=== PATIENT | male | born 1955 | race Caucasian/White ===

== ENCOUNTER 2016-11-12 09:18 | Inpatient (IN) | payer OTHER ==
--- NOTE | 2016-11-12 09:22 | PDOC ---
History of Present Illness <Aba Hall - Last Filed: 11/12/16 12:53> - General History Source: Family, Spouse Exam Limitations: No Limitations - History of Present Illness Initial Comments: 11/12/16 13:22 The patient is a 61 year old male, with significant past medical history of bipolar disorder, HTN, HLD, who presents to the emergency department via EMS with his and daughter complaining of lethargy, hypotension, and diarrhea x 1 week. The patient was unable to ambulate into the ER today secondary to lethargy. He was last ambulatory yesterday. The patients daughter states that the patient has been extremely tired and out of it over the past week. Yesterday , he experienced 10 episodes of yellow diarrhea. His family took him to [facility] ER where they treated him with IV fluids and performed an abdominal sonogram with normal results. The patients daughter explained that the patient was diagnosed with bipolar disorder 4 years ago. He has had manic episodes in the past followed by periods of tiredness, but the patient has never been this out of it. Denies sick contact. Denies recent travel. Denies fever, chills, nausea,vomiting. Allergies: None reported Social Hx: The patient was [place] in and [place] the [place] many years ago. PCP: His doctors are located in [facility] and affiliated with [facility]. <Sherice Tolliver - Last Filed: 11/12/16 13:23> - General Chief Complaint: Blood Pressure Problem Stated Complaint: HYPOTENSION Time Seen by Provider: 11/12/16 09:19 Past History - Psycho/Social/Smoking Cessation Hx Suicidal Ideation: No Smoking History: Never smoked Information on smoking cessation initiated: No Hx Alcohol Use: No Drug/Substance Use Hx: No <Aba Hall - Last Filed: 11/12/16 12:53> <Sherice Tolliver - Last Filed: 11/12/16 13:23> - Past Medical History Allergies/Adverse Reactions: Allergies Allergy/AdvReac Type Severity Reaction Status Date / Time No Known Allergies Allergy Verified 11/12/16 09:22 Home Medications: Ambulatory Orders Amlodipine Besylate 5 mg PO DAILY 11/12/16 Atenolol [Tenormin -] 25 mg PO DAILY 11/12/16 [place] Carbonate [Eskalith -] 150 mg PO TID 11/12/16 Losartan Potassium 100 mg PO DAILY 11/12/16 Quetiapine Fumarate [Seroquel -] 400 mg PO HS 11/12/16 Simvastatin 20 mg PO HS 11/12/16 Valproic Acid [Depakene] 250 mg PO BID 11/12/16 Review of Systems - Review of Systems Able to Perform ROS?: Yes Comments:: 11/12/16 13:22 CONSTITUTIONAL: The patient is lethargic; however he denied any specific complaints other than malaise and tiredness. No reported: Fever, Chills, Diaphoresis, Loss of Appetite HEENT: No reported: Rhinorrhea, Nasal Congestion, Throat Pain, Throat Swelling, Difficulty Swallowing, Mouth Swelling, Ear Pain, Eye Pain, Visual Changes CARDIOVASCULAR: No reported: Chest Pain, Syncope, Palpitations, Irregular Heart Rate, Lightheadedness, Peripheral Edema RESPIRATORY: No reported: Cough, Shortness of Breath, SOB with Exertion, Orthopnea, Wheezing , Stridor, Hemoptysis GASTROINTESTINAL: No reported: Abdominal pain, Abdominal Distension, Nausea, Vomiting, Diarrhea, Constipation, Melena, Hematochezia GENITOURINARY: No reported: Dysuria, Frequency, Urgency, Hesitancy, Flank Pain, Genital Pain MUSCULOSKELETAL: No reported: Myalgia, Arthralgia, Joint Swelling, Back pain, Neck Pain SKIN: No reported: Rash, Itching, Pallor HEMEATOLOGIC/IMMUNOLOGIC: No reported: Easy Bleeding, Easy Bruising, Lymphadenopathy, Frequent infections ENDOCRINE: No reported: Unexplained Weight Gain, Unexplained Weight Loss, Heat Intolerance , Cold Intolerance NEUROLOGIC: No reported: Headache, Focal Weakness, Paresthesias, Vertigo, Lightheadedness, Unsteady Gait, Seizure, Mental Status Changes, Incontinence PSYCHIATRIC: No reported: Anxiety, Depression <Sherice Tolliver - Last Filed: 11/12/16 13:23> *Physical Exam - Vital Signs Last Vital Signs Temp Pulse Resp BP Pulse Ox 97.9 F 115 H 20 107/84 96 11/12/16 09:20 11/12/16 09:20 11/12/16 09:20 11/12/16 09:20 11/12/16 09:20 <Aba Hall - Last Filed: 11/12/16 12:53> - Vital Signs Last Vital Signs Temp Pulse Resp BP Pulse Ox 97.9 F 115 H 20 107/84 96 11/12/16 09:20 11/12/16 09:20 11/12/16 09:20 11/12/16 09:20 11/12/16 09:40 - Physical Exam Comments: 11/12/16 13:22 GENERAL: The patient is lethargic/somnolent but easily arousable to verbal stimulus HEAD: Normocephalic, atraumatic. EYES: extraocular movements intact, sclera anicteric, conjunctiva clear. ENT: Normal voice, dry mucous membranes. NECK: Normal range of motion, supple LUNGS: Breath sounds equal, clear to auscultation bilaterally. No wheezes, no rhonchi, no rales. HEART: tachycardic, no m/r/g ABDOMEN: Soft, nontender, normoactive bowel sounds. No guarding, no rebound. . No CVA tenderness EXTREMITIES: Normal range of motion, no edema. moving all 4 extremities spontaneously and symmetrically NEUROLOGICAL: No facial assymetry, Normal speech, strenth symmetric 5/5 in upper /lower extremities, senation intact/symmetric in extremities PSYCH: flat affect SKIN: Warm, Dry, normal turgor, <EstaticoSebastianSherice - Last Filed: 11/12/16 13:23> Heart Score/ECG Review - ECG Impressions Comment:: 11/12/16 10:29 Twelve-lead EKG was performed and reviewed by me. There is normal sinus rhythm with a rate of 113 The axis is normal. The intervals are normal. There is normal R wave progression nonSpecific ST-T wave changes <Aba Hall - Last Filed: 11/12/16 12:53> ED Treatment Course - LABORATORY CBC & Chemistry Diagram: 11/12/16 09:27 11/12/16 09:27 <Aba Hall - Last Filed: 11/12/16 12:53> - LABORATORY CBC & Chemistry Diagram: 11/12/16 09:27 11/12/16 09:27 - ADDITIONAL ORDERS Additional order review: Laboratory Results 11/12/16 10:00 VBG pH 7.22 L* POC VBG pCO2 41.6 POC VBG pO2 37.7 Mixed VBG HCO3 16.5 L 11/12/16 09:27 RBC 4.51 MCV 89.9 MCHC 32.0 RDW 13.2 MPV 9.8 Neutrophils % 82.9 H Lymphocytes % 6.6 L Monocytes % 10.3 H Eosinophils % 0.0 Basophils % 0.2 - RADIOLOGY Radiograph Interpretation: 11/12/16 10:25 EXAM#: TYPE/EXAM: RESULT: [id number] RAD/CHEST X-RAY PORTABLE* Baseline Portable chest x ray, AP semierect A frontal view of the chest was obtained. The cardiac silhouette is within normal limits in size. The lung is clear. Mediastinum and visualized osseous structures appear intact . Impression: Unremarkable examination without evidence of acute lung disease Reported By: Terrence Bacon MD 11/12/16 1018 11/12/16 13:01 EXAM#: TYPE/EXAM: RESULT: [id number] CT/HEAD CT WITHOUT CONTRAST Change in mental status. CT scan of the brain. A noncontrast CT scan of the brain was performed. There is moderate volume loss and ventricular dilatation. Moderate chronic microvascular ischemic changes are present No gross mass lesion, focal infarct or intracranial hemorrhage is seen. Mild deviation of the nasal septum to the right and minimal mucosal thickening in the ethmoid air cells. Calcification of the cavernous carotid arteries are present. The mastoid air cells are well aerated and the calvarium is intact. Impression: Moderate atrophy and chronic microvascular ischemic changes without evidence of acute intracranial pathology. Reported By: Terrence Bacon MD 11/12/16 1208 - Medications Given in the ED: ED Medications Discontinued Medications Generic Name Dose Route Start Last Admin Trade Name Freq PRN Reason Stop Dose Admin Sodium Chloride 1,000 mls @ 1,000 mls/hr 11/12/16 09:23 11/12/16 10:00 Normal Saline - IV 11/12/16 10:22 1,000 mls/hr .Q1H ONE Administration <Sherice Tolliver - Last Filed: 11/12/16 13:23> Medical Decision Making - Medical Decision Making 11/12/16 09:40 61y M hx of ?Bipolar disorder, htn, hl presents with lethargy/generalized weakness for approx 1 week - the pts daughter states he has been very tired/ sleepy for approx 1 week, also has been having multiple episodes of non bloody, non melanotic diarrhea an dintermittent abd pain -was seen at [facility] yetserday got fluids, labs and US and pt ws d/c because he was feeling improved. Pt is very somnolent here, but he is easily arousable to verbal stimulus. Pts exam is otherwise unremarkable, w/o abd tenderness, moving all 4 extremities spontaneously, responding to verbal commands appropriately. vitals noted for tachycardia to 115, afebrile rectally differential includes possible metabolic derangement, psychiatric disease, cva, intoxication will obtain cbc, cmp, tox screen, etoh level, will give fluids for fluid resusitation, pt placed on cone classifier tender ct head to r/o cva A portion of this note was documented by scribe services under my direction. I have reviewed the details of the note, within reason, and agree with the documentation with the following case summary and management plan written by me 11/12/16 11:12 The patient's blood work was reviewed there is noted to be mild leukocytosis the patient's electrolytes were reviewed and noted to have a creatinine of 5.5 with a BUN pof 33 K is normal mag is low - will replete cxr negative lactic acid elevated to 5 will continue agressive fluid hydration will reach out to [facility] regarding the pts bsaeline creatinine simin llikely need admission for further management 11/12/16 11:18 called [facility] - lab work yesterday - Evaluated for RLQ pain, dc diagnosis diarrhea, abd pain on arrival T normal, Pulse 128, bp 100/62 cbc - wbc 11.6, no diff present bicarb - 19.6 cr 3.0, bun 20 lithium level 1.8 (nl 1.2) ua - +rbc, no wbc, specific gravity 1.30 US - right renal cysts, 'gb not identified', no masses in liver, 07/21/16 - Cr - 1.2, BUN 17, 11/12/16 12:[address] neg for acute changes pt clinically seems improved, more arousable suspect his AMS secondary to dehdration/metabolic dernagement will recheck vbg and lactic acid will admit for further management stable for med/surg HR now 106, will continue 11/12/16 12:[address] Adam agreed [facility] admission for further management of ARF and AMS stable for med/surg. Case discussed in detail with admitting physician including history, physical exam and ancillary studies. Admitting physician has assumed care for the patient, will follow all pending diagnostics and will complete the evaluation and treatment. CRITICAL CARE DOCUMENTATION: I spent ~35 minutes of Critical Care time, excluding separately billable procedures, involving high complexity decision making to assess, manipulate and support vital system function(s) to treat single or multiple vital organ system failure and/or to prevent further life threatening deterioration of the patient' s condition. <Aba Hall - Last Filed: 11/12/16 12:53> *DC/Admit/Observation/Transfer - Discharge Dispostion Admit: Yes <Aba Hall - Last Filed: 11/12/16 12:53> - Attestations Scribe Attestion: 11/12/16 13:23 Documentation prepared by LINDA Cerna, acting as medical equipment sales for Aba Hall MD. <Sherice Tolliver - Last Filed: 11/12/16 13:23> Diagnosis at time of Disposition: Hypomagnesemia Acute renal failure Qualifiers: Acute renal failure type: unspecified Qualified Code(s): N17.9 - Acute kidney failure, unspecified Altered mental state Qualifiers: Altered mental status type: somnolence Qualified Code(s): R40.0 - Somnolence Diarrhea Qualifiers: Diarrhea type: unspecified type Qualified Code(s): R19.7 - Diarrhea, unspecified - Referrals
[2016-11-12] MEDS ORDERED: SODIUM CHLORIDE 1,000 ML IV ONE ×2 (09:23→10:04)
[2016-11-12 10:03] LABS: BASOPHIL 0.2 % (0-2.0); MCH 28.8 pg (25.7-33.7); MEAN CELL VOLUME 89.9 fl (80-96); MEAN PLT VOLUME 9.8 fl (7.5-11.1); NEUTROPHILS 82.9 % (42.8-82.8); RDW 13.2 % (11.9-15.9); WHITE BLOOD COUNT 13.8 K/mm3 (4.0-10.0)
[2016-11-12 10:18] LABS: VENOUS BLOOD GAS HCO3 16.5 meq/L (19-25)
[2016-11-12 10:23] LABS: VENOUS PH 7.22 (7.32-7.42)
[2016-11-12 10:39] LABS: MAGNESIUM 1.5 mg/dL (1.8-2.4); PHOSPHOROUS 4.6 mg/dL (2.5-4.9)
[2016-11-12 10:40] LABS: ALBUMIN 3.2 g/dl (3.4-5.0); ANION GAP 13 (8-16); BILIRUBIN,TOTAL 0.5 mg/dL (0.2-1.0); CALCIUM 7.5 mg/dL (8.5-10.1); CO2 18 mmol/L (21-32); CREATININE 5.5 mg/dL (0.7-1.3); GLUCOSE,RANDOM 118 mg/dL (74-106); INR 1.05 (0.82-1.09); PROTHROMBIN TIME (PATIENT) 11.6 SEC (9.98-11.88); SGOT/AST 21 U/L (15-37); SGPT/ALT 19 U/L (12-78); TOT PROT 5.9 g/dl (6.4-8.2)
[2016-11-12 10:42] LABS: ALK PHOS 53 U/L (45-117); TROPONIN I < 0.02 ng/ml (0.00-0.05)
[2016-11-12] MEDS ORDERED: MAGNESIUM SULF 50% (8.12 MEQ/2 ML-1 GM VIAL) IVPB ONE (10:47)
[2016-11-12 10:53] LABS: URINE APPEARANCE CLOUDY; URINE BILIRUBIN NEGATIVE (NEGATIVE); URINE COLOR DKYELLOW; URINE GLUCOSE (UA) NEGATIVE (NEGATIVE); URINE KETONE NEGATIVE (NEGATIVE); URINE LEUK ESTERASE NEGATIVE (NEGATIVE); URINE NITRITE NEGATIVE (NEGATIVE); URINE UROBILINOGEN NEGATIVE E.U./dl (0.2-1.0)
--- NOTE | 2016-11-12 10:58 | EKG ---
Test Reason : Blood Pressure : / mmHG Vent. Rate : 113 BPM Atrial Rate : 113 BPM P-R Int : 162 ms QRS Dur : 084 ms QT Int : 352 ms P-R-T Axes : 046 001 102 degrees QTc Int : 482 ms SINUS TACHYCARDIA WITH PREMATURE SUPRAVENTRICULAR COMPLEXES NONSPECIFIC ST AND T WAVE ABNORMALITY ABNORMAL ECG NO PREVIOUS ECGS AVAILABLE Confirmed by RENEA POLANCO MD ([id number]) on 11/12/2016 10:57:56 AM Referred By: Confirmed By:RENEA POLANCO MD
[2016-11-12 11:01] LABS: URINE BLOOD 3+ (NEGATIVE); URINE PROTEIN 1+ (NEGATIVE)
[2016-11-12] MEDS ORDERED: MAGNESIUM SULF 50% (8.12 MEQ/2 ML-1 GM VIAL) ONE (11:04)
[2016-11-12 11:28] LABS: URINE BACTERIA RARE /hpf (NONE SEEN); URINE RBC 204 /hpf (0-3); URINE WBC 26 /hpf (3-5); YEAST MANY
[2016-11-12 12:04] LABS: PLATELET COUNT 155 K/MM3 (134-434); PLATELET ESTIMATE ADEQUATE (NORMAL)
--- NOTE | 2016-11-12 13:03 | HP ---
CHIEF COMPLAINT: "I feel sick" PCP: HISTORY OF PRESENT ILLNESS: This is a 61 yo M with PMH of HTN, HLD, dementia, bipolar d/o, who presents with diarrhea and altered mental status. history gathered from patient and family. He felt well until 4 days ago, when he developed severe yellow diarrhea (10 ep/day) w/o abdominal pain. He denies sick contacts, n or vomiting. He has lost his appetite and has not been drinking much water. He denies f/c. He has some sob, no cough. this has never happened before. He became so weak over the past 24 hr that he has been unable to walk. Family reports that over the past 24 hr he developed slurred speech. he was in [facility] yesterday where he had a normal abd us and was given IVF. He had a colonoscopy many years ago but is unsure of result. He had no knows history of kidney disease. His creat in [facility] was 3. In ED here he was straight cathed that caused urethral bleeding. IN ed he is afebrile, tachycardic, relatively hypotensive 100/68 and hypoxic high 80's. ER course was notable for: (1) IVF, Mag (2)labs (3)abd CT Recent Travel: denies PAST MEDICAL HISTORY: as above PAST SURGICAL HISTORY: none Social History: lives at home, retired Smoking: denies Alcohol: 2 drinks per week Drugs: denies Family History: no history of colon/gi ca Allergies No Known Allergies Allergy (Verified 11/12/16 09:22) HOME MEDICATIONS: Home Medications Medication Instructions Recorded Amlodipine Besylate 5 mg PO DAILY 11/12/16 Atenolol [Tenormin -] 25 mg PO DAILY 11/12/16 [place] Carbonate [Eskalith -] 150 mg PO TID 11/12/16 Losartan Potassium 100 mg PO DAILY 11/12/16 Quetiapine Fumarate [Seroquel -] 400 mg PO HS 11/12/16 Simvastatin 20 mg PO HS 11/12/16 Valproic Acid [Depakene] 250 mg PO BID 11/12/16 REVIEW OF SYSTEMS CONSTITUTIONAL: Absent: fever, chills HEENT: Absent: rhinorrhea, nasal congestion, throat pain CARDIOVASCULAR: Absent: chest pain, syncope, palpitations RESPIRATORY: Absent: orthopnea, wheezing, stridor, hemoptysis GASTROINTESTINAL: Absent: abdominal pain, nausea, vomiting, constipation, melena, hematochezia GENITOURINARY: Absent: dysuria, flank pain, genital pain MUSCULOSKELETAL: Absent: myalgia, arthralgia SKIN: Absent: rash, itching, pallor HEMATOLOGIC/IMMUNOLOGIC: Absent: frequent infections ENDOCRINE: Absent: heat intolerance, cold intolerance NEUROLOGIC: Absent: headache, focal weakness or paresthesias PSYCHIATRIC: Absent: anxiety, depression, suicidal or homicidal ideation, hallucinations. PHYSICAL EXAMINATION GENERAL: Awake, alert, and fully oriented, lethargic HEAD: Normal with no signs of trauma. EYES: Pupils equal, round and reactive to light, extraocular movements intact, sclera anicteric, conjunctiva clear. EARS, NOSE, THROAT: Moist mucous membranes. NECK: supple without JVD LUNGS: diffuse ronchi HEART: tachy rate and regular rhythm, normal S1 and S2 ABDOMEN: Soft, nontender, moderately distended, reduced bowel sounds, no mass MUSCULOSKELETAL: No CVA tenderness. UPPER EXTREMITIES: 1+ pulses, warm, well-perfused. No peripheral edema. LOWER EXTREMITIES: 1+ pulses, warm, well-perfused. No peripheral edema. NEUROLOGICAL: Cranial nerves II-XII grossly intact. Slurred speech. PSYCHIATRIC: Cooperative. Good eye contact. SKIN: Warm, dry ASSESSMENT/PLAN: This is a 61 yo M with PMH of HTN, HLD, dementia, bipolar d/o, who presents with diarrhea and altered mental status. Septic shock -possible GI vs Renal souce -lactic acidisis trending down 3.5->2.9, trend, keep hydration -IVF NS @ 125 -IV rocephin, PO flagyl -Diarrhea: stool oova parasites, gram stain, leukocytes, c diff -no BM in hospital so far -blood and urine cultures -strict monitoring of urine output MARINA on possible CKD -creat 5.5 (was 3 24 hr ago) -due to volume contraction vs septic shock -IV hydration -Renal US -renal consult Slurred speech -r/o CVA -Head CT negative -MRI brain w/o contrast -ASA -Hep -TTE -neuro consult -neuro checks q4h Hypotension -hold BP meds -treat underlying dehydration and sepsis SOB -CXR unremarkable -duonebs -d dimer Penile bleed -s/p traumatic straight cath -monitor voiding/bladder scans -breen if not voiding FEN NS@125 replete hypomagnesemia and hyponatremia NPO Dispo: admit med neptali Problem List - Problem (1) Acute renal failure Code(s): N17.9 - ACUTE KIDNEY FAILURE, UNSPECIFIED Qualifiers: Acute renal failure type: unspecified Qualified Code(s): N17.9 - Acute kidney failure, unspecified (2) Altered mental state Code(s): R41.82 - ALTERED MENTAL STATUS, UNSPECIFIED Qualifiers: Altered mental status type: somnolence Qualified Code(s): R40.0 - Somnolence (3) Diarrhea Code(s): R19.7 - DIARRHEA, UNSPECIFIED Qualifiers: Diarrhea type: unspecified type Qualified Code(s): R19.7 - Diarrhea, unspecified (4) Hypomagnesemia Code(s): E83.42 - HYPOMAGNESEMIA (5) Hypovolemia Code(s): E86.1 - HYPOVOLEMIA (6) Septic shock Code(s): A41.9 - SEPSIS, UNSPECIFIED ORGANISM R65.21 - SEVERE SEPSIS WITH SEPTIC SHOCK Visit type - Emergency Visit Emergency Visit: Yes ED Registration Date: 11/12/16 Care time: The patient presented to the Emergency Department on the above date and was hospitalized for further evaluation of their emergent condition. - New Patient This patient is new to me today: Yes Date on this admission: 11/12/16 - Critical Care Critical Care patient: No
[2016-11-12 13:47] LABS: VENOUS PH 7.22 (7.32-7.42)
[2016-11-12 13:48] LABS: VENOUS BLOOD GAS HCO3 14.6 meq/L (19-25)
[2016-11-12 13:57] VITALS: BMI 35.9
--- NOTE | 2016-11-12 14:24 | HP ---
CHIEF COMPLAINT: Diarrhea x 4 days PCP: Dr Titus HISTORY OF PRESENT ILLNESS: 61 year old male presents to ER accompanied by his complaining of 4 day history of diarrhea 6-8 episodes a day. Denies fever, nausea or vomiting. Reported recent use of antibiotics due to '' dental problem". He was evaluated at [facility] day ago for same problem , was noted to have renal insufficiency which was attributed to dehydration and he was sent home. It is difficult to obtain history directly from patient due to slurred speech. As per daughter and slurred speech is recent in onset, since yesterday. Recent Travel: NO PAST MEDICAL HISTORY: Bipolar disorder Dementia early onset HTN Hyperlipidemia Obesity Nephrolithiasis PAST SURGICAL HISTORY: Social History: Smoking: quit 10 years ago , 20p/year Alcohol:Denies Drugs: Denies Family History: Allergies No Known Allergies Allergy (Verified 11/12/16 09:22) HOME MEDICATIONS: Home Medications Medication Instructions Recorded Amlodipine Besylate 5 mg PO DAILY 11/12/16 Atenolol [Tenormin -] 25 mg PO DAILY 11/12/16 [place] Carbonate [Eskalith -] 300 mg PO TID 11/12/16 Losartan Potassium 100 mg PO DAILY 11/12/16 Quetiapine Fumarate [Seroquel -] 400 mg PO HS 11/12/16 Simvastatin 20 mg PO HS 11/12/16 Valproic Acid [Depakene] 250 mg PO BID 11/12/16 REVIEW OF SYSTEMS CONSTITUTIONAL: Absent: fever, chills, diaphoresis, generalized weakness, malaise, loss of appetite, weight change HEENT: Absent: rhinorrhea, nasal congestion, throat pain, throat swelling, difficulty swallowing, mouth swelling, ear pain, eye pain, visual changes CARDIOVASCULAR: Absent: chest pain, syncope, palpitations, irregular heart rate, lightheadedness , peripheral edema RESPIRATORY: Absent: cough, dyspnea with exertion, orthopnea, wheezing, stridor, hemoptysis. Positive for shortness of breath GASTROINTESTINAL: Absent: abdominal pain, abdominal distension, nausea, vomiting constipation, melena, hematochezia. Positive for diarrhea. GENITOURINARY: Absent: dysuria, frequency, urgency, hesitancy, hematuria, flank pain, genital pain MUSCULOSKELETAL: Absent: myalgia, arthralgia, joint swelling, back pain, neck pain SKIN: Absent: rash, itching, pallor HEMATOLOGIC/IMMUNOLOGIC: Absent: easy bleeding, easy bruising, lymphadenopathy, frequent infections ENDOCRINE: Absent: unexplained weight gain, unexplained weight loss, heat intolerance, cold intolerance NEUROLOGIC: Absent: headache dizziness, unsteady gait, seizure, mental status changes, bladder or bowel incontinence. Positive for slurred speech PSYCHIATRIC: Absent: anxiety, depression, suicidal or homicidal ideation, hallucinations. PHYSICAL EXAMINATION Vital Signs - 24 hr 11/12/16 13:35 Pulse Rate 97 H Respiratory 20 Rate Blood Pressure 106/67 O2 Sat by Pulse 91 L Oximetry (%) GENERAL: Awake, alert, and fully oriented, appears anxious and short of breath . HEAD: Normal with no signs of trauma.Increased neck circumference. EYES: Pupils equal, round and reactive to light, extraocular movements intact, sclera anicteric, conjunctiva clear. No lid lag. EARS, NOSE, THROAT: Ears normal, nares patent, oropharynx clear without exudates. DRY mucous membranes.Poor dentition. Dentures are out . NECK: Normal range of motion, supple without lymphadenopathy, JVD, or masses. LUNGS: Breath sounds equal, clear to auscultation bilaterally. B/L scattered ronchi HEART: Regular rate and rhythm, normal S1 and S2 without murmur, rub or gallop. ABDOMEN: Soft, nontender,obese , not distended, normoactive bowel sounds, no guarding, no rebound, no masses. No hepatomegaly or splenomegaly. MUSCULOSKELETAL: Normal range of motion at all joints. No bony deformities or tenderness. No CVA tenderness. UPPER EXTREMITIES: 2+ pulses, warm, well-perfused. No cyanosis. No clubbing. No peripheral edema. LOWER EXTREMITIES: 2+ pulses, warm, well-perfused. No calf tenderness. No peripheral edema. NEUROLOGICAL: Unable to deviate tongue to the right . Dysarthria. Unsteady gait , unable to fully evaluate due to risk of fall. PSYCHIATRIC: Cooperative. Good eye contact. Appropriate mood and affect. SKIN: Warm, dry, normal turgor, no rashes or lesions noted, normal capillary refill. Urine Test Results Urine Color Dkyellow 11/12/16 09:27 Urine Appearance Cloudy 11/12/16 09:27 Urine pH 5.0 (5.0-8.0) 11/12/16 09:27 Ur Specific [place] 1.015 (1.001-1.035) 11/12/16 09:27 Urine Protein 1+ (NEGATIVE) H 11/12/16 09:27 Urine Glucose (UA) Negative (NEGATIVE) 11/12/16 09:27 Urine Ketones Negative (NEGATIVE) 11/12/16 09:27 Urine Blood 3+ (NEGATIVE) H 11/12/16 09:27 Urine Nitrite Negative (NEGATIVE) 11/12/16 09:27 Urine Bilirubin Negative (NEGATIVE) 11/12/16 09:27 Ur Leukocyte Esterase Negative (NEGATIVE) 11/12/16 09:27 Urine RBC 204 /hpf (0-3) 11/12/16 09:27 Urine WBC 26 /hpf (3-5) 11/12/16 09:27 Ur Epithelial Cells Rare /hpf (FEW) 11/12/16 09:27 Urine Bacteria Rare /hpf (NONE SEEN) 11/12/16 09:27 Abnormal Lab Results 11/12/16 11/12/16 11/12/16 09:27 09:27 09:27 WBC 13.8 H Neutrophils % 82.9 H Lymphocytes % 6.6 L Monocytes % 10.3 H VBG pH POC VBG pCO2 POC VBG pO2 Mixed VBG HCO3 Sodium 135 L Carbon Dioxide 18 L BUN 33 H Creatinine 5.5 H Random Glucose 118 H Lactic Acid Calcium 7.5 L Magnesium Total Protein 5.9 L Albumin 3.2 L Urine Protein 1+ H Urine Blood 3+ H 11/12/16 11/12/16 11/12/16 09:27 09:50 10:00 WBC Neutrophils % Lymphocytes % Monocytes % VBG pH 7.22 L* POC VBG pCO2 POC VBG pO2 Mixed VBG HCO3 16.5 L Sodium Carbon Dioxide BUN Creatinine Random Glucose Lactic Acid 3.524 H* Calcium Magnesium 1.5 L Total Protein Albumin Urine Protein Urine Blood 11/12/16 11/12/16 12:40 12:46 WBC Neutrophils % Lymphocytes % Monocytes % VBG pH 7.22 L* POC VBG pCO2 36.7 L POC VBG pO2 143.0 H D Mixed VBG HCO3 14.6 L* Sodium Carbon Dioxide BUN Creatinine Random Glucose Lactic Acid 2.902 H* Calcium Magnesium Total Protein Albumin Urine Protein Urine Blood CXR shows no acute pulmonary disease . Problem List 1. ARF 2. Hypotension 3. Hypoxia 4. Hypomagnesemia 5. Abnormal UA 6. Elevated Lactate Level 7. Leukocytosis 8. Slurred speech new onset ASSESSMENT/PLAN: 1. Acute renal failure - in presence of 4 day hhistory of diarrhea. Possibly pre renal. Yesterday Cr was around 3. - IV Fluids - Monitor Cr - Renal US - check post void residual / bladder scan - Nephrology consult 2. Sepsis ( borderline hypotension , leukocytosis , elevated lactate ) due to possible UTI - Rocephin once - await cultures - c/w fluids and trend lactate -blood cultures 3. Hypoxia - r/o PE , high risk - supplement 02 - nebulizers PRN - ddimers , if posistive -r/o PE - ECHO 5. Dysarthria- 1-2 days of duration . R/O CVA . - MRI brain - ASA - Statins - Neurology evaluation . 6 . History of bipolar disorder - check Depakote and [place] level and reinstate meds if within theraputic range. 7. DVT PPX - heparin SC Admit as an INPATIENT Length of stay expectation is greater then 2 midnights. Visit type - Emergency Visit Emergency Visit: Yes ED Registration Date: 11/12/16 Care time: The patient presented to the Emergency Department on the above date and was hospitalized for further evaluation of their emergent condition. - New Patient This patient is new to me today: Yes Date on this admission: 11/12/16 - Critical Care Critical Care patient: No
[2016-11-12] MEDS ORDERED: ALBUTEROL SO4 2.5/IPRATROPIUM 0.5 INH SOL 3 ML VIAL.NEB. NEB PRN (14:42)
[2016-11-12] MEDS ORDERED: SODIUM CHLORIDE 1,000 ML IV SCH ×2 (14:45→17:15)
--- NOTE | 2016-11-12 15:26 | CON.NEURO ---
Consult Consult Specialty:: NEUROLOGY Reason for Consultation:: dysarthria - History of Present Illness History of Present Illness: 61 year old male with pmh. bipolar disease, on lithium, HTN, HLD, back pain presents to ER accompanied by his complaining of 4 day history of diarrhea 6-8 episodes a day. Denies fever, nausea or vomiting. Reported recent use of antibiotics due to '' dental problem". He was evaluated at [facility] day ago for same problem , was noted to have renal insufficiency which was attributed to dehydration and he was sent home. As per daughter and the patient has slurred speech since yesterday. - Alcohol/Substance Use Hx Alcohol Use: No - Smoking History Smoking history: Former smoker Have you smoked in the past 12 months: No If you are a former smoker, when did you quit?: 10 YRS AGO Home Medications - Allergies Allergies/Adverse Reactions: Allergies Allergy/AdvReac Type Severity Reaction Status Date / Time No Known Allergies Allergy Verified 11/12/16 09:22 - Home Medications Home Medications: Ambulatory Orders Amlodipine Besylate 5 mg PO DAILY 11/12/16 Atenolol [Tenormin -] 25 mg PO DAILY 11/12/16 [place] Carbonate [Eskalith -] 300 mg PO TID 11/12/16 Losartan Potassium 100 mg PO DAILY 11/12/16 Quetiapine Fumarate [Seroquel -] 400 mg PO HS 11/12/16 Simvastatin 20 mg PO HS 11/12/16 Valproic Acid [Depakene] 250 mg PO BID 11/12/16 Review of Systems - Review of Systems Constitutional: reports: No Symptoms, Lethargy, Weakness Eyes: reports: No Symptoms HENT: reports: No Symptoms Neck: reports: No Symptoms Cardiovascular: reports: No Symptoms Respiratory: reports: No Symptoms Gastrointestinal: reports: Diarrhea Genitourinary: reports: No Symptoms Breasts: reports: No Symptoms Reported Musculoskeletal: reports: Muscle Weakness Neurological: reports: No Symptoms Endocrine: reports: No Symptoms Hematology/Lymphatic: reports: No Symptoms Psychiatric: reports: Other (bipolar) Physical Exam-Neuro Vital Signs: Vital Signs Temperature 97.5 F L 11/12/16 15:02 Pulse Rate 94 H 11/12/16 15:02 Respiratory Rate 20 11/12/16 15:02 Blood Pressure 97/50 11/12/16 15:02 O2 Sat by Pulse Oximetry (%) 91 L 11/12/16 13:35 Constitutional: Yes: Mild Distress Neck: Yes: Supple, Trachea Midline Cardiovascular: Yes: Regular Rate and Rhythm, S1, S2 Respiratory: Yes: Regular, CTA Bilaterally Gastrointestinal: Yes: Abdomen, Obese, Distention, Hypoactive Bowel Sounds, Other (diarrhea) Renal/: Yes: Anuria Musculoskeletal: Yes: WNL Edema: Yes Edema: LUE: 1+, RUE: 1+, LLE: 1+, RLE: 1+ Psychiatric: Yes: Alert, Oriented Labs: INR, PTT INR 1.05 (0.82-1.09) 11/12/16 09:27 - Neuro Exam Level Of Consciousness: Yes: Oriented to Person, Oriented to Place, Oriented to Time Eyes: Yes: PERRLA Speech: Slurred Dominant Hand: Right Cranial Nerves II-XII Intact: Yes Gag: Present DTR's: 1+ Left Bicep, 1+ Right Bicep, 1+ Left Tricep, 1+ Right Tricep, 1+ Left Brachioradialis, 1+ Right Brachioradialis, 1+ Left Achilles, 1+ Right Achilles Babinski: Absent Response to light touch: Normal Response to pain prick: Normal Response to temperature: Normal Movement Disorders: Asterixis Coordination: Normal: Finger to Nose (ataxia FTN bilaterally, + asterixis) Motor Strength: 5/5: Left Arm, Right Arm, Left Leg, Right Leg Gait: Deferred NIH Stroke Scale - Total Score NIH Stroke Scale Score: 0 Imaging - Results Cat Scan: Report Reviewed, Image Reviewed Assessment/Plan 61 year old male with pmh. bipolar disease, on lithium for five years, depakene , HTN, HLD presents to ER accompanied by his complaining of 4 day history of diarrhea 6-8 episodes a day. Denies fever, nausea or vomiting. Reported recent use of antibiotics due to '' dental problem". He was evaluated at [facility] day ago for same problem , was noted to have renal insufficiency which was attributed to dehydration and he was sent home. As per daughter and the patient has slurred speech since yesterday. No focal neurological deficit. + asterixis. + mild ataxia FTN bilaterally Impression: metabolic encephalopathy - renal/hepatic, dehydration, dysarthria, generalized weakness. Plan: - replace electrolytes, correct metabolic acidosis, correct anion gap - check lithium level. - DVT prophylaxis with heparin sq. - continues asa , statin, depakene, keep sbp 120-130mmHg. Thank you for this consult.
[2016-11-12] MEDS ORDERED: cefTRIAXone 1 GM/50 ML BAG (PRE-DOCKED) IVPB ONE (15:30)
[2016-11-12] MEDS ORDERED: metroNIDAZOLE 500 MG TABLET PO ONE (15:37)
[2016-11-12] MEDS ORDERED: ASPIRIN COATED 81 MG TABLET.EC PO SCH (15:45)
--- NOTE | 2016-11-12 16:03 | CONSULT ---
Admitting History and Physical - Primary Care Physician PCP: Rylan Adam - Admission History of Present Illness: Per EMR: "Initial Comments: 11/12/16 13:22 The patient is a 61 year old male, with significant past medical history of bipolar disorder, HTN, HLD, who presents to the emergency department via EMS with his and daughter complaining of lethargy, hypotension, and diarrhea x 1 week. The patient was unable to ambulate into the ER today secondary to lethargy. He was last ambulatory yesterday. The patients daughter states that the patient has been extremely tired and out of it over the past week. Yesterday , he experienced 10 episodes of yellow diarrhea. His family took him to [facility] where they treated him with IV fluids and performed an abdominal sonogram with normal results. The patients daughter explained that the patient was diagnosed with bipolar disorder 4 years ago. He has had manic episodes in the past followed by periods of tiredness, but the patient has never been this out of it. " Pt reports that he has had diarrhea for 4 days and feels very weak. His reports a change in his speech production, describing it as not clear since yesterday. History Source: Patient, Medical Record Limitations to Obtaining History: Clinical Condition, Language Barrier - Smoking History Smoking history: Former smoker Have you smoked in the past 12 months: No If you are a former smoker, when did you quit?: 10 YRS AGO - Alcohol/Substance Use Hx Alcohol Use: No History - Admission Reason For Visit: ARF,AMS - Diagnostics X-ray: Report Reviewed CT Scan: Report Reviewed - General Mental Status: Alert and Oriented, Awake and Alert, Able to Follow Commands Attention: Intact Ability to Follow Directions: Good Head/Neck Control: WFL - Hearing Hearing: Functional Hearing: Normal Hearing Aide: No Speech Evaluation - Communication Primary Language: GAMBIAN Secondary Language: FAROESE (limited) Communication: Yes: Simple Responses - Speech Production Intelligibility: Yes: Mildly Impaired - Speech Characteristics Voice Loudness: Mildly Soft/Quiet Voice Pitch: Yes: Normal Voice Phonatory-based Quality: Yes: Dysphonia Speech Pattern: Impaired Speech Clarity: < 75% Articulation: Yes: Imprecise Dysfluency: Yes: Tonic (occasional stuttering-like speech) - Swallow Evaluation/Bedside Assessment Current Nutritional Intake: NPO Oral Secretions: Yes: WFL Dentition: Yes: Missing Teeth (few teeth. has dentures) Facial Symmetry at Rest: Symmetrical Facial Symmetry on Retraction: Symmetrical Facial Movement: Controlled Against Resistance Opening: Normal Against Resistance Closing: Normal Pucker Lips: Normal Smile: Normal Lingual Movement: Normal Lingual Speed of Movement: Normal Lingual Movement Strgth Against Opposition: Normal Lingual Movement Characteristics: Normal Velopharyngeal Movement: Normal Laryngeal Elevation: WFL Laryngeal Movement: Able to Palpate Rate of Intake: WFL Bolus Size: WFL Labial Seal: WFL Chewing: WFL Oral Prep Time: WFL A-P Transit: WFL Pocketing: None Timing of Swallow: WFL Coughing/Throat Clear: No Change in Voice: No Recommendations - Speech Evaluation, Impression/Plan Impression: Pt is verbal in Monegasque and some Wallisian. O x 3. Dysphonic voice, imprecise articulation and dysfluencies at times. Possibly sec abnormal labs. Diarrhea x 4 days/feeling weak. Swallowing intact - Dysphagia Impressions/Plan Swallowing Skills: WFL *Silent aspiration: cannot be R/O at bedside Dysphagia Treatment Plan: Safe Rate, Elevate HOB during feed - Recommendations Diet Consistency: Regular (with dentures in place for meals. BRAT diet?.) Liquids: Thin Liquids
--- NOTE | 2016-11-12 16:25 | CONSULT ---
Consult - text type - Consultation Consultation Note: Renal Consult for MARINA This is a 61 year old Gentleman with PMhx of Bipolar disorder, Demntia, Hypertension on ARB, Hyperlipidemia, Obesity, Nephrolithiasis who presents with complaints of weakness and diarrhea x 4 days and found to have BUN/Cr of 33/ 5.5. Pt denies any N/V or Abd pain. Pt also reports decreased urine output for 4 days. No new meds or sick contacts. No flank pain. No rash. + NSAID use. On ARB at home. No sob or chest pain. Speech is mumbled which is new as per . Pt is not confused. s/p staright cath in the ED with only 100cc urine output after 2L of IVF. PMhx: As above Allergies: NKDA Family Hx: NC Social Hx: No T/A/D ROS: as per HPI, all other ros negative Home Meds: Home Medications Medication Instructions Recorded Amlodipine Besylate 5 mg PO DAILY 11/12/16 Atenolol [Tenormin -] 25 mg PO DAILY 11/12/16 [place] Carbonate [Eskalith -] 300 mg PO TID 11/12/16 Losartan Potassium 100 mg PO DAILY 11/12/16 Quetiapine Fumarate [Seroquel -] 400 mg PO HS 11/12/16 Simvastatin 20 mg PO HS 11/12/16 Valproic Acid [Depakene] 250 mg PO BID 11/12/16 Vital Signs Temperature 97.5 F L 11/12/16 15:02 Pulse Rate 94 H 11/12/16 15:02 Respiratory Rate 20 11/12/16 15:02 Blood Pressure 97/50 11/12/16 15:02 O2 Sat by Pulse Oximetry (%) 91 L 11/12/16 13:35 Intake & Output 11/09/16 11/10/16 11/11/16 11/12/16 23:59 23:59 23:59 23:59 Weight 236 lb Gen: NAD, awake and alert. Mumbled speech HEENT: NC/AT, MMM, No JVD CVS: RRR, No M/R Lungs: CTA, no rales or wheeze Abd: soft + distension, no tenderness. + BS Ext: no edema, clubbing or cyanosis : No overt bladder distension Neuro: Awake and alert CBC, BMP 11/12/16 09:27 11/12/16 09:27 Current Medications Albuterol/Ipratropium (Duoneb -) 1 amp NEB Q6H PRN PRN Reason: SHORTNESS OF BREATH Aspirin (Ecotrin -) 81 mg PO DAILY LATISHA Atenolol (Tenormin -) 25 mg PO DAILY LATISHA Atorvastatin Calcium (Lipitor -) 10 mg PO HS LATISHA Heparin Sodium (Porcine) (Heparin -) 5,000 unit SQ BID LATISHA Sodium Chloride (Normal Saline -) 1,000 mls @ 100 mls/hr IV ASDIR LATISHA A/P 61 year old Gentleman with PMhx of Bipolar disorder, Demntia, Hypertension on ARB, Hyperlipidemia, Obesity, Nephrolithiasis who presents with complaints of weakness and diarrhea x 4 days and found to have BUN/Cr of 33/5.5. #Acute Renal Failure Differntial includes ATN from NSAIDs/Volume Depletion/ARB vs. HUS (darrhea and renal failure) vs. Obstruction (Hx of stones) Check FeNa to r/o pre-renal vs ATN Check UPCR REnal US to r/o obstruction check C3 and C4 Continue isotonic IVF for now with goal MAP > 65 trend urine output no acute indication for CLOTHES PRESSER Dose all meds for Cr Cl less then 15 #Metabolic acidosis (anion gap and non anion gap) Corrected Anion gap is 15 Secondary to diarrhea + Renal failure Change IVF to 1/2 NS with 75meq of NaCo3 repeat BMP in the evening #Lactic acidosis from volume depletion Trend after IVF volume expansion #Diarrhea stool studies as per primary #AMS/Altered Speech Neuro eval MRI brain pending Thank you Will follow
[2016-11-12] MEDS ORDERED: metroNIDAZOLE 250 MG TABLET PO ONE (17:15)
[2016-11-12 18:04] LABS: CALCIUM 7.3 mg/dL (8.5-10.1); CREATININE 4.7 mg/dL (0.7-1.3)
[2016-11-12] MEDS ORDERED: ACETAMINOPHEN 1000 MG/100 ML VIAL (NON FORMULARY) IVPB ONE (18:27)
--- NOTE | 2016-11-12 18:43 | HOSP ---
Subjective - Review of Symptoms Events since last encounter: Vital Signs Temperature 98 F 11/12/16 18:19 Pulse Rate 130 H 11/12/16 18:19 Respiratory Rate 24 11/12/16 18:19 Blood Pressure 110/50 11/12/16 18:19 O2 Sat by Pulse Oximetry (%) 91 L 11/12/16 13:35 The nurse called since the patient is tachycardic with chills, hypoxic. will transfer the patient to ICU, blood culture, stool culture ordered, Ua, urine culture ordered, IVF as per 's order 100% NR placed on this patient, discussed with ICU attending , patient is accepted to go to ICU # Sepsis ;ID consult requested will start the patient with rocephin/flagyl IV , stat CXR was done # ARF ;stat breen catheter critical care 35minutes Physical Examination Vital Signs: Vital Signs Temperature 98 F 11/12/16 18:19 Pulse Rate 130 H 11/12/16 18:19 Respiratory Rate 24 11/12/16 18:19 Blood Pressure 110/50 11/12/16 18:19 O2 Sat by Pulse Oximetry (%) 91 L 11/12/16 13:35 Labs: CBC, BMP 11/12/16 17:30
[2016-11-12] MEDS: SODIUM CHLORIDE 0.45% 1,000 ML with SODIUM BICARBONATE 8.4% - 75 MEQ IV SCH (19:53)
[2016-11-12] MEDS: METRONIDAZOLE 500 MG PREMIXED 100 ML IVPB SCH (19:54)
--- NOTE | 2016-11-12 20:28 | CONSULT ---
Consult Consult Specialty:: Pulm/CCM Reason for Consultation:: SOB, ARF - History of Present Illness Chief Complaint: diarrhea History of Present Illness: This is a 61 yo man HTN, bipolar on lithium who presented to ED with diarrhea x 1 week ( 6-10 bm/day, non bloody, yellow), complicated by lethargy, dysarthria and weakness w/ difficulty ambulating. Per family he recently was treated with ABX for oral infection (unknown ABX or duration). He was seen the day prior to admission at [facility] ED and was treated for dehydration and ARF (SCr 3). In the ED he was noted to be lethargic. CT head: w/o evidence of acute pathology. Labs significant for Lactate: 3.5, leukocytosis (13.5). He was treated with IV fluids and ABX for infectious diarrhea and covered for c. diff given recent ABX. He was transferred to ICU for continued care and monitoring. In the ICU patient awake and alert. Swallow eval w/o evidence of dysphagia. LE dopplers done given elevated d-dimer and SOB (read pending). ECHO: EF 56%, hyperdynamic. - History Source History Provided By: Patient, Medical Record Limitations to Obtaining History: Language Barrier - Alcohol/Substance Use Hx Alcohol Use: No - Smoking History Smoking history: Former smoker Have you smoked in the past 12 months: No If you are a former smoker, when did you quit?: 10 YRS AGO Home Medications - Allergies Allergies/Adverse Reactions: Allergies Allergy/AdvReac Type Severity Reaction Status Date / Time No Known Allergies Allergy Verified 11/12/16 09:22 - Home Medications Home Medications: Ambulatory Orders Amlodipine Besylate 5 mg PO DAILY 11/12/16 Atenolol [Tenormin -] 25 mg PO DAILY 11/12/16 Hutchins Carbonate [Eskalith -] 300 mg PO TID 11/12/16 Losartan Potassium 100 mg PO DAILY 11/12/16 Quetiapine Fumarate [Seroquel -] 400 mg PO HS 11/12/16 Simvastatin 20 mg PO HS 11/12/16 Valproic Acid [Depakene] 250 mg PO BID 11/12/16 Family Disease History - Family Disease History Family History: Unremarkable Review of Systems - Review of Systems Constitutional: reports: Lethargy Respiratory: reports: SOB Gastrointestinal: reports: Diarrhea Physical Exam Vital Signs: Vital Signs Temperature 98 F 11/12/16 18:19 Pulse Rate 130 H 11/12/16 18:19 Respiratory Rate 24 11/12/16 18:19 Blood Pressure 110/50 11/12/16 18:19 O2 Sat by Pulse Oximetry (%) 91 L 11/12/16 13:35 Current Medications Acetaminophen (Tylenol -) 650 mg PO Q6H PRN PRN Reason: FEVER OR PAIN Albuterol/Ipratropium (Duoneb -) 1 amp NEB Q6H PRN PRN Reason: SHORTNESS OF BREATH Aspirin (Ecotrin -) 81 mg PO DAILY [facility] Last Admin: 11/12/16 17:30 Dose: 81 mg Atenolol (Tenormin -) 25 mg PO DAILY [facility] Atorvastatin Calcium (Lipitor -) 10 mg PO HS [facility] Last Admin: 11/12/16 21:25 Dose: 10 mg Ceftriaxone Sodium (Rocephin 2gm Ivpb (Pre-Docked)) 2 gm IVPB DAILY [facility] Heparin Sodium (Porcine) (Heparin -) 5,000 unit SQ BID [facility] Last Admin: 11/12/16 21:24 Dose: 5,000 unit Sodium Bicarbonate 75 meq/ (Sodium Chloride) 1,075 mls @ 125 mls/hr IV Q8H [facility] Last Admin: 11/12/16 19:53 Dose: 125 mls/hr Metronidazole (Flagyl 500mg Premixed Ivpb -) 100 mls @ 100 mls/hr IVPB Q8H-IV [facility] Last Admin: 11/12/16 19:54 Dose: 100 mls/hr Lactated Ringer's (Lactated Ringers Solution) 1,000 mls @ 1,000 mls/hr IV ASDIR [facility] Stop: 11/12/16 22:59 Pantoprazole Sodium (Protonix -) 20 mg PO BID [facility] Constitutional: Yes: No Distress, Calm Eyes: Yes: EOM Intact Cardiovascular: Yes: Regular Rate and Rhythm, S1, S2 Respiratory: Yes: Diminished, SOB Gastrointestinal: Yes: Normal Bowel Sounds, Soft, Abdomen, Obese Edema: No Neurological: Yes: Alert, Oriented ...Motor Strength: WNL Psychiatric: Yes: Oriented Labs: CBCD WBC 13.8 K/mm3 (4.0-10.0) H 11/12/16 09:27 RBC 4.51 M/mm3 (4.00-5.60) 03/17/17 09:27 Hgb 13.0 GM/dL (11.7-16.9) 11/12/16 09:27 Hct 40.6 % (35.4-49) 11/12/16 09:27 MCV 89.9 fl (80-96) 11/12/16 09:27 MCHC 32.0 g/dl (32.0-35.9) 11/12/16 09:27 RDW 13.2 % (11.9-15.9) 11/12/16 09:27 Plt Count 155 K/MM3 (134-434) 11/12/16 09:27 MPV 9.8 fl (7.5-11.1) 11/12/16 09:27 CMP Sodium 137 mmol/L (136-145) 11/12/16 17:30 Potassium 4.0 mmol/L (3.5-5.1) 11/12/16 17:30 Chloride 108 mmol/L (98-107) H 11/12/16 17:30 Carbon Dioxide 18 mmol/L (21-32) L 11/12/16 17:30 Anion Gap 11 (8-16) 11/12/16 17:30 BUN 33 mg/dL (7-18) H 11/12/16 17:30 Creatinine 4.7 mg/dL (0.7-1.3) H 11/12/16 17:30 Creat Clearance w eGFR 10.59 (>60) 11/12/16 09:27 Random Glucose 106 mg/dL (74-106) 11/12/16 17:30 Calcium 7.3 mg/dL (8.5-10.1) L 11/12/16 17:30 Total Bilirubin 0.5 mg/dL (0.2-1.0) 11/12/16 09:27 AST 21 U/L (15-37) 11/12/16 09:27 ALT 19 U/L (12-78) 11/12/16 09:27 Alkaline Phosphatase 53 U/L (45-117) 11/12/16 09:27 Total Protein 5.9 g/dl (6.4-8.2) L 11/12/16 09:27 Albumin 3.2 g/dl (3.4-5.0) L 11/12/16 09:27 CARDIAC ENZYMES Creatine Kinase 170 IU/L (39-308) 11/12/16 09:27 Troponin I < 0.02 ng/ml (0.00-0.05) 11/12/16 09:27 Laboratory Tests 11/12/16 11/12/16 11/12/16 09:50 10:08 12:40 Lactic Acid 3.524 H* 2.902 H* Alcohol, Quantitative < 5.0 Urine Test Results Urine Color Dkyellow 11/12/16 09:27 Urine Appearance Cloudy 11/12/16 09:27 Urine pH 5.0 (5.0-8.0) 11/12/16 09:27 Ur Specific [place] 1.015 (1.001-1.035) 11/12/16 09:27 Urine Protein 1+ (NEGATIVE) H 11/12/16 09:27 Urine Glucose (UA) Negative (NEGATIVE) 11/12/16 09:27 Urine Ketones Negative (NEGATIVE) 11/12/16 09:27 Urine Blood 3+ (NEGATIVE) H 11/12/16 09:27 Urine Nitrite Negative (NEGATIVE) 11/12/16 09:27 Urine Bilirubin Negative (NEGATIVE) 11/12/16 09:27 Ur Leukocyte Esterase Negative (NEGATIVE) 11/12/16 09:27 Urine RBC 204 /hpf (0-3) 11/12/16 09:27 Urine WBC 26 /hpf (3-5) 11/12/16 09:27 Ur Epithelial Cells Rare /hpf (FEW) 11/12/16 09:27 Urine Bacteria Rare /hpf (NONE SEEN) 11/12/16 09:27 Imaging - Results Chest X-ray: Report Reviewed, Image Reviewed Other: Other (ECHO: reviewed) Problem List - Problems (1) Acute renal failure Code(s): N17.9 - ACUTE KIDNEY FAILURE, UNSPECIFIED Qualifiers: Acute renal failure type: unspecified Qualified Code(s): N17.9 - Acute kidney failure, unspecified (2) Altered mental state Code(s): R41.82 - ALTERED MENTAL STATUS, UNSPECIFIED Qualifiers: Altered mental status type: somnolence Qualified Code(s): R40.0 - Somnolence (3) Diarrhea Code(s): R19.7 - DIARRHEA, UNSPECIFIED Qualifiers: Diarrhea type: unspecified type Qualified Code(s): R19.7 - Diarrhea, unspecified (4) Hypovolemia Code(s): E86.1 - HYPOVOLEMIA Assessment/Plan 61 yo man with bipolar p/w severe diarrhea ~1 week c/b dehydration, non-AG metabolic acidosis, lactate and ARF m/l prerenal, ? UTI (bloody sample w/ neg LE /N) -cont ABX for GI and possible UTI -O2 for sat >90% -r/o infectious causes of diarrhea, stool o&p, send for c. diff, crypto, giardia and norovirus -send HIV test to r/o immunocompromised state -renal dose meds -urine lytes -IV fluids -urine lytes -f/u LE dopplers -diet -sq heparin -PPI given ARF Boerem ACNP Pulm/CCM CCT: 35
[2016-11-12] MEDS ORDERED: HEPARIN NA (PORCINE) 5,000 UNITS/ML 1ML VIAL ONE (20:52)
[2016-11-12] MEDS ORDERED: ACETAMINOPHEN 325 MG TABLET (FP) PO PRN (22:00)
[2016-11-12] MEDS ORDERED: HEPARIN NA (PORCINE) 5,000 UNITS/ML 1ML VIAL SQ SCH (22:00)
[2016-11-12] MEDS ORDERED: ATORVASTATIN CA 10 MG TABLET (FP) PO SCH (22:00)
[2016-11-12] MEDS ORDERED: LACTATED RINGERS SOLUTION 1,000 ML IV SCH (22:00)
[2016-11-12] MEDS: PANTOPRAZOLE 20 MG TABLET (FP) PO SCH (22:30)
[2016-11-12 22:35] LABS: URINE APPEARANCE CLOUDY; URINE BILIRUBIN NEGATIVE (NEGATIVE); URINE COLOR YELLOW; URINE GLUCOSE (UA) NEGATIVE (NEGATIVE); URINE KETONE NEGATIVE (NEGATIVE); URINE LEUK ESTERASE NEGATIVE (NEGATIVE); URINE NITRITE NEGATIVE (NEGATIVE); URINE UROBILINOGEN NEGATIVE E.U./dl (0.2-1.0)
[2016-11-12 22:37] LABS: URINE BLOOD 3+ (NEGATIVE); URINE PROTEIN 1+ (NEGATIVE)
[2016-11-12 22:40] LABS: URINE BACTERIA RARE /hpf (NONE SEEN); URINE HYALINE CAST 2 /lpf; URINE MUCUS RARE; URINE RBC 281 /hpf (0-3); URINE WBC 7 /hpf (3-5)
[2016-11-12 22:45] LABS: URINE MARIJUANA THC NEGATIVE ng/ml (CUTOFF=50)
[2016-11-13] MEDS: METRONIDAZOLE 500 MG PREMIXED 100 ML IVPB SCH (01:33)
[2016-11-13 06:00] LABS: BASOPHIL 0.2 % (0-2.0); EOSINOPHIL 0.1 % (0-4.5); MCH 29.3 pg (25.7-33.7); MCHC 33.2 g/dl (32.0-35.9); MEAN CELL VOLUME 88.2 fl (80-96); NEUTROPHILS 76.4 % (42.8-82.8); PLATELET COUNT 230 K/MM3 (134-434); RDW 13.1 % (11.9-15.9); WHITE BLOOD COUNT 14.3 K/mm3 (4.0-10.0)
[2016-11-13] MEDS: SODIUM CHLORIDE 0.45% 1,000 ML with SODIUM BICARBONATE 8.4% - 75 MEQ IV SCH ×2 (06:00→14:18)
[2016-11-13 06:30] LABS: BILIRUBIN,TOTAL 0.5 mg/dL (0.2-1.0); CALCIUM 7.5 mg/dL (8.5-10.1); CREATININE 4.6 mg/dL (0.7-1.3); MAGNESIUM 2.1 mg/dL (1.8-2.4); PHOSPHOROUS 4.2 mg/dL (2.5-4.9); TOT PROT 5.9 g/dl (6.4-8.2)
--- NOTE | 2016-11-13 07:37 | PN ---
Progress Note, Physician Chief Complaint: ID Full note dictated 61 male bipolar admitted with profound lethargy weakness diarrhea. Chart mentions proceeding history of antibiotics ? drug. Febrile 101. Currently alert making sense Appears comfortable and denies any pain or other complaints. Does not appear to have diarrhea currently per nursing staff. - Current Medication List Current Medications: Active Medications Acetaminophen (Tylenol -) 650 mg PO Q6H PRN PRN Reason: FEVER OR PAIN Albuterol/Ipratropium (Duoneb -) 1 amp NEB Q6H PRN PRN Reason: SHORTNESS OF BREATH Aspirin (Ecotrin -) 81 mg PO DAILY [facility] Last Admin: 11/12/16 17:30 Dose: 81 mg Atenolol (Tenormin -) 25 mg PO DAILY [facility] Atorvastatin Calcium (Lipitor -) 10 mg PO HS [facility] Last Admin: 11/12/16 21:25 Dose: 10 mg Ceftriaxone Sodium (Rocephin 2gm Ivpb (Pre-Docked)) 2 gm IVPB DAILY [facility] Heparin Sodium (Porcine) (Heparin -) 5,000 unit SQ BID [facility] Last Admin: 11/12/16 21:24 Dose: 5,000 unit Sodium Bicarbonate 75 meq/ (Sodium Chloride) 1,075 mls @ 125 mls/hr IV Q8H [facility] Last Admin: 11/12/16 19:53 Dose: 125 mls/hr Metronidazole (Flagyl 500mg Premixed Ivpb -) 100 mls @ 100 mls/hr IVPB Q8H-IV [facility] Last Admin: 11/13/16 01:33 Dose: 100 mls/hr Pantoprazole Sodium (Protonix -) 20 mg PO BID [facility] Last Admin: 11/12/16 22:30 Dose: 20 mg - Objective Vital Signs: Vital Signs Temperature 99.2 F 11/13/16 02:00 Pulse Rate 103 H 11/13/16 02:00 Respiratory Rate 13 11/13/16 02:00 Blood Pressure 114/73 11/13/16 02:00 O2 Sat by Pulse Oximetry (%) 98 11/12/16 21:00 Constitutional: Yes: No Distress, Obese Neck: Yes: WNL, Supple Cardiovascular: Yes: Regular Rate and Rhythm, S1, S2 Respiratory: Yes: WNL, Regular, CTA Bilaterally Gastrointestinal: Yes: Soft. No: Tenderness Edema: No Labs: CBC, BMP 11/13/16 05:00 11/13/16 05:00 INR, PTT INR 1.05 (0.82-1.09) 11/12/16 09:27 Problem List - Problems (1) Acute renal failure Code(s): N17.9 - ACUTE KIDNEY FAILURE, UNSPECIFIED Qualifiers: Acute renal failure type: unspecified Qualified Code(s): N17.9 - Acute kidney failure, unspecified (2) Enterocolitis Code(s): K52.9 - NONINFECTIVE GASTROENTERITIS AND COLITIS, UNSPECIFIED Assessment/Plan Microbiology Laboratory Tests 11/12/16 11/12/16 11/12/16 09:27 09:27 09:50 WBC Hgb Plt Count Neutrophils % 82.9 H Lymphocytes % 6.6 L Monocytes % 10.3 H INR 1.05 VBG pH POC VBG pCO2 POC VBG pO2 Sodium Potassium BUN Creatinine Creat Clearance w eGFR Lactic Acid 3.524 H* Total Bilirubin AST ALT Ur Leukocyte Esterase Urine RBC Urine WBC Opiates Screen Valproic Acid Cocaine Screen Alcohol, Quantitative 11/12/16 11/12/16 11/12/16 10:08 12:40 12:46 WBC Hgb Plt Count Neutrophils % Lymphocytes % Monocytes % INR VBG pH 7.22 L* POC VBG pCO2 36.7 L POC VBG pO2 143.0 H D Sodium Potassium BUN Creatinine Creat Clearance w eGFR Lactic Acid 2.902 H* Total Bilirubin AST ALT Ur Leukocyte Esterase Urine RBC Urine WBC Opiates Screen Valproic Acid Cocaine Screen Alcohol, Quantitative < 5.0 11/12/16 11/12/16 11/12/16 15:30 22:00 22:02 WBC Hgb Plt Count Neutrophils % Lymphocytes % Monocytes % INR VBG pH POC VBG pCO2 POC VBG pO2 Sodium Potassium BUN Creatinine Creat Clearance w eGFR Lactic Acid Total Bilirubin AST ALT Ur Leukocyte Esterase Negative Urine RBC 281 Urine WBC 7 Opiates Screen Negative Valproic Acid 25.869 L Cocaine Screen Negative Alcohol, Quantitative 11/13/16 11/13/16 05:00 05:00 WBC 14.3 H Hgb 12.7 Plt Count 230 D Neutrophils % Lymphocytes % Monocytes % INR VBG pH POC VBG pCO2 POC VBG pO2 Sodium 138 Potassium 3.8 BUN 34 H Creatinine 4.6 H Creat Clearance w eGFR 13.01 Lactic Acid Total Bilirubin 0.5 AST 23 ALT 19 Ur Leukocyte Esterase Urine RBC Urine WBC Opiates Screen Valproic Acid Cocaine Screen Alcohol, Quantitative Assessment Enterocolitis with differential diagnosis including E Coli O157, salmonella shigella Campy. MUst consider C diff as well given ? prior antibiotic ? 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
[2016-11-13] MEDS ORDERED: ALBUTEROL SO4 2.5/IPRATROPIUM 0.5 INH SOL 3 ML VIAL.NEB. NEB PRN ×2 (08:22→18:37)
--- NOTE | 2016-11-13 08:29 | CONS ---
DATE OF CONSULTATION: HISTORY: This is a 61-year-old [place] male with a history of bipolar disorder brought to the emergency room with chief complaint of severe diarrhea 6-10 times per day over the preceding week. The stool was described as yellow and nonbloody and associated with increasing lethargy, dysarthria, generalized weakness leading to difficulty ambulating at home. According to his family, he had been recently treated for an oral infection with some antibiotic of unknown duration. He had initially been seen at the [facility] Department for renal failure and dehydration. It is unclear at this time as to why he was brought to [facility]; however, a CAT scan of his head showed no evidence of any acute pathology. He has a history of bipolar disorder and hypertension for which he is on lithium. The patient was apparently brought to the ICU here for further monitoring after he was found to have in acute renal failure and febrile to 101. Presently, he appears alert and oriented x3. According to the nurses, at the current time, he has no diarrhea, and stool was unable to be sent for analysis. Blood and urine cultures were sent, and he was empirically treated for possible Clostridium difficile infection with metronidazole as well as ceftriaxone empirically for bacterial coverage. At the present time, he denies any abdominal pain, urinary complaints, rash, headaches, joint pains, or any other systemic complaints. He is unclear about the dental work noting only that he few remaining teeth. His white count here was 13.5. PAST MEDICAL HISTORY: As noted above. CURRENT MEDICATIONS: Amlodipine, atenolol, lithium, losartan, Seroquel, simvastatin, Depakene. ALLERGIES: None known. SOCIAL HISTORY: Lives with his . [place] immigrant living in the [place] for many years with no recent travel. Gave up smoking 10 years ago. No history of substance abuse. FAMILY HISTORY: Reviewed and noncontributory. REVIEW OF SYSTEMS: Respiratory: No cough or shortness of breath. Cardiac: No chest pain, palpitations, syncope, murmur. Gastrointestinal: Diarrhea as noted. No abdominal pain, vomiting, hematemesis, blood per rectum. Genitourinary: No dysuria, hematuria, urinary frequency. PHYSICAL EXAMINATION: General: He is a heavy set male weighing 240 pounds. Vital Signs: Initial temperature 97.9, pulse 115, blood pressure 107/84, respirations 20. HEENT: Reveals few remaining teeth in the oral cavity. Neck: Supple with no lymphadenopathy. Lungs: Clear to percussion and auscultation. Heart: S1, S2. Regular rhythm without audible murmur. Abdomen: Soft and nontender without hepatosplenomegaly. No guarding or rebound. Extremities: Without clubbing, cyanosis, or edema. White count 14.3, hemoglobin 12.7, platelets 230 with a normal differential. INR 1.05, ABG 0.22, PCO2 of 37, PO2 143. BUN 34, creatinine 4.6, lactic acid 3.5, liver enzymes within normal limits, total protein 5.9. Urinalysis with 281 RBCs, 7 WBCs. Toxicology positive for valproic acid. Otherwise, negative. Chest x-ray on admission shows unremarkable lung. A repeat chest x-ray was obtained and appears unremarkable. Renal ultrasound normal. CAT scan of the head shows moderate atrophy and chronic microvascular ischemic changes but no acute intracranial pathology. ASSESSMENT: Enterocolitis with acute renal failure most likely infectious etiology. The differential diagnosis would include Escherichia coli 0157 as well as other common enterics including Shigella, Salmonella, and Campylobacter. Viral diseases including Norovirus considered. Last, but not least, Clostridium difficile infection given the prior history of antibiotic usage in the setting of recent dental work done, according to family. PLAN: Blood cultures, urine cultures, stool for routine pathogens and Clostridium difficile toxin. Empiric therapy with ceftriaxone to cover bacterial sepsis along with oral vancomycin solution 250 mg q.6 hours. Attempt to get stool specimens. According to nursing, no stool presently available. LISANDRO OREILLY M.D. [id number]
[2016-11-13] MEDS ORDERED: HEPARIN NA (PORCINE) 5,000 UNITS/ML 1ML VIAL SQ SCH (10:00)
[2016-11-13] MEDS ORDERED: ASPIRIN COATED 81 MG TABLET.EC PO SCH (10:00)
[2016-11-13] MEDS ORDERED: CEFTRIAXONE 2 GM in DEXTROSE 5%-WATER - 100 ML IVPB SCH (10:00)
[2016-11-13] MEDS ORDERED: ATENOLOL 25 MG TABLET (FP) PO SCH ×2 (10:00)
[2016-11-13] MEDS ORDERED: cefTRIAXone 2 GM/100 ML BAG (PRE-DOCKED) IVPB SCH (10:00)
--- NOTE | 2016-11-13 10:25 | PN ---
Physical Exam: SUBJECTIVE: Patient seen and examined Patient is comfortable, more with it answers to questions appropriately. patient is in ICU. OBJECTIVE: Vital Signs Temperature 99 F 11/13/16 06:00 Pulse Rate 110 H 11/13/16 08:00 Respiratory Rate 18 11/13/16 08:00 Blood Pressure 115/75 11/13/16 08:00 O2 Sat by Pulse Oximetry (%) 98 11/12/16 21:00 GENERAL: The patient is awake, alert, and fully oriented, in no acute distress. HEAD: Normal with no signs of trauma. EYES: PERRL, extraocular movements intact, sclera anicteric, conjunctiva clear. ENT: Ears normal, oropharynx clear without exudates, moist mucous membranes. NECK: Trachea midline, full range of motion, supple. LUNGS: decreased Breath sounds at basis , otherwise clear to auscultation bilaterally, no wheezes, no crackles, no accessory muscle use. HEART: sinus tachycardia , S1, S2 positive , no rub or gallop. ABDOMEN: Soft, nontender, nondistended, normoactive bowel sounds, no guarding, no rebound, no hepatosplenomegaly, no masses. EXTREMITIES: 2+ pulses, warm, well-perfused, no edema. NEUROLOGICAL: Cranial nerves II through XII grossly intact. able to speak i n full sentences . PSYCH: Normal mood, normal affect. SKIN: Warm, dry, normal turgor, no rashes or lesions noted Laboratory Results - last 24 hr 11/12/16 11/12/16 11/12/16 15:30 16:14 16:14 WBC RBC Hgb Hct MCV MCHC RDW Plt Count MPV Neutrophils % Lymphocytes % Monocytes % Eosinophils % Basophils % D-Dimer Sodium Potassium Chloride Carbon Dioxide Anion Gap BUN Creatinine Creat Clearance w eGFR Random Glucose Calcium Phosphorus Magnesium Total Bilirubin AST ALT Alkaline Phosphatase Total Protein Albumin Urine Color Urine Appearance Urine pH Ur Specific Etters Urine Protein Urine Glucose (UA) Urine Ketones Urine Blood Urine Nitrite Urine Bilirubin Urine Urobilinogen Ur Leukocyte Esterase Urine RBC Urine WBC Ur Epithelial Cells Amorphous Urates Urine Bacteria Hyaline Casts Urine Mucus U Random Total Protein 96 H Urine Creatinine 245.0 Opiates Screen Methadone Screen Barbiturate Screen Valproic Acid 25.869 L Phencyclidine Screen Ur Amphetamines Screen MDMA (Ecstasy) Screen Benzodiazepines Screen Cocaine Screen U Marijuana (THC) Screen 03/11/12/16 11/12/16 17:00 17:30 22:00 WBC RBC Hgb Hct MCV MCHC RDW Plt Count MPV Neutrophils % Lymphocytes % Monocytes % Eosinophils % Basophils % D-Dimer 420 H Sodium 137 Potassium 4.0 Chloride 108 H Carbon Dioxide 18 L Anion Gap 11 BUN 33 H Creatinine 4.7 H Creat Clearance w eGFR Random Glucose 106 Calcium 7.3 L Phosphorus Magnesium Total Bilirubin AST ALT Alkaline Phosphatase Total Protein Albumin Urine Color Urine Appearance Urine pH Ur Specific Et[place] Urine Protein Urine Glucose (UA) Urine Ketones Urine Blood Urine Nitrite Urine Bilirubin Urine Urobilinogen Ur Leukocyte Esterase Urine RBC Urine WBC Ur Epithelial Cells Amorphous Urates Urine Bacteria Hyaline Casts Urine Mucus U Random Total Protein Urine Creatinine Opiates Screen Negative Methadone Screen Negative Barbiturate Screen Negative Valproic Acid Phencyclidine Screen Negative Ur Amphetamines Screen Negative MDMA (Ecstasy) Screen Negative Benzodiazepines Screen Negative Cocaine Screen Negative U Marijuana (THC) Screen Negative 11/12/16 11/13/16 11/13/16 22:02 05:00 05:00 WBC 14.3 H RBC 4.36 Hgb 12.7 Hct 38.5 MCV 88.2 MCHC 33.2 RDW 13.1 Plt Count 230 D MPV 9.0 Neutrophils % 76.4 Lymphocytes % 13.2 D Monocytes % 10.1 Eosinophils % 0.1 D Basophils % 0.2 D-Dimer Sodium 138 Potassium 3.8 Chloride 109 H Carbon Dioxide 20 L Anion Gap 9 BUN 34 H Creatinine 4.6 H Creat Clearance w eGFR 13.01 Random Glucose 91 Calcium 7.5 L Phosphorus 4.2 Magnesium 2.1 D Total Bilirubin 0.5 AST 23 ALT 19 Alkaline Phosphatase 58 Total Protein 5.9 L Albumin 3.0 L Urine Color Yellow Urine Appearance Cloudy Urine pH 5.0 Ur Specific Etters 1.013 Urine Protein 1+ H Urine Glucose (UA) Negative Urine Ketones Negative Urine Blood 3+ H Urine Nitrite Negative Urine Bilirubin Negative Urine Urobilinogen Negative Ur Leukocyte Esterase Negative Urine RBC 281 Urine WBC 7 Ur Epithelial Cells Rare Amorphous Urates Moderate Urine Bacteria Rare Hyaline Casts 2 Urine Mucus Rare U Random Total Protein Urine Creatinine Opiates Screen Methadone Screen Barbiturate Screen Valproic Acid Phencyclidine Screen Ur Amphetamines Screen MDMA (Ecstasy) Screen Benzodiazepines Screen Cocaine Screen U Marijuana (THC) Screen Active Medications Generic Name Dose Route Start Last Admin Trade Name Freq PRN Reason Stop Dose Admin Acetaminophen 650 mg 11/12/16 22:00 Tylenol - PO Q6H PRN FEVER OR PAIN Albuterol/Ipratropium 1 amp 11/13/16 08:22 Duoneb - NEB Q6H PRN SHORTNESS OF BREATH Aspirin 81 mg 11/13/16 10:00 Ecotrin - PO DAILY [facility] Atenolol 25 mg 11/13/16 10:00 Tenormin - PO DAILY [facility] Atorvastatin Calcium 10 mg 11/13/16 22:00 Lipitor - PO HS [facility] Ceftriaxone Sodium 2 gm 11/13/16 10:00 Rocephin 2gm Ivpb (Pre-Docked) IVPB DAILY [facility] Heparin Sodium (Porcine) 5,000 unit 11/13/16 10:00 Heparin - SQ BID [facility] Sodium Bicarbonate 75 meq/ 1,075 mls @ 125 mls/hr 11/13/16 08:30 Sodium Chloride IV Q8H [facility] Pantoprazole Sodium 20 mg 11/12/16 22:00 11/12/16 22:30 Protonix - PO 20 mg BID [facility] Administration Vancomycin HCl 250 mg 11/13/16 12:00 Vancomycin Oral Solution PO Q6HPO [facility] CT head: w/o evidence of acute pathology Renal US showed no signs of obstruction but multiple cysts ASSESSMENT/PLAN: This is a 61 yo man HTN, bipolar on lithium who presented to ED with diarrhea x 1 week ( 6-10 bm/day, non bloody, yellow), complicated by lethargy, dysarthria and weakness w/ difficulty ambulating. As per family he recently was treated with ABx for oral infection (unknown ABX or duration). # s/p Septic shock on IV antibiotics Rocephin and oral vancomycin will continue # Acute renal failure on CKD ;creat--3.0 (24 hr ago)--->5.5 --> 4.7 today nephro consult appreciated will monitor #AMS with altered Speech improved today possible due to sepsis/septic shock; MRI brain pending. Neurology on the case # s/p Hypotension #Diarrhea stool studies w/u is pending will follow. #Metabolic acidosis/ Lactic acidosis ;corrected Anion gap is 12 today ;continue IVF with Bicarb for now As per nephrology if repeat BMP in the evening, if bicarb > 22 can stop bicarbonate infusion. Lactic acid level in am. DVT Px; Heparin Tx to Medsurg. Visit type - Emergency Visit Emergency Visit: Yes ED Registration Date: 11/12/16 Care time: The patient presented to the Emergency Department on the above date and was hospitalized for further evaluation of their emergent condition. - New Patient This patient is new to me today: No - Critical Care Critical Care patient: No
[2016-11-13] MEDS ORDERED: PT OWN MED DRAWER 7, Y5N ONE (10:32)
[2016-11-13] MEDS: PANTOPRAZOLE 20 MG TABLET (FP) PO SCH ×2 (10:37→23:28)
--- NOTE | 2016-11-13 10:37 | PN ---
Progress Note (short form) - Note Progress Note: PULMONARY/CCM Pt seen and examined in the ICU. Denies further diarrhea. More alert, awake. No abdominal pain, nausea or vomiting. No further fevers. Last Vital Signs Temp Pulse Resp BP Pulse Ox 99 F 110 H 18 115/75 98 11/13/16 06:00 11/13/16 08:00 11/13/16 08:00 11/13/16 08:00 11/12/16 21:00 Intake & Output 11/10/16 11/11/16 11/12/16 11/13/16 23:59 23:59 23:59 23:59 Intake Total 1950 1400 Output Total 150 800 Balance 1800 600 Weight 236 lb 233 lb 9.6 oz Gen: NAD at rest Heart: RRR Lung: scattered rhonchi Abd: soft, nontender Ext: no edema CBC, BMP 11/13/16 05:00 11/13/16 05:00 Active Medications Acetaminophen (Tylenol -) 650 mg PO Q6H PRN PRN Reason: FEVER OR PAIN Albuterol/Ipratropium (Duoneb -) 1 amp NEB Q6H PRN PRN Reason: SHORTNESS OF BREATH Aspirin (Ecotrin -) 81 mg PO DAILY [facility] Atenolol (Tenormin -) 25 mg PO DAILY [facility] Atorvastatin Calcium (Lipitor -) 10 mg PO HS [facility] Ceftriaxone Sodium (Rocephin 2gm Ivpb (Pre-Docked)) 2 gm IVPB DAILY [facility] Heparin Sodium (Porcine) (Heparin -) 5,000 unit SQ BID [facility] Sodium Bicarbonate 75 meq/ (Sodium Chloride) 1,075 mls @ 125 mls/hr IV Q8H [facility] Pantoprazole Sodium (Protonix -) 20 mg PO BID [facility] Last Admin: 11/12/16 22:30 Dose: 20 mg Vancomycin HCl (Vancomycin Oral Solution) 250 mg PO Q6HPO [facility] A/P Altered Mental Status improving Acute Kidney Injury r/o UTI r/o C diff Hypovolemia vs Sepsis Lactic Acidosis - continue antibiotics - f/u cultures - IVF - monitor urine output, creatinine - O2 as needed - DVT prophylaxis - can monitor on floor
--- NOTE | 2016-11-13 11:16 | PN ---
Progress Note (short form) - Note Progress Note: Renal Follow up for MARINA and metabolic acidosis Pt seen and examined in the ICU awake and alert transferred to ICU last night pt had Gambino placed with good urine output denies any sob, chest pain, cough, diarrhea Vital Signs Temperature 99 F 11/13/16 06:00 Pulse Rate 110 H 11/13/16 08:00 Respiratory Rate 18 11/13/16 08:00 Blood Pressure 115/75 11/13/16 08:00 O2 Sat by Pulse Oximetry (%) 98 11/12/16 21:00 Intake & Output 11/10/16 11/11/16 11/12/16 11/13/16 23:59 23:59 23:59 23:59 Intake Total 1950 1400 Output Total 150 800 Balance 1800 600 Weight 236 lb 233 lb 9.6 oz Gen: NAD, awake and alert CVS: RRR, No M/R Lungs: CTA, no rales or wheeze Abd: soft, NT Ext: no edema, clubbing or cyanosis CBC, BMP 11/13/16 05:00 11/13/16 05:00 Laboratory Tests 11/13/16 05:00 Calcium 7.5 L Phosphorus 4.2 Magnesium 2.1 D Albumin 3.0 L Current Medications Acetaminophen (Tylenol -) 650 mg PO Q6H PRN PRN Reason: FEVER OR PAIN Albuterol/Ipratropium (Duoneb -) 1 amp NEB Q6H PRN PRN Reason: SHORTNESS OF BREATH Aspirin (Ecotrin -) 81 mg PO DAILY [facility] Last Admin: 11/13/16 10:37 Dose: 81 mg Atenolol (Tenormin -) 25 mg PO DAILY [facility] Last Admin: 11/13/16 10:38 Dose: 25 mg Atorvastatin Calcium (Lipitor -) 10 mg PO HS [facility] Ceftriaxone Sodium (Rocephin 2gm Ivpb (Pre-Docked)) 2 gm IVPB DAILY [facility] Last Admin: 11/13/16 10:38 Dose: 2 gm Heparin Sodium (Porcine) (Heparin -) 5,000 unit SQ BID [facility] Last Admin: 11/13/16 10:37 Dose: 5,000 unit Sodium Bicarbonate 75 meq/ (Sodium Chloride) 1,075 mls @ 125 mls/hr IV Q8H [facility] Pantoprazole Sodium (Protonix -) 20 mg PO BID [facility] Last Admin: 11/13/16 10:37 Dose: 20 mg Vancomycin HCl (Vancomycin Oral Solution) 250 mg PO Q6HPO LATISHA A/P 61 year old Gentleman with PMhx of Bipolar disorder, Demntia, Hypertension on ARB, Hyperlipidemia, Obesity, Nephrolithiasis who presents with complaints of weakness and diarrhea x 4 days and found to have BUN/Cr of 33/5.5. #Acute Renal Failure Etiology of MARINA likely is normotensive ATN in setting of ARB/NSAIDs/Volume depletion Renal US showed no signs of obstruction but multiple cysts UPCR was 0.39 UA continues to show blood and 1+ protein Cr improved and pt is now non-oliguric continue isotonic IVF for now Repeat BMP in the evening #Metabolic acidosis Corrected Anion gap is 12 today continue IVF with Bicarb for now Repeat BMP in the evening, if bicarb > 22 can stop bicarbonate infusion #Lactic acidosis no repeat lactic acid this am Check in AM tomorrow #Diarrhea stool studies as per primary #AMS/Altered Speech Neuro follow up MRI brain pending Thank you Will follow
[2016-11-13] MEDS: VANCOMYCIN 250 MG/5 ML ORAL SOLUTION PO SCH (12:00)
--- NOTE | 2016-11-13 12:37 | PN ---
Progress Note (short form) - Note Progress Note: Neurology 61 year old male with pmh. bipolar disease, on lithium, HTN, HLD, back pain presents to ER accompanied by his complaining of 4 day history of diarrhea 6-8 episodes a day. He was evaluated at [facility] day ago for same problem , was noted to have renal insufficiency which was attributed to dehydration and he was sent home. As per daughter and the patient has slurred speech, today appearing to be at baseline. Was seen by Dr. Mathew previously. No new complaints overnight. Active Medications Acetaminophen (Tylenol -) 650 mg PO Q6H PRN PRN Reason: FEVER OR PAIN Albuterol/Ipratropium (Duoneb -) 1 amp NEB Q6H PRN PRN Reason: SHORTNESS OF BREATH Aspirin (Ecotrin -) 81 mg PO DAILY [facility] Last Admin: 11/13/16 10:37 Dose: 81 mg Atenolol (Tenormin -) 25 mg PO DAILY [facility] Last Admin: 11/13/16 10:38 Dose: 25 mg Atorvastatin Calcium (Lipitor -) 10 mg PO HS [facility] Ceftriaxone Sodium (Rocephin 2gm Ivpb (Pre-Docked)) 2 gm IVPB DAILY [facility] Last Admin: 11/13/16 10:38 Dose: 2 gm Heparin Sodium (Porcine) (Heparin -) 5,000 unit SQ BID [facility] Last Admin: 11/13/16 10:37 Dose: 5,000 unit Sodium Bicarbonate 75 meq/ (Sodium Chloride) 1,075 mls @ 125 mls/hr IV Q8H [facility] Pantoprazole Sodium (Protonix -) 20 mg PO BID [facility] Last Admin: 11/13/16 10:37 Dose: 20 mg Vancomycin HCl (Vancomycin Oral Solution) 250 mg PO Q6HPO [facility] Physical Exam-Neuro Vital Signs Temperature 99.1 F 11/13/16 10:00 Pulse Rate 99 H 11/13/16 12:00 Respiratory Rate 18 11/13/16 12:00 Blood Pressure 113/86 11/13/16 12:00 O2 Sat by Pulse Oximetry (%) 98 11/12/16 21:00 Constitutional: Yes: Mild Distress Neck: Yes: Supple, Trachea Midline Cardiovascular: Yes: Regular Rate and Rhythm, S1, S2 Respiratory: Yes: Regular, CTA Bilaterally Gastrointestinal: Yes: Abdomen, Obese, Distention, Hypoactive Bowel Sounds, Other (diarrhea) Renal/: Yes: Anuria Musculoskeletal: Yes: WNL Edema: Yes Edema: LUE: 1+, RUE: 1+, LLE: 1+, RLE: 1+ Psychiatric: Yes: Alert, Oriented Labs: INR, PTT INR 1.05 (0.82-1.09) 11/12/16 09:27 - Neuro Exam Level Of Consciousness: Yes: Oriented to Person, Oriented to Place, Oriented to Time Eyes: Yes: PERRLA Speech: Slurred Dominant Hand: Right Cranial Nerves II-XII Intact: Yes Gag: Present DTR's: 1+ Left Bicep, 1+ Right Bicep, 1+ Left Tricep, 1+ Right Tricep, 1+ Left Brachioradialis, 1+ Right Brachioradialis, 1+ Left Achilles, 1+ Right Achilles Babinski: Absent Response to light touch: Normal Response to pain prick: Normal Response to temperature: Normal Movement Disorders: Asterixis Coordination: Normal: Finger to Nose (ataxia FTN bilaterally, + asterixis) Motor Strength: 5/5: Left Arm, Right Arm, Left Leg, Right Leg Gait: Deferred Imaging - Results Cat Scan: Report Reviewed, Image Reviewed Assessment/Plan 61 year old male with pmh. bipolar disease, on lithium, HTN, HLD, back pain presents to ER accompanied by his complaining of 4 day history of diarrhea 6-8 episodes a day. He was evaluated at [facility] day ago for same problem , was noted to have renal insufficiency which was attributed to dehydration and he was sent home. As per daughter and the patient has slurred speech, today appearing to be at baseline. Was seen by Dr. Mathew previously. No new complaints overnight. Being managed for metabolic encephalopathy - renal/hepatic, dehydration, dysarthria, generalized weakness. Improved today. COntinue electrolyte replinishment. Continue BP control, increased PO hydration as tolerated.
[2016-11-13 18:19] LABS: CALCIUM 7.8 mg/dL (8.5-10.1); CREATININE 3.9 mg/dL (0.7-1.3)
[2016-11-13] MEDS ORDERED: ACETAMINOPHEN 325 MG TABLET (FP) PO PRN (18:37)
[2016-11-13] MEDS ORDERED: ATORVASTATIN CA 10 MG TABLET (FP) PO SCH (22:00)
[2016-11-13] MEDS: ATORVASTATIN CA 10 MG TABLET (FP) PO SCH (23:28)
[2016-11-13] MEDS: HEPARIN NA (PORCINE) 5,000 UNITS/ML 1ML VIAL SQ SCH (23:29)
[2016-11-14] MEDS: VANCOMYCIN 250 MG/5 ML ORAL SOLUTION PO SCH ×5 (00:22→20:36)
[2016-11-14] MEDS: SODIUM CHLORIDE 0.45% 1,000 ML with SODIUM BICARBONATE 8.4% - 75 MEQ IV SCH ×4 (01:36→20:36)
[2016-11-14 08:57] LABS: BASOPHIL 0.4 % (0-2.0); EOSINOPHIL 0.9 % (0-4.5); MCHC 32.8 g/dl (32.0-35.9); MEAN CELL VOLUME 88.4 fl (80-96); MEAN PLT VOLUME 10.8 fl (7.5-11.1); NEUTROPHILS 66.2 % (42.8-82.8); PLATELET COUNT 166 K/MM3 (134-434); RDW 12.9 % (11.9-15.9); WHITE BLOOD COUNT 10.2 K/mm3 (4.0-10.0)
[2016-11-14 09:30] LABS: ALBUMIN 2.9 g/dl (3.4-5.0); BILIRUBIN,TOTAL 0.3 mg/dL (0.2-1.0); CALCIUM 7.8 mg/dL (8.5-10.1); CREATININE 3.1 mg/dL (0.7-1.3); MAGNESIUM 2.1 mg/dL (1.8-2.4); PHOSPHOROUS 2.9 mg/dL (2.5-4.9); TOT PROT 5.9 g/dl (6.4-8.2)
[2016-11-14] MEDS: ASPIRIN COATED 81 MG TABLET.EC PO SCH (09:42)
[2016-11-14] MEDS: PANTOPRAZOLE 20 MG TABLET (FP) PO SCH ×2 (09:42→21:44)
[2016-11-14] MEDS: HEPARIN NA (PORCINE) 5,000 UNITS/ML 1ML VIAL SQ SCH ×2 (09:43→21:43)
[2016-11-14] MEDS: cefTRIAXone 2 GM/100 ML BAG (PRE-DOCKED) IVPB SCH (09:43)
[2016-11-14] MEDS: ATENOLOL 25 MG TABLET (FP) PO SCH (09:43)
[2016-11-14] MEDS ORDERED: PT OWN MED DRAWER 7, Y5N ONE (13:00)
--- NOTE | 2016-11-14 16:42 | PN ---
Progress Note (short form) - Note Progress Note: Patient is feeling better with no acute distress. No fever or chills. Vital Signs Temperature 98.7 F 11/14/16 15:11 Pulse Rate 62 11/14/16 15:11 Respiratory Rate 18 11/14/16 15:11 Blood Pressure 115/71 11/14/16 15:11 O2 Sat by Pulse Oximetry (%) 96 11/14/16 09:00 GENERAL: The patient is awake, alert, and fully oriented, in no acute distress. HEAD: Normal with no signs of trauma. EYES: PERRL, extraocular movements intact, sclera anicteric, conjunctiva clear. ENT: Ears normal, oropharynx clear without exudates, moist mucous membranes. NECK: Trachea midline, full range of motion, supple. LUNGS: GAE BL, clear to auscultation bilaterally, no wheezes, no crackles, no accessory muscle use. HEART: sinus tachycardia , S1, S2 positive , no rub or gallop. ABDOMEN: Soft, nontender, nondistended, normoactive bowel sounds, no guarding, no rebound, no masses. EXTREMITIES: 2+ pulses, warm, well-perfused, no edema. NEUROLOGICAL: Cranial nerves II through XII grossly intact. able to speak in full sentences . PSYCH: Normal mood, normal affect. SKIN: Warm, dry, normal turgor, no rashes or lesions noted CBCD WBC 10.2 K/mm3 (4.0-10.0) H 11/14/16 06:50 RBC 4.27 M/mm3 (4.00-5.60) 11/14/16 06:50 Hgb 12.4 GM/dL (11.7-16.9) 11/14/16 06:50 Hct 37.7 % (35.4-49) 11/14/16 06:50 MCV 88.4 fl (80-96) 11/14/16 06:50 MCHC 32.8 g/dl (32.0-35.9) 11/14/16 06:50 RDW 12.9 % (11.9-15.9) 11/14/16 06:50 Plt Count 166 K/MM3 (134-434) D 11/14/16 06:50 MPV 10.8 fl (7.5-11.1) D 11/14/16 06:50 CMP Sodium 141 mmol/L (136-145) 11/14/16 06:50 Potassium 3.7 mmol/L (3.5-5.1) 11/14/16 06:50 Chloride 109 mmol/L (98-107) H 11/14/16 06:50 Carbon Dioxide 23 mmol/L (21-32) 11/14/16 06:50 Anion Gap 9 (8-16) 11/14/16 06:50 BUN 26 mg/dL (7-18) H 11/14/16 06:50 Creatinine 3.1 mg/dL (0.7-1.3) H D 11/14/16 06:50 Creat Clearance w eGFR 20.52 (>60) 11/14/16 06:50 Random Glucose 70 mg/dL (74-106) L D 11/14/16 06:50 Calcium 7.8 mg/dL (8.5-10.1) L 11/14/16 06:50 Total Bilirubin 0.3 mg/dL (0.2-1.0) D 11/14/16 06:50 AST 22 U/L (15-37) 11/14/16 06:50 ALT 16 U/L (12-78) 11/14/16 06:50 Alkaline Phosphatase 54 U/L (45-117) 11/14/16 06:50 Total Protein 5.9 g/dl (6.4-8.2) L 11/14/16 06:50 Albumin 2.9 g/dl (3.4-5.0) L 11/14/16 06:50 CARDIAC ENZYMES Creatine Kinase 170 IU/L (39-308) 11/12/16 09:27 Troponin I < 0.02 ng/ml (0.00-0.05) 11/12/16 09:27 Current Medications Generic Name Dose Route Start Last Admin Trade Name Freq PRN Reason Stop Dose Admin Acetaminophen 650 mg 11/13/16 18:37 Tylenol - PO Q6H PRN FEVER OR PAIN Albuterol/Ipratropium 1 amp 11/13/16 18:37 Duoneb - NEB Q6H PRN SHORTNESS OF BREATH Aspirin 81 mg 11/14/16 10:00 11/14/16 09:42 Ecotrin - PO 81 mg DAILY LATISHA Administration Atenolol 25 mg 11/14/16 10:00 11/14/16 09:43 Tenormin - PO 25 mg DAILY LATISHA Administration Atorvastatin Calcium 10 mg 11/13/16 22:00 11/13/16 23:28 Lipitor - PO 10 mg HS LATISHA Administration Ceftriaxone Sodium 2 gm 11/14/16 10:00 11/14/16 09:43 Rocephin 2gm Ivpb (Pre-Docked) IVPB 2 gm DAILY LATISHA Administration Heparin Sodium (Porcine) 5,000 unit 11/13/16 22:00 11/14/16 09:43 Heparin - SQ 5,000 unit BID LATISHA Administration Sodium Bicarbonate 75 meq/ 1,075 mls @ 125 mls/hr 11/14/16 00:30 11/14/16 09:43 Sodium Chloride IV Not Given Q8H [facility] Pantoprazole Sodium 20 mg 11/13/16 22:00 11/14/16 09:42 Protonix - PO 20 mg BID LATISHA Administration Vancomycin HCl 250 mg 11/14/16 00:00 11/14/16 12:12 Vancomycin Oral Solution PO 250 mg Q6HPO LATISHA Administration Home Medications Medication Instructions Recorded Amlodipine Besylate 5 mg PO DAILY 11/12/16 Atenolol [Tenormin -] 25 mg PO DAILY 11/12/16 [place] Carbonate [Eskalith -] 300 mg PO TID 11/12/16 Losartan Potassium 100 mg PO DAILY 11/12/16 Quetiapine Fumarate [Seroquel -] 400 mg PO HS 11/12/16 Simvastatin 20 mg PO HS 11/12/16 Valproic Acid [Depakene] 250 mg PO BID 11/12/16 Microbiology 11/12/16 17:00 Blood - Peripheral Venous Blood Culture - Preliminary NO GROWTH OBTAINED AFTER 48 HOURS, INCUBATION TO CONTINUE FOR 3 DAYS. 11/12/16 17:00 Blood - Peripheral Venous Blood Culture - Preliminary NO GROWTH OBTAINED AFTER 48 HOURS, INCUBATION TO CONTINUE FOR 3 DAYS. 11/12/16 10:09 Urine - Urine - Catheterized Urine Culture - Final NO GROWTH OBTAINED CT head: w/o evidence of acute pathology Renal US showed no signs of obstruction but multiple cysts ASSESSMENT/PLAN: This is a 61 yo man HTN, bipolar on lithium who presented to ED with diarrhea x 1 week ( 6-10 bm/day, non bloody, yellow), complicated by lethargy, dysarthria and weakness w/ difficulty ambulating. As per family he recently was treated with ABx for oral infection (unknown ABX or duration). # s/p Septic shock on IV antibiotics Rocephin and oral vancomycin will continue for now # Acute renal failure on CKD ;creat--3.0 (24 hr ago)--->5.5 --> 4.7-->3.1 today nephro consult appreciated will monitor will continue IVF as per nephro #s/p AMS with altered Speech improving; possible due to sepsis/septic shock; Neurology on the case #Diarrhea stool studies w/u is pending will follow. #Metabolic acidosis/ Lactic acidosis ;corrected Anion gap is 12 today ;continue IVF with Bicarb for now As per nephrology if repeat BMP in the evening, if bicarb > 22 can stop bicarbonate infusion. DVT Px; Heparin Visit type - Emergency Visit Emergency Visit: Yes ED Registration Date: 11/12/16 Care time: The patient presented to the Emergency Department on the above date and was hospitalized for further evaluation of their emergent condition. - New Patient This patient is new to me today: No - Critical Care Critical Care patient: No
[2016-11-14] MEDS: ATORVASTATIN CA 10 MG TABLET (FP) PO SCH (21:44)
[2016-11-15] MEDS: SODIUM CHLORIDE 0.45% 1,000 ML with SODIUM BICARBONATE 8.4% - 75 MEQ IV SCH (01:33)
[2016-11-15] MEDS: VANCOMYCIN 250 MG/5 ML ORAL SOLUTION PO SCH ×3 (01:34→11:46)
[2016-11-15 08:33] LABS: MCH 28.9 pg (25.7-33.7); MEAN CELL VOLUME 87.6 fl (80-96); MEAN PLT VOLUME 11.3 fl (7.5-11.1); RDW 12.9 % (11.9-15.9); WHITE BLOOD COUNT 9.4 K/mm3 (4.0-10.0)
[2016-11-15 08:45] LABS: CALCIUM 8.1 mg/dL (8.5-10.1)
[2016-11-15 08:51] LABS: BILIRUBIN,TOTAL 0.3 mg/dL (0.2-1.0); CREATININE 2.2 mg/dL (0.7-1.3); TOT PROT 5.9 g/dl (6.4-8.2)
[2016-11-15] MEDS: ASPIRIN COATED 81 MG TABLET.EC PO SCH (10:09)
[2016-11-15] MEDS: SODIUM CHLORIDE 0.45% 1,000 ML IV SCH ×2 (10:09→23:46)
[2016-11-15] MEDS: cefTRIAXone 2 GM/100 ML BAG (PRE-DOCKED) IVPB SCH (10:09)
[2016-11-15] MEDS: ATENOLOL 25 MG TABLET (FP) PO SCH (10:10)
[2016-11-15] MEDS: PANTOPRAZOLE 20 MG TABLET (FP) PO SCH ×2 (10:10→22:25)
[2016-11-15] MEDS: HEPARIN NA (PORCINE) 5,000 UNITS/ML 1ML VIAL SQ SCH ×2 (10:10→22:26)
[2016-11-15] MEDS ORDERED: PT OWN MED DRAWER 7, Y5N ONE (11:44)
--- NOTE | 2016-11-15 12:23 | PN ---
Progress Note, SENIOR SYSTEMS DEVELOPER - Note Progress Note: Selected Entries 11/14/16 11/14/16 11/14/16 00:00 06:00 10:00 Breakfast Lunch Supper Temperature 99.9 F H 99.1 F 98.4 F 11/14/16 11/14/16 11/14/16 10:05 15:11 17:07 Breakfast 100% Lunch 100% Supper Temperature 98.7 F 100 F H 11/14/16 11/14/16 11/14/16 18:37 20:56 21:00 Breakfast Lunch Supper 100% 100% Temperature 98.8 F 11/14/16 11/15/16 11/15/16 22:00 06:14 10:37 Breakfast 100% Lunch Supper 100% Temperature 97.7 F Pt tolerating diet well. No further f/u indicated.
[2016-11-15 12:51] LABS: PLATELET COUNT 164 K/MM3 (134-434); PLATELET ESTIMATE ADEQUATE (NORMAL)
--- NOTE | 2016-11-15 13:57 | PN ---
Progress Note, Physician Chief Complaint: ID Doing much better Denies diarrhea Ceftriaxone oral vanco - Current Medication List Current Medications: Active Medications Acetaminophen (Tylenol -) 650 mg PO Q6H PRN PRN Reason: FEVER OR PAIN Albuterol/Ipratropium (Duoneb -) 1 amp NEB Q6H PRN PRN Reason: SHORTNESS OF BREATH Aspirin (Ecotrin -) 81 mg PO DAILY [facility] Last Admin: 11/15/16 10:09 Dose: 81 mg Atenolol (Tenormin -) 25 mg PO DAILY [facility] Last Admin: 11/15/16 10:10 Dose: 25 mg Atorvastatin Calcium (Lipitor -) 10 mg PO HS [facility] Last Admin: 11/14/16 21:44 Dose: 10 mg Ceftriaxone Sodium (Rocephin 2gm Ivpb (Pre-Docked)) 2 gm IVPB DAILY [facility] Last Admin: 11/15/16 10:09 Dose: 2 gm Heparin Sodium (Porcine) (Heparin -) 5,000 unit SQ BID [facility] Last Admin: 11/15/16 10:10 Dose: 5,000 unit Sodium Chloride (1/2 Normal Saline) 1,000 mls @ 75 mls/hr IV ASDIR [facility] Last Admin: 11/15/16 10:09 Dose: 75 mls/hr Pantoprazole Sodium (Protonix -) 20 mg PO BID [facility] Last Admin: 11/15/16 10:10 Dose: 20 mg Vancomycin HCl (Vancomycin Oral Solution) 250 mg PO Q6HPO [facility] Last Admin: 11/15/16 11:46 Dose: 250 mg - Objective Vital Signs: Vital Signs Temperature 98.6 F 11/15/16 10:00 Pulse Rate 54 L 11/15/16 10:00 Respiratory Rate 20 11/15/16 10:00 Blood Pressure 121/78 11/15/16 10:00 O2 Sat by Pulse Oximetry (%) 99 11/15/16 09:00 Constitutional: Yes: Well Nourished, No Distress HENT: Yes: WNL, Atraumatic, Tonsillar Exudate Neck: Yes: WNL, Supple Cardiovascular: Yes: Regular Rate and Rhythm, Murmur, S1, S2 Respiratory: Yes: WNL, Regular, CTA Bilaterally Gastrointestinal: Yes: WNL, Normal Bowel Sounds, Soft. No: Tenderness, Tenderness, Epigastrium Edema: No Labs: CBC, BMP 11/15/16 07:00 03/20/17 07:00 INR, PTT INR 1.05 (0.82-1.09) 11/12/16 09:27 Problem List - Problems (1) Acute renal failure Code(s): N17.9 - ACUTE KIDNEY FAILURE, UNSPECIFIED Qualifiers: Acute renal failure type: unspecified Qualified Code(s): N17.9 - Acute kidney failure, unspecified (2) Enterocolitis Code(s): K52.9 - NONINFECTIVE GASTROENTERITIS AND COLITIS, UNSPECIFIED Assessment/Plan Microbiology 11/14/16 23:42 Stool Giardia Antigen (MUKUL) - Final 11/14/16 23:42 Stool Cryptosporidium Antigen - Final Laboratory Tests 11/15/16 11/15/16 07:00 07:00 WBC 9.4 Hgb 12.4 Hct 37.6 Plt Count 164 BUN 18 D Creatinine 2.2 H D Creat Clearance w eGFR 30.48 Assessment Acute renal failure with diarrhea suspect enteric pathogen However no stool able to be seen initially He is improving Advise Stop antibiotics Should C diff be positive will treat metronidazole Alfie BELTRAN
--- NOTE | 2016-11-15 15:44 | PN ---
Physical Exam: SUBJECTIVE: Patient seen and examined Patient resting in bed NAD. No acute events overnight. afebrile x 24 hr, hemodynamically stable. Mental baseline. States he feels much better, mild abd disconfort but no pain, no diarrhea, normal BM. no n/v, no f/c. no h/a, sob, cough, chest pain or dysuria. tolerating diet OBJECTIVE: Vital Signs Period Temp Pulse Resp BP Sys/Musa Pulse Ox Last 24 Hr 97.7 F-100 F 48-100 18-20 119-128/54-78 96-99 GENERAL: Awake, alert, and fully oriented, nad HEAD: Normal with no signs of trauma. EYES: Pupils equal, round and reactive to light, extraocular movements intact, sclera anicteric, conjunctiva clear. EARS, NOSE, THROAT: Moist mucous membranes. NECK: supple without JVD LUNGS: cta b/l HEART: rrr, normal S1 and S2 ABDOMEN: Soft, nontender, moderately distended, + bowel sounds, no mass MUSCULOSKELETAL: No CVA tenderness. UPPER EXTREMITIES: 1+ pulses, warm, well-perfused. No peripheral edema. LOWER EXTREMITIES: 1+ pulses, warm, well-perfused. No peripheral edema. NEUROLOGICAL: Cranial nerves II-XII grossly intact. normal speech. PSYCHIATRIC: Cooperative. Good eye contact. SKIN: Warm, dry Laboratory Results - last 24 hr 11/14/16 11/15/16 11/15/16 23:42 07:00 07:00 WBC 9.4 RBC 4.29 Hgb 12.4 Hct 37.6 MCV 87.6 MCHC 33.0 RDW 12.9 Plt Count 164 MPV 11.3 H Platelet Estimate Adequate Platelet Comment No clumping noted Sodium 143 Potassium 3.7 Chloride 109 H Carbon Dioxide 27 Anion Gap 7 L BUN 18 D Creatinine 2.2 H D Creat Clearance w eGFR 30.48 Random Glucose 86 D Calcium 8.1 L Magnesium 2.0 Total Bilirubin 0.3 AST 22 ALT 18 Alkaline Phosphatase 58 Total Protein 5.9 L Albumin 3.0 L Stool Occult Blood Trace Active Medications Generic Name Dose Route Start Last Admin Trade Name Freq PRN Reason Stop Dose Admin Acetaminophen 650 mg 11/13/16 18:37 Tylenol - PO Q6H PRN FEVER OR PAIN Albuterol/Ipratropium 1 amp 11/13/16 18:37 Duoneb - NEB Q6H PRN SHORTNESS OF BREATH Aspirin 81 mg 11/14/16 10:00 11/15/16 10:09 Ecotrin - PO 81 mg DAILY LATISHA Administration Atenolol 25 mg 11/14/16 10:00 11/15/16 10:10 Tenormin - PO 25 mg DAILY LATISHA Administration Atorvastatin Calcium 10 mg 11/13/16 22:00 11/14/16 21:44 Lipitor - PO 10 mg HS LATISHA Administration Heparin Sodium (Porcine) 5,000 unit 11/13/16 22:00 11/15/16 10:10 Heparin - SQ 5,000 unit BID LATISHA Administration Sodium Chloride 1,000 mls @ 75 mls/hr 11/15/16 09:15 11/15/16 10:09 1/2 Normal Saline IV 75 mls/hr ASDIR LATISHA Administration Pantoprazole Sodium 20 mg 11/13/16 22:00 11/15/16 10:10 Protonix - PO 20 mg BID LATISHA Administration ASSESSMENT/PLAN: This is a 61 yo M with PMH of HTN, HLD, dementia, bipolar d/o, who presents with diarrhea and altered mental status. Septic shock -possible GI vs Renal souce -lactic acidisis resolved -IVF NS @ 75 -IV rocephin, vanco -Diarrhearesolved -stool oova parasites, gram stain, leukocytes, c diff negative -blood and urine cultures negative MARINA on possible CKD -creat 2.2 -due to volume contraction vs septic shock -IV hydration -Renal US unremarkable -renal consult appreciated -continue hydration for one more day then d/c Slurred speech -likley due to metabolic encephalopathy -resolved -Head CT negative -ASA -Hep -TTE negative -neuro consult appreciated Hypotension -normotensive HTN -atemolol HLD -atorvastatin SOB -CXR unremarkable -resolved Penile bleed -s/p traumatic straight cath -resolved FEN NS@75 hyperchloremia NPO Dispo: admit med neptali Problem List - Problems (1) Acute renal failure Code(s): N17.9 - ACUTE KIDNEY FAILURE, UNSPECIFIED Qualifiers: Acute renal failure type: unspecified Qualified Code(s): N17.9 - Acute kidney failure, unspecified (2) Altered mental state Code(s): R41.82 - ALTERED MENTAL STATUS, UNSPECIFIED Qualifiers: Altered mental status type: somnolence Qualified Code(s): R40.0 - Somnolence (3) Diarrhea Code(s): R19.7 - DIARRHEA, UNSPECIFIED Qualifiers: Diarrhea type: unspecified type Qualified Code(s): R19.7 - Diarrhea, unspecified (4) Hypomagnesemia Code(s): E83.42 - HYPOMAGNESEMIA (5) Hypovolemia Code(s): E86.1 - HYPOVOLEMIA (6) Septic shock Code(s): A41.9 - SEPSIS, UNSPECIFIED ORGANISM R65.21 - SEVERE SEPSIS WITH SEPTIC SHOCK Visit type - Emergency Visit Emergency Visit: Yes ED Registration Date: 11/12/16 Care time: The patient presented to the Emergency Department on the above date and was hospitalized for further evaluation of their emergent condition. - New Patient This patient is new to me today: No - Critical Care Critical Care patient: No - Discharge Referral Referred to [facility] No
--- NOTE | 2016-11-15 15:54 | PN ---
Progress Note (short form) - Note Progress Note: Renal Follow up for MARINA and metabolic acidosis Pt seen and examined at the bedside no acute complaints feels better no abd pain, sob, chest pain on IVF Vital Signs Temperature 99.2 F 11/15/16 15:25 Pulse Rate 48 L 11/15/16 15:25 Respiratory Rate 20 11/15/16 15:25 Blood Pressure 128/76 11/15/16 15:25 O2 Sat by Pulse Oximetry (%) 99 11/15/16 09:00 Intake & Output 11/12/16 11/13/16 11/14/16 11/15/16 23:59 23:59 23:59 23:59 Intake Total 1950 3805 2300 3150 Output Total 150 1750 3400 2400 Balance 1800 2054 -1100 750 Weight 236 lb 233 lb 9.6 oz 233 lb 8 oz 236 lb Gen: NAD, awake and alert CVS: RRR, No M/R Lungs: CTA, no rales or wheeze Abd: soft, NT Ext: no edema, clubbing or cyanosis CBC, BMP 11/15/16 07:00 11/15/16 07:00 Current Medications Acetaminophen (Tylenol -) 650 mg PO Q6H PRN PRN Reason: FEVER OR PAIN Albuterol/Ipratropium (Duoneb -) 1 amp NEB Q6H PRN PRN Reason: SHORTNESS OF BREATH Aspirin (Ecotrin -) 81 mg PO DAILY [facility] Last Admin: 11/15/16 10:09 Dose: 81 mg Atenolol (Tenormin -) 25 mg PO DAILY [facility] Last Admin: 11/15/16 10:10 Dose: 25 mg Atorvastatin Calcium (Lipitor -) 10 mg PO HS [facility] Last Admin: 11/14/16 21:44 Dose: 10 mg Heparin Sodium (Porcine) (Heparin -) 5,000 unit SQ BID [facility] Last Admin: 11/15/16 10:10 Dose: 5,000 unit Sodium Chloride (1/2 Normal Saline) 1,000 mls @ 75 mls/hr IV ASDIR [facility] Last Admin: 11/15/16 10:09 Dose: 75 mls/hr Pantoprazole Sodium (Protonix -) 20 mg PO BID [facility] Last Admin: 11/15/16 10:10 Dose: 20 mg A/P 61 year old Gentleman with PMhx of Bipolar disorder, Demntia, Hypertension on ARB, Hyperlipidemia, Obesity, Nephrolithiasis who presents with complaints of weakness and diarrhea x 4 days and found to have BUN/Cr of 33/5.5. #Acute Renal Failure Etiology of MARINA likely is normotensive ATN in setting of ARB/NSAIDs/Volume depletion Renal function improving and pt is non-oliguric continue hypotonic IVF for now at 75cc per hour Trend BUN/cr and electrolytes #Metabolic acidosis acidosis is now corrected no further bicarb infusion necessary Thank you Will follow
--- NOTE | 2016-11-15 15:59 | PN ---
Teaching Attending Note Name of Resident: Vaishnavi Payne ATTENDING PHYSICIAN STATEMENT I saw and evaluated the patient. I reviewed the resident's note and discussed the case with the resident. I agree with the resident's findings and plan as documented. Patient is feeling better with no acute distress, would like to go home Vital Signs Temperature 99.2 F 11/15/16 15:25 Pulse Rate 48 L 11/15/16 15:25 Respiratory Rate 20 11/15/16 15:25 Blood Pressure 128/76 11/15/16 15:25 O2 Sat by Pulse Oximetry (%) 99 11/15/16 09:00 CBCD WBC 9.4 K/mm3 (4.0-10.0) 11/15/16 07:00 RBC 4.29 M/mm3 (4.00-5.60) 11/15/16 07:00 Hgb 12.4 GM/dL (11.7-16.9) 11/15/16 07:00 Hct 37.6 % (35.4-49) 11/15/16 07:00 MCV 87.6 fl (80-96) 11/15/16 07:00 MCHC 33.0 g/dl (32.0-35.9) 11/15/16 07:00 RDW 12.9 % (11.9-15.9) 11/15/16 07:00 Plt Count 164 K/MM3 (134-434) 11/15/16 07:00 MPV 11.3 fl (7.5-11.1) H 11/15/16 07:00 CMP Sodium 143 mmol/L (136-145) 11/15/16 07:00 Potassium 3.7 mmol/L (3.5-5.1) 11/15/16 07:00 Chloride 109 mmol/L (98-107) H 11/15/16 07:00 Carbon Dioxide 27 mmol/L (21-32) 11/15/16 07:00 Anion Gap 7 (8-16) L 11/15/16 07:00 BUN 18 mg/dL (7-18) D 11/15/16 07:00 Creatinine 2.2 mg/dL (0.7-1.3) H D 11/15/16 07:00 Creat Clearance w eGFR 30.48 (>60) 11/15/16 07:00 Random Glucose 86 mg/dL (74-106) D 11/15/16 07:00 Calcium 8.1 mg/dL (8.5-10.1) L 11/15/16 07:00 Total Bilirubin 0.3 mg/dL (0.2-1.0) 11/15/16 07:00 AST 22 U/L (15-37) 11/15/16 07:00 ALT 18 U/L (12-78) 11/15/16 07:00 Alkaline Phosphatase 58 U/L (45-117) 11/15/16 07:00 Total Protein 5.9 g/dl (6.4-8.2) L 11/15/16 07:00 Albumin 3.0 g/dl (3.4-5.0) L 11/15/16 07:00 CARDIAC ENZYMES Creatine Kinase 170 IU/L (39-308) 11/12/16 09:27 Troponin I < 0.02 ng/ml (0.00-0.05) 11/12/16 09:27 Current Medications Generic Name Dose Route Start Last Admin Trade Name Freq PRN Reason Stop Dose Admin Acetaminophen 650 mg 11/13/16 18:37 Tylenol - PO Q6H PRN FEVER OR PAIN Albuterol/Ipratropium 1 amp 11/13/16 18:37 Duoneb - NEB Q6H PRN SHORTNESS OF BREATH Aspirin 81 mg 11/14/16 10:00 11/15/16 10:09 Ecotrin - PO 81 mg DAILY LATISHA Administration Atenolol 25 mg 11/14/16 10:00 11/15/16 10:10 Tenormin - PO 25 mg DAILY LATISHA Administration Atorvastatin Calcium 10 mg 11/13/16 22:00 11/14/16 21:44 Lipitor - PO 10 mg HS LATISHA Administration Heparin Sodium (Porcine) 5,000 unit 11/13/16 22:00 11/15/16 10:10 Heparin - SQ 5,000 unit BID LATISHA Administration Sodium Chloride 1,000 mls @ 75 mls/hr 11/15/16 09:15 11/15/16 10:09 1/2 Normal Saline IV 75 mls/hr ASDIR LATISHA Administration Pantoprazole Sodium 20 mg 11/13/16 22:00 11/15/16 10:10 Protonix - PO 20 mg BID LATISHA Administration Home Medications Medication Instructions Recorded Amlodipine Besylate 5 mg PO DAILY 11/12/16 Atenolol [Tenormin -] 25 mg PO DAILY 11/12/16 [place] Carbonate [Eskalith -] 300 mg PO TID 11/12/16 Losartan Potassium 100 mg PO DAILY 11/12/16 Quetiapine Fumarate [Seroquel -] 400 mg PO HS 11/12/16 Simvastatin 20 mg PO HS 11/12/16 Valproic Acid [Depakene] 250 mg PO BID 11/12/16 CT head: w/o evidence of acute pathology Renal US showed no signs of obstruction but multiple cysts ASSESSMENT AND PLAN: This is a 61 yo man HTN, bipolar on lithium who presented to ED with diarrhea x 1 week ( 6-10 bm/day, non bloody, yellow), complicated by lethargy, dysarthria and weakness w/ difficulty ambulating. As per family he recently was treated with ABx for oral infection (unknown ABX or duration). # s/p Septic shock completed IV antibiotics; monitor without IV antibiotics # Acute renal failure on CKD ;creat--3.0 (24 hr ago)--->5.5 --> 4.7-->3.1-->2.2 today nephro consult appreciated will monitor will continue IVF as per nephro, can be discharged home once below 2.0 the creatinine will discharge the patient home #s/p AMS with altered Speech improving; possible due to sepsis/septic shock; Neurology on the case #Diarrhea stool studies w/u is pending will follow. #Metabolic acidosis/ Lactic acidosis ;corrected Anion gap is 12 today ;continue IVF with Bicarb for now As per nephrology if repeat BMP in the evening, if bicarb > 22 can stop bicarbonate infusion. DVT Px; Heparin
[2016-11-15] MEDS: ATORVASTATIN CA 10 MG TABLET (FP) PO SCH (22:25)
[2016-11-16 06:06] LABS: COMPLEMENT C3 137 mg/dL (82-167); COMPLEMENT C4 14 mg/dL (14-44)
[2016-11-16 09:40] LABS: CALCIUM 7.9 mg/dL (8.5-10.1); CREATININE 1.6 mg/dL (0.7-1.3)
[2016-11-16] MEDS: HEPARIN NA (PORCINE) 5,000 UNITS/ML 1ML VIAL SQ SCH (10:05)
[2016-11-16] MEDS: SODIUM CHLORIDE 0.45% 1,000 ML IV SCH (10:05)
[2016-11-16] MEDS: ATENOLOL 25 MG TABLET (FP) PO SCH (10:05)
[2016-11-16] MEDS: PANTOPRAZOLE 20 MG TABLET (FP) PO SCH (10:05)
[2016-11-16] MEDS: ASPIRIN COATED 81 MG TABLET.EC PO SCH (10:05)
[2016-11-16 10:38] VITALS: PULSE 77
[2016-11-16 11:16] VITALS: BP 110/63; TEMP 98.9
--- NOTE | 2016-11-16 11:47 | DS ---
Physical Exam: SUBJECTIVE: Patient seen and examined Patient resting in bed NAD. No acute events overnight. afebrile, hemodynamically stable. Mental baseline. States he feels well, no abd discomfort or pain, no diarrhea, normal BM. no n/v, no f/c. no h/a, sob, cough, chest pain or dysuria. tolerating renal diet OBJECTIVE: Vital Signs Period Temp Pulse Resp BP Sys/Musa Pulse Ox Last 24 Hr 97.9 F-99.2 F 48-77 18-20 103-128/54-76 97-98 PHYSICAL EXAM GENERAL: Awake, alert, and fully oriented, nad HEAD: Normal with no signs of trauma. EYES: Pupils equal, round and reactive to light, extraocular movements intact, sclera anicteric, conjunctiva clear. EARS, NOSE, THROAT: Moist mucous membranes. NECK: supple without JVD LUNGS: cta b/l HEART: rrr, normal S1 and S2 ABDOMEN: Soft, nontender, nondistended, + bowel sounds, no mass MUSCULOSKELETAL: No CVA tenderness. UPPER EXTREMITIES: 1+ pulses, warm, well-perfused. No peripheral edema. LOWER EXTREMITIES: 1+ pulses, warm, well-perfused. No peripheral edema. NEUROLOGICAL: Cranial nerves II-XII grossly intact. normal speech. PSYCHIATRIC: Cooperative. Good eye contact. SKIN: Warm, dry LABS Laboratory Results - last 24 hr 11/14/16 11/15/16 11/16/16 06:50 07:00 07:30 Plt Count 164 Platelet Estimate Adequate Platelet Comment No clumping noted Sodium 144 Potassium 3.7 Chloride 111 H Carbon Dioxide 25 Anion Gap 8 BUN 12 D Creatinine 1.6 H D Random Glucose 91 Calcium 7.9 L Complement C3 137 Complement C4 14 HOSPITAL COURSE: Date of Admission:11/12/16 This is a 61 yo M with PMH of HTN, HLD, dementia, bipolar d/o, who presents with diarrhea and altered mental status. history gathered from patient and family. He felt well until 4 days ago, when he developed severe yellow diarrhea (10 ep/day) w/o abdominal pain. He has lost his appetite and has not been drinking much water. He denies f/c. He became so weak over the past 24 hr that he has been unable to walk. Family reports that over the past 24 hr he developed slurred speech. he was [facility] before where he had a normal abd us and was given IVF. He had no known history of kidney disease. His creat in [facility] was 3 and was 5.5 on admission here. In ed he was afebrile, tachycardic, relatively hypotensive 100/68 and hypoxic high 80's. He was admitted to floor with severe sepsis, on abx and IVF, where his mental status declined (negative head CT), he became confused and hypoxic (probably due to volume overload from all the IVF). he was transferred to ICU for a day, where he was stabilized (didnt require intubation or pressors) and then transferred back to floor. His abd pain and diarrhea resolved, fever resolved. MARINA due to hypotesion improved with IVF (1.6 on d/c). HE tolerated regular diet and had notmal BM. His blood and stool cultures were negative for pathogens. Date of Discharge: 11/16/16 Minutes to complete discharge: 30 (na) Discharge Summary Reason For Visit: ARF,AMS Current Active Problems Acute renal failure (Acute) Altered mental state (Acute) Diarrhea (Acute) Enterocolitis (Acute) Hypomagnesemia (Acute) Hypovolemia (Acute) Septic shock (Acute) Condition: Good - Instructions Diet, Activity, Other Instructions: You were hospitalized due to severe infection in you gastrointestinal tract. you were treated with antibiotics and fluids. When your blood pressure dropped, your kidneys suffered some injury but they have been recovering with hydration. Drink lots of water and check your blood work at Primary care doctor in 1 week. Restart your regular medications Return to hospital if symptoms resume Referrals: STAFF,NOT ON [Primary Care Provider] - 1 Week Disposition: HOME - Home Medications Comprehensive Discharge Medication List: Ambulatory Orders Amlodipine Besylate 5 mg PO DAILY 11/12/16 Atenolol [Tenormin -] 25 mg PO DAILY 11/12/16 [place] Carbonate [Eskalith -] 300 mg PO TID 11/12/16 Losartan Potassium 100 mg PO DAILY 11/12/16 Quetiapine Fumarate [Seroquel -] 400 mg PO HS 11/12/16 Simvastatin 20 mg PO HS 11/12/16 Valproic Acid [Depakene] 250 mg PO BID 11/12/16 Problem List - Problems (1) Acute renal failure Code(s): N17.9 - ACUTE KIDNEY FAILURE, UNSPECIFIED Qualifiers: Acute renal failure type: unspecified Qualified Code(s): N17.9 - Acute kidney failure, unspecified (2) Altered mental state Code(s): R41.82 - ALTERED MENTAL STATUS, UNSPECIFIED Qualifiers: Altered mental status type: somnolence Qualified Code(s): R40.0 - Somnolence (3) Diarrhea Code(s): R19.7 - DIARRHEA, UNSPECIFIED Qualifiers: Diarrhea type: unspecified type Qualified Code(s): R19.7 - Diarrhea, unspecified (4) Hypomagnesemia Code(s): E83.42 - HYPOMAGNESEMIA (5) Hypovolemia Code(s): E86.1 - HYPOVOLEMIA (6) Septic shock Code(s): A41.9 - SEPSIS, UNSPECIFIED ORGANISM R65.21 - SEVERE SEPSIS WITH SEPTIC SHOCK This patient is new to me today: No Emergency Visit: Yes ED Registration Date: 11/12/16 Care time: The patient presented to the Emergency Department on the above date and was hospitalized for further evaluation of their emergent condition. Critical Care patient: No - Discharge Referral Referred to [facility] Med P.C.: No
--- NOTE | 2016-11-16 13:44 | PN ---
Teaching Attending Note Name of Resident: Vaishnavi Payne ATTENDING PHYSICIAN STATEMENT I saw and evaluated the patient. I reviewed the resident's note and discussed the case with the resident. I agree with the resident's findings and plan as documented. SUBJECTIVE: no pain , no fever ro chills, no abd pain . OBJECTIVE: NAD CV : RRR Lungs : CTAB ext : no edema , or erythema . Abd : soft, NT, ND , NL BS ASSESSMENT AND PLAN: 61 y/o man who presented with feeling ill and was found to have severe sepsis and MARINA with acidosis 1- Severe sepsis , likely from enteric pathogen . 2- MARINA , due to sepsis/ATN 3- acidosis . plan : - off abx . stool cx neg ( yeast ) . sepsis resolved - follow kidney function as out pt . given prescription - renal f/u -dc home today . f/u with PCP
--- NOTE | 2016-11-16 14:33 | PN ---
Progress Note (short form) - Note Progress Note: Renal Follow up for MARINA and metabolic acidosis Pt seen and examined at the bedside no acute complaints good urine output Vital Signs Temperature 98.9 F 11/16/16 10:00 Pulse Rate 77 11/16/16 10:30 Respiratory Rate 18 11/16/16 10:00 Blood Pressure 110/63 11/16/16 10:00 O2 Sat by Pulse Oximetry (%) 98 11/16/16 10:30 Intake & Output 11/13/16 11/14/16 11/15/16 11/16/16 23:59 23:59 23:59 23:59 Intake Total 3805 2300 3150 2400 Output Total 1750 3400 3050 1000 Balance 2054 -7744 524 9199 Weight 233 lb 9.6 oz 233 lb 8 oz 236 lb Gen: NAD, awake and alert CVS: RRR, No M/R Lungs: CTA, no rales or wheeze Abd: soft, NT Ext: no edema, clubbing or cyanosis CBC, BMP 11/15/16 07:00 11/16/16 07:30 A/P 61 year old Gentleman with PMhx of Bipolar disorder, Demntia, Hypertension on ARB, Hyperlipidemia, Obesity, Nephrolithiasis who presents with complaints of weakness and diarrhea x 4 days and found to have BUN/Cr of 33/5.5. #Acute Renal Failure Renal function improvoing of ARB and NSAIDS Oral fluid intake as tolerated to follow up for monitoring of renal function as outpatient Hold ARB for now Thank you Will follow Donavan Yin DO
== END 2016-11-16 13:22 | disposition home or self-care (01) | DRG 720 ==
LOC: JER 09:18 → JERBED 12:50 → J7W 14:41 → JICU 18:52 → J8W 11-13 20:32
PROVIDERS: ADMIT Internal Medicine; ATTEND Internal Medicine
DX: A41.89 Other specified sepsis (principal); E78.5 Hyperlipidemia, unspecified; F31.9 Bipolar disorder, unspecified; R65.21 Severe sepsis with septic shock; R19.7 Diarrhea, unspecified; E83.42 Hypomagnesemia; I12.9 Hypertensive chronic kidney disease with stage 1 through stage 4 chronic kidney disease, or unspecified chronic kidney disease; N18.9 Chronic kidney disease, unspecified; E87.1 Hypo-osmolality and hyponatremia; E86.0 Dehydration; E86.1 Hypovolemia; E66.8 Other obesity; Z68.35 Body mass index [BMI] 35.0-35.9, adult; Z71.3 Dietary counseling and surveillance; F03.90 Unspecified dementia, unspecified severity, without behavioral disturbance, psychotic disturbance, mood disturbance, and anxiety; M54.89 Other dorsalgia; D62 Acute posthemorrhagic anemia; E87.2 Acidosis; G93.41 Metabolic encephalopathy; N17.0 Acute kidney failure with tubular necrosis; Z87.442 Personal history of urinary calculi
CPT/HCPCS: 36415; 70450-TC; 71010-TC; 76775-TC; 80048; 80053; 80164; 80178; 80307; 81003; 81015; 82272; 82550; 82553; 82570; 82803; 83605; 83735; 84100; 84156; 84484; 85025; 85027; 85379; 85610; 86160; 87040; 87045; 87046; 87086; 87177; 87205; 87209; 87324; 87328; 87329; 87449; 87798; 93005; 93010; 93306-TC; 93970-TC; 99284-25; J1644

== ENCOUNTER 2016-11-21 21:47 | Inpatient (IN) | payer OTHER ==
--- NOTE | 2016-11-21 22:09 | PDOC ---
[id number]: No Limitations - History of Present Illness Initial Comments: 11/21/16 22:19 The patient is a 61 year old male, accompanied by family, with significant past medical history of bipolar disorder, HTN, HLD, and recent discharge from this hospital 11/16/16, who presents to the emergency department for further evaluation lethargy and slurred speech since this afternoon. The patients recent admission for similar symptoms. Family notes associated that the patient has had confusion, shakes and difficulty breathing since this afternoon. The patient states that his difficulty breathing feels like a heaviness. On examination patient was able to answer all questions asked of him. <Enoc Herbert - Last Filed: 11/22/16 00:08> <Tara Ramos - Last Filed: 11/22/16 01:33> - General Chief Complaint: Weakness Stated Complaint: DIFF BREATHING/BLURRY VISION/CONFUSED Time Seen by Provider: 11/21/16 22:04 Past History <Enoc Herbert - Last Filed: 11/22/16 00:08> - Past Medical History Dementia: Yes HTN: Yes Hypercholesterolemia: Yes Psychiatric Problems: Yes (BIPOLAR) - Psycho/Social/Smoking Cessation Hx Suicidal Ideation: No Smoking History: Never smoked Have you smoked in the past 12 months: No If you are a former smoker, when did you quit?: 10 YRS AGO Information on smoking cessation initiated: No Hx Alcohol Use: No Drug/Substance Use Hx: No Substance Use Type: None Hx Substance Use Treatment: No <Tara Ramos - Last Filed: 11/22/16 01:33> - Past Medical History Allergies/Adverse Reactions: Allergies Allergy/AdvReac Type Severity Reaction Status Date / Time No Known Allergies Allergy Verified 11/21/16 22:05 Home Medications: Ambulatory Orders Amlodipine Besylate 5 mg PO DAILY 11/12/16 Atenolol [Tenormin -] 25 mg PO DAILY 11/12/16 [place] Carbonate [Eskalith -] 300 mg PO BID 11/12/16 Losartan Potassium 100 mg PO DAILY 11/12/16 Quetiapine Fumarate [Seroquel -] 400 mg PO HS 11/12/16 Simvastatin 20 mg PO HS 11/12/16 Valproic Acid [Depakene -] 250 mg PO BID 11/12/16 Review of Systems - Review of Systems Able to Perform ROS?: Yes Comments:: 11/21/16 22:19 CONSTITUTIONAL: Present: Lethargy Absent: fever, chills, diaphoresis, generalized weakness, loss of appetite HEENT: Absent: rhinorrhea, nasal congestion, throat pain, throat swelling, difficulty swallowing, mouth swelling, ear pain, eye pain, visual Changes CARDIOVASCULAR: Absent: chest pain, syncope, palpitations, irregular heart rate, lightheadedness , peripheral edema RESPIRATORY: Present: Difficulty breathing Absent: cough, shortness of breath, dyspnea with exertion, orthopnea, wheezing, stridor, hemoptysis GASTROINTESTINAL: Absent: abdominal pain, abdominal distension, nausea, vomiting, diarrhea, constipation, melena, hematochezia GENITOURINARY: Absent: dysuria, frequency, urgency, hesitancy, hematuria, flank pain, genital pain MUSCULOSKELETAL: Absent: myalgia, arthralgia, joint swelling SKIN: Absent: rash, itching, pallor HEMATOLOGIC/IMMUNOLOGIC: Absent: easy bleeding, easy bruising, lymphadenopathy, frequent infections ENDOCRINE: Absent: unexplained weight gain, unexplained weight loss, heat intolerance, cold intolerance NEUROLOGIC: Present: Slurred speech, shakes, mental status change/confusion Absent: headache, focal weakness or paresthesias, dizziness, unsteady gait, seizure, bladder or bowel incontinence PSYCHIATRIC: Absent: anxiety, depression, suicidal or homicidal ideation, hallucinations. <Enoc Herbert - Last Filed: 11/22/16 00:08> *Physical Exam - Vital Signs Last Vital Signs Temp Pulse Resp BP Pulse Ox 98.9 F 102 H 22 115/83 91 L 11/21/16 22:05 11/21/16 22:05 11/21/16 22:05 11/21/16 22:05 11/21/16 22:05 - Physical Exam Comments: 11/21/16 22:20 GENERAL: (+) Lethargic appearing. Well developed, well nourished. Awake and alert. HEENT: Normocephalic, atraumatic. PERRLA, EOMI. No conjunctival pallor. Sclera are non- icteric. Moist mucous membranes. Oropharynx is clear. NECK: Supple. Full ROM. No JVD. Carotid pulses 2+ and symmetric, without bruits. No thyromegaly. No lymphadenopathy. CARDIOVASCULAR: Regular rate and rhythm. No murmurs, rubs, or gallops. Distal pulses are 2+ and symmetric. PULMONARY: No evidence of respiratory distress. Lungs clear to auscultation bilaterally. No wheezing, rales or rhonchi. ABDOMINAL: Soft. Non-tender. Non-distended. No rebound or guarding. No organomegaly. Normoactive bowel sounds. MUSCULOSKELETAL Normal range of motion at all joints. No bony deformities or tenderness. No CVA tenderness. EXTREMITIES: No cyanosis. No clubbing. No edema. No calf tenderness. SKIN: Warm and dry. Normal capillary refill. No rashes. No jaundice. NEUROLOGICAL: (+) Slurred speech. Alert, awake, Cranial nerves 2-12 intact. No deficits to light touch and temperature in face, upper extremities and lower extremities. No motor deficits in the in face, upper extremities and lower extremities. Normoreflexic in the upper and lower extremities. Toes are down- going bilaterally. PSYCHIATRIC: Cooperative. Good eye contact. Appropriate mood and affect. <Enoc Herbert - Last Filed: 11/22/16 00:08> - Vital Signs Last Vital Signs Temp Pulse Resp BP Pulse Ox 98.9 F 102 H 22 115/83 91 L 11/21/16 22:05 11/21/16 22:05 11/21/16 22:05 11/21/16 22:05 11/21/16 22:05 <Tara Ramos - Last Filed: 11/22/16 01:33> ED Treatment Course - LABORATORY CBC & Chemistry Diagram: 11/21/16 22:21 11/21/16 22:21 - RADIOLOGY Radiograph Interpretation: 11/22/16 00:08 EXAM: CT brain without contrast IMAGES: 76 EXAM DATE AND TIME: 2016-11-21 23: 00:34.0 REASON FOR EXAM: Lethargy stroke protocol COMPARISON: No FINDINGS: The suspected acute infarct is not visible on CT at this time. No hemorrhage. No mass. No shift or herniation. Osseous structures are intact. THIS DOCUMENT HAS BEEN ELECTRONICALLY SIGNED Adam Atkins MD CXR IMPRESSION: No official read. <Enoc Herbert - Last Filed: 11/22/16 00:08> - LABORATORY CBC & Chemistry Diagram: 11/21/16 22:21 11/21/16 22:21 <Tara Ramos - Last Filed: 11/22/16 01:33> Medical Decision Making - Medical Decision Making 11/21/16 22:38 this 61 yo male was d/c from [facility] on Tuesday . He had been admitted for the same symptoms he exhibits now-slurred speech,lethargy- -family states he started to have slurred speech again about 5pm PMH significant for -bipolar on lithium -dementia early onset -HTN -Hyperlipidemia -Obesity -nephrolithiasis ROS: shortness of breath, slurred speech,lethargy EXAM++slurred speech,lethargy but easily awoken ,++ asterixis NIHSS essentially zero -0n exam he can understand and totally participate in his exam-he knows his age, month -despite pt's slurred speech he has good hand grasp, and answers questions appropriately REVIEW RECENT CHART FROM 11/12/16 ADMISSION -LE doppler done because of c/o shortness of breath and they were NEGATIVE -ECHO EF56% CT HEAD no acute pathology treated for ARF and hydrated - - 11/21/16 23:03 TODAY'S RESULTS -normal cbc and chemistry,no renal failure today ct head -again no acute infarct or bleed - Differentail diagnosis includes lithium toxicity( level pending) ,exacerbation of depressive phase of bipolar disease 11/22/16 00:10 11/22/16 00:16 11/22/16 01:30 <Tara Ramos - Last Filed: 11/22/16 01:33> *DC/Admit/Observation/Transfer - Attestations Scribe Attestion: 11/21/16 22:20 Documentation prepared by Enoc Herbert, acting as medical technologist prn for Tara Ramos MD. <Enoc Herbert - Last Filed: 11/22/16 00:08> - Discharge Dispostion Admit: Yes <Tara Ramos - Last Filed: 11/22/16 01:33> Diagnosis at time of Disposition: Slurring of speech, Flapping tremor, Lethargy, [place] use NIH Stroke Scale - Last Known Well Date/Time & Onset Date Last Known Well: 11/21/16 Time Last Known Well: 17:00 - Initial Evaluation Level of consciousness: Not alert, but arousable with minimal stimulation Ask patient the month and their age: Answers both correctly Ask patient to open & close eyes; make fist and let go: Obeys both correctly Best gaze (horizontal eye movement): Normal Visual field testing: No visual field loss Facial paresis (Show teeth/raise eyebrows/close eyes tight): Normal symmetrical movement Motor Function: Left Arm: Normal Motor Function: Right Arm: Normal (extends arm 90 (or 45) degrees for 10 seconds without drift Motor Function: Left Leg: Normal (extends leg 30 degrees for 5 seconds without drift) Motor Function: Right Leg: Normal (extends leg 30 degrees for 5 seconds without drift) Limb Ataxia: No ataxia Sensory(Use pinprick test arms,legs,trunk,face/side to side): Normal Best language (Describe picture, name items, read sentences): No Aphasia Dysarthria (read several words): Mild to moderate slurring of words Extinction and Inattention: No abnormality - Total Score NIH Stroke Scale Score: 2 <Tara Ramos - Last Filed: 11/22/16 01:33>
[2016-11-21] MEDS ORDERED: SODIUM CHLORIDE 1,000 ML IV SCH (22:15)
[2016-11-21 22:38] LABS: BASOPHIL 0.5 % (0-2.0); EOSINOPHIL 2.5 % (0-4.5); MCHC 33.1 g/dl (32.0-35.9); MEAN CELL VOLUME 87.6 fl (80-96); MEAN PLT VOLUME 7.6 fl (7.5-11.1); NEUTROPHILS 54.9 % (42.8-82.8); PLATELET COUNT 379 K/MM3 (134-434); RDW 13.3 % (11.9-15.9); WHITE BLOOD COUNT 9.2 K/mm3 (4.0-10.0)
[2016-11-21 22:50] LABS: INR 1.1 (0.82-1.09); PROTHROMBIN TIME (PATIENT) 12.1 SEC (9.98-11.88)
[2016-11-21 23:04] LABS: ALBUMIN 3.2 g/dl (3.4-5.0); ANION GAP 8 (8-16); BILIRUBIN,TOTAL 0.2 mg/dL (0.2-1.0); CO2 29 mmol/L (21-32); CREATININE 1.3 mg/dL (0.7-1.3); GLUCOSE,RANDOM 113 mg/dL (74-106); SGOT/AST 12 U/L (15-37); SGPT/ALT 15 U/L (12-78); TOT PROT 6.8 g/dl (6.4-8.2)
[2016-11-21 23:07] LABS: ALK PHOS 57 U/L (45-117); TROPONIN I < 0.02 ng/ml (0.00-0.05)
--- NOTE | 2016-11-22 00:40 | PN ---
<Cachorro Canales - Last Filed: 11/22/16 00:40> Teaching Attending Note Name of Resident: Javier Dodge ATTENDING PHYSICIAN STATEMENT I saw and evaluated the patient. I reviewed the resident's note and discussed the case with the resident. I agree with the resident's findings and plan as documented. SUBJECTIVE: OBJECTIVE: ASSESSMENT AND PLAN: <Kami Waddell - Last Filed: 11/22/16 02:03> Teaching Attending Note ATTENDING PHYSICIAN STATEMENT I saw and evaluated the patient. I reviewed the resident's note and discussed the case with the resident. I agree with the resident's findings and plan as documented. SUBJECTIVE: Patient is a 61 year old male with a significant past medical history of bipolar disorder, HTN, HLD, and dementia who presents with slurred speech, confusion, and difficulty breathing who was recently admitted 11/12/16 and discharged on 11/16/16, during his hospital stay was found to have sepsis secondary to enteric pathogen and acute renal failure all of which resolved. Denies fever, chills, cp, chest pressure, nausea, vomiting, diarrhea, constipation, dysuria, hematuria. OBJECTIVE: VS: Last Vital Signs Temp Pulse Resp BP Pulse Ox 98.9 F 93 H 18 95/74 99 11/21/16 22:05 11/21/16 23:26 11/21/16 23:26 11/21/16 23:26 11/21/16 23:26 GEN: A&OX3, NAD HEENT: NCAT, PERRL CARD: RRR, S1 S2 RESP: +decreased breath sounds at the bases ABD: NT, BWS x4 EXT: - CCE LABS: CBCD WBC 9.2 K/mm3 (4.0-10.0) 11/21/16 22:21 RBC 4.54 M/mm3 (4.00-5.60) 11/21/16 22:21 Hgb 13.2 GM/dL (11.7-16.9) 11/21/16 22:21 Hct 39.7 % (35.4-49) 11/21/16 22:21 MCV 87.6 fl (80-96) 11/21/16 22:21 MCHC 33.1 g/dl (32.0-35.9) 11/21/16 22:21 RDW 13.3 % (11.9-15.9) 11/21/16 22:21 Plt Count 379 K/MM3 (134-434) D 11/21/16 22:21 MPV 7.6 fl (7.5-11.1) D 11/21/16 22:21 CMP Sodium 143 mmol/L (136-145) 11/21/16 22:21 Potassium 4.5 mmol/L (3.5-5.1) D 11/21/16 22:21 Chloride 106 mmol/L (98-107) 11/21/16 22:21 Carbon Dioxide 29 mmol/L (21-32) 11/21/16 22:21 Anion Gap 8 (8-16) 11/21/16 22:21 BUN 9 mg/dL (7-18) D 11/21/16 22:21 Creatinine 1.3 mg/dL (0.7-1.3) 11/21/16 22:21 Creat Clearance w eGFR 55.94 (>60) 11/21/16 22:21 Calcium 8.0 mg/dL (8.5-10.1) L 11/21/16 22:21 Total Bilirubin 0.2 mg/dL (0.2-1.0) D 11/21/16 22:21 AST 12 U/L (15-37) L D 11/21/16 22:21 ALT 15 U/L (12-78) 11/21/16 22:21 Alkaline Phosphatase 57 U/L (45-117) 11/21/16 22:21 Total Protein 6.8 g/dl (6.4-8.2) 11/21/16 22:21 Albumin 3.2 g/dl (3.4-5.0) L 11/21/16 22:[address] head: THIS IS A PRELIMINARY REPORT FROM [facility] EXAM: CT brain without contrast FINDINGS: The suspected acute infarct is not visible on CT at this time. No hemorrhage. No mass. No shift or herniation. Osseous structures are intact. THIS DOCUMENT HAS BEEN ELECTRONICALLY SIGNED Adam Atkins MD ASSESSMENT AND PLAN: 61 year old male with significant past medical history of bipolar disorder, HTN , HLD, and dementia who presents with slurred speech. 1. Dysarthria - R/o CVA/TIA - Aspirin - Check MRI brain w/o contrast in AM - ECHO and carotid - Neurology consult - Trend troponins/ ECG - Statin 2. AMS - Differential dx lithium toxicity vs. questionable GEORGIE/TIA vs. drug toxicity vs. infection - Follow lithium levels - Urine drug screen - Check UA and U culture 3. Hypoxia - Wells score 0 4. Bipolar disorder - Check lithium level - Check depakote level - Monitor 5. Hypertension - Continue home meds 6. Hyperlipidemia - Continue home meds 7. DVT ppx - Heparin 5,000 Q8 Admit to Med Surg. Documentation prepared by LINDA Stone, acting as medical office receptionist assistant for Cachorro Canales D.O., MD.
[2016-11-22 01:20] LABS: URINE APPEARANCE CLEAR; URINE BILIRUBIN NEGATIVE (NEGATIVE); URINE BLOOD NEGATIVE (NEGATIVE); URINE COLOR STRAW; URINE GLUCOSE (UA) NEGATIVE (NEGATIVE); URINE KETONE NEGATIVE (NEGATIVE); URINE LEUK ESTERASE NEGATIVE (NEGATIVE); URINE NITRITE NEGATIVE (NEGATIVE); URINE PROTEIN NEGATIVE (NEGATIVE); URINE UROBILINOGEN NEGATIVE E.U./dl (0.2-1.0)
[2016-11-22 01:41] LABS: URINE MARIJUANA THC NEGATIVE ng/ml (CUTOFF=50)
--- NOTE | 2016-11-22 02:07 | HP ---
CHIEF COMPLAINT: slurred speech, "heaviness in breathing" PCP: Dr. Jarod Paredes HISTORY OF PRESENT ILLNESS: 61 y/o M w/PMH of bipolar, HTN, HLD, recently discharged from [facility] on 11/16/16 for similar symptoms as presenting symptoms, presents to ER with slurred speech and "heaviness" in breathing since this afternoon. The onset of these symptoms was sudden and there are no inciting factors. At the time of having the heaviness in breathing he was sitting on chair and not exerting himself. As per daughter at bedside, pt has had multiple episodes of slurred speech but nothing conclusive has been found. Pt also had a feeling of a "heavy tongue". Pt takes his medications as prescribed as his doses and gives him his medications. As per daughter pt has not taken any other medications at home since his who he lives with has no medications of her own. Pt denies any CP , cough, palpitations, abd pain, diarrhea, dysuria, swelling in legs, fevers, chills, nausea, vomiting. He currently feels like he is back at baseline. As per daughter pt has had notable decline in his mental status over last 4 years. Before this he was his usual self and 4 years ago was diagnosed with bipolar and since has had this decline in health. ER course was notable for: (1) Head CT, CXR, UA, UTox (2) (3) Recent Travel: [facility] in Jul 2016 PAST MEDICAL HISTORY: HTN, bipolar, HLD PAST SURGICAL HISTORY: No surgeries Social History: Smoking: quit over 25 years ago Alcohol: denies Drugs: denies Family History: Mother: HTN Allergies No Known Allergies Allergy (Verified 11/21/16 22:05) HOME MEDICATIONS: Home Medications Medication Instructions Recorded Amlodipine Besylate 5 mg PO DAILY 11/12/16 Atenolol [Tenormin -] 25 mg PO DAILY 11/12/16 [place] Carbonate [Eskalith -] 300 mg PO BID 11/12/16 Losartan Potassium 100 mg PO DAILY 11/12/16 Quetiapine Fumarate [Seroquel -] 400 mg PO HS 11/12/16 Simvastatin 20 mg PO HS 11/12/16 Valproic Acid [Depakene -] 250 mg PO BID 11/12/16 REVIEW OF SYSTEMS CONSTITUTIONAL: Absent: fever, chills, diaphoresis, generalized weakness, malaise, loss of appetite, weight change HEENT: Absent: rhinorrhea, nasal congestion, throat pain, throat swelling, difficulty swallowing, mouth swelling, ear pain, eye pain, visual changes CARDIOVASCULAR: Absent: chest pain, syncope, palpitations, irregular heart rate, lightheadedness , peripheral edema RESPIRATORY: dyspnea Absent: cough, shortness of breath, orthopnea, wheezing, stridor, hemoptysis GASTROINTESTINAL: Absent: abdominal pain, abdominal distension, nausea, vomiting, diarrhea, constipation, melena, hematochezia GENITOURINARY: Absent: dysuria, frequency, urgency, hesitancy, hematuria, flank pain, genital pain MUSCULOSKELETAL: Absent: myalgia, arthralgia, joint swelling, back pain, neck pain SKIN: Absent: rash, itching, pallor HEMATOLOGIC/IMMUNOLOGIC: Absent: easy bleeding, easy bruising, lymphadenopathy, frequent infections ENDOCRINE: Absent: unexplained weight gain, unexplained weight loss, heat intolerance, cold intolerance NEUROLOGIC: slurred speech Absent: headache, focal weakness or paresthesias, dizziness, unsteady gait, seizure, mental status changes, bladder or bowel incontinence PSYCHIATRIC: Absent: anxiety, depression, suicidal or homicidal ideation, hallucinations. PHYSICAL EXAMINATION Vital Signs - 24 hr 11/22/16 01:27 Pulse Rate [ 79 Radial] Respiratory 18 Rate Blood Pressure 118/88 [Left Arm] O2 Sat by Pulse 100 Oximetry (%) GENERAL: Awake, alert, and fully oriented, in no acute distress. HEAD: Normal with no signs of trauma. EYES: Pupils equal, round and reactive to light, extraocular movements intact, sclera anicteric, conjunctiva clear. No lid lag. EARS, NOSE, THROAT: Ears normal, nares patent, oropharynx clear without exudates. Moist mucous membranes. NECK: Normal range of motion, supple. LUNGS: mild expiratory wheezes b/l HEART: Regular rate and rhythm, normal S1 and S2 without murmur, rub or gallop. ABDOMEN: Soft, nontender, not distended, normoactive bowel sounds, no guarding, no rebound, no masses. MUSCULOSKELETAL: Normal range of motion at all joints. No bony deformities or tenderness. No CVA tenderness. LOWER EXTREMITIES: 2+ pulses, warm, well-perfused. No calf tenderness. No peripheral edema. NEUROLOGICAL: Normal speech. Gait not observed. Sensation to touch equal on face, B/L LE, B/L UE. PSYCHIATRIC: Cooperative. Good eye contact. Appropriate mood and affect. SKIN: Warm, dry, normal turgor, no rashes or lesions noted, normal capillary refill. CBC, BMP 11/21/16 22:21 11/21/16 22:21 Laboratory Results - last 24 hr 11/22/16 11/22/16 01:10 01:10 Urine Color Straw Urine Appearance Clear Urine pH 7.0 D Ur Specific [place] 1.006 Urine Protein Negative Urine Glucose (UA) Negative Urine Ketones Negative Urine Blood Negative Urine Nitrite Negative Urine Bilirubin Negative Urine Urobilinogen Negative Ur Leukocyte Esterase Negative Opiates Screen Negative Methadone Screen Negative Barbiturate Screen Negative Phencyclidine Screen Negative Ur Amphetamines Screen Negative MDMA (Ecstasy) Screen Negative Benzodiazepines Screen Negative Cocaine Screen Negative U Marijuana (THC) Screen Negative Laboratory Tests 11/21/16 11/21/16 22:21 22:21 Troponin I < 0.02 Valproic Acid 46.231 L Imaging: Head CT 11/22/15: no acute pathology CXR 11/22/15: as per my read: b/l angle blunting, some fullness in hilum, poor inspiratory effort, no infiltrates noted Active Medications Amlodipine Besylate (Norvasc -) 5 mg PO DAILY LATISHA Atenolol (Tenormin -) 25 mg PO DAILY LATISHA Atorvastatin Calcium (Lipitor -) 10 mg PO HS LATISHA Sodium Chloride (Normal Saline -) 1,000 mls @ 42 mls/hr IV ASDIR LATISHA Losartan Potassium (Cozaar -) 100 mg PO DAILY LATISHA Quetiapine Fumarate (Seroquel -) 400 mg PO HS LATISHA Valproic Acid (Depakene -) 250 mg PO BID [facility] ASSESSMENT/PLAN: 61 y/o M w/PMH of bipolar, HTN, HLD, recently discharged from [facility] on 11/16/16 for similar symptoms as presenting symptoms, presents to ER with slurred speech and "heaviness" in breathing since this afternoon. Admitted for CVA/TIA. -Dysarthria, AMS secondary to CVA/TIA vs infectious etiology vs neurological etiology vs drug toxicity -TIA: has multiple episodes of slurred speech in the past -Neuro consulted -Consider MRI of brain -Infectious etiology -WBC wnl, monitor -UA negative, f/u UCx -Drug toxicity -Utox neg -valproic acid 46 -f/u lithium levels, many of his symptoms fall under adverse effects of lithium -Bipolar -c/w valproic acid, quetiapine -hold lithium for now until levels are back -HTN -c/w atenolol, losartan, amlodipine -HLD -c/w simvastatin 20 mg qhs -DVT ppx -SCDs -FEN -c/w NS @ 42 ml/hr -electrolytes wnl -cardiac diet -Code Status -Full code -Dispo: -Admit to m/s Problem List - Problem (1) Altered mental state Code(s): R41.82 - ALTERED MENTAL STATUS, UNSPECIFIED Qualifiers: Altered mental status type: somnolence Qualified Code(s): R40.0 - Somnolence (2) Lethargy Code(s): R53.83 - OTHER FATIGUE (3) [place] use Code(s): Z79.899 - OTHER PRISON (CURRENT) DRUG THERAPY (4) Slurring of speech Code(s): R47.81 - SLURRED SPEECH (5) Bipolar disorder Code(s): F31.9 - BIPOLAR DISORDER, UNSPECIFIED (6) HTN (hypertension) Code(s): I10 - ESSENTIAL (PRIMARY) HYPERTENSION (7) HLD (hyperlipidemia) Code(s): E78.5 - HYPERLIPIDEMIA, UNSPECIFIED Visit type - Emergency Visit Emergency Visit: Yes ED Registration Date: 11/22/16 Care time: The patient presented to the Emergency Department on the above date and was hospitalized for further evaluation of their emergent condition. - New Patient This patient is new to me today: Yes Date on this admission: 11/25/16 - Critical Care Critical Care patient: No
[2016-11-22] MEDS ORDERED: SODIUM CHLORIDE 1,000 ML IV SCH (02:15)
[2016-11-22 03:12] VITALS: BMI 36.1
[2016-11-22] MEDS ORDERED: ENOXAPARIN NA (PORCINE) 30 MG/0.3 ML DISP.SYRIN SQ SCH (10:45)
--- NOTE | 2016-11-22 10:58 | CONSULT ---
Consult Consult Specialty:: Neurology Reason for Consultation:: Slurred speech - History of Present Illness History of Present Illness: 61 year old man with history of bipolar disorder, hypertension, hyperlipidemia, presents to ED with dysarthria. As per records, patient was noted to have labored breathing yesterday with episode of slurred speech. Records indicate the patient has had multiple episodes of dysarthria without definitive etiology. Currently maintained on depakote, lithium. Depakote level 46, lithium level pending. In ED CT head showed no acute findings. - History Source History Provided By: Patient - Past Medical History Cardio/Vascular: Yes: HTN, Hyperlipdemia Psych: Yes: Bipolar - Alcohol/Substance Use Hx Alcohol Use: No - Smoking History Smoking history: Former smoker Have you smoked in the past 12 months: No If you are a former smoker, when did you quit?: 10 YRS AGO Home Medications - Allergies Allergies/Adverse Reactions: Allergies Allergy/AdvReac Type Severity Reaction Status Date / Time No Known Allergies Allergy Verified 11/21/16 22:05 - Home Medications Home Medications: Ambulatory Orders Amlodipine Besylate 5 mg PO DAILY 11/12/16 Atenolol [Tenormin -] 25 mg PO DAILY 11/12/16 [place] Carbonate [Eskalith -] 300 mg PO BID 11/12/16 Losartan Potassium 100 mg PO DAILY 11/12/16 Quetiapine Fumarate [Seroquel -] 400 mg PO HS 11/12/16 Simvastatin 20 mg PO HS 11/12/16 Valproic Acid [Depakene -] 250 mg PO BID 11/12/16 Family Disease History - Family Disease History Family History: Denies Review of Systems - Review of Systems Neurological: reports: Change in Speech Physical Exam Vital Signs: Vital Signs Temperature 98.3 F 11/22/16 06:00 Pulse Rate 82 11/22/16 06:00 Respiratory Rate 18 11/22/16 06:00 Blood Pressure 115/69 11/22/16 06:00 O2 Sat by Pulse Oximetry (%) 100 11/22/16 02:10 Constitutional: Yes: No Distress Eyes: Yes: Conjunctiva Clear, EOM Intact HENT: Yes: Atraumatic, Normocephalic Respiratory: Yes: Regular Neurological: Yes: Cran Nerves II-XII Intact (alert, knows name, thinks is september +dysarthria, intact naming and comprehension moving all ext spontaneosly no obvious sensory deficit) Assessment/Plan 61 year old man with history of bipolar disorder, hypertension, hyperlipidemia, presents to ED with dysarthria. As per records, patient was noted to have labored breathing yesterday with episode of slurred speech. Records indicate the patient has had multiple episodes of dysarthria without definitive etiology. Currently maintained on depakote, lithium. Depakote level 46, lithium level pending. In ED CT head showed no acute findings. Dysarthria Medication related versus stroke/TIA Recommend MRI brain without contrast If MRI brain + for stroke, start aspirin 81 mg daily, check carotid doppler, echocardiogram, hga1c, lipid panel If no stroke seen on MRI, consider metabolic, medication related causes for symptoms Recommend speech and swallow eval Will follow MRI brain
--- NOTE | 2016-11-22 11:38 | PN ---
Physical Exam: SUBJECTIVE: Patient seen and examined Patient resting in bed NAD> no acute events. afebrile and hemodynamically stable. Speech not slurry. Some disorientations about month and year in the morning, resolved in afternoon. Denies h/a, chest pain, son, abd pain, n/v, diarrhea. OBJECTIVE: Vital Signs Period Temp Pulse Resp BP Sys/Musa Pulse Ox Last 24 Hr 98 F-98.3 F 71-82 18-18 103-118/69-88 100-100 GENERAL: The patient is awake, alert, oriented, in no acute distress. HEAD: Normal with no signs of trauma. EYES: PERRL, extraocular movements intact, sclera anicteric, conjunctiva clear. No ptosis. ENT: moist mucous membranes. NECK: supple. LUNGS: Breath sounds equal, clear to auscultation bilaterally HEART: Regular rate and rhythm, S1, S2 ABDOMEN: Soft, nontender, nondistended, normoactive bowel sounds EXTREMITIES: 2+ pulses, warm, well-perfused, no edema. NEUROLOGICAL: Cranial nerves II through XII intact. Normal speech, 5/5 strength in all extremities, fine intention tremors in hands, 1+ reflexes b/l in U [place] extremities, sensation intact b/l PSYCH: Normal mood, normal affect. SKIN: Warm, dry Laboratory Results - last 24 hr 11/22/16 11/22/16 01:10 01:10 Urine Color Straw Urine Appearance Clear Urine pH 7.0 D Ur Specific [place] 1.006 Urine Protein Negative Urine Glucose (UA) Negative Urine Ketones Negative Urine Blood Negative Urine Nitrite Negative Urine Bilirubin Negative Urine Urobilinogen Negative Ur Leukocyte Esterase Negative Opiates Screen Negative Methadone Screen Negative Barbiturate Screen Negative Phencyclidine Screen Negative Ur Amphetamines Screen Negative MDMA (Ecstasy) Screen Negative Benzodiazepines Screen Negative Cocaine Screen Negative U Marijuana (THC) Screen Negative Active Medications Generic Name Dose Route Start Last Admin Trade Name Freq PRN Reason Stop Dose Admin Amlodipine Besylate 5 mg 11/22/16 10:00 Norvasc - PO DAILY LATISHA Atenolol 25 mg 11/22/16 10:00 Tenormin - PO DAILY LATISHA Atorvastatin Calcium 10 mg 11/22/16 22:00 Lipitor - PO HS LATISHA Enoxaparin Sodium 30 mg 11/22/16 10:45 Lovenox - SQ DAILY [facility] Sodium Chloride 1,000 mls @ 42 mls/hr 11/22/16 02:15 Normal Saline - IV ASDIR LATISHA Losartan Potassium 100 mg 11/22/16 10:00 Cozaar - PO DAILY LATISHA Quetiapine Fumarate 400 mg 11/22/16 22:00 Seroquel - PO HS LATISHA Valproic Acid 250 mg 11/22/16 10:00 Depakene - PO BID LATISHA ASSESSMENT/PLAN: Head CT 11/22/15: no acute pathology, chronic meicrovascular change, no change from previous CXR 11/22/15: same as pervious ASSESSMENT/PLAN: 61 y/o M w/PMH of bipolar, HTN, HLD, recently discharged from [facility] on 11/16/16 for similar symptoms as presenting symptoms, presents to ER with slurred speech and "heaviness" in breathing since this afternoon. Admitted for CVA/TIA. Dysarthria, -Due to CVA/TIA vs metabolic -multiple episodes of slurred speech in the past -Chronic microvascular changes on CT -MRI brain -Car dupplex -recetn TTE unremarkable -recent swallow eval unremarkable, no sign of choking -Neuro consulted appreciated -Utox neg -valproic acid 46 -f/u lithium levels as lithium toxicity is associated with neuro sequale Bipolar d/o -valproic acid, quetiapine -hold lithium until levels return HTN -controlled -atenolol, losartan, amlodipine HLD -simvastatin 20 mg hs DVT ppx -Hellen FEN No IVF Lytes stable cardiac diet Dispo: med surge Problem List - Problems (1) Flapping tremor Code(s): R27.8 - OTHER LACK OF COORDINATION (2) [place] use Code(s): Z79.899 - OTHER [place]WAY (CURRENT) DRUG THERAPY (3) Slurring of speech Code(s): R47.81 - SLURRED SPEECH Visit type - Emergency Visit Emergency Visit: Yes ED Registration Date: 11/22/16 Care time: The patient presented to the Emergency Department on the above date and was hospitalized for further evaluation of their emergent condition. - New Patient This patient is new to me today: No - Critical Care Critical Care patient: No - Discharge Referral Referred to [facility] Med P.C.: No
[2016-11-22] MEDS: LOSARTAN POTASSIUM 50 MG TABLET (FP) PO SCH (11:43)
[2016-11-22] MEDS: ATENOLOL 25 MG TABLET (FP) PO SCH (11:46)
[2016-11-22] MEDS: VALPROIC ACID 250 MG CAPSULE PO SCH ×2 (11:47→23:02)
[2016-11-22] MEDS: amLODIPine BESYLATE 5 MG TABLET (FP) PO SCH (11:47)
--- NOTE | 2016-11-22 12:37 | EKG ---
Test Reason : Blood Pressure : / mmHG Vent. Rate : 088 BPM Atrial Rate : 088 BPM P-R Int : 148 ms QRS Dur : 076 ms QT Int : 380 ms P-R-T Axes : 051 -05 051 degrees QTc Int : 459 ms NORMAL SINUS RHYTHM NORMAL ECG WHEN COMPARED WITH ECG OF 12-NOV-2016 09:43, PREMATURE SUPRAVENTRICULAR COMPLEXES ARE NO LONGER PRESENT T WAVE VARIATION Confirmed by DORA BELTRAN, RUSSEL ([id number]) on 11/22/2016 12:36:40 PM Referred By: Confirmed By:RUSSEL JOHN MD
--- NOTE | 2016-11-22 13:56 | MSN ---
Progress Note (short form) - Note Progress Note: Saw and evaluated patient this AM. Patient had no complaints since admission overnight. Patient complains of no pain and states that his breathing has gotten better. Patient was not oriented to place and time this AM, but became oriented in the afternoon. Patient still has slight slurring of speech and still appears fatigued. Brain MRI to be done to evaluate for any acute pathology. Head CT scan done overnight shows same microvascular infarcts in CT scan from last visit. Neurology consulted for changes in consciousness. Will continue to monitor patient and labs. Current Medications Generic Name Dose Route Start Last Admin Trade Name Freq PRN Reason Stop Dose Admin Amlodipine Besylate 5 mg 11/22/16 10:00 11/22/16 11:47 Norvasc - PO 5 mg DAILY LATISHA Administration Atenolol 25 mg 11/22/16 10:00 11/22/16 11:46 Tenormin - PO 25 mg DAILY LATISHA Administration Atorvastatin Calcium 10 mg 11/22/16 22:00 Lipitor - PO HS LATISHA Enoxaparin Sodium 30 mg 11/22/16 10:45 11/22/16 11:48 Lovenox - SQ 30 mg DAILY LATISHA Administration Losartan Potassium 100 mg 11/22/16 10:00 11/22/16 11:43 Cozaar - PO 100 mg DAILY LATISHA Administration Quetiapine Fumarate 400 mg 11/22/16 22:00 Seroquel - PO HS LATISHA Valproic Acid 250 mg 11/22/16 10:00 11/22/16 11:47 Depakene - PO 250 mg BID LATISHA Administration Vital Signs Period Temp Pulse Resp BP Sys/Musa Pulse Ox Last 24 Hr 97.9 F-98.9 F 71-102 18-22 95-118/69-88 91-100 PHYSICAL EXAM GENERAL: Alert, oriented to time and place, in no acute distress. HEAD: Normal with no signs of trauma EYES: PERRLA, EOM intact, conjunctiva clear ENT: Ears normal, nares patent, moist mucous membranes NECK: Trachea midline, No JVD, no signs of trauma LUNGS: Equal breath sounds BL, no wheezes, crackles HEART: Regular rate and rhythm, +S1, S2, no murmurs, gallops ABDOMEN: Soft, nontender, no distension, normoactive bowel sounds MSK: Normal range of motion in all joints, No bony deformities NEURO: Speech slurred, Gait not observed. Sensation to touch equal globally, quality cloth tester intact, PSYCHIATRIC: Cooperative, good eye contact. Appropriate mood and affect SKIN: Warm, dry, normal turgor, 2+ pulses BL ASSESSMENT AND PLAN 61 y/o M with PMHx of bipolar disorder, HTN, HLD, recently discharged on 11/16/16 , admitted with slurred speech due to possible CVA/TIA vs infectious process vs medication toxicity. 1. 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 Bipolar disorder -Continue valproic acid, seroquel -Hold [place] until tox results come back 3. HTN -Patient's BP under control (113/80) -Continue current regimen of atenolol, losartan, norvasc 4. HLD -Continue Simvastatin 5. DVT Prophylaxis -Started patient on Lovenox 6. FEN -IV fluids have been discontinued -electrolytes WNL Dispo: Continue to monitor in med/surg
--- NOTE | 2016-11-22 16:44 | PN ---
Teaching Attending Note Name of Resident: Vaishnavi Payne ATTENDING PHYSICIAN STATEMENT I saw and evaluated the patient. I reviewed the resident's note and discussed the case with the resident. I agree with the resident's findings and plan as documented. SUBJECTIVE: no fever or chills , no abd pain , no M[place]UFO or visual changes , no cp . OBJECTIVE: NAD , awake , alert , knows his name , age , year , month , and that he is in hospital ( thinks it is [place] ) , no slurred speech HEENT: LL facial droop. MMM. CV: RRR, no MRG Lungs :poor inspiratory effort but CTAB ext : no edema . Has tremor in upper extremities Neuro : EOMI, round equal reactive pupils , R Lower facial droop , nl facial sensation , tongue at mid line . strength 5/5 in upper and lower ext proximally and distally. sensation to light touch NL. reflexes 2+ knee jerk and 1 + biceps b/l ASSESSMENT AND PLAN: 61 y/o man with h/o HTN, Bipolar, HLP, and recent admission for slurred speech , sepssi and renal failure , who presented this time with slurred speech . 1- Slurred speech . resolved , but he has R lower facial droop. high suspicion for a stroke. [place] toxicity can cause neurological sx but unlikely to cause facial droop - MRI of brain . - CUS - Start ASA - had echo on 11/12 , no need to repeat - appreciate neuro help - follow lithium level . 2- HTN: cont norvasc and tenormin and losartan 3- Bipolar : hold lithium until we get lithium level . cont valproic acid , level acceptable fro bipolar cont seroquel 4- need PT eval
[2016-11-22] MEDS ORDERED: ENOXAPARIN NA (PORCINE) 40 MG/0.4 ML DISP.SYRIN SQ SCH (16:46)
[2016-11-22] MEDS ORDERED: ATORVASTATIN CA 10 MG TABLET (FP) PO SCH (22:00)
[2016-11-22] MEDS ORDERED: QUEtiapine FUMARATE 200 MG TABLET PO SCH (22:00)
[2016-11-23 07:49] LABS: CALCIUM 8.9 mg/dL (8.5-10.1); CREATININE 1.2 mg/dL (0.7-1.3); MAGNESIUM 2.1 mg/dL (1.8-2.4); PHOSPHOROUS 4.2 mg/dL (2.5-4.9)
[2016-11-23] MEDS ORDERED: PT OWN MED DRAWER 7, Y5N ONE (09:36)
[2016-11-23] MEDS: LOSARTAN POTASSIUM 50 MG TABLET (FP) PO SCH (09:45)
[2016-11-23] MEDS: VALPROIC ACID 250 MG CAPSULE PO SCH (09:51)
[2016-11-23] MEDS: ATENOLOL 25 MG TABLET (FP) PO SCH (09:52)
[2016-11-23] MEDS: amLODIPine BESYLATE 5 MG TABLET (FP) PO SCH (09:53)
[2016-11-23] MEDS ORDERED: ASPIRIN COATED 81 MG TABLET.EC PO SCH (10:00)
--- NOTE | 2016-11-23 12:45 | DS ---
Physical Exam: SUBJECTIVE: Patient seen and examined Patient resting in bed NAD. No acute events overnight. afebrile and hemodynamically stable. Speech slightly slurry. oriented to months and year but not to place. Has been ambulating around the room. Denies h/a, chest pain, son, abd pain, n/v, diarrhea. OBJECTIVE: Vital Signs Period Temp Pulse Resp BP Sys/Musa Pulse Ox Last 24 Hr 98.5 F-98.8 F 76-87 18-18 93-114/61-81 96 PHYSICAL EXAM GENERAL: The patient is awake, alert, oriented, in no acute distress. HEAD: Normal with no signs of trauma. EYES: PERRL, extraocular movements intact, sclera anicteric, conjunctiva clear. No ptosis. ENT: moist mucous membranes. NECK: supple. LUNGS: Breath sounds equal, clear to auscultation bilaterally HEART: Regular rate and rhythm, S1, S2 ABDOMEN: Soft, nontender, nondistended, normoactive bowel sounds EXTREMITIES: 2+ pulses, warm, well-perfused, no edema. NEUROLOGICAL: Cranial nerves II through XII intact. slightly slurry speech, 5/5 strength in all extremities, fine intention tremors in hands, 1+ reflexes b/l in U [place] extremities, sensation intact b/l PSYCH: Normal mood, normal affect. SKIN: Warm, dry LABS Laboratory Results - last 24 hr 11/23/16 06:00 Sodium 143 Potassium 4.6 Chloride 107 Carbon Dioxide 27 Anion Gap 9 BUN 12 D Creatinine 1.2 Random Glucose 85 D Calcium 8.9 Phosphorus 4.2 D Magnesium 2.1 Vitamin B12 325 Serum Folate 10 HOSPITAL COURSE: Date of Admission:11/22/16 This is a 61 yo M with PMH of bipolar d/o, HTN, HLD, recently discharged from [facility] on 11/16/16 for similar symptoms as presenting symptoms, presents to ER with sudden onset of slurred speech. As per daughter at bedside, pt has had multiple episodes of slurred speech but nothing conclusive has been found. Medication compliant at home. As per daughter pt has had notable decline in his mental status over last 4 years. Inpatient Imaging: Head CT 11/22/15: no acute pathology, chronic microvascular change, no change from previous CXR 11/22/15: same as pervious Head MRI: chronic microvascular changes. Carotid duplex: no hypodermically significant lesions Patient was assessed by neurology and hospitalist. His blood work showed therapeutic levels of lithium and slightly low valproic acid. 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 No acute pathology was found on imaging. He has a normal swallow evaluation during last admission. Patient was started on Asa 81 d and sent home. Date of Discharge: 11/23/16 Minutes to complete discharge: 30 (na) Discharge Summary Reason For Visit: SLURRING SPEECH LETHARGY FLAPPING TREMOR Current Active Problems Flapping tremor (Acute) Lethargy (Acute) [place] use (Acute) Slurring of speech (Acute) Condition: Good - Instructions Diet, Activity, Other Instructions: You were in the hospital because if slurry speech. This has been happening on and off from the time of last admission. We wanted to make sure that this is not due to your medication or a new stroke. We checked blood levels of your bipolar disorder medication and it was all within normal amount. Please continue your medication. We also did a CT scan and an MRI scan of your brain. Both of the studies show chronic/old micro-strokes but no new strokes. You were also seen by a neurologist. The slurry speech is most likely due to old micro strokes that were aggravated by blood pressure changes during your last admission. There is no additional treatment to be had. Please resume your home medication. We prescribed you a baby aspirin daily (prevents strokes). Follow up with a neurologist Dr Beauchamp and your family doctor Dr. Jarod Paredes in 1 week Referrals: Mami Beauchamp MD [Staff Physician] - 1 Week Disposition: HOME - Home Medications Comprehensive Discharge Medication List: Ambulatory Orders Amlodipine Besylate 5 mg PO DAILY 11/12/16 Atenolol [Tenormin -] 25 mg PO DAILY 11/12/16 [place] Carbonate [Eskalith -] 300 mg PO BID 11/12/16 Losartan Potassium 100 mg PO DAILY 11/12/16 Quetiapine Fumarate [Seroquel -] 400 mg PO HS 11/12/16 Simvastatin 20 mg PO HS 11/12/16 Valproic Acid [Depakene -] 250 mg PO BID 11/12/16 Aspirin Coated [Ecotrin -] 81 mg PO DAILY #30 tab 11/23/16 Problem List - Problems (1) Flapping tremor Code(s): R27.8 - OTHER LACK OF COORDINATION (2) [place] use Code(s): Z79.899 - OTHER GROUP HOME (CURRENT) DRUG THERAPY (3) Slurring of speech Code(s): R47.81 - SLURRED SPEECH This patient is new to me today: No Emergency Visit: Yes ED Registration Date: 11/22/16 Care time: The patient presented to the Emergency Department on the above date and was hospitalized for further evaluation of their emergent condition. Critical Care patient: No - Discharge Referral Referred to [facility] Med P.C.: No
[2016-11-23 14:29] VITALS: BP 104/64; PULSE 77; TEMP 98.3
--- NOTE | 2016-11-23 15:01 | PN ---
Teaching Attending Note Name of Resident: Vaishnavi Payne ATTENDING PHYSICIAN STATEMENT I saw and evaluated the patient. I reviewed the resident's note and discussed the case with the resident. I agree with the resident's findings and plan as documented. SUBJECTIVE: no fever or chills, no pain, no CP . OBJECTIVE: NAD , awake , alert , knows his name , month , and that he is in hospital ( thinks it is [place] ) , no slurred speech HEENT: lower facial droop. MMM. CV: RRR, no MRG Lungs :poor inspiratory effort but CTAB Ext : no edema . Has tremor in upper extremities Neuro: EOMI, round equal reactive pupils , R Lower facial droop , nl facial sensation , tongue at mid line . Strength 5/5 in upper and lower ext proximally and distally. sensation to light touch NL. reflexes 2+ knee jerk and 1 + biceps b/l ASSESSMENT AND PLAN: 61 y/o man with h/o HTN, Bipolar, HLP, and recent admission for slurred speech , sepssi and renal failure , who presented this time with slurred speech . 1- Slurred speech. still unknown etiology. maybe reactivation of old infarcts . MRI of brain [facility] no acute stroke . Li level NL . cont aspirin at dc . f/u with neuro 2- HTN: cont norvasc and tenormin and losartan 3- Bipolar :resume LI cont valproic acid cont seroquel walked well today . dc home with VNS. resident to call is daughter .
== END 2016-11-23 15:41 | disposition home health service (06) | DRG 47 ==
LOC: JER 21:47 → JERBED 11-22 00:14 → UNDOADMIN 11-22 00:24 → J7W 11-22 02:09
PROVIDERS: ADMIT Internal Medicine; ATTEND Internal Medicine
DX: I67.89 Other cerebrovascular disease (principal); R47.81 Slurred speech; R27.8 Other lack of coordination; F31.9 Bipolar disorder, unspecified; I10 Essential (primary) hypertension; E78.5 Hyperlipidemia, unspecified; R41.82 Altered mental status, unspecified; Z87.442 Personal history of urinary calculi; E66.9 Obesity, unspecified; Z68.36 Body mass index [BMI] 36.0-36.9, adult; F03.90 Unspecified dementia, unspecified severity, without behavioral disturbance, psychotic disturbance, mood disturbance, and anxiety; R09.02 Hypoxemia; Z79.899 Other long term (current) drug therapy; R29.810 Facial weakness
CPT/HCPCS: 36415; 70450-TC; 70551-TC; 71010-TC; 80048; 80053; 80164; 80178; 80307; 81003; 82550; 82607; 82746; 83605; 83735; 84100; 84484; 85025; 85610; 87086; 93005; 93010; 93880-TC; 97116-GP; 97161-GP; 99285-25

== ENCOUNTER 2019-07-13 13:31 | Emergency (ER) | payer OTHER ==
[2019-07-13 13:41] VITALS: BP 106/71; PULSE 94; TEMP 98.2; BMI 39.1
--- NOTE | 2019-07-13 14:33 | PDOC ---
History of Present Illness - General Chief Complaint: Altered Mental Status Stated Complaint: CONFUSED Time Seen by Provider: 07/13/19 14:08 - History of Present Illness Initial Comments: 07/13/19 15:15 64 yo M PMH bipolar disorder, HTN, HLD, p/w worsening confusion and tremors. French speaking only, foil stamp operator used. Patient is mostly at his mental baseline (AAOX1 to his own name and birthday, does not know year, which hospital , who the President is), however, significant other reports that he has been repeatedly saying he wants to go home despite being home for the past two days. Additionally, she reports that he has been more violent than usual. Patient and significant other agree that he has been taking all of his medications ( antipsychotics include Seroquel, Depakote, and lithium). Patient complains of tremors for the past two days but has no further complaints. Significant other states that he was formally diagnosed with bipolar disorder five years ago when he became extremely confused and drove away. Before then, he had milder episodes but never got treated, held down a job. Was drinking heavily at that time but has since stopped entirely. Patient specifically denies CP, SOB, abd pain, fevers/chills, constipation/ diarrhea, MARRUFO, N/V. Past History - Past Medical History Allergies/Adverse Reactions: Allergies Allergy/AdvReac Type Severity Reaction Status Date / Time No Known Allergies Allergy Verified 07/13/19 13:37 Home Medications: Ambulatory Orders Amlodipine Besylate 5 mg PO DAILY 11/12/16 Atenolol [Tenormin -] 25 mg PO DAILY 11/12/[address] [place] Carbonate [Eskalith -] 300 mg PO BID 11/12/16 Losartan Potassium 100 mg PO DAILY 11/12/16 Quetiapine Fumarate [Seroquel -] 400 mg PO HS 11/12/16 Simvastatin 20 mg PO HS 11/12/16 Valproic Acid [Depakene -] 250 mg PO BID 11/12/16 Aspirin Coated [Ecotrin -] 81 mg PO DAILY #30 tab 11/23/16 Anemia: No Asthma: No Cancer: No Cardiac Disorders: No CVA: No COPD: No Dementia: Yes Diabetes: No GI Disorders: No Disorders: Yes (kidney stone) HTN: Yes Hypercholesterolemia: Yes Liver Disease: No Psychiatric Problems: Yes (bipolar) Seizures: No Thyroid Disease: No - Surgical History Abdominal Surgery: No Appendectomy: No Cardiac Surgery: No Cholecystectomy: No Lung Surgery: No Neurologic Surgery: No Orthopedic Surgery: No - Immunization History Immunization Up to Date: Yes - Psycho Social/Smoking Cessation Hx Smoking History: Never smoked Have you smoked in the past 12 months: No If you are a former smoker, when did you quit?: 10 YRS AGO Information on smoking cessation initiated: No Hx Alcohol Use: No Drug/Substance Use Hx: No Substance Use Type: None Hx Substance Use Treatment: No Review of Systems - Review of Systems Comments:: 07/13/19 16:01 GENERAL/CONSTITUTIONAL: No fever or chills. No weakness. HEAD, EYES, EARS, NOSE AND THROAT: No change in vision. No ear pain or discharge. No sore throat. CARDIOVASCULAR: No chest pain or shortness of breath. RESPIRATORY: No cough, wheezing, or hemoptysis. GASTROINTESTINAL: No nausea, vomiting, diarrhea or constipation. GENITOURINARY: No dysuria, frequency, or change in urination. MUSCULOSKELETAL: No joint or muscle swelling or pain. No neck or back pain. SKIN: No rash NEUROLOGIC: No headache, vertigo, loss of consciousness, or change in strength/ sensation. New tremors in hands. ENDOCRINE: No increased thirst. No abnormal weight change. HEMATOLOGIC/LYMPHATIC: No anemia, easy bleeding, or history of blood clots. ALLERGIC/IMMUNOLOGIC: No hives or skin allergy *Physical Exam - Vital Signs Last Vital Signs Temp Pulse Resp BP Pulse Ox 98.2 F 94 H 17 106/71 95 07/13/19 13:37 07/13/19 13:37 07/13/19 13:37 07/13/19 13:37 07/13/19 13:37 - Physical Exam Comments: 07/13/19 16:02 Gen: well-developed, well-nourished, NAD, obese Neuro: AAOX1 (name), CN II-XII intact, FTN intact, EOMI, PERRLA, 5/5 strength, SILT, symmetric b/l tremors in hands HEENT: atraumatic, normocephalic, dry mucous membranes Neck: trachea midline, supple CV: regular rate, regular rhythm, no murmurs, rubs, or gallops Pulm: CTA b/l, no wheezing Abd: soft, non-distended, non-tender MSK: full ROM, intact pulses Extr: no edema, no deformities Skin: warm, dry ED Treatment Course - LABORATORY CBC & Chemistry Diagram: 07/13/19 14:35 07/13/19 14:35 Medical Decision Making - Medical Decision Making 07/13/19 15:33 Patient with increased confusion and new tremors. - CBC, CMP - UA, UC - EKG, CXR - lithium and valproic acid levels - CT head - reassess EKG normal sinus at 94 bpm, poor baseline quality, incomplete RBBB CXR with poor inspiratory effort, no apparent pathology. 07/13/19 16:04 Cr 1.5, appears prerenal, will give 2L NS. 07/13/19 16:54 Discussed patient with social work, safe to go home. 07/13/19 17:47 CT head: No CT evidence of acute intracranial pathology. In comparison to a prior CT exam of 11/12/2016 there is equivocal development of mild pituitary enlargement. MRI evaluation is suggested, nonemergent unless otherwise clinically indicated. Mild Chiari type I malformation. Discharge - Discharge Information Problems reviewed: Yes Clinical Impression/Diagnosis: Tremor - Admission No - Follow up/Referral Referrals: Yair Blount MD [Primary Care Provider] - Reza Alex MD [Staff Physician] - CallBack Reminder: lithium level - Patient Discharge Instructions Additional Instructions: You were seen with worsening confusion and tremors. Your labs showed that you were dehydrated, but were otherwise unremarkable. A CT scan was also performed of your head, which showed a mild enlargement of your pituitary gland. This should be followed closely in the outpatient setting and may require an outpatient MRI. A neurologist was also referred to you. Please call this neurologist to get an appointment within one week. Follow up with your primary care doctor within one week. Return to the ED if you develop worsening symptoms. - Post Discharge Activity
[2019-07-13 15:17] LABS: BASO % 0.6 % (0-2.0); EOS % 1.6 % (0-4.5); HEMOGLOBIN 13.7 GM/dL (11.7-16.9); LYMPH % 23.1 % (8-40); MCH 29.2 pg (25.7-33.7); MCHC 32.5 g/dl (32.0-35.9); MEAN CELL VOLUME 89.6 fl (80-96); MEAN PLT VOLUME 10.7 fl (7.5-11.1); MONO % 7.1 % (3.8-10.2); NEUT % 67.6 % (42.8-82.8); PLATELET COUNT 209 K/MM3 (134-434); RBC 4.69 M/mm3 (4.00-5.60); WHITE BLOOD COUNT 11.4 K/mm3 (4.0-10.0)
--- NOTE | 2019-07-13 15:30 | PDOC ---
Attending Attestation - Resident Resident Name: Eyal Anderson - ED Attending Attestation I have performed the following: I have examined & evaluated the patient, The case was reviewed & discussed with the resident, I agree w/resident's findings & plan, Exceptions are as noted - HPI HPI: 07/14/19 17:36 64 yo M PMH bipolar disorder, HTN, HLD, some confusion and tremors. Sami speaking only, deaf interpreter used. Patient is mostly at his mental baseline ( AAOX1 to his own name and birthday, does not know year, which hospital, who the President is), however, significant other reports that he has been repeatedly saying he wants to go home despite being home for the past two days. states he is safe at home, is well plugged into the medical system 07/15/19 23:52 - Physicial Exam PE: 07/15/19 23:52 Vitals: Triage Vital signs reviewed General Appearance: No acute distress, well nourished well developed, Head: Atraumatic, Eyes: Pupils equal reactive round, extraocular movement intact Cardiac: Regular rate and rhythym, no murmurs, no rubs, no gallops, Lungs: Clear to auscultation bilateral, good air movement bilaterally, Abdomen: Soft, non distended, normal bowel sounds, non tender to palpation absolutely Skin: Warm and dry, no rashes or lesions, no rash, no petechiae Neuro: Strength intact to all extremities, sensation intact to all extremities , gait normal Psych: Normal mood, normal affect - Medical Decision Making 07/16/19 01:20 Per patient slightly agitated with new tremor compared to baseline although this has been part of a progressive course with the patient's underlying disease He has been closely followed by his doctors Check labs head CT observe and reassess Labs within normal limits very slight bump in patient's creatinine and hydrated with fluid We had our social worker aide/respiratory care practitioner talk with the and the patient. feels comfortable taking patient home he is well plugged into the medical system they will follow-up with her doctors this week she feels safe at home with him Most likely progression of underlying disease Findings, need for follow-up and strict return instructions discussed with patient and family.
[2019-07-13 15:46] LABS: BILIRUBIN,TOTAL 0.2 mg/dL (0.2-1); BLOOD UREA NITROGEN 23.3 mg/dL (7-18); CALCIUM 8.6 mg/dL (8.5-10.1); CREATININE 1.5 mg/dL (0.55-1.3); POTASSIUM 4.2 mmol/L (3.5-5.1); TOT PROT 7.2 g/dl (6.4-8.2)
[2019-07-13] MEDS ORDERED: SODIUM CHLORIDE 0.9% 500 ML INFUS.BAG IV ONE (16:03)
[2019-07-13 16:55] LABS: EPI CELLS 1.1 /HPF (0-5/HPF); HYALINE CASTS 1 /lpf (0-8); PH,URINE 5.5 (5.0-8.0); URINE APPEARANCE CLEAR; URINE BACTERIA 8.6 /hpf (NEGATIVE); URINE BILIRUBIN NEGATIVE (NEGATIVE); URINE COLOR YELLOW; URINE GLUCOSE (UA) NEGATIVE (NEGATIVE); URINE KETONE NEGATIVE (NEGATIVE); URINE LEUK ESTERASE 1+ (NEGATIVE); URINE NITRITE NEGATIVE (NEGATIVE); URINE PROTEIN NEGATIVE (NEGATIVE); URINE RBC 1 /hpf (0-4); URINE UROBILINOGEN 0.2 mg/dL (0.2-1.0); URINE WBC 10 /hpf (0-5)
--- NOTE | 2019-07-15 20:21 | EKG ---
Test Reason : Blood Pressure : / mmHG Vent. Rate : 093 BPM Atrial Rate : 093 BPM P-R Int : 182 ms QRS Dur : 092 ms QT Int : 390 ms P-R-T Axes : 041 002 071 degrees QTc Int : 484 ms NORMAL SINUS RHYTHM NORMAL ECG WHEN COMPARED WITH ECG OF 21-NOV-2016 23:41, NO SIGNIFICANT CHANGE WAS FOUND Confirmed by LUCI BASILIO MD ([id number]) on 07/15/2019 8:21:17 PM Referred By: Confirmed By:LUCI BASILIO MD
== END 2019-07-13 18:41 | disposition home or self-care (01) ==
LOC: JER 13:31
PROC: 3E0337Z Introduction of Electrolytic and Water Balance Substance into Peripheral Vein, Percutaneous Approach (ICD-10-PCS; principal; 2019-07-13)
DX: R25.1 Tremor, unspecified (principal); I10 Essential (primary) hypertension; E78.5 Hyperlipidemia, unspecified; F31.9 Bipolar disorder, unspecified; E78.00 Pure hypercholesterolemia, unspecified; N20.0 Calculus of kidney; F03.90 Unspecified dementia, unspecified severity, without behavioral disturbance, psychotic disturbance, mood disturbance, and anxiety
CPT/HCPCS: 36415; 70450-TC; 71045-TC-FY; 80053; 80164; 80178; 81003; 85025; 87086; 93005; 93010; 96360; 99283-25

== ENCOUNTER 2019-07-23 12:18 | Inpatient (IN) | payer OTHER ==
[2019-07-23 12:27] VITALS: BMI 35.2
--- NOTE | 2019-07-23 12:55 | PDOC ---
History of Present Illness - General Chief Complaint: Altered Mental Status Stated Complaint: CONFUSION/SENT BY PCP Time Seen by Provider: 07/23/19 12:35 History Source: Patient, Care Provider Exam Limitations: Dementia, Language Barrier - History of Present Illness Initial Comments: 07/24/19 07:19 HPI: 64M PMH Bipolar, [place], prior CVA/TIA sent from psychiatry for repeat lithium levels. Pt was seen in the ED on 07/13/19 for altered mental status and tremor. [place] levels resulted as high. Pt took Li today but was then told to stop. Pt's market research senior project manager at bedside states pt is at baseline behavior (pt is demented at baseline with slurred speech). She notes slurring has worsened over the past few days. Baseline tremor increased. Denies neurologic symptoms of numbness, tingling, lightheadedness, headache. Denies chest pain and sob. Denies n/v/d, abd pain. Further clarification reveals slurred speech was much worse today. History gathered with Mauritian interpretation. Patient answers questions appropriately in Mauritian. Past History - Past Medical History Allergies/Adverse Reactions: Allergies Allergy/AdvReac Type Severity Reaction Status Date / Time No Known Allergies Allergy Verified 07/23/19 12:27 Home Medications: Ambulatory Orders Amlodipine Besylate 5 mg PO DAILY 11/12/16 Atenolol [Tenormin -] 25 mg PO DAILY 11/12/16 [place] Carbonate [Eskalith -] 300 mg PO BID 11/12/16 Losartan Potassium 100 mg PO DAILY 11/12/16 Quetiapine Fumarate [Seroquel -] 400 mg PO HS 11/12/16 Simvastatin 20 mg PO HS 11/12/16 Valproic Acid [Depakene -] 250 mg PO BID 11/12/16 Aspirin Coated [Ecotrin -] 81 mg PO DAILY #30 tab 11/23/16 Anemia: No Asthma: No Cancer: No Cardiac Disorders: No CVA: No COPD: No Dementia: Yes Diabetes: No GI Disorders: No Disorders: Yes (kidney stone) HTN: Yes Hypercholesterolemia: Yes Liver Disease: No Psychiatric Problems: Yes (bipolar) Seizures: No Thyroid Disease: No - Surgical History Abdominal Surgery: No Appendectomy: No Cardiac Surgery: No Cholecystectomy: No Lung Surgery: No Neurologic Surgery: No Orthopedic Surgery: No - Immunization History Immunization Up to Date: Yes - Psycho Social/Smoking Cessation Hx Smoking History: Never smoked Have you smoked in the past 12 months: No If you are a former smoker, when did you quit?: 10 YRS AGO Hx Alcohol Use: No Drug/Substance Use Hx: No Substance Use Type: None Hx Substance Use Treatment: No Review of Systems - Review of Systems Able to Perform ROS?: No Comments:: 07/24/19 07:19 ROS: LIMITED CONSTITUTIONAL: Denies F / C HEENT: Denies headache, lightheadedness, dizziness, changes in vision / hearing RESP: Endorses recent cough. Denies SOB CARD: Denies chest pain GI: Denies N / V / D, abdominal pain : Denies dysuria, frequency NEURO: Denies numbness, tingling, weakness Is the patient limited Frisian proficient: Yes *Physical Exam - Vital Signs Last Vital Signs Temp Pulse Resp BP Pulse Ox 98.8 F 68 18 109/63 97 07/23/19 12:22 07/23/19 12:22 07/23/19 12:22 07/23/19 12:22 07/23/19 12:22 - Physical Exam Comments: 07/24/19 07:19 PE: GEN: NAD, comfortable, nontoxic, cooperative, awake and alert. HEENT: NC/AT, PERRLA. No facial asymmetry. Normal voice. Supple neck w/ FROM. CV: S1/S2, RRR, no m/r/g LUNG: CTAB, no wheezes, crackles, rales, rhonchi. GI: soft, ndnt, +BS, no guarding, no rebound. EXTREMITIES: No obvious deformities of all extremities. SKIN: warm, dry, normal turgor PSYCH: dementia, cooperative, very slurred speech. NEURO: Moving all extremities well. 5/5 strength UE and LE. Ambulates w/ normal gait. +tremors. ED Treatment Course - LABORATORY CBC & Chemistry Diagram: 07/24/19 06:00 07/23/19 14:00 Medical Decision Making - Medical Decision Making 07/23/19 12:58 MDM: 64M sent in for repeat lithium testing. Li levels high based (1.9) on last result, took Li today, saw psychiatrist who told him to stop. Inspector Precision notices speech is becoming progressively more slurred in the past few days. Baseline tremors have increased. CVA vs lithium toxicity CVA labs, lithium levels CT Head 07/23/19 14:[address] to sign off on IV contrast study. Per stroke protocol no labs are needed. 07/23/19 15:[address] that pt agitated and not cooperating with study - 2mg versed, 5mg haldol 07/23/19 16:18 Informed by radiologist that there is no acute path via voice; will f/u report admit for r/o CVA vs lithium tox // ADMITTED Discharge - Discharge Information Problems reviewed: Yes Clinical Impression/Diagnosis: [place] toxicity Qualifiers: Encounter type: initial encounter Injury intent: accidental or unintentional Qualified Code(s): T56.891A - Toxic effect of other metals, accidental ( unintentional), initial encounter CVA (cerebral vascular accident) Qualifiers: CVA mechanism: unspecified Qualified Code(s): I63.9 - Cerebral infarction, unspecified Condition: Stable - Admission Yes - Follow up/Referral - Patient Discharge Instructions - Post Discharge Activity
[2019-07-23] MEDS ORDERED: SODIUM CHLORIDE 1,000 ML IV SCH ×2 (14:00→19:30)
--- NOTE | 2019-07-23 14:16 | PDOC ---
Attending Attestation - Resident Resident Name: Adam Cobb - ED Attending Attestation I have performed the following: I have examined & evaluated the patient, The case was reviewed & discussed with the resident, I agree w/resident's findings & plan - HPI HPI: 07/23/19 14:12 64-year-old male with history of Alzheimer's, bipolar disorder on lithium, history of CVA with baseline dysarthria but fully ambulatory presents now with worsening slurred speech and gait disturbance in the setting of recently elevated lithium level. Patient had routine lithium level checked about 10 days ago, 1 week ago was alerted to elevated level. Patient continue taking lithium as prescribed, otherwise was clinically unchanged from baseline per ex- , who is at the bedside. This morning, patient awoke with increased slurred speech/dysarthria and gait instability now requiring assistance with ambulation. Patient saw his psychiatrist, who referred him to the ED given the symptoms and recently elevated lithium. No changes in lithium dose, no additional doses taken, no fevers or chills. - Physicial Exam PE: 07/23/19 14:13 Vital signs stable Patient is alert, responsive and conversant but demented Pupils are equal round reactive to light, extraocular movements are intact, neck is supple Heart is regular, lungs are clear Abdomen benign Positive right facial droop, positive dysarthria, 5 out of 5 motor strength x4 extremities, but wide-based shuffling gait - Critical Care Time Total Critical Care Time: 30 Critical Care Statement: The care of this patient involved high complexity decision making to prevent further life threatening deterioration of the patient 's condition and/or to evaluate & treat vital organ system(s) failure or risk of failure. - Medical Decision Making 07/23/19 14:14 64-year-old male with acutely worsened dysarthria and gait abnormality since this morning, also with recently elevated lithium level. Question lithium toxicity with motor abnormality versus new TIA/CVA, rule out metabolic or infectious process. Patient has baseline dementia, difficult to obtain full history, with findings as per ex-, who sees the patient daily. Stroke protocol initiated, patient is not a candidate for thrombolysis, may be candidate for thrombectomy if large vessel occlusion is found on CTA. Recheck lithium level, hold lithium for now Will need admission 07/23/19 16:10 wbc 13.1, Cr 1.8 which is slightly elevated from baseline, trop negative, Li pending. CT/CTA performed after some difficulty with patient compliance and requiring several rounds of medications. F/U CT, proceed with admission 07/23/19 16:20 CT and CTA without acute pathology or evidence of LVO. F/U lithium level, admit for monitoring. Heart Score/ECG Review #1 ECG reviewed & interpreted by me at: 14:22 General ECG Interpretation: Sinus Rhythm (baseline artifact from resting tremor, ), Normal Rate (72), Normal Intervals (qtc 459), No acute ischemic changes
[2019-07-23 15:07] LABS: BASO % 0.1 % (0-2.0); EOS % 1.3 % (0-4.5); HEMOGLOBIN 13.3 GM/dL (11.7-16.9); LYMPH % 18.5 % (8-40); MCHC 32.5 g/dl (32.0-35.9); MEAN CELL VOLUME 89.3 fl (80-96); MEAN PLT VOLUME 8.4 fl (7.5-11.1); NEUT % 71.1 % (42.8-82.8); PLATELET COUNT 284 K/MM3 (134-434); RDW 12.9 % (11.9-15.9); WHITE BLOOD COUNT 13.1 K/mm3 (4.0-10.0)
[2019-07-23 15:19] LABS: INR 0.98 (0.83-1.09); PROTHROMBIN TIME (PATIENT) 11.6 SEC (9.7-13.0)
[2019-07-23 15:22] LABS: ACTIVATED PTT 32.2 SECONDS (25.2-36.5)
[2019-07-23] MEDS ORDERED: MIDAZOLAM HCL 2 MG/2 ML SINGLE DOSE VIAL IVPUSH ONE (15:22)
[2019-07-23] MEDS ORDERED: MIDAZOLAM HCL 2 MG/2 ML SINGLE DOSE VIAL ONE (15:26)
[2019-07-23] MEDS ORDERED: HALOPERIDOL LACTATE 5 MG/ML IM ONE (15:34)
[2019-07-23] MEDS ORDERED: HALOPERIDOL LACTATE 5 MG/ML ONE ×2 (15:35→21:18)
[2019-07-23 15:44] LABS: BILIRUBIN,TOTAL 0.3 mg/dL (0.2-1); BLOOD UREA NITROGEN 17.1 mg/dL (7-18); CALCIUM 9.4 mg/dL (8.5-10.1); CREATININE 1.8 mg/dL (0.55-1.3); POTASSIUM 4.3 mmol/L (3.5-5.1); TOT PROT 7.2 g/dl (6.4-8.2)
--- NOTE | 2019-07-23 18:53 | PN ---
Teaching Attending Note Name of Resident: Patrick Rivera ATTENDING PHYSICIAN STATEMENT I saw and evaluated the patient. I reviewed the resident's note and discussed the case with the resident. I agree with the resident's findings and plan as documented. SUBJECTIVE: This is a 64 year old man with a history of HTN, hyperlipidemia, Alzheimer's dementia, bipolar disorder who comes to the ED with confusion and weakness. He had been seen in the ED on 07/13 for confusion. He was found to be dehydrated and treated with IV fluid. [place] level drawn on 07/13 was found to be high. He has continued to take lithium since then. He is unable to provide any history. Family reports that he has been more confused than baseline for the last few days. Additionally, his speech has been more slurred and he has been having difficulty walking. OBJECTIVE: Vital Signs Period Temp Pulse Resp BP Sys/Musa Pulse Ox Last 24 Hr 98.8 F 68 18 109/63 97 HEART: S1S2, RRR LUNGS: Clear with poor effort ABDOMEN: Obese, soft, non-tender, non-distended, normal BS EXTREMITIES: No edema NEUROLOGICAL: Confused, moving all extremities, uncooperative with examination Laboratory Tests 07/23/19 07/23/19 07/23/19 14:00 14:00 14:00 WBC 13.1 H RBC 4.60 Hgb 13.3 Hct 41.0 MCV 89.3 MCH 29.0 MCHC 32.5 RDW 12.9 Plt Count 284 D MPV 8.4 D Absolute Neuts (auto) 9.3 H Neutrophils % 71.1 Lymphocytes % 18.5 Monocytes % 9.0 Eosinophils % 1.3 Basophils % 0.1 Nucleated RBC % 0 PT with INR 11.60 INR 0.98 PTT (Actin FS) 32.2 Sodium Potassium Chloride Carbon Dioxide Anion Gap BUN Creatinine Est GFR (CKD-EPI)AfAm Est GFR (CKD-EPI)NonAf Random Glucose Calcium Total Bilirubin AST ALT Alkaline Phosphatase Creatine Kinase 134 Troponin I < 0.02 Total Protein Albumin Triglycerides Cholesterol Total LDL Cholesterol HDL Cholesterol Blood Type Antibody Screen 07/23/19 07/23/19 14:00 14:00 WBC RBC Hgb Hct MCV MCH MCHC RDW Plt Count MPV Absolute Neuts (auto) Neutrophils % Lymphocytes % Monocytes % Eosinophils % Basophils % Nucleated RBC % PT with INR INR PTT (Actin FS) Sodium 135 L Potassium 4.3 Chloride 104 Carbon Dioxide 30 Anion Gap 1 L BUN 17.1 Creatinine 1.8 H Est GFR (CKD-EPI)AfAm 44.78 Est GFR (CKD-EPI)NonAf 38.63 Random Glucose 101 Calcium 9.4 Total Bilirubin 0.3 AST 11 L ALT 19 Alkaline Phosphatase 99 Creatine Kinase Troponin I Total Protein 7.2 Albumin 4.0 Triglycerides 147 Cholesterol 99 Total LDL Cholesterol 54 HDL Cholesterol 30 L Blood Type O POSITIVE Antibody Screen Negative Home Medications Medication Instructions Recorded Amlodipine Besylate 5 mg PO DAILY 11/12/16 Atenolol [Tenormin -] 25 mg PO DAILY 11/12/16 [place] Carbonate [Eskalith -] 300 mg PO BID 11/12/16 Losartan Potassium 100 mg PO DAILY 11/12/16 Quetiapine Fumarate [Seroquel -] 400 mg PO HS 11/12/16 Simvastatin 20 mg PO HS 11/12/16 Valproic Acid [Depakene -] 250 mg PO BID 11/12/16 Aspirin Coated [Ecotrin -] 81 mg PO DAILY #30 tab 11/23/16 ASSESSMENT AND PLAN: This is a 64 year old man with a history of HTN, hyperlipidemia, Alzheimer's dementia, bipolar disorder who presented to the ED with increasing confusion and difficulty walking. 1. Acute toxic metabolic encephalopathy - Likely secondary to lithium toxicity and possible infection (has leukocytosis) - Head CT/CTA unremarkable but with motion artifact - Hold lithium - Follow up lithium level - IV fluid - Check UA, chest x-ray 2. Acute kidney injury on stage 3 CKD - Likely secondary to lithium/ARB use - IV fluid - Hold lithium - Monitor creatinine - If lithium is to be resumed, would get nephrology evaluation 3. Bipolar disorder - Hold lithium secondary to suspected lithium toxicity - Continue valproic acid - check level - Continue Seroquel - If lithium toxicity confirmed, would get psychiatry evaluation for medication adjustment 4. Alzheimer's dementia 5. HTN - Continue Cozaar, Norvasc, atenolol - Hold Cozaar if no improvement in creatinine 6. Hyperlipidemia - Continue Zocor
--- NOTE | 2019-07-23 19:20 | HP ---
CHIEF COMPLAINT: Weakness, Altered mental status PCP: Dr Braga HISTORY OF PRESENT ILLNESS: [facility] [id number] Pt poor historian. Family at bedside assisting with history. Pt is a 64 y/o M with a significant past medical history of Alzheimer's dementia, Bipolar disorder, HTN, HLD who presented to [facility] due to increasing weakness and altered mental status. Family at bedside endorses that last night pt became more confused; pt was also noted to have a trembling voice. Furthermore, pt's gait has been ataxic and he has been unable to walk straight. Family also endorses decreased sleep. Denies any recent illnesses, fevers, shortness of breath, or loss of consciousness. Pt was recently seen in our emergency department on the 15 of this month where his lithium level was notably elevated at 1.9. PMH as above SocialHx- Former Smoker/Drinker. Quit 5 years ago SurgHx- Denies FH- Mother with "heart problems.". Father [place] ER course was notable for: (1) Haldol+Versed (2) Head CT Neg for acute pathology (3) Allergies No Known Allergies Allergy (Verified 07/23/19 12:27) HOME MEDICATIONS: Home Medications Medication Instructions Recorded Amlodipine Besylate 5 mg PO DAILY 11/12/16 Atenolol [Tenormin -] 25 mg PO DAILY 11/12/16 [place] Carbonate [Eskalith -] 300 mg PO BID 11/12/16 Losartan Potassium 100 mg PO DAILY 11/12/16 Quetiapine Fumarate [Seroquel -] 400 mg PO HS 11/12/16 Simvastatin 20 mg PO HS 11/12/16 Valproic Acid [Depakene -] 250 mg PO BID 11/12/16 Aspirin Coated [Ecotrin -] 81 mg PO DAILY #30 tab 11/23/16 REVIEW OF SYSTEMS Unable to obtain secondary to patient's mental status. PHYSICAL EXAMINATION Vital Signs - 24 hr 07/23/19 07/23/19 07/23/19 12:22 16:00 18:00 Temperature 98.8 F Pulse Rate 68 Pulse Rate [ 90 84 Apical] Respiratory 18 20 19 Rate Blood Pressure 109/63 Blood Pressure 126/85 117/82 [Right Arm] O2 Sat by Pulse 97 97 97 Oximetry (%) GENERAL:Mildly agitated, Not alert or oriented HEAD: Normal with no signs of trauma. EYES:EOMI Sclera Clear LUNGS: Noncompliant, poor inspiratory effort HEART: RRR S1S2 ABDOMEN: Soft, obese, no facial grimacing to deep palpation LOWER EXTREMITIES: No significant edema . NEUROLOGICAL: Pt noncompliant, unable to assess Laboratory Results - last 24 hr 07/23/19 07/23/19 07/23/19 14:00 14:00 14:00 WBC 13.1 H RBC 4.60 Hgb 13.3 Hct 41.0 MCV 89.3 MCH 29.0 MCHC 32.5 RDW 12.9 Plt Count 284 D MPV 8.4 D Absolute Neuts (auto) 9.3 H Neutrophils % 71.1 Lymphocytes % 18.5 Monocytes % 9.0 Eosinophils % 1.3 Basophils % 0.1 Nucleated RBC % 0 PT with INR 11.60 INR 0.98 PTT (Actin FS) 32.2 Sodium Potassium Chloride Carbon Dioxide Anion Gap BUN Creatinine Est GFR (CKD-EPI)AfAm Est GFR (CKD-EPI)NonAf Random Glucose Calcium Total Bilirubin AST ALT Alkaline Phosphatase Creatine Kinase 134 Troponin I < 0.02 Total Protein Albumin Triglycerides Cholesterol Total LDL Cholesterol HDL Cholesterol Blood Type Antibody Screen 07/23/19 07/23/19 14:00 14:00 WBC RBC Hgb Hct MCV MCH MCHC RDW Plt Count MPV Absolute Neuts (auto) Neutrophils % Lymphocytes % Monocytes % Eosinophils % Basophils % Nucleated RBC % PT with INR INR PTT (Actin FS) Sodium 135 L Potassium 4.3 Chloride 104 Carbon Dioxide 30 Anion Gap 1 L BUN 17.1 Creatinine 1.8 H Est GFR (CKD-EPI)AfAm 44.78 Est GFR (CKD-EPI)NonAf 38.63 Random Glucose 101 Calcium 9.4 Total Bilirubin 0.3 AST 11 L ALT 19 Alkaline Phosphatase 99 Creatine Kinase Troponin I Total Protein 7.2 Albumin 4.0 Triglycerides 147 Cholesterol 99 Total LDL Cholesterol 54 HDL Cholesterol 30 L Blood Type O POSITIVE Antibody Screen Negative ASSESSMENT/PLAN: Pt is a 64 y/o M with a significant past medical history of Alzheimer's dementia, Bipolar disorder, HTN, HLD who presented to [facility] due to increasing weakness and altered mental status. # Altered Mental Status 2/2 lithium toxicity/?toxic metabolic encephalopathy -Head CT negative for any acute intracranial pathology - [place] level last admission 1.9. repeat lithium level pending. Hold lithium. -Psych Consult. Appreciate recs. -CXR -Urinalysis #MARINA on CKD stage 3 -Cr 1.8. was 1.5 earlier in month. Last year Cr 1.2. -Will hydrate with NS@100cc/hr -Consider Renal consult if Cr continues to rise -CMP in am -Will hold ARBs/NICOL-I in light of elevated Cr. #Bipolor Disorder -Will hold lithium as lithium suspected to be high. Was elevated last admission -Psych consult -Will check Valproic acid level. Plan is to continue medication -med list provided by family indicates patient on Seroquel 400 aily. Will need tor reconcile medications. #HTN -Continue Cozaar, Norvasc and atenolol #HLD -Continue Zocor #FEN NS@100cc/hr Monitor Electrolytes Diabetic Diet #DVT ppx -HEP SQ TID #Dispo -Med Surg Pt's pharmacy closed- [facility]. Day team to reconcile medications. Visit type - Emergency Visit Emergency Visit: Yes ED Registration Date: 07/23/19 Care time: The patient presented to the Emergency Department on the above date and was hospitalized for further evaluation of their emergent condition. - New Patient This patient is new to me today: Yes Date on this admission: 07/23/19 - Critical Care Critical Care patient: No ATTENDING PHYSICIAN STATEMENT I saw and evaluated the patient. I reviewed the resident's note and discussed the case with the resident. I agree with the resident's findings and plan as documented. SUBJECTIVE: OBJECTIVE: ASSESSMENT AND PLAN:
[2019-07-23] MEDS ORDERED: QUEtiapine FUMARATE 100 MG TABLET (FP) ONE (20:17)
[2019-07-23] MEDS ORDERED: HALOPERIDOL DECANOATE 100 MG/ML IM ONE (21:11)
[2019-07-24] MEDS ORDERED: LORazepam 2 MG/ML SDV VIAL IVPUSH ONE (03:30)
[2019-07-24] MEDS ORDERED: LORazepam 2 MG/ML SDV VIAL ONE (03:42)
[2019-07-24 07:09] LABS: BASO % 0.3 % (0-2.0); EOS % 0.4 % (0-4.5); HEMATOCRIT 38.4 % (35.4-49); HEMOGLOBIN 12.7 GM/dL (11.7-16.9); LYMPH % 19.6 % (8-40); MCH 29.3 pg (25.7-33.7); MEAN CELL VOLUME 88.7 fl (80-96); MEAN PLT VOLUME 8.7 fl (7.5-11.1); MONO % 9.8 % (3.8-10.2); NEUT % 69.9 % (42.8-82.8); PLATELET COUNT 265 K/MM3 (134-434); RBC 4.33 M/mm3 (4.00-5.60); RDW 12.7 % (11.9-15.9); WHITE BLOOD COUNT 12.7 K/mm3 (4.0-10.0)
[2019-07-24 07:36] LABS: ALBUMIN 3.9 g/dl (3.4-5.0); BILIRUBIN,TOTAL 0.5 mg/dL (0.2-1); BLOOD UREA NITROGEN 19.9 mg/dL (7-18); MAGNESIUM 2.3 mg/dL (1.8-2.4); PHOSPHOROUS 3.4 mg/dL (2.5-4.9); TOT PROT 6.9 g/dl (6.4-8.2)
[2019-07-24 09:32] LABS: INR 1.03 (0.83-1.09); PROTHROMBIN TIME (PATIENT) 12.1 SEC (9.7-13.0)
[2019-07-24 09:34] LABS: ACTIVATED PTT 31.7 SECONDS (25.2-36.5)
--- NOTE | 2019-07-24 10:05 | PN ---
Physical Exam: SUBJECTIVE: Patient seen and examined at the bedside. states his name, garbled speech, repetitive. moves all extremities, bilateral upper body tremors at rest. left leg with tremors at rest also on restraints for safety protection. OBJECTIVE: called poison control and spoke to Елена COX ( )/lithium toxicity specialist. case discussed and poison control recommended the following. -lithium q 4 hours, trend to peak: check for elevated potassium, check for hypercalcium, check magnesium levels -draw lithium labs in correct test tube - to assure tubes do not contain lithium heparin. 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 Patient had routine lithium level checked about 10 days ago, 1 week ago was alerted to elevated level. Patient continue taking lithium as prescribed. On 07/23 he woke up with increased slurred speech/dysarthria and gait instability now requiring assistance with ambulation. Patient saw his psychiatrist, who referred him to the ED given the symptoms and recently elevated lithium levels. Also with elevated wbc on admission. will culture. Vital Signs Period Temp Pulse Resp BP Sys/Musa Pulse Ox Last 24 Hr 97.9 F-98.9 F 68-107 18-20 100-153/55-97 95-98 GENERAL: disoriented, garbled speech HEAD: Normal with no signs of trauma. EYES: PERRL, extraocular movements intact, sclera anicteric, conjunctiva clear. No ptosis. ENT: Ears normal, nares patent, oropharynx clear without exudates NECK: Trachea midline, full range of motion, supple. LUNGS: poor respiratory effort, mostly clear/diminished HEART: Regular rate and rhythm ABDOMEN: obese abdomen EXTREMITIES: no edema. NEUROLOGICAL: lethargic Laboratory Results - last 24 hr 07/23/19 07/23/19 07/23/19 14:00 14:00 14:00 WBC 13.1 H RBC 4.60 Hgb 13.3 Hct 41.0 MCV 89.3 MCH 29.0 MCHC 32.5 RDW 12.9 Plt Count 284 D MPV 8.4 D Absolute Neuts (auto) 9.3 H Neutrophils % 71.1 Lymphocytes % 18.5 Monocytes % 9.0 Eosinophils % 1.3 Basophils % 0.1 Nucleated RBC % 0 PT with INR 11.60 INR 0.98 PTT (Actin FS) 32.2 Sodium Potassium Chloride Carbon Dioxide Anion Gap BUN Creatinine Est GFR (CKD-EPI)AfAm Est GFR (CKD-EPI)NonAf Random Glucose Calcium Phosphorus Magnesium Total Bilirubin AST ALT Alkaline Phosphatase Creatine Kinase 134 Troponin I < 0.02 Total Protein Albumin Triglycerides Cholesterol Total LDL Cholesterol HDL Cholesterol Valproic Acid Blood Type Antibody Screen 07/23/19 07/23/19 07/23/19 14:00 14:00 18:30 WBC RBC Hgb Hct MCV MCH MCHC RDW Plt Count MPV Absolute Neuts (auto) Neutrophils % Lymphocytes % Monocytes % Eosinophils % Basophils % Nucleated RBC % PT with INR INR PTT (Actin FS) Sodium 135 L Potassium 4.3 Chloride 104 Carbon Dioxide 30 Anion Gap 1 L BUN 17.1 Creatinine 1.8 H Est GFR (CKD-EPI)AfAm 44.78 Est GFR (CKD-EPI)NonAf 38.63 Random Glucose 101 Calcium 9.4 Phosphorus Magnesium Total Bilirubin 0.3 AST 11 L ALT 19 Alkaline Phosphatase 99 Creatine Kinase Troponin I Total Protein 7.2 Albumin 4.0 Triglycerides 147 Cholesterol 99 Total LDL Cholesterol 54 HDL Cholesterol 30 L Valproic Acid Blood Type O POSITIVE O POSITIVE Antibody Screen Negative 07/24/19 07/24/19 07/24/19 06:00 06:00 06:00 WBC 12.7 H RBC 4.33 Hgb 12.7 Hct 38.4 MCV 88.7 MCH 29.3 MCHC 33.0 RDW 12.7 Plt Count 265 MPV 8.7 Absolute Neuts (auto) 8.9 H Neutrophils % 69.9 Lymphocytes % 19.6 Monocytes % 9.8 Eosinophils % 0.4 Basophils % 0.3 Nucleated RBC % 0 PT with INR 12.10 INR 1.03 PTT (Actin FS) 31.7 Sodium 138 Potassium 4.0 Chloride 106 Carbon Dioxide 28 Anion Gap 3 L BUN 19.9 H Creatinine 2.0 H Est GFR (CKD-EPI)AfAm 39.42 Est GFR (CKD-EPI)NonAf 34.01 Random Glucose 105 Calcium 9.0 Phosphorus 3.4 Magnesium 2.3 Total Bilirubin 0.5 AST 19 ALT 19 Alkaline Phosphatase 93 Creatine Kinase Troponin I Total Protein 6.9 Albumin 3.9 Triglycerides Cholesterol Total LDL Cholesterol HDL Cholesterol Valproic Acid Blood Type Antibody Screen 07/24/19 08:55 WBC RBC Hgb Hct MCV MCH MCHC RDW Plt Count MPV Absolute Neuts (auto) Neutrophils % Lymphocytes % Monocytes % Eosinophils % Basophils % Nucleated RBC % PT with INR INR PTT (Actin FS) Sodium Potassium Chloride Carbon Dioxide Anion Gap BUN Creatinine Est GFR (CKD-EPI)AfAm Est GFR (CKD-EPI)NonAf Random Glucose Calcium Phosphorus Magnesium Total Bilirubin AST ALT Alkaline Phosphatase Creatine Kinase Troponin I Total Protein Albumin Triglycerides Cholesterol Total LDL Cholesterol HDL Cholesterol Valproic Acid 17.5 L Blood Type Antibody Screen Active Medications Generic Name Dose Route Start Last Admin Trade Name Freq PRN Reason Stop Dose Admin Sodium Chloride 1,000 mls @ 100 mls/hr 07/23/19 19:30 07/23/19 20:27 Normal Saline - IV 100 mls/hr ASDIR LATISHA Administration ASSESSMENT/PLAN: Problem List - Problems (1) Acute metabolic encephalopathy Assessment/Plan: patient has leukocytosis, tachycardia and AMS. blood and urine cultures ordered to rule out acute infection causing AMS confusion likely secondary to lithium toxicity, had elevated levels on 07/13 and continued to take lithium per report discussed with poison control and recommendations carried out may need dialysis if has seizure or if mentation worsens. discussed with renal. Code(s): G93.41 - METABOLIC ENCEPHALOPATHY (2) [place] toxicity Assessment/Plan: per poison control, continue to trend and continue IVF 2 x above maintenance renal following if patient has elevated levels and mentation worsens, may need dialysis Code(s): T56.891A - TOXIC EFFECT OF OTH METALS, ACCIDENTAL (UNINTENTIONAL), INIT Qualifiers: Encounter type: initial encounter Injury intent: accidental or unintentional Qualified Code(s): T56.891A - Toxic effect of other metals, accidental (unintentional), initial encounter (3) Acute renal failure Assessment/Plan: creat 2.0, monitor with daily labs breen catheter to be placed Code(s): N17.9 - ACUTE KIDNEY FAILURE, UNSPECIFIED Qualifiers: Acute renal failure type: unspecified Qualified Code(s): N17.9 - Acute kidney failure, unspecified (4) Altered mental state Code(s): R41.82 - ALTERED MENTAL STATUS, UNSPECIFIED Qualifiers: Altered mental status type: somnolence Qualified Code(s): R40.0 - Somnolence (5) Bipolar disorder Assessment/Plan: hold home medications in the setting of AMS above baseline. Code(s): F31.9 - BIPOLAR DISORDER, UNSPECIFIED Visit type - Emergency Visit Emergency Visit: Yes ED Registration Date: 07/23/19 Care time: The patient presented to the Emergency Department on the above date and was hospitalized for further evaluation of their emergent condition. - New Patient This patient is new to me today: Yes Date on this admission: 07/24/19 - Critical Care Critical Care patient: No - Discharge Referral Referred to [facility] Med P.C.: No
[2019-07-24] MEDS: SODIUM CHLORIDE 1,000 ML IV SCH (10:30)
--- NOTE | 2019-07-24 10:35 | EKG ---
Test Reason : Blood Pressure : / mmHG Vent. Rate : 072 BPM Atrial Rate : 072 BPM P-R Int : 198 ms QRS Dur : 090 ms QT Int : 420 ms P-R-T Axes : 025 002 070 degrees QTc Int : 459 ms POOR DATA QUALITY, INTERPRETATION MAY BE ADVERSELY AFFECTED NORMAL SINUS RHYTHM NORMAL ECG WHEN COMPARED WITH ECG OF 13-JUL-2019 15:13, NO SIGNIFICANT CHANGE WAS FOUND Confirmed by Jan Ibarra MD ([id number]) on 07/24/2019 10:35:44 AM Referred By: Confirmed By:Jan Ibarra MD
[2019-07-24] MEDS ORDERED: LORazepam 1 MG TABLET PO PRN (10:37)
[2019-07-24 11:39] LABS: PH,URINE 5.5 (5.0-8.0); URINE APPEARANCE CLEAR; URINE BILIRUBIN NEGATIVE (NEGATIVE); URINE COLOR YELLOW; URINE GLUCOSE (UA) NEGATIVE (NEGATIVE); URINE KETONE NEGATIVE (NEGATIVE); URINE LEUK ESTERASE NEGATIVE (NEGATIVE); URINE NITRITE NEGATIVE (NEGATIVE); URINE PROTEIN NEGATIVE (NEGATIVE); URINE UROBILINOGEN 0.2 mg/dL (0.2-1.0)
--- NOTE | 2019-07-24 13:34 | EKG ---
Test Reason : Blood Pressure : / mmHG Vent. Rate : 105 BPM Atrial Rate : 105 BPM P-R Int : 188 ms QRS Dur : 092 ms QT Int : 344 ms P-R-T Axes : 068 002 082 degrees QTc Int : 454 ms POOR DATA QUALITY, INTERPRETATION MAY BE ADVERSELY AFFECTED SINUS TACHYCARDIA OTHERWISE NORMAL ECG WHEN COMPARED WITH ECG OF 23-JUL-2019 14:22, NO SIGNIFICANT CHANGE WAS FOUND Confirmed by MD STEPHANIE, JAMES ([id number]) on 07/24/2019 1:34:26 PM Referred By: AMALIA CHAVEZ Confirmed By:JAMES BROWN MD
--- NOTE | 2019-07-24 14:50 | CONSULT ---
Consult - text type - Consultation Consultation Note: Renal consult for CKD and suspected lithium toxicity This is a 64 year old gentleman with history of bipolar disorder, Alzheimer's dementia and CKD who presented from home with upper extremity tremor and increasing confusion and admitted for suspected lithium toxicity. He was seen in the ER a few days ago and was noted to have [place] level of 1.9. Seen and examined at the bedside, awake and alert but confused. He has a notable upper extremity tremor. History obtained from daughter who reports that at baseline he is confused and can wander. He in the past has had a tremor but it is more pronounced now. He has not had overt seizures. PMHx: as above Allergies: NKDA Family Hx: unknonw Soical Hx: No T/A/D ROS: limited due to clinical status Home Medications Medication Instructions Recorded Atenolol [Tenormin -] 25 mg PO DAILY 11/12/16 [place] Carbonate [Eskalith -] 300 mg PO BID 11/12/16 Losartan Potassium 100 mg PO DAILY 11/12/16 Quetiapine Fumarate [Seroquel -] 400 mg PO HS 11/12/16 Simvastatin 20 mg PO HS 11/12/16 Valproic Acid [Depakene -] 250 mg PO BID 11/12/16 Ergocalciferol [Vitamin D2] 50,000 unit PO Q7D@1000 07/24/19 Vital Signs Temperature 98.9 F 07/24/19 14:13 Pulse Rate 114 H 07/24/19 14:13 Respiratory Rate 20 07/24/19 14:13 Blood Pressure 133/83 07/24/19 14:13 O2 Sat by Pulse Oximetry (%) 98 07/24/19 04:30 Intake & Output 07/21/19 07/22/19 07/23/19 07/24/19 23:59 23:59 23:59 23:59 Intake Total 550 Output Total 600 Balance -50 Weight 102.058 kg NAD, agitated awake and alert but confused neck supple, no JVD tachycardic Dec BS, no rales soft NT/ND no LE edema, clubbing or cyanosis CBC, BMP 07/24/19 06:00 07/24/19 06:00 Laboratory Tests 11/16/16 07/24/19 07:30 06:00 Calcium 7.9 L 9.0 Phosphorus 3.4 Magnesium 2.3 Albumin 3.9 Current Medications Atenolol (Tenormin -) 25 mg PO DAILY [facility] Atorvastatin Calcium (Lipitor -) 10 mg PO HS [facility] Sodium Chloride (Normal Saline -) 1,000 mls @ 150 mls/hr IV ASDIR LATISHA Lorazepam (Ativan -) 1 mg PO BID PRN PRN Reason: AGITATION Quetiapine Fumarate (Seroquel -) 400 mg PO HS [facility] Valproate Sodium (Depakene -) 250 mg PO BID [facility] 64 year old gentleman with history of bipolar disorder, Alzheimer's dementia and CKD who presented from home with upper extremity tremor and increasing confusion and admitted for suspected lithium toxicity. 1. Suspected [place] toxicity 2. CKD/MARINA 3. Bipolar disorder 4. Alzheimer dementia 6. Leukocytosis [place] levels pending Pt with confusion and agitation but is not lethargic and has not had seizures Would advise continued aggressive IV hydration for now if any worsening of mental status or lithium levels resulted > 2.5 would transfer to ICU for acute dialysis neurology follow up neuro checks Trend renal function and electrolytes monitor volume status consider urine and blood cultures Thank you Donavan Yin DO
--- NOTE | 2019-07-24 14:59 | CON.NEURO ---
Consult - Past Medical History Cardio/Vascular: Yes: HTN, Hyperlipdemia Psych: Yes: Bipolar - Alcohol/Substance Use Hx Alcohol Use: No - Smoking History Smoking history: Never smoked Have you smoked in the past 12 months: No If you are a former smoker, when did you quit?: 10 YRS AGO Home Medications - Allergies Allergies/Adverse Reactions: Allergies Allergy/AdvReac Type Severity Reaction Status Date / Time No Known Allergies Allergy Verified 07/23/19 12:27 - Home Medications Home Medications: Ambulatory Orders Atenolol [Tenormin -] 25 mg PO DAILY 11/12/16 [place] Carbonate [Eskalith -] 300 mg PO BID 11/12/16 Losartan Potassium 100 mg PO DAILY 11/12/16 Quetiapine Fumarate [Seroquel -] 400 mg PO HS 11/12/16 Simvastatin 20 mg PO HS 11/12/16 Valproic Acid [Depakene -] 250 mg PO BID 11/12/16 Ergocalciferol [Vitamin D2] 50,000 unit PO Q7D@1000 07/24/19 Physical Exam-Neuro Vital Signs: Vital Signs Temperature 98.9 F 07/24/19 14:13 Pulse Rate 114 H 07/24/19 14:13 Respiratory Rate 20 07/24/19 14:13 Blood Pressure 133/83 07/24/19 14:13 O2 Sat by Pulse Oximetry (%) 98 07/24/19 04:30 Labs: CBC, BMP 07/24/19 06:00 07/24/19 06:00 INR, PTT INR 1.03 (0.83-1.09) 07/24/19 06:00 Assessment/Plan cc acute confusional state for few days prior to hospital admission. HPI 64 year old male history of Bipolar disorder, Dementia, HTN,HLD . Patient presented with worsening of confusoin. His [place] level on july 13 was 1.9 and Li was not held per her significant other. Patient has had no seizure. Patient has been agitated and confused. He takes [place] 300 mg po tid. Patient had no fever, no seizure were noticed. There is no new focal neurological ( weakness or face asymmetry) was noticed. Patient Li was on hold since admission. He was examined with his significant other at bedside. Allergies No Known Allergies Allergy (Verified 07/23/19 12:27) HOME MEDICATIONS: Home Medications Medication Instructions Recorded Amlodipine Besylate 5 mg PO DAILY 11/12/16 Atenolol [Tenormin -] 25 mg PO DAILY 11/12/16 [place] Carbonate [Eskalith -] 300 mg PO BID 11/12/16 Losartan Potassium 100 mg PO DAILY 11/12/16 Quetiapine Fumarate [Seroquel -] 400 mg PO HS 11/12/16 Simvastatin 20 mg PO HS 11/12/16 Valproic Acid [Depakene -] 250 mg PO BID 11/12/16 Aspirin Coated [Ecotrin -] 81 mg PO DAILY #30 tab 11/23/16 ROS,FH,SH reviewed in chart NEUROLOGICAL EAMINATION Alert and says his name, could not tell his age , place or date neck is supple, vital stable eomi, pupils reactive no face asymmetry moving all extremity(he is restrained) sensation is normal ct hed no acute findings Assessment/Plan 64 year old male history of Dementia, Bipolar, HTN, HLD. He admitted for worsening of confusion. Most likely metabolic encehalopathy ( [place] toxicity is possibility and progression of dementia) , Clinically there is no evidence of status epilepticus or stroke plan: SUggest to get EEG for subclinical status - no need for mri of brain or spinal tap - hold Li - Psych consult - Continue supporitve care THanking you so much Jamar Henry MD
[2019-07-24 17:51] LABS: ALBUMIN 3.7 g/dl (3.4-5.0); BILIRUBIN,TOTAL 0.4 mg/dL (0.2-1); BLOOD UREA NITROGEN 19.8 mg/dL (7-18); CALCIUM 9.3 mg/dL (8.5-10.1); CREATININE 1.6 mg/dL (0.55-1.3); POTASSIUM 4.1 mmol/L (3.5-5.1); TOT PROT 6.8 g/dl (6.4-8.2)
--- NOTE | 2019-07-24 18:55 | CON.PSY ---
Psychiatry Consult Chief Complaint: 64vYera old male with Dementia , BiP{olar Disorder seen for Psych eval. had been Vanoss, Depakote, Seroquel for Bi Polar Diosrder. Serum Vanoss on 09/12 was 1.9mmools. a toxic range. Patient apperas toxin with total Body Tremors. Symptoms: reports: Impaired Concentration, Irritability, Aggressivity, Disorganized/Disruptive Thoughts - Previous Psychiatric Treatment Outpatient: Less than 6 mos ago Inpatient: None, One prior admission - Previous Substance Abuse Treatment Outpatient: None Inpatient: None - Reason for Previous Treatment Reason for Previous Treatment: Biploar Illness - Current Medications Current Medications: Active Medications Atenolol (Tenormin -) 25 mg PO DAILY LATISHA Atorvastatin Calcium (Lipitor -) 10 mg PO HS LATISHA Sodium Chloride (Normal Saline -) 1,000 mls @ 150 mls/hr IV ASDIR LATISHA Last Admin: 07/24/19 10:30 Dose: 150 mls/hr Lorazepam (Ativan -) 1 mg PO BID PRN PRN Reason: AGITATION Quetiapine Fumarate (Seroquel -) 400 mg PO HS LATISHA Valproate Sodium (Depakene -) 250 mg PO BID LATISHA - Allergies Allergies: Allergies Allergy/AdvReac Type Severity Reaction Status Date / Time No Known Allergies Allergy Verified 07/23/19 12:27 - Current Living Status Usual Living Arrangement: With Significant Other - Current Mental Status Evaluation Appearance: Disheveled Attitude: Guarded - Affect Affect: Constrictive Appropriateness: Not Appropriate - Mood Mood: Irritable - Speech/Language Expressive: Delayed - Psychomotor Activity Psychomotor Activity: Hyperactive - Thought Process Thought Process: Loosening of Associations - Thought Content Hallucinations: Absent Delusions: Absent - Self Perception Self Perception: Depersonalization - Cognition Attention: Diminished Memory, Short Term: 1/3 Memory, Remote with Promptin/3 - Concentration Serial Sevens Intact: No Simple Calculations Intact: No - Abstraction Proverb Interpretation: [place] Judgement: Moderately Impaired - Insight Insight: Impaired - Impulse Control Impulse Control: Moderately Impaired - Suicidal Ideation Suicidal Ideation: No - Homicidal Ideation Homicidal Ideation: No Assessment/Plan 1) agree withd/c Vanoss. 2) Continue with [facility] Psych meds. 3) get Serum Valproic acid levels as well. 4) will follow.
[2019-07-24] MEDS: VALPROATE SODIUM 250 MG/5 ML UNIT DOSE CUP PO SCH (22:29)
[2019-07-24] MEDS: ATORVASTATIN CA 10 MG TABLET (FP) PO SCH (22:29)
[2019-07-24] MEDS: QUEtiapine FUMARATE 200 MG TABLET PO SCH (22:30)
[2019-07-25] MEDS ORDERED: LORazepam 2 MG/ML SDV VIAL IM ONE (03:23)
[2019-07-25 06:45] LABS: BASO % 0.2 % (0-2.0); EOS % 0.3 % (0-4.5); HEMATOCRIT 37.8 % (35.4-49); HEMOGLOBIN 12.5 GM/dL (11.7-16.9); LYMPH % 7.8 % (8-40); MCH 29.6 pg (25.7-33.7); MEAN CELL VOLUME 89.6 fl (80-96); MEAN PLT VOLUME 8.7 fl (7.5-11.1); MONO % 6.8 % (3.8-10.2); NEUT % 84.9 % (42.8-82.8); PLATELET COUNT 226 K/MM3 (134-434); RBC 4.22 M/mm3 (4.00-5.60); RDW 12.9 % (11.9-15.9); WHITE BLOOD COUNT 12.5 K/mm3 (4.0-10.0)
[2019-07-25 07:27] LABS: ALBUMIN 3.5 g/dl (3.4-5.0); BILIRUBIN,TOTAL 0.7 mg/dL (0.2-1); BLOOD UREA NITROGEN 18.9 mg/dL (7-18); CALCIUM 8.9 mg/dL (8.5-10.1); CREATININE 1.6 mg/dL (0.55-1.3); POTASSIUM 4.1 mmol/L (3.5-5.1); TOT PROT 6.5 g/dl (6.4-8.2)
--- NOTE | 2019-07-25 08:59 | PN ---
Progress Note (short form) - Note Progress Note: 64 year old male history of Bipolar disorder, Dementia, HTN,HLD . Patient presented with worsening of confusoin. His [place] level on july 13 was 1.9 and Li was not held per her significant other. Patient has had no seizure. Patient has been agitated and confused. He takes [place] 300 mg po tid. Patient had no fever, no seizure were noticed. There is no new focal neurological ( weakness or face asymmetry) was noticed. Patient Li was on hold since admission. Patient is still agitated and psych saw him. His Li is being held and levels are not back NEUROLOGICAL EAMINATION he is sleepy today as he got ativan last night neck is supple, vital stable eomi, pupils reactive no face asymmetry moving all extremity(he is restrained) sensation is normal ct hed no acute findings Assessment/Plan 64 year old male history of Dementia, Bipolar, HTN, HLD. He admitted for worsening of confusion. Most likely metabolic encehalopathy ( [place] toxicity is possibility and progression of dementia) , Clinically there is no evidence of status epilepticus or stroke plan: - no need for mri of brain or spinal tap - hold Li - Psych consult appreciated - Continue supporitve care THanking you so much Jamar Henry MD
[2019-07-25] MEDS ORDERED: PATIENT'S OWN MEDICATION (NON-FORMULARY) (Losartan Potassium [Losartan Potassium] 100 MG) PO SCH (10:00)
--- NOTE | 2019-07-25 11:32 | PN ---
Physical Exam: SUBJECTIVE: Patient seen and examined at the bedside. EEG completed at bedside. received ativan 2mg im at 0300 for agitation overnight. OBJECTIVE: lithium level 2.2 called poison control on 07/24/2019 and spoke to Елена COX ( )- lithium toxicity specialist. case discussed and poison control recommended the following: -lithium q 4 hours, trend to peak: check for elevated potassium, check for hypercalcium, check magnesium levels -draw lithium labs in correct test tube - to assure tubes do not contain lithium heparin. -renal consult for possible dialysis -monitor lithium levels, levels greater than 4 may cause more pe teacher symptoms -check ekg -ivf twice above maintenance Patient is a 64 year old male with a significant past medical history of Alzheimer's dementia, bipolar disorder on lithium, history of CVA with baseline dysarthria but fully ambulatory presents now with worsening slurred speech and gait disturbance in the setting of recently elevated lithium level. Patient had routine lithium level checked about 10 days ago, 1 week ago was alerted to elevated level(1.9) Patient continue taking lithium as prescribed. On 07/23 he woke up with increased slurred speech/dysarthria and gait instability now requiring assistance with ambulation. Patient saw his psychiatrist, who referred him to the ED given the symptoms and recently elevated lithium levels. [place] levels currently 2.2. Also with elevated wbc on admission and has been cultured. Vital Signs Period Temp Pulse Resp BP Sys/[place] Pulse Ox Last 24 Hr 97.2 F-98.9 F 81-114 20-24 114-158/69-99 98 GENERAL: asleep, mild tremors. received ativan 2mg im at 3:50a HEAD: Normal with no signs of trauma. EYES: PERRL, extraocular movements intact, sclera anicteric, conjunctiva clear. No ptosis. ENT: Ears normal, nares patent, oropharynx clear without exudates NECK: Trachea midline, full range of motion, supple. LUNGS: poor respiratory effort, mostly clear/diminished HEART: Regular rate and rhythm ABDOMEN: obese abdomen EXTREMITIES: no edema. NEUROLOGICAL: lethargic/asleep on exam. Laboratory Results - last 24 hr 07/24/19 07/24/19 07/24/19 10:44 11:15 12:35 WBC RBC Hgb Hct MCV MCH MCHC RDW Plt Count MPV Absolute Neuts (auto) Neutrophils % Lymphocytes % Monocytes % Eosinophils % Basophils % Nucleated RBC % Sodium Potassium Chloride Carbon Dioxide Anion Gap BUN Creatinine Est GFR (CKD-EPI)AfAm Est GFR (CKD-EPI)NonAf Random Glucose Lactic Acid 1.4 Calcium Magnesium Total Bilirubin AST ALT Alkaline Phosphatase Total Protein Albumin TSH Free T4 Urine Color Yellow Urine Appearance Clear Urine pH 5.5 Ur Specific [place] 1.035 Urine Protein Negative Urine Glucose (UA) Negative Urine Ketones Negative Urine Blood Negative Urine Nitrite Negative Urine Bilirubin Negative Urine Urobilinogen 0.2 Ur Leukocyte Esterase Negative [place] 2.2 H* 07/24/19 07/25/19 07/25/19 17:00 05:55 05:55 WBC 12.5 H RBC 4.22 Hgb 12.5 Hct 37.8 MCV 89.6 MCH 29.6 MCHC 33.0 RDW 12.9 Plt Count 226 MPV 8.7 Absolute Neuts (auto) 10.6 H Neutrophils % 84.9 H D Lymphocytes % 7.8 L D Monocytes % 6.8 Eosinophils % 0.3 Basophils % 0.2 Nucleated RBC % 0 Sodium 139 138 Potassium 4.1 4.1 Chloride 107 106 Carbon Dioxide 30 27 Anion Gap 2 L 6 L BUN 19.8 H 18.9 H Creatinine 1.6 H 1.6 H Est GFR (CKD-EPI)AfAm 51.63 51.63 Est GFR (CKD-EPI)NonAf 44.55 44.55 Random Glucose 107 H 108 H Lactic Acid Calcium 9.3 8.9 Magnesium Total Bilirubin 0.4 0.7 AST 27 25 ALT 20 19 Alkaline Phosphatase 100 94 Total Protein 6.8 6.5 Albumin 3.7 3.5 TSH 2.01 Free T4 Urine Color Urine Appearance Urine pH Ur Specific [place] Urine Protein Urine Glucose (UA) Urine Ketones Urine Blood Urine Nitrite Urine Bilirubin Urine Urobilinogen Ur Leukocyte Esterase [place] 07/25/19 05:55 WBC RBC Hgb Hct MCV MCH MCHC RDW Plt Count MPV Absolute Neuts (auto) Neutrophils % Lymphocytes % Monocytes % Eosinophils % Basophils % Nucleated RBC % Sodium Potassium Chloride Carbon Dioxide Anion Gap BUN Creatinine Est GFR (CKD-EPI)AfAm Est GFR (CKD-EPI)NonAf Random Glucose Lactic Acid Calcium Magnesium 2.0 Total Bilirubin AST ALT Alkaline Phosphatase Total Protein Albumin TSH Free T4 0.95 Urine Color Urine Appearance Urine pH Ur Specific [place] Urine Protein Urine Glucose (UA) Urine Ketones Urine Blood Urine Nitrite Urine Bilirubin Urine Urobilinogen Ur Leukocyte Esterase [place] Active Medications Generic Name Dose Route Start Last Admin Trade Name Freq PRN Reason Stop Dose Admin Atenolol 25 mg 07/25/19 10:00 Tenormin - PO DAILY LATISHA Atorvastatin Calcium 10 mg 07/24/19 22:00 07/24/19 22:29 Lipitor - PO 10 mg HS LATISHA Administration Sodium Chloride 1,000 mls @ 150 mls/hr 07/24/19 10:17 07/24/19 10:30 Normal Saline - IV 150 mls/hr ASDIR LATISHA Administration Lorazepam 1 mg 07/24/19 10:37 Ativan - PO BID PRN AGITATION Quetiapine Fumarate 400 mg 07/24/19 22:00 07/24/19 22:30 Seroquel - PO 400 mg HS LATISHA Administration Valproate Sodium 250 mg 07/24/19 22:00 07/24/19 22:29 Depakene - PO 250 mg BID LATISHA Administration ASSESSMENT/PLAN: Problem List - Problems (1) Leukocytosis Assessment/Plan: wbc 12, blood and urine cultures pending lactic acid wnl Code(s): D72.829 - ELEVATED WHITE BLOOD CELL COUNT, UNSPECIFIED (2) Acute metabolic encephalopathy Assessment/Plan: patient has leukocytosis, tachycardia and AMS. blood and urine cultures ordered to rule out acute infection causing AMS confusion likely secondary to lithium toxicity, had elevated levels on 07/13 and continued to take lithium per report discussed with poison control and recommendations carried out renal following for possible dialyss if pt has seizure or if lithium levels are elevated. Code(s): G93.41 - METABOLIC ENCEPHALOPATHY (3) [place] toxicity Assessment/Plan: per poison control, continue to trend and continue IVF 2 x above maintenance renal following if patient has elevated levels and mentation worsens, may need dialysis lithium levels 2.2 Code(s): T56.891A - TOXIC EFFECT OF OTH METALS, ACCIDENTAL (UNINTENTIONAL), INIT Qualifiers: Encounter type: initial encounter Injury intent: accidental or unintentional Qualified Code(s): T56.891A - Toxic effect of other metals, accidental (unintentional), initial encounter (4) Acute renal failure Assessment/Plan: creat 1.6, monitor with daily labs breen catheter to be placed for accurate intake and output Code(s): N17.9 - ACUTE KIDNEY FAILURE, UNSPECIFIED Qualifiers: Acute renal failure type: unspecified Qualified Code(s): N17.9 - Acute kidney failure, unspecified (5) Altered mental state Code(s): R41.82 - ALTERED MENTAL STATUS, UNSPECIFIED Qualifiers: Altered mental status type: somnolence Qualified Code(s): R40.0 - Somnolence (6) Bipolar disorder Assessment/Plan: hold home medications in the setting of AMS above baseline. Code(s): F31.9 - BIPOLAR DISORDER, UNSPECIFIED Visit type - Emergency Visit Emergency Visit: Yes ED Registration Date: 07/23/19 Care time: The patient presented to the Emergency Department on the above date and was hospitalized for further evaluation of their emergent condition. - New Patient This patient is new to me today: No - Critical Care Critical Care patient: No - Discharge Referral Referred to [facility] Med P.C.: No
[2019-07-25] MEDS ORDERED: VALPROATE SODIUM 500 MG/5 ML VIAL IVPB ONE ×2 (11:40→22:00)
[2019-07-25] MEDS: ATENOLOL 25 MG TABLET (FP) PO SCH (11:41)
[2019-07-25] MEDS: VALPROATE SODIUM 250 MG/5 ML UNIT DOSE CUP PO SCH ×2 (11:41→21:15)
[2019-07-25] MEDS: SODIUM CHLORIDE 1,000 ML IV SCH ×2 (11:42→15:42)
--- NOTE | 2019-07-25 13:34 | PN ---
Progress Note (short form) - Note Progress Note: Renal follow up for MARINA/CKD Seen and examined at the bedside sleeping, was agitated overnight and was given IM ativan no seizures overnight s/p EEG this am making urine Vital Signs Temperature 97.2 F L 07/24/19 22:00 Pulse Rate 94 H 07/24/19 22:00 Respiratory Rate 24 H 07/24/19 22:00 Blood Pressure 158/99 07/24/19 22:00 O2 Sat by Pulse Oximetry (%) 98 07/24/19 21:00 Intake & Output 07/22/19 07/23/19 07/24/19 07/25/19 23:59 23:59 23:59 23:59 Intake Total 1660 370 Output Total 1600 Balance 60 370 Weight 102.058 kg NAD, sleeping tachycardic Dec BS soft NT/ND no LE edema, clubbing or cyanosis CBC, BMP 07/25/19 05:55 07/25/19 05:55 Current Medications Atenolol (Tenormin -) 25 mg PO DAILY [facility] Last Admin: 07/25/19 11:41 Dose: Not Given Atorvastatin Calcium (Lipitor -) 10 mg PO HS [facility] Last Admin: 07/24/19 22:29 Dose: 10 mg Sodium Chloride (Normal Saline -) 1,000 mls @ 150 mls/hr IV ASDIR [facility] Last Admin: 07/25/19 11:42 Dose: 150 mls/hr Lorazepam (Ativan -) 1 mg PO BID PRN PRN Reason: AGITATION Quetiapine Fumarate (Seroquel -) 400 mg PO HS [facility] Last Admin: 07/24/19 22:30 Dose: 400 mg Valproate Sodium (Depakene -) 250 mg PO BID [facility] Last Admin: 07/25/19 11:41 Dose: Not Given 64 year old gentleman with history of bipolar disorder, Alzheimer's dementia and CKD who presented from home with upper extremity tremor and increasing confusion and admitted for suspected lithium toxicity. 1. Suspected [place] toxicity 2. CKD/MARINA 3. Bipolar disorder 4. Alzheimer dementia 6. Leukocytosis Renal function with moderate improvement, Cr of 1.6 likely represents his baseline renal function [place] levels were 2.2, no overt seizures noted. No emergent indication for dialysis at this time continue to trend [place] levels Continue IVF, decrease rate to 100cc per hour monitor volume status Thank you Donavan Yin DO
[2019-07-25] MEDS ORDERED: ACETAMINOPHEN 1000 MG/100 ML VIAL (NON FORMULARY) IVPB ONE (15:08)
[2019-07-25] MEDS ORDERED: PIPERACILLIN/TAZOB 2.25 GM 2.25 GM in DEXTROSE 5%-WATER - 50 ML IVPB ONE (15:13)
[2019-07-25] MEDS ORDERED: DEXTROSE 5%-WATER - 50 ML IVPB ONE (15:33)
[2019-07-25] MEDS ORDERED: PIPERACILLIN/TAZOBACTAM 2.25 GM VIAL IVPB ONE (15:33)
[2019-07-25] MEDS: LORazepam 2 MG/ML SDV VIAL IVPUSH PRN (19:07)
[2019-07-25] MEDS: PIPERACILLIN/TAZOB 2.25 GM 2.25 GM in DEXTROSE 5%-WATER - 50 ML IVPB SCH (19:38)
[2019-07-25 20:15] LABS: ALBUMIN 3.4 g/dl (3.4-5.0); BLOOD UREA NITROGEN 21.9 mg/dL (7-18); CALCIUM 8.4 mg/dL (8.5-10.1); CREATININE 1.7 mg/dL (0.55-1.3); TOT PROT 6.6 g/dl (6.4-8.2)
[2019-07-25] MEDS: QUEtiapine FUMARATE 200 MG TABLET PO SCH (23:00)
[2019-07-25] MEDS: ATORVASTATIN CA 10 MG TABLET (FP) PO SCH (23:00)
[2019-07-26] MEDS ORDERED: DEXTROSE 5%-WATER - 50 ML IVPB ONE ×3 (00:36→17:09)
[2019-07-26] MEDS ORDERED: PIPERACILLIN/TAZOBACTAM 2.25 GM VIAL IVPB ONE ×3 (00:36→17:09)
[2019-07-26] MEDS: PIPERACILLIN/TAZOB 2.25 GM 2.25 GM in DEXTROSE 5%-WATER - 50 ML IVPB SCH ×3 (01:05→17:13)
[2019-07-26] MEDS: LORazepam 2 MG/ML SDV VIAL IVPUSH PRN (01:06)
[2019-07-26 06:56] LABS: BASO % 0.2 % (0-2.0); EOS % 0.1 % (0-4.5); HEMATOCRIT 37.4 % (35.4-49); HEMOGLOBIN 12.1 GM/dL (11.7-16.9); LYMPH % 11.9 % (8-40); MCH 29.2 pg (25.7-33.7); MCHC 32.3 g/dl (32.0-35.9); MEAN CELL VOLUME 90.4 fl (80-96); MEAN PLT VOLUME 8.9 fl (7.5-11.1); MONO % 7.7 % (3.8-10.2); NEUT % 80.1 % (42.8-82.8); PLATELET COUNT 229 K/MM3 (134-434); RBC 4.14 M/mm3 (4.00-5.60); RDW 13.1 % (11.9-15.9); WHITE BLOOD COUNT 13.4 K/mm3 (4.0-10.0)
[2019-07-26 07:15] LABS: ALBUMIN 3.3 g/dl (3.4-5.0); BILIRUBIN,TOTAL 0.8 mg/dL (0.2-1); BLOOD UREA NITROGEN 17.2 mg/dL (7-18); CALCIUM 8.6 mg/dL (8.5-10.1); CREATININE 1.6 mg/dL (0.55-1.3); MAGNESIUM 2.2 mg/dL (1.8-2.4); PHOSPHOROUS 2.1 mg/dL (2.5-4.9); POTASSIUM 3.9 mmol/L (3.5-5.1); TOT PROT 6.6 g/dl (6.4-8.2)
--- NOTE | 2019-07-26 09:05 | PN ---
Physical Exam: SUBJECTIVE: Patient seen and examined. He is awake, alert and confused. He has been agitated at times. OBJECTIVE: Vital Signs Period Temp Pulse Resp BP Sys/[place] Pulse Ox Last 24 Hr 98.8 F-101.1 F 97-111 18-18 99-125/46-84 94-97 GENERAL: The patient is awake, alert, confused, in no acute distress. LUNGS: Breath sounds equal, clear to auscultation bilaterally, no wheezes, no crackles, no accessory muscle use. HEART: Regular rate and rhythm, S1, S2 without murmur, rub or gallop. ABDOMEN: Obese, soft, nontender, nondistended, normoactive bowel sounds, no guarding, no rebound, no hepatosplenomegaly, no masses. EXTREMITIES: 2+ pulses, warm, well-perfused, no edema. NEUROLOGICAL: Unable to assess. Laboratory Results - last 24 hr 07/24/19 07/24/19 07/25/19 11:15 17:00 05:55 WBC RBC Hgb Hct MCV MCH MCHC RDW Plt Count MPV Absolute Neuts (auto) Neutrophils % Lymphocytes % Monocytes % Eosinophils % Basophils % Nucleated RBC % Sodium Potassium Chloride Carbon Dioxide Anion Gap BUN Creatinine Est GFR (CKD-EPI)AfAm Est GFR (CKD-EPI)NonAf Random Glucose Calcium Phosphorus Magnesium Total Bilirubin AST ALT Alkaline Phosphatase Total Protein Albumin [place] 2.2 H* 2.1 H* 2.1 H* 07/25/19 07/25/19 07/26/19 19:00 19:00 05:40 WBC 13.4 H RBC 4.14 Hgb 12.1 Hct 37.4 MCV 90.4 MCH 29.2 MCHC 32.3 RDW 13.1 Plt Count 229 MPV 8.9 Absolute Neuts (auto) 10.7 H Neutrophils % 80.1 Lymphocytes % 11.9 D Monocytes % 7.7 Eosinophils % 0.1 Basophils % 0.2 Nucleated RBC % 0 Sodium 140 Potassium 4.0 Chloride 110 H Carbon Dioxide 26 Anion Gap 4 L BUN 21.9 H Creatinine 1.7 H Est GFR (CKD-EPI)AfAm 47.98 Est GFR (CKD-EPI)NonAf 41.40 Random Glucose 137 H Calcium 8.4 L Phosphorus Magnesium 2.0 Total Bilirubin 1.0 AST 23 ALT 21 Alkaline Phosphatase 84 Total Protein 6.6 Albumin 3.4 [place] 07/26/19 05:40 WBC RBC Hgb Hct MCV MCH MCHC RDW Plt Count MPV Absolute Neuts (auto) Neutrophils % Lymphocytes % Monocytes % Eosinophils % Basophils % Nucleated RBC % Sodium 144 Potassium 3.9 Chloride 110 H Carbon Dioxide 27 Anion Gap 7 L BUN 17.2 Creatinine 1.6 H Est GFR (CKD-EPI)AfAm 51.63 Est GFR (CKD-EPI)NonAf 44.55 Random Glucose 118 H Calcium 8.6 Phosphorus 2.1 L Magnesium 2.2 Total Bilirubin 0.8 AST 26 ALT 24 Alkaline Phosphatase 86 Total Protein 6.6 Albumin 3.3 L [place] Active Medications Generic Name Dose Route Start Last Admin Trade Name Freq PRN Reason Stop Dose Admin Atenolol 25 mg 07/25/19 10:00 07/25/19 11:41 Tenormin - PO Not Given DAILY LATISHA Atorvastatin Calcium 10 mg 07/24/19 22:00 07/25/19 23:00 Lipitor - PO Not Given HS LATISHA Sodium Chloride 1,000 mls @ 100 mls/hr 07/25/19 13:34 07/25/19 15:42 Normal Saline - IV 100 mls/hr ASDIR LATISHA Administration Piperacillin Sod/Tazobactam 50 mls @ 100 mls/hr 07/25/19 19:00 07/26/19 01:05 Sod 2.25 gm/ Dextrose IVPB 100 mls/hr Q8H-IV LATISHA Administration Protocol Lorazepam 1 mg 07/24/19 10:37 Ativan - PO BID PRN AGITATION Lorazepam 1 mg 07/25/19 18:37 07/26/19 01:06 Ativan Injection - IVPUSH 1 mg Q6H PRN Administration WITHDRAWAL(CONT SUBST) Quetiapine Fumarate 400 mg 07/24/19 22:00 07/25/19 23:00 Seroquel - PO Not Given HS LATISHA Valproate Sodium 250 mg 07/24/19 22:00 07/25/19 21:15 Depakene - PO Not Given BID LATISHA ASSESSMENT/PLAN: This is a 64 year old man with a history of HTN, hyperlipidemia, Alzheimer's dementia, bipolar disorder who presented to the ED with increasing confusion and difficulty walking. 1. Acute toxic metabolic encephalopathy - Secondary to lithium toxicity and possible infection - Head CT/CTA unremarkable but with motion artifact - Liithium held - level 2.1 yesterday morning - Continue to monitor lithium level - Continue IV fluid - Blood cultures negative after 48 hours, urine culture negative - Continue empiric Zosyn for possible aspiration pneumonia 2. Acute kidney injury on stage 3 CKD - Likely secondary to lithium/ARB use - Creatinine at baseline - Continue to hold lithium, Cozaar - Continue IV fluid - Continue to monitor creatinine 3. Bipolar disorder - [place] held - Continue valproic acid - recheck level - Continue Seroquel, Ativan as needed for agitation 4. Alzheimer's dementia 5. HTN - Continue atenolol - Cozaar held secondary to [place] 6. Hyperlipidemia - Continue Lipitor Visit type - Emergency Visit Emergency Visit: Yes ED Registration Date: 07/23/19 Care time: The patient presented to the Emergency Department on the above date and was hospitalized for further evaluation of their emergent condition. - New Patient This patient is new to me today: No - Critical Care Critical Care patient: No - Discharge Referral Referred to [facility] Med P.C.: No
[2019-07-26] MEDS: VALPROATE SODIUM 500 MG/5 ML VIAL IVPB SCH ×2 (09:33→21:08)
[2019-07-26] MEDS: ATENOLOL 25 MG TABLET (FP) PO SCH (09:34)
--- NOTE | 2019-07-26 10:43 | PN ---
Progress Note, Physician Chief Complaint: The patient seen in his room. 1:1 watch maintains good urine output. keeping his eyes closed, jittery and 'shaky". - Current Medication List Current Medications: Active Medications Atenolol (Tenormin -) 25 mg PO DAILY [facility] Last Admin: 07/26/19 09:34 Dose: Not Given Atorvastatin Calcium (Lipitor -) 10 mg PO HS [facility] Last Admin: 07/25/19 23:00 Dose: Not Given Sodium Chloride (Normal Saline -) 1,000 mls @ 100 mls/hr IV ASDIR LATISHA Last Admin: 07/25/19 15:42 Dose: 100 mls/hr Piperacillin Sod/Tazobactam (Sod 2.25 gm/ Dextrose) 50 mls @ 100 mls/hr IVPB Q8H-IV LATISHA; Protocol Last Admin: 07/26/19 09:00 Dose: 100 mls/hr Lorazepam (Ativan -) 1 mg PO BID PRN PRN Reason: AGITATION Lorazepam (Ativan Injection -) 1 mg IVPUSH Q6H PRN PRN Reason: WITHDRAWAL(CONT SUBST) Last Admin: 07/26/19 01:06 Dose: 1 mg Quetiapine Fumarate (Seroquel -) 400 mg PO HS [facility] Last Admin: 07/25/19 23:00 Dose: Not Given Valproate Sodium (Depacon Injection -) 250 mg IVPB BID [facility] Last Admin: 07/26/19 09:33 Dose: 250 mg - Objective Vital Signs: Vital Signs Temperature 99.3 F 07/26/19 05:38 Pulse Rate 97 H 07/26/19 05:38 Respiratory Rate 18 07/26/19 05:38 Blood Pressure 124/78 07/26/19 05:38 O2 Sat by Pulse Oximetry (%) 97 07/26/19 07:48 Constitutional: Yes: Anxious HENT: Yes: Drooling Neck: Yes: Trachea Midline Cardiovascular: Yes: Regular Rate and Rhythm Respiratory: Yes: CTA Bilaterally Gastrointestinal: Yes: Normal Bowel Sounds, Abdomen, Obese Genitourinary: Yes: [place] Present Edema: No Neurological: Yes: Tremors Labs: CBC, BMP 07/26/19 05:40 07/26/19 05:40 INR, PTT INR 1.03 (0.83-1.09) 07/24/19 06:00 Assessment/Plan 64 year old gentleman with history of bipolar disorder, Alzheimer's dementia and CKD who presented from home with upper extremity tremor and increasing confusion and admitted for suspected lithium toxicity. [place] levels remain in acceptable range. , CKD/MARINA... Azotemia slowly improving towards his baseline. Bipolar disorder Alzheimer dementia Persistent leukocytosis...On IV abx. Will maintain IV hydration. Monitor the renal / electrolyte function closely. Thank you Mariella Marquez MD
--- NOTE | 2019-07-26 11:16 | PN ---
Progress Note (short form) - Note Progress Note: 64 year old male history of Bipolar disorder, Dementia, HTN,HLD . Patient presented with worsening of confusoin. His [place] level on july 13 was 1.9 and Li was not held per her significant other. Patient has had no seizure. Patient has been agitated and confused. He takes [place] 300 mg po tid. Patient had no fever, no seizure were noticed. There is no new focal neurological ( weakness or face asymmetry) was noticed. Patient Li was on hold since admission. Patient did get ativan last night as he was agitated , and he has been sleepy He do get tremors on right arm, likely to be tardive dyskinesia NEUROLOGICAL EAMINATION he is sleepy today as he got ativan last night neck is supple, vital stable eomi, pupils reactive no face asymmetry moving all extremity(he is restrained) sensation is normal ct hed no acute findings Assessment/Plan 64 year old male history of Dementia, Bipolar, HTN, HLD. He admitted for worsening of confusion. Most likely metabolic encehalopathy ( [place] toxicity is possibility and progression of dementia) , [place] still agitated and his Li levle were 2.1. Patient did get ativan last night. His confusion could be multifactorial due to hospitalization, worsening of demetia, infeciton and Li Toxicity. 2. Resting tremors on right arm, likley to be tardive dyskinesia. Suggest to watch for now. plan: - no need for mri of brain or spinal tap - hold Li - Psych consult appreciated - continue supportive care, THanking you so much Jamar Henry MD
[2019-07-26] MEDS: SODIUM CHLORIDE 1,000 ML IV SCH (17:15)
[2019-07-26] MEDS: ACETAMINOPHEN 1000 MG/100 ML VIAL (NON FORMULARY) IVPB PRN (18:26)
[2019-07-26 19:15] LABS: ALBUMIN 3.3 g/dl (3.4-5.0); BILIRUBIN,TOTAL 0.5 mg/dL (0.2-1); BLOOD UREA NITROGEN 18.3 mg/dL (7-18); CALCIUM 8.4 mg/dL (8.5-10.1); CREATININE 1.5 mg/dL (0.55-1.3); POTASSIUM 3.8 mmol/L (3.5-5.1); TOT PROT 6.6 g/dl (6.4-8.2)
[2019-07-26] MEDS: ATORVASTATIN CA 10 MG TABLET (FP) PO SCH (21:01)
[2019-07-26] MEDS: QUEtiapine FUMARATE 200 MG TABLET PO SCH (21:01)
[2019-07-27] MEDS ORDERED: PIPERACILLIN/TAZOBACTAM 2.25 GM VIAL IVPB ONE ×3 (00:57→17:19)
[2019-07-27] MEDS ORDERED: DEXTROSE 5%-WATER - 50 ML IVPB ONE ×3 (00:57→17:20)
[2019-07-27] MEDS: PIPERACILLIN/TAZOB 2.25 GM 2.25 GM in DEXTROSE 5%-WATER - 50 ML IVPB SCH ×3 (01:06→17:36)
[2019-07-27] MEDS: ACETAMINOPHEN 1000 MG/100 ML VIAL (NON FORMULARY) IVPB PRN (01:09)
[2019-07-27] MEDS: LORazepam 2 MG/ML SDV VIAL IVPUSH PRN ×2 (04:10→09:39)
[2019-07-27] MEDS: SODIUM CHLORIDE 1,000 ML IV SCH (05:42)
[2019-07-27 07:33] LABS: BASO % 0.3 % (0-2.0); EOS % 0.4 % (0-4.5); HEMATOCRIT 37.4 % (35.4-49); HEMOGLOBIN 12.3 GM/dL (11.7-16.9); LYMPH % 16.3 % (8-40); MCH 30.2 pg (25.7-33.7); MEAN CELL VOLUME 91.5 fl (80-96); MEAN PLT VOLUME 9.9 fl (7.5-11.1); MONO % 9.7 % (3.8-10.2); NEUT % 73.3 % (42.8-82.8); PLATELET COUNT 182 K/MM3 (134-434); RBC 4.08 M/mm3 (4.00-5.60); RDW 13.2 % (11.9-15.9); WHITE BLOOD COUNT 11.1 K/mm3 (4.0-10.0)
[2019-07-27 07:56] LABS: ALBUMIN 3.2 g/dl (3.4-5.0); BILIRUBIN,TOTAL 0.5 mg/dL (0.2-1); CALCIUM 8.5 mg/dL (8.5-10.1); CREATININE 1.4 mg/dL (0.55-1.3); MAGNESIUM 2.4 mg/dL (1.8-2.4); POTASSIUM 3.8 mmol/L (3.5-5.1); TOT PROT 6.5 g/dl (6.4-8.2)
--- NOTE | 2019-07-27 09:22 | PN ---
Physical Exam: SUBJECTIVE: Patient seen and examined at the bedside. very agitated this morning, crying and attempting to get out of bed. OBJECTIVE: received 1mg ativan ivpush at 0400, still agitated, will give ativan 1mg iv x 1 now very swollen, reddened penile head, also with loose stools, will send for c diff Patient is a 64 year old male with a significant past medical history of Alzheimer's dementia, bipolar disorder on lithium, history of CVA with baseline dysarthria but fully ambulatory presents now with worsening slurred speech and gait disturbance in the setting of recently elevated lithium level. He is being also worked up for a possible infection that may be contributing to the worsening confusion. currently he is on zosyn. [place] levels 2.1 and lithium being held secondary to possible lithium toxicity. poison control has been called and their recommendations are being carried out. Renal following for possible dialysis. Vital Signs Period Temp Pulse Resp BP Sys/[place] Pulse Ox Last 24 Hr 98.9 F-100.9 F 87-107 18-22 120-141/64-78 97 GENERAL: agitated, crying and attempting to get out of bed, he is also combative with cares HEAD: Normal with no signs of trauma. EYES: PERRL, extraocular movements intact, sclera anicteric, conjunctiva clear. No ptosis. ENT: Ears normal, nares patent, oropharynx clear without exudates NECK: Trachea midline, full range of motion, supple. LUNGS: poor respiratory effort, mostly clear/diminished HEART: Regular rate and rhythm ABDOMEN: obese abdomen EXTREMITIES: no edema. NEUROLOGICAL: lethargic/asleep on exam. SKIN: reddened and edamatous penile head Laboratory Results - last 24 hr 07/23/19 07/24/19 07/25/19 18:30 17:00 05:55 WBC RBC Hgb Hct MCV MCH MCHC RDW Absolute Neuts (auto) Neutrophils % Lymphocytes % Monocytes % Eosinophils % Basophils % Nucleated RBC % Sodium Potassium Chloride Carbon Dioxide Anion Gap BUN Creatinine Est GFR (CKD-EPI)AfAm Est GFR (CKD-EPI)NonAf Random Glucose Calcium Magnesium Total Bilirubin AST ALT Alkaline Phosphatase Total Protein Albumin Valproic Acid [place] Cancelled 2.1 H* 2.1 H* 07/26/19 07/27/19 07/27/19 18:16 06:30 06:30 WBC 11.1 H RBC 4.08 Hgb 12.3 Hct 37.4 MCV 91.5 MCH 30.2 MCHC 33.0 RDW 13.2 Absolute Neuts (auto) 8.2 H Neutrophils % 73.3 Lymphocytes % 16.3 D Monocytes % 9.7 Eosinophils % 0.4 D Basophils % 0.3 Nucleated RBC % 0 Sodium 146 H Potassium 3.8 Chloride 114 H Carbon Dioxide 26 Anion Gap 6 L BUN 18.3 H Creatinine 1.5 H Est GFR (CKD-EPI)AfAm 55.82 Est GFR (CKD-EPI)NonAf 48.16 Random Glucose 138 H Calcium 8.4 L Magnesium Total Bilirubin 0.5 AST 24 ALT 24 Alkaline Phosphatase 87 Total Protein 6.6 Albumin 3.3 L Valproic Acid 29.7 L [place] 07/27/19 06:30 WBC RBC Hgb Hct MCV MCH MCHC RDW Absolute Neuts (auto) Neutrophils % Lymphocytes % Monocytes % Eosinophils % Basophils % Nucleated RBC % Sodium 148 H Potassium 3.8 Chloride 116 H Carbon Dioxide 28 Anion Gap 4 L BUN 19.0 H Creatinine 1.4 H Est GFR (CKD-EPI)AfAm 60.68 Est GFR (CKD-EPI)NonAf 52.35 Random Glucose 125 H Calcium 8.5 Magnesium 2.4 Total Bilirubin 0.5 AST 27 ALT 25 Alkaline Phosphatase 83 Total Protein 6.5 Albumin 3.2 L Valproic Acid [place] Active Medications Generic Name Dose Route Start Last Admin Trade Name Freq PRN Reason Stop Dose Admin Acetaminophen 1,000 mg 07/26/19 18:15 07/27/19 01:09 Ofirmev Injection - IVPB 1,000 mg Q6H PRN Administration FEVER Atenolol 25 mg 07/25/19 10:00 07/26/19 09:34 Tenormin - PO Not Given DAILY LATISHA Atorvastatin Calcium 10 mg 07/24/19 22:00 07/26/19 21:01 Lipitor - PO Not Given HS LATISHA Sodium Chloride 1,000 mls @ 100 mls/hr 07/25/19 13:34 07/27/19 05:42 Normal Saline - IV 100 mls/hr ASDIR LATISHA Administration Piperacillin Sod/Tazobactam 50 mls @ 100 mls/hr 07/25/19 19:00 07/27/19 01:06 Sod 2.25 gm/ Dextrose IVPB 100 mls/hr Q8H-IV LATISHA Administration Protocol Lorazepam 1 mg 07/24/19 10:37 Ativan - PO BID PRN AGITATION Lorazepam 1 mg 07/25/19 18:37 07/27/19 04:10 Ativan Injection - IVPUSH 1 mg Q6H PRN Administration WITHDRAWAL(CONT SUBST) Quetiapine Fumarate 400 mg 07/24/19 22:00 07/26/19 21:01 Seroquel - PO Not Given HS LATISHA Valproate Sodium 250 mg 07/26/19 10:00 07/26/19 21:08 Depacon Injection - IVPB 250 mg BID LATISHA Administration ASSESSMENT/PLAN: Problem List - Problems (1) Leukocytosis Assessment/Plan: wbc 11, blood and urine cultures pending, but ngtd lactic acid within normal limits on zosyn empirically for possible aspiration pneumonia Code(s): D72.829 - ELEVATED WHITE BLOOD CELL COUNT, UNSPECIFIED (2) Acute metabolic encephalopathy Assessment/Plan: patient has leukocytosis, tachycardia and AMS. blood and urine cultures with ngtd confusion likely secondary to lithium toxicity, had elevated levels on 07/13 and continued to take lithium per report discussed with poison control and recommendations carried out renal following for possible dialyss if pt has seizure or if lithium levels worse Code(s): G93.41 - METABOLIC ENCEPHALOPATHY (3) [place] toxicity Assessment/Plan: per poison control, continue to trend and continue IVF 2 x above maintenance renal following if patient has elevated levels and mentation worsens, may need dialysis lithium levels 2.1 Code(s): T56.891A - TOXIC EFFECT OF OTH METALS, ACCIDENTAL (UNINTENTIONAL), INIT Qualifiers: Encounter type: initial encounter Injury intent: accidental or unintentional Qualified Code(s): T56.891A - Toxic effect of other metals, accidental (unintentional), initial encounter (4) Acute renal failure Assessment/Plan: creat 1.6, monitor with daily labs breen catheter for accurate intake and output Code(s): N17.9 - ACUTE KIDNEY FAILURE, UNSPECIFIED Qualifiers: Acute renal failure type: unspecified Qualified Code(s): N17.9 - Acute kidney failure, unspecified (5) Altered mental state Code(s): R41.82 - ALTERED MENTAL STATUS, UNSPECIFIED Qualifiers: Altered mental status type: somnolence Qualified Code(s): R40.0 - Somnolence (6) Bipolar disorder Assessment/Plan: hold lithium in the setting of AMS above baseline. Code(s): F31.9 - BIPOLAR DISORDER, UNSPECIFIED (7) Prophylactic measure Assessment/Plan: fen IVF @ 75cc/hr monitor electrolytes bid soft diet/aspiration px dvt: heparin full code Code(s): Z29.9 - ENCOUNTER FOR PROPHYLACTIC MEASURES, UNSPECIFIED Visit type - Emergency Visit Emergency Visit: Yes ED Registration Date: 07/23/19 Care time: The patient presented to the Emergency Department on the above date and was hospitalized for further evaluation of their emergent condition. - New Patient This patient is new to me today: No - Critical Care Critical Care patient: No - Discharge Referral Referred to [facility] Med P.C.: No
[2019-07-27] MEDS ORDERED: LORazepam 2 MG/ML SDV VIAL IM ONE (09:27)
[2019-07-27] MEDS: VALPROATE SODIUM 500 MG/5 ML VIAL IVPB SCH ×2 (09:51→21:22)
[2019-07-27] MEDS: ATENOLOL 25 MG TABLET (FP) PO SCH (10:35)
[2019-07-27 10:36] LABS: PLATELET ESTIMATE NORMAL
--- NOTE | 2019-07-27 10:45 | PN ---
Progress Note (short form) - Note Progress Note: 64 year old male history of Bipolar disorder, Dementia, HTN,HLD . Patient presented with worsening of confusoin. His [place] level on july 13 was 1.9 and Li was not held per her significant other. Patient has had no seizure. Patient has been agitated and confused. He takes [place] 300 mg po tid. Patient had no fever, no seizure were noticed. There is no new focal neurological ( weakness or face asymmetry) was noticed. Patient Li was on hold since admission. Rosibel has been very combative and agitated earlier this morning and got ativan He do get tremors on right arm, likely to be tardive dyskinesia , sugges tot watch NEUROLOGICAL EAMINATION He is restless and try to moving around in bed. neck is supple, vital stable eomi, pupils reactive no face asymmetry moving all extremity(he is restrained) sensation is normal ct hed no acute findings Assessment/Plan 64 year old male history of Dementia, Bipolar, HTN, HLD. He admitted for worsening of confusion. Most likely metabolic encehalopathy ( [place] toxicity is possibility and progression of dementia) , [place] still agitated and his Li levle were 2.1. he was given ativan earlier this morning. His confusion could be multifactorial due to hospitalization, worsening of demetia, infeciton and Li Toxicity. 2. Resting tremors on right arm, likley to be tardive dyskinesia. Suggest to watch for now. plan: - no need for mri of brain or spinal tap - hold Li - continue supportive care, THanking you so much Jamar Henry MD
[2019-07-27] MEDS: HEPARIN NA (PORCINE) 5,000 UNITS/ML 1ML VIAL SQ SCH ×2 (11:17→21:23)
--- NOTE | 2019-07-27 13:11 | PN ---
Progress Note (short form) - Note Progress Note: Renal follow up for MAR[place]/CKD Seen and examined at the bedside awake but not talking not eating much as per nurse no diarrhea + fevers Vital Signs Temperature 99.2 F 07/27/19 10:00 Pulse Rate 88 07/27/19 10:00 Respiratory Rate 20 07/27/19 10:00 Blood Pressure 111/73 07/27/19 10:00 O2 Sat by Pulse Oximetry (%) 98 07/27/19 10:00 Intake & Output 07/24/19 07/25/19 07/26/19 07/27/19 23:59 23:59 23:59 23:59 Intake Total 1660 2420 2500 850 Output Total 9602 412 2373 500 Balance 60 1920 700 350 NAD, sleeping tachycardic Dec BS soft NT/ND no LE edema, clubbing or cyanosis CBC, BMP 07/27/19 06:30 07/27/19 06:30 Current Medications Acetaminophen (Ofirmev Injection -) 1,000 mg IVPB Q6H PRN PRN Reason: FEVER Last Admin: 07/27/19 01:09 Dose: 1,000 mg Atenolol (Tenormin -) 25 mg PO DAILY [facility] Last Admin: 07/27/19 10:35 Dose: Not Given Atorvastatin Calcium (Lipitor -) 10 mg PO HS [facility] Last Admin: 07/26/19 21:01 Dose: Not Given Bacitracin (Bacitracin -) 1 applic TP BID [facility] Heparin Sodium (Porcine) (Heparin -) 5,000 unit SQ BID [facility] Last Admin: 07/27/19 11:17 Dose: 5,000 unit Piperacillin Sod/Tazobactam (Sod 2.25 gm/ Dextrose) 50 mls @ 100 mls/hr IVPB Q8H-IV LATISHA; Protocol Last Admin: 07/27/19 11:17 Dose: 100 mls/hr Lorazepam (Ativan Injection -) 1 mg IVPUSH Q6H PRN PRN Reason: WITHDRAWAL(CONT SUBST) Last Admin: 07/27/19 09:39 Dose: 1 mg Quetiapine Fumarate (Seroquel -) 400 mg PO HS LATISHA Last Admin: 07/26/19 21:01 Dose: Not Given Valproate Sodium (Depacon Injection -) 250 mg IVPB BID [facility] Last Admin: 07/27/19 09:51 Dose: 250 mg 64 year old gentleman with history of bipolar disorder, Alzheimer's dementia and CKD who presented from home with upper extremity tremor and increasing confusion and admitted for suspected lithium toxicity. 1. Suspected [place] toxicity 2. CKD/MARINA 3. Bipolar disorder 4. Alzheimer dementia 6. Leukocytosis Renal function is improved and stable Last resulted lithium level is 2.1 (trending down) No emergent indication for dialysis at this time continue to trend [place] levels Change IVF to D5 1/2 NS with 20 KCL at 42cc per hour monitor volume status on empiric zosyn, follow up cultures Thank you Donavan Yin DO
[2019-07-27] MEDS ORDERED: D5-1/2NS+20 MEQ KCL - 20 MEQ/1,000 ML INFUS.BAG IV SCH (13:15)
--- NOTE | 2019-07-27 14:49 | CON.ID ---
Consult Consult Specialty:: infectious diseases Referred by:: cyn Reason for Consultation:: increasing leukocytosis,confusion - History of Present Illness Chief Complaint: confusion History of Present Illness: 64 y/o M with a significant past medical history of Alzheimer's dementia, Bipolar disorder, HTN, HLD who presented to [facility] due to increasing weakness and altered mental status. Family at bedside endorses that last night pt became more confused; pt was also noted to have a trembling voice. Furthermore, pt's gait has been ataxic and he has been unable to walk straight. Family also endorses decreased sleep. Denies any recent illnesses, fevers, shortness of breath, or loss of consciousness patients history obtained from the chart as patient unable to give history because of his condition - History Source History Provided By: Medical Record Limitations to Obtaining History: Clinical Condition - Past Medical History Cardio/Vascular: Yes: HTN, Hyperlipdemia Psych: Yes: Bipolar - Alcohol/Substance Use Hx Alcohol Use: No - Smoking History Smoking history: Never smoked Have you smoked in the past 12 months: No If you are a former smoker, when did you quit?: 10 YRS AGO - Social History Usual Living Arrangement: With Significant Other Home Medications - Allergies Allergies/Adverse Reactions: Allergies Allergy/AdvReac Type Severity Reaction Status Date / Time No Known Allergies Allergy Verified 07/23/19 12:27 - Home Medications Home Medications: Ambulatory Orders RX: Atenolol [Tenormin -] 25 mg PO DAILY 11/12/16 RX: [place] Carbonate [Eskalith -] 300 mg PO TID 11/12/16 RX: Losartan Potassium 100 mg PO DAILY 11/12/16 RX: Quetiapine Fumarate [Seroquel -] 400 mg PO HS 11/12/16 RX: Simvastatin 20 mg PO HS 11/12/16 RX: Valproic Acid [Depakene -] 250 mg PO BID 11/12/16 Ergocalciferol [Vitamin D2] 50,000 unit PO Q7D@1000 07/24/19 Review of Systems Unable to obtain ROS, reason: unable to obtain Physical Exam Vital Signs: Vital Signs Temperature 99.2 F 07/27/19 10:00 Pulse Rate 88 07/27/19 10:00 Respiratory Rate 20 07/27/19 10:00 Blood Pressure 111/73 07/27/19 10:00 O2 Sat by Pulse Oximetry (%) 98 07/27/19 10:00 Constitutional: Yes: Well Nourished, Obese, Other Eyes: Yes: Conjunctiva Clear Neck: Yes: Supple, Trachea Midline Cardiovascular: Yes: Regular Rate and Rhythm Respiratory: Yes: Regular, CTA Bilaterally Gastrointestinal: Yes: Normal Bowel Sounds, Soft Renal/: Yes: Scrotal Edema, Other (paraphimosis) Musculoskeletal: Yes: WNL Extremities: Yes: Other Edema: LLE: 1+, RLE: 1+ Neurological: Yes: Lethargy, Other (confusion) Psychiatric: Yes: Other Labs: CBC, BMP 07/27/19 06:30 07/27/19 06:30 Imaging - Results Chest X-ray: Report Reviewed, Image Reviewed Cat Scan: Report Reviewed, Image Reviewed Assessment/Plan 64 year old gentleman with history of bipolar disorder, Alzheimer's dementia and CKD who presented from home with upper extremity tremor and increasing confusion and admitted for suspected lithium toxicity. 1. Suspected [place] toxicity 2. CKD/MARINA 3. Bipolar disorder 4. Alzheimer dementia 6. Leukocytosis 7 paraphimosis plan continue current mgmt abx urology rest as per the team asp precautions monitor wbc
[2019-07-27] MEDS: BACITRACIN 15 GM TUBE TOPICAL OINTMENT TP SCH ×2 (17:11→21:22)
[2019-07-27 20:02] LABS: ALBUMIN 3.2 g/dl (3.4-5.0); BILIRUBIN,TOTAL 0.3 mg/dL (0.2-1); BLOOD UREA NITROGEN 15.2 mg/dL (7-18); CALCIUM 8.6 mg/dL (8.5-10.1); CREATININE 1.2 mg/dL (0.55-1.3); POTASSIUM 3.9 mmol/L (3.5-5.1); TOT PROT 6.4 g/dl (6.4-8.2)
[2019-07-27] MEDS: ATORVASTATIN CA 10 MG TABLET (FP) PO SCH (21:23)
[2019-07-27] MEDS: QUEtiapine FUMARATE 200 MG TABLET PO SCH (21:23)
[2019-07-28] MEDS ORDERED: DEXTROSE 5%-WATER - 50 ML IVPB ONE ×3 (01:06→16:50)
[2019-07-28] MEDS ORDERED: PIPERACILLIN/TAZOBACTAM 2.25 GM VIAL IVPB ONE ×3 (01:06→16:49)
[2019-07-28] MEDS: PIPERACILLIN/TAZOB 2.25 GM 2.25 GM in DEXTROSE 5%-WATER - 50 ML IVPB SCH ×3 (01:09→17:15)
[2019-07-28] MEDS: LORazepam 2 MG/ML SDV VIAL IVPUSH PRN (02:16)
[2019-07-28 07:56] LABS: BASO % 0.3 % (0-2.0); EOS % 1.1 % (0-4.5); HEMATOCRIT 37.5 % (35.4-49); HEMOGLOBIN 12.3 GM/dL (11.7-16.9); LYMPH % 14.6 % (8-40); MCH 29.4 pg (25.7-33.7); MCHC 32.7 g/dl (32.0-35.9); MEAN CELL VOLUME 89.8 fl (80-96); PLATELET COUNT 237 K/MM3 (134-434); RBC 4.18 M/mm3 (4.00-5.60); WHITE BLOOD COUNT 12.5 K/mm3 (4.0-10.0)
[2019-07-28 08:15] LABS: ALBUMIN 3.3 g/dl (3.4-5.0); BILIRUBIN,TOTAL 0.3 mg/dL (0.2-1); BLOOD UREA NITROGEN 13.4 mg/dL (7-18); CALCIUM 8.8 mg/dL (8.5-10.1); CREATININE 1.1 mg/dL (0.55-1.3); MAGNESIUM 2.5 mg/dL (1.8-2.4); POTASSIUM 3.9 mmol/L (3.5-5.1); TOT PROT 6.5 g/dl (6.4-8.2)
[2019-07-28] MEDS ORDERED: DEXTROSE 5%-WATER - 1,000 ML with POTASSIUM CHLORIDE 20 MEQ IVPB SCH (09:00)
[2019-07-28] MEDS: VALPROATE SODIUM 500 MG/5 ML VIAL IVPB SCH ×2 (10:00→22:16)
[2019-07-28] MEDS: BACITRACIN 15 GM TUBE TOPICAL OINTMENT TP SCH ×2 (10:00→22:15)
[2019-07-28] MEDS: HEPARIN NA (PORCINE) 5,000 UNITS/ML 1ML VIAL SQ SCH (10:00)
--- NOTE | 2019-07-28 10:12 | PN ---
Physical Exam: SUBJECTIVE: Patient seen and examined at the bedside. more awake alert, eyes open. attempting to speak. agitated/combative. OBJECTIVE: lithium levels normalized Patient is a 64 year old male with a significant past medical history of Alzheimer's dementia, bipolar disorder on lithium, history of CVA with baseline dysarthria but fully ambulatory presents now with worsening slurred speech and gait disturbance in the setting of recently elevated lithium level. He is being also worked up for a possible infection that may be contributing to the worsening confusion. currently he is on zosyn. [place] levels now normalized, will continue to trend. Renal following. Vital Signs Period Temp Pulse Resp BP Sys/[place] Pulse Ox Last 24 Hr 98.5 F-100.0 F 73-93 18-20 120-150/78-79 94 GENERAL: agitated, he is also combative with cares, on [place] and wrist restraints for safety and fall risk status. HEAD: Normal with no signs of trauma. EYES: PERRL, extraocular movements intact, sclera anicteric, conjunctiva clear. No ptosis. ENT: Ears normal, nares patent, oropharynx clear without exudates NECK: Trachea midline, full range of motion, supple. LUNGS: poor respiratory effort, mostly clear/diminished HEART: Regular rate and rhythm ABDOMEN: obese abdomen EXTREMITIES: no edema. NEUROLOGICAL: lethargic/asleep on exam. SKIN: reddened and edamatous penile head Laboratory Results - last 24 hr 07/25/19 07/26/19 07/26/19 19:00 05:40 15:11 WBC RBC Hgb Hct MCV MCH MCHC RDW Plt Count MPV Absolute Neuts (auto) Neutrophils % Lymphocytes % Monocytes % Eosinophils % Basophils % Nucleated RBC % Platelet Estimate Platelet Comment Sodium Potassium Chloride Carbon Dioxide Anion Gap BUN Creatinine Est GFR (CKD-EPI)AfAm Est GFR (CKD-EPI)NonAf Random Glucose Calcium Magnesium Total Bilirubin AST ALT Alkaline Phosphatase Total Protein Albumin [place] 1.8 H* 1.5 H 1.3 H 07/26/19 07/27/19 07/27/19 18:16 06:30 06:30 WBC RBC Hgb Hct MCV MCH MCHC RDW Plt Count 182 D MPV 9.9 D Absolute Neuts (auto) Neutrophils % Lymphocytes % Monocytes % Eosinophils % Basophils % Nucleated RBC % Platelet Estimate Normal Platelet Comment Present Sodium Potassium Chloride Carbon Dioxide Anion Gap BUN Creatinine Est GFR (CKD-EPI)AfAm Est GFR (CKD-EPI)NonAf Random Glucose Calcium Magnesium Total Bilirubin AST ALT Alkaline Phosphatase Total Protein Albumin [place] 1.2 1.1 07/27/19 07/28/19 07/28/19 18:45 06:15 06:15 WBC 12.5 H RBC 4.18 Hgb 12.3 Hct 37.5 MCV 89.8 MCH 29.4 MCHC 32.7 RDW 13.0 Plt Count 237 D MPV 9.0 Absolute Neuts (auto) 9.6 H Neutrophils % 77.0 Lymphocytes % 14.6 Monocytes % 7.0 Eosinophils % 1.1 D Basophils % 0.3 Nucleated RBC % 0 Platelet Estimate Platelet Comment Sodium 150 H 152 H Potassium 3.9 3.9 Chloride 118 H 118 H Carbon Dioxide 28 30 Anion Gap 4 L 4 L BUN 15.2 13.4 Creatinine 1.2 1.1 Est GFR (CKD-EPI)AfAm 73.11 81.22 Est GFR (CKD-EPI)NonAf 63.08 70.07 Random Glucose 129 H 116 H Calcium 8.6 8.8 Magnesium 2.5 H Total Bilirubin 0.3 0.3 AST 25 22 ALT 25 25 Alkaline Phosphatase 79 80 Total Protein 6.4 6.5 Albumin 3.2 L 3.3 L [place] Active Medications Generic Name Dose Route Start Last Admin Trade Name Freq PRN Reason Stop Dose Admin Acetaminophen 1,000 mg 07/26/19 18:15 07/27/19 01:09 Ofirmev Injection - IVPB 1,000 mg Q6H PRN Administration FEVER Atenolol 25 mg 07/25/19 10:00 07/27/19 10:35 Tenormin - PO Not Given DAILY LATISHA Atorvastatin Calcium 10 mg 07/24/19 22:00 07/27/19 21:23 Lipitor - PO Not Given HS LATISHA Bacitracin 1 applic 07/27/19 10:15 07/28/19 10:00 Bacitracin - TP 1 applic BID LATISHA Administration Heparin Sodium (Porcine) 5,000 unit 07/27/19 10:00 07/28/19 10:00 Heparin - SQ 5,000 unit BID LATISHA Administration Piperacillin Sod/Tazobactam 50 mls @ 100 mls/hr 07/25/19 19:00 07/28/19 09:59 Sod 2.25 gm/ Dextrose IVPB 100 mls/hr Q8H-IV LATISHA Administration Protocol Potassium Chloride 20 meq/ 1,010 mls @ 83 mls/hr 07/28/19 09:00 Dextrose IVPB Q12H LATISHA Lorazepam 1 mg 07/25/19 18:37 07/28/19 02:16 Ativan Injection - IVPUSH 1 mg Q6H PRN Administration WITHDRAWAL(CONT SUBST) Quetiapine Fumarate 400 mg 07/24/19 22:00 07/27/19 21:23 Seroquel - PO Not Given HS LATISHA Valproate Sodium 250 mg 07/26/19 10:00 07/28/19 10:00 Depacon Injection - IVPB 250 mg BID LATISHA Administration ASSESSMENT/PLAN: Problem List - Problems (1) Leukocytosis Assessment/Plan: wbc 12, blood and urine cultures with ngtd lactic acid within normal limits on zosyn empirically for possible aspiration pneumonia ID following. Code(s): D72.829 - ELEVATED WHITE BLOOD CELL COUNT, UNSPECIFIED (2) Acute metabolic encephalopathy Assessment/Plan: lithium levels within normal limits now. will continue to trend. on zosyn for presumed aspiration pna and fevers. blood/urine cultures negative. Code(s): G93.41 - METABOLIC ENCEPHALOPATHY (3) [place] toxicity Assessment/Plan: levels now 1.1, will continue to trend Code(s): T56.891A - TOXIC EFFECT OF OTH METALS, ACCIDENTAL (UNINTENTIONAL), INIT Qualifiers: Encounter type: initial encounter Injury intent: accidental or unintentional Qualified Code(s): T56.891A - Toxic effect of other metals, accidental (unintentional), initial encounter (4) Acute renal failure Assessment/Plan: creat 1.6>1.1, monitor with daily labs breen catheter for accurate intake and output Code(s): N17.9 - ACUTE KIDNEY FAILURE, UNSPECIFIED Qualifiers: Acute renal failure type: unspecified Qualified Code(s): N17.9 - Acute kidney failure, unspecified (5) Altered mental state Code(s): R41.82 - ALTERED MENTAL STATUS, UNSPECIFIED Qualifiers: Altered mental status type: somnolence Qualified Code(s): R40.0 - Somnolence (6) Bipolar disorder Assessment/Plan: hold lithium in the setting of AMS above baseline. Code(s): F31.9 - BIPOLAR DISORDER, UNSPECIFIED (7) Prophylactic measure Assessment/Plan: fen IVF @ 75cc/hr monitor electrolytes bid soft diet/aspiration px dvt: heparin full code Code(s): Z29.9 - ENCOUNTER FOR PROPHYLACTIC MEASURES, UNSPECIFIED Visit type - Emergency Visit Emergency Visit: Yes ED Registration Date: 07/23/19 Care time: The patient presented to the Emergency Department on the above date and was hospitalized for further evaluation of their emergent condition. - New Patient This patient is new to me today: No - Critical Care Critical Care patient: No - Discharge Referral Referred to [facility] Med P.C.: No
--- NOTE | 2019-07-28 10:34 | PN ---
Progress Note (short form) - Note Progress Note: Renal follow up for MAR[place]/CKD Seen and examined at the bedside awake and alert sitll agitated making urine Vital Signs Temperature 98.5 F 07/28/19 05:55 Pulse Rate 73 07/28/19 05:55 Respiratory Rate 18 07/28/19 05:55 Blood Pressure 150/79 07/28/19 05:55 O2 Sat by Pulse Oximetry (%) 94 L 07/27/19 21:00 Intake & Output 07/25/19 07/26/19 07/27/19 07/28/19 23:59 23:59 23:59 23:59 Intake Total 2420 2500 1018 436 Output Total 500 1800 1800 500 Balance 1920 700 -782 -64 awake and alert RRR Dec BS soft NT/ND no LE edema, clubbing or cyanosis CBC, BMP 07/28/19 06:15 07/28/19 06:15 Current Medications Acetaminophen (Ofirmev Injection -) 1,000 mg IVPB Q6H PRN PRN Reason: FEVER Last Admin: 07/27/19 01:09 Dose: 1,000 mg Atenolol (Tenormin -) 25 mg PO DAILY LATISHA Last Admin: 07/27/19 10:35 Dose: Not Given Atorvastatin Calcium (Lipitor -) 10 mg PO HS LATISHA Last Admin: 07/27/19 21:23 Dose: Not Given Bacitracin (Bacitracin -) 1 applic TP BID LATISHA Last Admin: 07/28/19 10:00 Dose: 1 applic Heparin Sodium (Porcine) (Heparin -) 5,000 unit SQ BID LATISHA Last Admin: 07/28/19 10:00 Dose: 5,000 unit Piperacillin Sod/Tazobactam (Sod 2.25 gm/ Dextrose) 50 mls @ 100 mls/hr IVPB Q8H-IV LATISHA; Protocol Last Admin: 07/28/19 09:59 Dose: 100 mls/hr Potassium Chloride 20 meq/ (Dextrose) 1,010 mls @ 83 mls/hr IV Q12H LATISHA Lorazepam (Ativan Injection -) 1 mg IVPUSH Q6H PRN PRN Reason: WITHDRAWAL(CONT SUBST) Last Admin: 07/28/19 02:16 Dose: 1 mg Quetiapine Fumarate (Seroquel -) 400 mg PO HS LATISHA Last Admin: 07/27/19 21:23 Dose: Not Given Valproate Sodium (Depacon Injection -) 250 mg IVPB BID [facility] Last Admin: 07/28/19 10:00 Dose: 250 mg 64 year old gentleman with history of bipolar disorder, Alzheimer's dementia and CKD who presented from home with upper extremity tremor and increasing confusion and admitted for suspected lithium toxicity. 1. Suspected [place] toxicity 2. CKD/MARINA 3. Bipolar disorder 4. Alzheimer dementia 6. Leukocytosis Renal function is improved and stable Last resulted lithium level is 1.1 continue to trend [place] levels Na up trending, change IVF to D5W monitor volume status on empiric zosyn, follow up cultures trend electrolytes daily Thank you Donavan Yin DO
[2019-07-28] MEDS: ATENOLOL 25 MG TABLET (FP) PO SCH (11:17)
--- NOTE | 2019-07-28 11:49 | PN ---
Progress Note, Physician History of Present Illness: more awake and alert has developed paraphimosis - Current Medication List Current Medications: Active Medications Acetaminophen (Ofirmev Injection -) 1,000 mg IVPB Q6H PRN PRN Reason: FEVER Last Admin: 07/27/19 01:09 Dose: 1,000 mg Atenolol (Tenormin -) 25 mg PO DAILY [facility] Last Admin: 07/28/19 11:17 Dose: Not Given Atorvastatin Calcium (Lipitor -) 10 mg PO HS [facility] Last Admin: 07/27/19 21:23 Dose: Not Given Bacitracin (Bacitracin -) 1 applic TP BID [facility] Last Admin: 07/28/19 10:00 Dose: 1 applic Heparin Sodium (Porcine) (Heparin -) 5,000 unit SQ BID [facility] Last Admin: 07/28/19 10:00 Dose: 5,000 unit Piperacillin Sod/Tazobactam (Sod 2.25 gm/ Dextrose) 50 mls @ 100 mls/hr IVPB Q8H-IV [facility]; Protocol Last Admin: 07/28/19 09:59 Dose: 100 mls/hr Potassium Chloride 20 meq/ (Dextrose) 1,010 mls @ 83 mls/hr IV Q12H [facility] Lorazepam (Ativan Injection -) 1 mg IVPUSH Q6H PRN PRN Reason: WITHDRAWAL(CONT SUBST) Last Admin: 07/28/19 02:16 Dose: 1 mg Quetiapine Fumarate (Seroquel -) 400 mg PO HS [facility] Last Admin: 07/27/19 21:23 Dose: Not Given Valproate Sodium (Depacon Injection -) 250 mg IVPB BID [facility] Last Admin: 07/28/19 10:00 Dose: 250 mg - Objective Vital Signs: Vital Signs Temperature 98.5 F 07/28/19 05:55 Pulse Rate 73 07/28/19 05:55 Respiratory Rate 18 07/28/19 05:55 Blood Pressure 150/79 07/28/19 05:55 O2 Sat by Pulse Oximetry (%) 94 L 07/27/19 21:00 Constitutional: Yes: Anxious, Other Cardiovascular: Yes: S1, S2 Respiratory: Yes: Regular, CTA Bilaterally Gastrointestinal: Yes: Normal Bowel Sounds, Soft Genitourinary: Yes: Other (paraphimosis) Musculoskeletal: Yes: WNL Extremities: Yes: Other Edema: LLE: 2+, RLE: 2+ Neurological: Yes: Alert, Other Labs: CBC, BMP 07/28/19 06:15 07/28/19 06:15 INR, PTT INR 1.03 (0.83-1.09) 07/24/19 06:00 Assessment/Plan 64 year old gentleman with history of bipolar disorder, Alzheimer's dementia and CKD who presented from home with upper extremity tremor and increasing confusion and admitted for suspected lithium toxicity. 1. Suspected [place] toxicity 2. CKD/MARINA 3. Bipolar disorder 4. Alzheimer dementia 6. Leukocytosis 7 paraphimosis plan continue current mgmt abx urology rest as per the team asp precautions
--- NOTE | 2019-07-28 12:07 | PN ---
Progress Note (short form) - Note Progress Note: 64 year old male history of Bipolar disorder, Dementia, HTN,HLD . Patient presented with worsening of confusoin. His [place] level on july 13 was 1.9 and Li was not held per her significant other. Patient has had no seizure. Patient has been agitated and confused. He takes [place] 300 mg po tid. Patient had no fever, no seizure were noticed. There is no new focal neurological ( weakness or face asymmetry) was noticed. Patient Li was on hold since admission. Rosibel has been very combative and agitated earlier this morning and got ativan Li level is 1.1. He is better clinically. Spoke to daughter and updated about his condition. I spoke to nursing staff, ID, primary team, agueda to be meningitis. NEUROLOGICAL EAMINATION He is restless and try to moving around in bed. neck is supple, vital stable eomi, pupils reactive no face asymmetry moving all extremity(he is restrained) sensation is normal ct hed no acute findings Assessment/Plan 64 year old male history of Dementia, Bipolar, HTN, HLD. He admitted for worsening of confusion. Most likely metabolic encehalopathy ( [place] toxicity is possibility and progression of dementia) , victorino is more calmer today and his Li is 1.1 today. His confusion could be multifactorial due to hospitalization, worsening of demetia, infeciton and Li Toxicity. 2. Resting tremors on right arm, luzley to be tardive dyskinesia. Suggest to watch for now. 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
[2019-07-28] MEDS: DEXTROSE 5%-WATER - 1,000 ML with POTASSIUM CHLORIDE 20 MEQ IV SCH ×2 (12:55→23:27)
[2019-07-28] MEDS: ACETAMINOPHEN 1000 MG/100 ML VIAL (NON FORMULARY) IVPB PRN (14:31)
[2019-07-28 19:20] LABS: ALBUMIN 3.4 g/dl (3.4-5.0); BILIRUBIN,TOTAL 0.3 mg/dL (0.2-1); BLOOD UREA NITROGEN 14.4 mg/dL (7-18); CALCIUM 8.7 mg/dL (8.5-10.1); CREATININE 1.3 mg/dL (0.55-1.3); POTASSIUM 3.7 mmol/L (3.5-5.1); TOT PROT 6.7 g/dl (6.4-8.2)
[2019-07-28] MEDS ORDERED: PT OWN MED DRAWER 7, Y5N ONE (22:12)
[2019-07-28] MEDS: ATORVASTATIN CA 10 MG TABLET (FP) PO SCH (22:24)
[2019-07-28] MEDS: QUEtiapine FUMARATE 200 MG TABLET PO SCH (22:24)
[2019-07-29] MEDS ORDERED: DEXTROSE 5%-WATER - 50 ML IVPB ONE ×3 (00:57→17:25)
[2019-07-29] MEDS ORDERED: PIPERACILLIN/TAZOBACTAM 2.25 GM VIAL IVPB ONE ×3 (00:57→17:25)
[2019-07-29] MEDS: PIPERACILLIN/TAZOB 2.25 GM 2.25 GM in DEXTROSE 5%-WATER - 50 ML IVPB SCH ×3 (01:18→17:28)
[2019-07-29 07:25] LABS: BASO % 0.3 % (0-2.0); EOS % 1.6 % (0-4.5); HEMOGLOBIN 12.5 GM/dL (11.7-16.9); LYMPH % 22.5 % (8-40); MCH 29.5 pg (25.7-33.7); MCHC 32.8 g/dl (32.0-35.9); MEAN CELL VOLUME 89.8 fl (80-96); MEAN PLT VOLUME 9.1 fl (7.5-11.1); MONO % 8.5 % (3.8-10.2); NEUT % 67.1 % (42.8-82.8); PLATELET COUNT 266 K/MM3 (134-434); RBC 4.23 M/mm3 (4.00-5.60); RDW 12.9 % (11.9-15.9); WHITE BLOOD COUNT 10.7 K/mm3 (4.0-10.0)
[2019-07-29 07:50] LABS: ALBUMIN 3.2 g/dl (3.4-5.0); BILIRUBIN,TOTAL 0.3 mg/dL (0.2-1); BLOOD UREA NITROGEN 12.8 mg/dL (7-18); CALCIUM 8.8 mg/dL (8.5-10.1); CREATININE 1.2 mg/dL (0.55-1.3); MAGNESIUM 2.4 mg/dL (1.8-2.4); PHOSPHOROUS 2.1 mg/dL (2.5-4.9); POTASSIUM 3.9 mmol/L (3.5-5.1); TOT PROT 6.5 g/dl (6.4-8.2)
--- NOTE | 2019-07-29 09:16 | PN ---
Physical Exam: SUBJECTIVE: Patient seen and examined, family at bedside. they report mentation is at baseline. OBJECTIVE: remove breen as penile head is reddened/irritated, having minimal bleeding from penis site with pink tinged urine. urology consulted. lithium levels normalized Patient is a 64 year old male with a significant past medical history of Alzheimer's dementia, bipolar disorder on lithium, history of CVA with baseline dysarthria but fully ambulatory. Patient presents to the ED on 07/23/2019 with worsening slurred speech, gait disturbance and worsening mental status. Head CT negative. Patient on lithium for bipolar disorder and was told by psychiatrist to stop taking the lithium for elevated levels, however, he continued to take it as ordered and now presents with acute toxic metabolic encephalopathy. [place] levels elevated on admission, peaked to 2.1 and now have normalized. He is being also being evaluated for a possible infection that may be contributing to the worsening confusion and gait instability. Vital Signs Period Temp Pulse Resp BP Sys/Musa Pulse Ox Last 24 Hr 98.5 F-99.5 F 86-106 18-18 127-156/85-99 95 GENERAL: agitated, he is also combative with cares, on chaparro and wrist restraints for safety and fall risk status. HEAD: Normal with no signs of trauma. EYES: PERRL, extraocular movements intact, sclera anicteric, conjunctiva clear. No ptosis. ENT: Ears normal, nares patent, oropharynx clear without exudates NECK: Trachea midline, full range of motion, supple. LUNGS: poor respiratory effort, mostly clear/diminished HEART: Regular rate and rhythm ABDOMEN: obese abdomen EXTREMITIES: no edema. NEUROLOGICAL: lethargic/asleep on exam. SKIN: reddened and edamatous penile head Laboratory Results - last 24 hr 07/27/19 07/28/19 07/28/19 18:45 06:15 18:35 WBC RBC Hgb Hct MCV MCH MCHC RDW Plt Count MPV Absolute Neuts (auto) Neutrophils % Lymphocytes % Monocytes % Eosinophils % Basophils % Nucleated RBC % Sodium 150 H Potassium 3.7 Chloride 118 H Carbon Dioxide 29 Anion Gap 4 L BUN 14.4 Creatinine 1.3 Est GFR (CKD-EPI)AfAm 66.36 Est GFR (CKD-EPI)NonAf 57.26 Random Glucose 138 H Calcium 8.7 Phosphorus Magnesium Total Bilirubin 0.3 AST 19 ALT 27 Alkaline Phosphatase 80 Total Protein 6.7 Albumin 3.4 [place] 0.9 0.8 07/29/19 07/29/19 05:50 05:50 WBC 10.7 H RBC 4.23 Hgb 12.5 Hct 38.0 MCV 89.8 MCH 29.5 MCHC 32.8 RDW 12.9 Plt Count 266 MPV 9.1 Absolute Neuts (auto) 7.2 Neutrophils % 67.1 Lymphocytes % 22.5 D Monocytes % 8.5 Eosinophils % 1.6 Basophils % 0.3 Nucleated RBC % 0 Sodium 152 H Potassium 3.9 Chloride 117 H Carbon Dioxide 31 Anion Gap 4 L BUN 12.8 Creatinine 1.2 Est GFR (CKD-EPI)AfAm 73.11 Est GFR (CKD-EPI)NonAf 63.08 Random Glucose 127 H Calcium 8.8 Phosphorus 2.1 L Magnesium 2.4 Total Bilirubin 0.3 AST 20 ALT 23 Alkaline Phosphatase 73 Total Protein 6.5 Albumin 3.2 L [place] Active Medications Generic Name Dose Route Start Last Admin Trade Name Freq PRN Reason Stop Dose Admin Acetaminophen 1,000 mg 07/26/19 18:15 07/28/19 14:31 Ofirmev Injection - IVPB 1,000 mg Q6H PRN Administration FEVER Atenolol 25 mg 07/25/19 10:00 07/28/19 11:17 Tenormin - PO Not Given DAILY [facility] Atorvastatin Calcium 10 mg 07/24/19 22:00 07/28/19 22:24 Lipitor - PO Not Given HS [facility] Bacitracin 1 applic 07/27/19 10:15 07/28/19 22:15 Bacitracin - TP 1 applic BID [facility] Administration Piperacillin Sod/Tazobactam 50 mls @ 100 mls/hr 07/25/19 19:00 07/29/19 01:18 Sod 2.25 gm/ Dextrose IVPB 100 mls/hr Q8H-IV [facility] Administration Protocol Potassium Chloride 20 meq/ 1,010 mls @ 83 mls/hr 07/28/19 10:45 07/28/19 23: 27 Dextrose IV 83 mls/hr Q12H [facility] Administration Lorazepam 1 mg 07/25/19 18:37 07/28/19 02:16 Ativan Injection - IVPUSH 1 mg Q6H PRN Administration WITHDRAWAL(CONT SUBST) Quetiapine Fumarate 400 mg 07/24/19 22:00 07/28/19 22:24 Seroquel - PO Not Given HS [facility] Valproate Sodium 250 mg 07/26/19 10:00 07/28/19 22:16 Depacon Injection - IVPB 250 mg BID [facility] Administration ASSESSMENT/PLAN: Problem List - Problems (1) Leukocytosis Assessment/Plan: wbc 10.7 - blood and urine cultures with ngtd lactic acid within normal limits on zosyn empirically for possible aspiration pneumonia ID following. Code(s): D72.829 - ELEVATED WHITE BLOOD CELL COUNT, UNSPECIFIED (2) Acute metabolic encephalopathy Assessment/Plan: AMS likely secondary to elevated lithium levels vs acute infection lithium levels now normalized followed by neurology and brain mri and spinal tap not recommended at this time on zosyn for presumed aspiration pna and fevers. blood/urine cultures negative. Code(s): G93.41 - METABOLIC ENCEPHALOPATHY (3) [place] toxicity Assessment/Plan: levels now normalized Code(s): T56.891A - TOXIC EFFECT OF OTH METALS, ACCIDENTAL (UNINTENTIONAL), INIT Qualifiers: Encounter type: initial encounter Injury intent: accidental or unintentional Qualified Code(s): T56.891A - Toxic effect of other metals, accidental (unintentional), initial encounter (4) Acute renal failure Assessment/Plan: creat 1.6>1.1, monitor with daily labs Code(s): N17.9 - ACUTE KIDNEY FAILURE, UNSPECIFIED Qualifiers: Acute renal failure type: unspecified Qualified Code(s): N17.9 - Acute kidney failure, unspecified (5) Altered mental state Assessment/Plan: mental status improving, patient attempts to speak to family. Code(s): R41.82 - ALTERED MENTAL STATUS, UNSPECIFIED Qualifiers: Altered mental status type: somnolence Qualified Code(s): R40.0 - Somnolence (6) Bipolar disorder Assessment/Plan: hold lithium in the setting of AMS above baseline. Code(s): F31.9 - BIPOLAR DISORDER, UNSPECIFIED (7) Prophylactic measure Assessment/Plan: fen on d5 with K 20meq @ 75 monitor electrolytes bid pureed diet/nectar thick dvt: heparin full code Code(s): Z29.9 - ENCOUNTER FOR PROPHYLACTIC MEASURES, UNSPECIFIED Visit type - Emergency Visit Emergency Visit: Yes ED Registration Date: 07/23/19 Care time: The patient presented to the Emergency Department on the above date and was hospitalized for further evaluation of their emergent condition. - New Patient This patient is new to me today: No - Critical Care Critical Care patient: No - Discharge Referral Referred to [facility] Med P.C.: No
--- NOTE | 2019-07-29 10:12 | PN ---
Progress Note (short form) - Note Progress Note: 64 year old male history of Bipolar disorder, Dementia, HTN,HLD . Patient presented with worsening of confusoin. His [place] level on july 13 was 1.9 and Li was not held per her significant other. Patient has had no seizure. Patient has been agitated and confused. He takes [place] 300 mg po tid. Patient had no fever, no seizure were noticed. There is no new focal neurological ( weakness or face asymmetry) was noticed. Patient Li was on hold since admission. Rosibel has been very combative and agitated earlier this morning and got ativan Li level is 1.1. He is better clinically. Spoke to daughter and updated about his condition. I spoke to nursing staff, ID, primary team, agueda to be meningitis. NEUROLOGICAL EAMINATION He is alert and more talkative but confused neck is supple, vital stable eomi, pupils reactive no face asymmetry moving all extremity(he is restrained) sensation is normal ct hed no acute findings Assessment/Plan 64 year old male history of Dementia, Bipolar, HTN, HLD. He admitted for worsening of confusion. Most likely metabolic encehalopathy ( [place] toxicity is possibility and progression of dementia) , paient is more calmer today and his Li is 1.1 today. His confusion could be multifactorial due to hospitalization, worsening of demetia, infeciton and Li Toxicity. 2. Resting tremors on right arm, likley to be tardive dyskinesia. Suggest to watch for now. plan: - no need for mri of brain or spinal tap, spoke to primary team and IDagueda to be meningoencephalitis , clinically patient has improving - continue supportive care, THanking you so much Jamar Henry MD
[2019-07-29] MEDS: VALPROATE SODIUM 500 MG/5 ML VIAL IVPB SCH ×2 (10:44→22:53)
[2019-07-29] MEDS: ATENOLOL 25 MG TABLET (FP) PO SCH (10:44)
--- NOTE | 2019-07-29 11:09 | PN ---
Progress Note (short form) - Note Progress Note: Renal follow up for MAR[place]/CKD Seen and examined at the bedside awake and alert sister at the bedside clinically the same Vital Signs Temperature 98.7 F 07/29/19 09:00 Pulse Rate 88 07/29/19 09:00 Respiratory Rate 18 07/29/19 09:00 Blood Pressure 125/82 07/29/19 09:00 O2 Sat by Pulse Oximetry (%) 95 07/28/19 21:00 Intake & Output 07/26/19 07/27/19 07/28/19 07/29/19 23:59 23:59 23:59 23:59 Intake Total 2500 1018 1841 631 Output Total 1800 1800 1000 Balance 700 -782 841 631 awake and alert RRR Dec BS soft NT/ND no LE edema, clubbing or cyanosis CBC, BMP 07/29/19 05:50 07/29/19 05:50 Current Medications Acetaminophen (Ofirmev Injection -) 1,000 mg IVPB Q6H PRN PRN Reason: FEVER Last Admin: 07/28/19 14:31 Dose: 1,000 mg Atenolol (Tenormin -) 25 mg PO DAILY [facility] Last Admin: 07/29/19 10:44 Dose: 25 mg Atorvastatin Calcium (Lipitor -) 10 mg PO HS [facility] Last Admin: 07/28/19 22:24 Dose: Not Given Bacitracin (Bacitracin -) 1 applic TP BID [facility] Last Admin: 07/28/19 22:15 Dose: 1 applic Piperacillin Sod/Tazobactam (Sod 2.25 gm/ Dextrose) 50 mls @ 100 mls/hr IVPB Q8H-IV [facility]; Protocol Last Admin: 07/29/19 10:43 Dose: 100 mls/hr Potassium Chloride 20 meq/ (Dextrose) 1,010 mls @ 83 mls/hr IV Q12H [facility] Last Admin: 07/28/19 23:27 Dose: 83 mls/hr Lorazepam (Ativan Injection -) 1 mg IVPUSH Q6H PRN PRN Reason: WITHDRAWAL(CONT SUBST) Last Admin: 07/28/19 02:16 Dose: 1 mg Potassium Phos/Sodium Phos (Phos-Nak Packet -) 1 packet PO TID [facility] Stop: 07/30/19 06:01 Quetiapine Fumarate (Seroquel -) 400 mg PO HS [facility] Last Admin: 07/28/19 22:24 Dose: Not Given Valproate Sodium (Depacon Injection -) 250 mg IVPB BID [facility] Last Admin: 07/29/19 10:44 Dose: 250 mg 64 year old gentleman with history of bipolar disorder, Alzheimer's dementia and CKD who presented from home with upper extremity tremor and increasing confusion and admitted for suspected lithium toxicity. 1. Suspected [place] toxicity 2. CKD/MARINA 3. Bipolar disorder 4. Alzheimer dementia 6. Leukocytosis Renal function is improved and stable Last resulted lithium level is 1.1 continue D5W as serum Na remains elevated monitor volume status on empiric zosyn, follow up cultures trend electrolytes daily Thank you Donavan Yin DO
--- NOTE | 2019-07-29 11:34 | PN ---
Progress Note, Physician History of Present Illness: patient doing well more awake and alert - Current Medication List Current Medications: Active Medications Acetaminophen (Ofirmev Injection -) 1,000 mg IVPB Q6H PRN PRN Reason: FEVER Last Admin: 07/28/19 14:31 Dose: 1,000 mg Atenolol (Tenormin -) 25 mg PO DAILY [facility] Last Admin: 07/29/19 10:44 Dose: 25 mg Atorvastatin Calcium (Lipitor -) 10 mg PO HS [facility] Last Admin: 07/28/19 22:24 Dose: Not Given Bacitracin (Bacitracin -) 1 applic TP BID [facility] Last Admin: 07/28/19 22:15 Dose: 1 applic Piperacillin Sod/Tazobactam (Sod 2.25 gm/ Dextrose) 50 mls @ 100 mls/hr IVPB Q8H-IV [facility]; Protocol Last Admin: 07/29/19 10:43 Dose: 100 mls/hr Potassium Chloride 20 meq/ (Dextrose) 1,010 mls @ 83 mls/hr IV Q12H [facility] Last Admin: 07/28/19 23:27 Dose: 83 mls/hr Lorazepam (Ativan Injection -) 1 mg IVPUSH Q6H PRN PRN Reason: WITHDRAWAL(CONT SUBST) Last Admin: 07/28/19 02:16 Dose: 1 mg Potassium Phos/Sodium Phos (Phos-Nak Packet -) 1 packet PO TID [facility] Stop: 07/30/19 06:01 Quetiapine Fumarate (Seroquel -) 400 mg PO [facility] Last Admin: 07/28/19 22:24 Dose: Not Given Valproate Sodium (Depacon Injection -) 250 mg IVPB BID [facility] Last Admin: 07/29/19 10:44 Dose: 250 mg - Objective Vital Signs: Vital Signs Temperature 98.7 F 07/29/19 09:00 Pulse Rate 88 07/29/19 09:00 Respiratory Rate 18 07/29/19 09:00 Blood Pressure 125/82 07/29/19 09:00 O2 Sat by Pulse Oximetry (%) 95 07/28/19 21:00 Constitutional: Yes: No Distress, Calm Cardiovascular: Yes: S1, S2 Respiratory: Yes: Regular, CTA Bilaterally Gastrointestinal: Yes: Normal Bowel Sounds, Soft Musculoskeletal: Yes: WNL Extremities: Yes: WNL Integumentary: Yes: Other Wound/Incision: Yes: Other Neurological: Yes: Alert, Other Labs: CBC, BMP 07/29/19 05:50 07/29/19 05:50 INR, PTT INR 1.03 (0.83-1.09) 07/24/19 06:00 Assessment/Plan 64 year old gentleman with history of bipolar disorder, Alzheimer's dementia and CKD who presented from home with upper extremity tremor and increasing confusion and admitted for suspected lithium toxicity. 1. Suspected [place] toxicity 2. CKD/MARINA 3. Bipolar disorder 4. Alzheimer dementia 6. Leukocytosis 7 paraphimosis plan continue current mgmt abx urology rest as per the team asp precautions
[2019-07-29] MEDS: BACITRACIN 15 GM TUBE TOPICAL OINTMENT TP SCH ×2 (11:56→22:53)
[2019-07-29] MEDS: NAPH,MB-DB/K PH,MBDB POWDER PACKET PO SCH ×2 (13:40→22:53)
[2019-07-29] MEDS: DEXTROSE 5%-WATER - 1,000 ML with POTASSIUM CHLORIDE 20 MEQ IV SCH ×3 (13:42→22:53)
[2019-07-29] MEDS ORDERED: PT OWN MED DRAWER 7, Y5N ONE (22:47)
[2019-07-29] MEDS: QUEtiapine FUMARATE 200 MG TABLET PO SCH (22:53)
[2019-07-29] MEDS: ATORVASTATIN CA 10 MG TABLET (FP) PO SCH (22:53)
[2019-07-30] MEDS ORDERED: DEXTROSE 5%-WATER - 50 ML IVPB ONE ×3 (01:08→17:10)
[2019-07-30] MEDS ORDERED: PIPERACILLIN/TAZOBACTAM 2.25 GM VIAL IVPB ONE ×3 (01:08→17:10)
[2019-07-30] MEDS: PIPERACILLIN/TAZOB 2.25 GM 2.25 GM in DEXTROSE 5%-WATER - 50 ML IVPB SCH ×3 (01:15→17:28)
[2019-07-30] MEDS: NAPH,MB-DB/K PH,MBDB POWDER PACKET PO SCH (06:33)
[2019-07-30 07:05] LABS: BASO % 0.3 % (0-2.0); HEMATOCRIT 35.8 % (35.4-49); HEMOGLOBIN 11.8 GM/dL (11.7-16.9); LYMPH % 32.5 % (8-40); MCH 29.8 pg (25.7-33.7); MEAN CELL VOLUME 90.3 fl (80-96); MEAN PLT VOLUME 8.6 fl (7.5-11.1); MONO % 6.8 % (3.8-10.2); NEUT % 57.4 % (42.8-82.8); PLATELET COUNT 242 K/MM3 (134-434); RBC 3.97 M/mm3 (4.00-5.60); RDW 13.4 % (11.9-15.9); WHITE BLOOD COUNT 10.1 K/mm3 (4.0-10.0)
[2019-07-30 07:37] LABS: ALBUMIN 2.8 g/dl (3.4-5.0); BILIRUBIN,TOTAL 0.2 mg/dL (0.2-1); BLOOD UREA NITROGEN 7.7 mg/dL (7-18); CALCIUM 8.3 mg/dL (8.5-10.1); CREATININE 1.2 mg/dL (0.55-1.3); MAGNESIUM 2.4 mg/dL (1.8-2.4); TOT PROT 5.8 g/dl (6.4-8.2)
--- NOTE | 2019-07-30 09:39 | PN ---
Progress Note (short form) - Note Progress Note: 64 year old male history of Bipolar disorder, Dementia, HTN,HLD . Patient presented with worsening of confusoin. His [place] level on july 13 was 1.9 and Li was not held per her significant other. Patient has had no seizure. Patient has been agitated and confused. He takes [place] 300 mg po tid. Patient had no fever, no seizure were noticed. There is no new focal neurological ( weakness or face asymmetry) was noticed. Patient Li was on hold since admission. Rosibel has been very combative and agitated earlier this morning and got ativan Li level is 1.1. Patinet remains stable and sleepy and less combative today. NEUROLOGICAL EAMINATION He is drowsy and remain arousable and less combative today neck is supple, vital stable eomi, pupils reactive no face asymmetry moving all extremity(he is restrained) sensation is normal ct hed no acute findings Assessment/Plan 64 year old male history of Dementia, Bipolar, HTN, HLD. He admitted for worsening of confusion. Most likely metabolic encehalopathy ( [place] toxicity is possibility and progression of dementia) , paient is more calmer today and his Li is 1.1 today. His confusion could be multifactorial due to hospitalization, worsening of demetia, infeciton and Li Toxicity( Li level coming down) 2. Resting tremors on right arm, likley to be tardive dyskinesia. Suggest to watch for now. 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
--- NOTE | 2019-07-30 09:40 | CONSULT ---
Admitting History and Physical - Primary Care Physician PCP: Rob Madrid - Admission History of Present Illness: 64 year old male history of Dementia, Bipolar, HTN, HLD. He admitted for worsening of confusion. Most likely metabolic encehalopathy ( [place] toxicity is possibility and progression of dementia) , paient is more calmer today and his Li is 1.1 today. His confusion could be multifactorial due to hospitalization, worsening of demetia, infeciton and Li Toxicity. Selected Entries 07/29/19 07/29/19 07/29/19 01:00 05:00 09:00 Diet Tolerated Supper Temperature 98.5 F 98.5 F 98.7 F 07/29/19 07/29/19 07/29/19 09:34 12:38 13:00 Diet Tolerated Refused Refused Supper Temperature 98.3 F 07/29/19 07/29/19 07/30/19 21:00 22:44 01:00 Diet Tolerated Refused Supper 0 Temperature 98.8 F 98.4 F 07/30/19 07/30/19 02:00 05:37 Diet Tolerated Supper Temperature 98.2 F 98.3 F Laboratory Tests 07/26/19 07/27/19 07/28/19 05:40 06:30 06:15 WBC 13.4 H 11.1 H 12.5 H 07/29/19 07/30/19 05:50 06:00 WBC 10.7 H 10.1 H On puree/nectar thick liquids Known to me from 2017, at which time he tolerated reg/thin liquids. History Source: Medical Record Limitations to Obtaining History: Clinical Condition, Dementia - Past Medical History Cardiovascular: Yes: HTN, Hyperlipdemia Psych: Yes: Bipolar - Smoking History Smoking history: Never smoked Have you smoked in the past 12 months: No If you are a former smoker, when did you quit?: 10 YRS AGO - Alcohol/Substance Use Hx Alcohol Use: No History - Admission Reason For Visit: LITHIUM TOXICITY CVA - Diagnostics X-ray: Report Reviewed (07/25 cxr) - General Mental Status: Able to Follow Commands, Flat Affect, Lethargic (arousable) Attention: Minimal Impairment Ability to Follow Directions: Fair Head/Neck Control: Fair - Hearing Hearing: Functional Speech Evaluation - Communication Primary Language: [place] Communication: Yes: Dysarthria Oral Expression Ability: Yes: Mild Impairment - Speech Production Able to Make Needs Known: Yes: Mildly Impaired Intelligibility: Yes: Mildly Impaired - Speech Characteristics Voice Loudness: Normal Voice Pitch: Yes: Normal Voice Phonatory-based Quality: Yes: Vocal Wetness Nasal Resonance: Normal Articulation: Yes: Imprecise - Language/Auditory Comprehension Follows: Yes: 1 Stage Simple Commands - Swallow Evaluation/Bedside Assessment Current Nutritional Intake: Dysphagia Pureed, [place] Textured Liquids Oral Secretions: Yes: Drooling (in sleep. vocal wetness/gurgly upon arousable/ suspect aspirating on secretions) Facial Symmetry at Rest: Symmetrical Facial Symmetry on Retraction: Symmetrical Against Resistance Opening: Weak Against Resistance Closing: Weak Pucker Lips: Normal, Weak Smile: Normal, Weak Lingual Movement: Symmetric Lingual Speed of Movement: Reduced Lingual Movement Strgth Against Opposition: Reduced Laryngeal Movement: Labored,delay initiation Bolus Size: WFL Labial Seal: Impaired Bilaterally (spillage with cup drinking) A-P Transit: WFL Timing of Swallow: Delayed Coughing/Throat Clear: Yes (thin liquid) Recommendations - Speech Evaluation, Impression/Plan Impression: Vocal wetness upon arousal from sleep, c/w aspiration on secretions. Cough response with thin liquid trial. - Disposition Discharge to: To be Determined - Dysphagia Impressions/Plan Swallowing Skills: Impaired Dysphagia Impressions: Mild Impairment, Moderate Impairment *Silent aspiration: cannot be R/O at bedside Dysphagia Treatment Plan: Small Bites, Chin Tuck/Down, Clear Pocket Food, Trial Feedings, Safe Rate, 1/2 tsp. at a time, Elevate HOB during feed - Recommendations Diet Consistency: Dysphagia Pureed Medication Administration: Crushed with applesauce Liquids: [place] Thick
--- NOTE | 2019-07-30 09:56 | PN ---
Physical Exam: SUBJECTIVE: Patient seen and examined at the bedside. per daughter, patient's mentation declined about 5 years ago and put on lithium by his psychiatrist. she states he drank alcohol routinely but not sure if it was in excess. patient is able to ambulate w/o assistive devices at home and is taken care of by his . his mentation and moods wax and wane at home, but managed by family. she is in agreement to rehab after hospital stay. OBJECTIVE: Patient is a 64 year old male with a significant past medical history of dementia, bipolar disorder on lithium, history of CVA with baseline dysarthria but fully ambulatory. Patient presents to the ED on 07/23/2019 with worsening slurred speech, gait disturbance and worsening mental status. Head CT negative. Patient on lithium for bipolar disorder and was told by psychiatrist to stop taking the lithium for elevated levels, however, he continued to take it as ordered and now presents with acute toxic metabolic encephalopathy. [place] levels elevated on admission, peaked to 2.1 and now have normalized. He is being also being evaluated for a possible infection that may be contributing to the worsening confusion and gait instability. Vital Signs Period Temp Pulse Resp BP Sys/Musa Pulse Ox Last 24 Hr 98.2 F-98.8 F 65-73 18-20 100-140/61-94 99 GENERAL: agitated, he is also combative with cares, on chaparro and wrist restraints for safety and fall risk status. HEAD: Normal with no signs of trauma. EYES: PERRL, extraocular movements intact, sclera anicteric, conjunctiva clear. No ptosis. ENT: Ears normal, nares patent, oropharynx clear without exudates NECK: Trachea midline, full range of motion, supple. LUNGS: poor respiratory effort, mostly clear/diminished HEART: Regular rate and rhythm ABDOMEN: obese abdomen EXTREMITIES: no edema. NEUROLOGICAL: lethargic/asleep on exam. SKIN: reddened and edamatous penile head with mild edema, less red today and less edema. Laboratory Results - last 24 hr 07/30/19 07/30/19 06:00 06:00 WBC 10.1 H RBC 3.97 L Hgb 11.8 Hct 35.8 MCV 90.3 MCH 29.8 MCHC 33.0 RDW 13.4 Plt Count 242 MPV 8.6 Absolute Neuts (auto) 5.8 Neutrophils % 57.4 Lymphocytes % 32.5 D Monocytes % 6.8 Eosinophils % 3.0 D Basophils % 0.3 Nucleated RBC % 0 Sodium 150 H Potassium 4.0 Chloride 116 H Carbon Dioxide 32 Anion Gap 2 L BUN 7.7 Creatinine 1.2 Est GFR (CKD-EPI)AfAm 73.11 Est GFR (CKD-EPI)NonAf 63.08 Random Glucose 115 H Calcium 8.3 L Magnesium 2.4 Total Bilirubin 0.2 AST 15 ALT 20 Alkaline Phosphatase 59 Total Protein 5.8 L Albumin 2.8 L Active Medications Generic Name Dose Route Start Last Admin Trade Name Freq PRN Reason Stop Dose Admin Acetaminophen 1,000 mg 07/26/19 18:15 07/28/19 14:31 Ofirmev Injection - IVPB 1,000 mg Q6H PRN Administration FEVER Atenolol 25 mg 07/25/19 10:00 07/29/19 10:44 Tenormin - PO 25 mg DAILY LATISHA Administration Atorvastatin Calcium 10 mg 07/24/19 22:00 07/29/19 22:53 Lipitor - PO 10 mg HS LATISHA Administration Bacitracin 1 applic 07/27/19 10:15 07/29/19 22:53 Bacitracin - TP 1 applic BID LATISHA Administration Piperacillin Sod/Tazobactam 50 mls @ 100 mls/hr 07/25/19 19:00 07/30/19 01:15 Sod 2.25 gm/ Dextrose IVPB 100 mls/hr Q8H-IV [facility]HA Administration Protocol Potassium Chloride 20 meq/ 1,010 mls @ 83 mls/hr 07/28/19 10:45 07/29/19 22: 53 Dextrose IV 83 mls/hr Q12H [facility]ISHA Administration Lorazepam 1 mg 07/25/19 18:37 07/28/19 02:16 Ativan Injection - IVPUSH 1 mg Q6H PRN Administration WITHDRAWAL(CONT SUBST) Quetiapine Fumarate 400 mg 07/24/19 22:00 07/29/19 22:53 Seroquel - PO 400 mg HS LATISHA Administration Valproate Sodium 250 mg 07/26/19 10:00 07/29/19 22:53 Depacon Injection - IVPB 250 mg BID LATISHA Administration ASSESSMENT/PLAN: Problem List - Problems (1) Leukocytosis Assessment/Plan: wbc 10.1 - blood and urine cultures with ngtd lactic acid within normal limits on zosyn empirically for possible aspiration pneumonia ID following and likely with d/c antibiotics tomorrow. Code(s): D72.829 - ELEVATED WHITE BLOOD CELL COUNT, UNSPECIFIED (2) Acute metabolic encephalopathy Assessment/Plan: AMS likely secondary to elevated lithium levels vs acute infection. per daughter, patient's mentation has been declining for apx 5 years and they were told he had bipolar disease and dementia. has episodes of agitation at home, but they are managed by family. lithium levels now normalized followed by neurology and brain mri and spinal tap not recommended at this time on zosyn for presumed aspiration pna and fevers. blood/urine cultures negative. Code(s): G93.41 - METABOLIC ENCEPHALOPATHY (3) [place] toxicity Assessment/Plan: levels now normalized Code(s): T56.891A - TOXIC EFFECT OF OTH METALS, ACCIDENTAL (UNINTENTIONAL), INIT Qualifiers: Encounter type: initial encounter Injury intent: accidental or unintentional Qualified Code(s): T56.891A - Toxic effect of other metals, accidental (unintentional), initial encounter (4) Acute renal failure Assessment/Plan: creat 1.6>1.1, monitor with daily labs Code(s): N17.9 - ACUTE KIDNEY FAILURE, UNSPECIFIED Qualifiers: Acute renal failure type: unspecified Qualified Code(s): N17.9 - Acute kidney failure, unspecified (5) Altered mental state Assessment/Plan: mental status improving, patient attempts to speak to family. Code(s): R41.82 - ALTERED MENTAL STATUS, UNSPECIFIED Qualifiers: Altered mental status type: somnolence Qualified Code(s): R40.0 - Somnolence (6) Bipolar disorder Assessment/Plan: hold lithium in the setting of AMS above baseline. Code(s): F31.9 - BIPOLAR DISORDER, UNSPECIFIED (7) Prophylactic measure Assessment/Plan: fen on d5 with K 20meq @ 83 monitor electrolytes bid pureed diet/nectar thick dvt: heparin full code Code(s): Z29.9 - ENCOUNTER FOR PROPHYLACTIC MEASURES, UNSPECIFIED Visit type - Emergency Visit Emergency Visit: Yes ED Registration Date: 07/23/19 Care time: The patient presented to the Emergency Department on the above date and was hospitalized for further evaluation of their emergent condition. - New Patient This patient is new to me today: No - Critical Care Critical Care patient: No - Discharge Referral Referred to [facility] No
[2019-07-30] MEDS: VALPROATE SODIUM 500 MG/5 ML VIAL IVPB SCH ×2 (10:52→21:39)
[2019-07-30] MEDS: BACITRACIN 15 GM TUBE TOPICAL OINTMENT TP SCH ×2 (10:58→21:40)
[2019-07-30] MEDS: ATENOLOL 25 MG TABLET (FP) PO SCH (10:59)
[2019-07-30] MEDS: DEXTROSE 5%-WATER - 1,000 ML with POTASSIUM CHLORIDE 20 MEQ IV SCH ×2 (10:59→15:33)
--- NOTE | 2019-07-30 12:25 | PN ---
Progress Note, Physician History of Present Illness: patient more awake and alert standing up - Current Medication List Current Medications: Active Medications Acetaminophen (Ofirmev Injection -) 1,000 mg IVPB Q6H PRN PRN Reason: FEVER Last Admin: 07/28/19 14:31 Dose: 1,000 mg Atenolol (Tenormin -) 25 mg PO DAILY [facility] Last Admin: 07/30/19 10:59 Dose: 25 mg Atorvastatin Calcium (Lipitor -) 10 mg PO HS [facility] Last Admin: 07/29/19 22:53 Dose: 10 mg Bacitracin (Bacitracin -) 1 applic TP BID [facility] Last Admin: 07/30/19 10:58 Dose: 1 applic Piperacillin Sod/Tazobactam (Sod 2.25 gm/ Dextrose) 50 mls @ 100 mls/hr IVPB Q8H-IV LATISHA; Protocol Last Admin: 07/30/19 01:15 Dose: 100 mls/hr Potassium Chloride 20 meq/ (Dextrose) 1,010 mls @ 83 mls/hr IV Q12H [facility] Last Admin: 07/30/19 10:59 Dose: Not Given Lorazepam (Ativan Injection -) 1 mg IVPUSH Q6H PRN PRN Reason: WITHDRAWAL(CONT SUBST) Last Admin: 07/28/19 02:16 Dose: 1 mg Quetiapine Fumarate (Seroquel -) 400 mg PO [facility] Last Admin: 07/29/19 22:53 Dose: 400 mg Valproate Sodium (Depacon Injection -) 250 mg IVPB BID [facility] Last Admin: 07/30/19 10:52 Dose: 250 mg - Objective Vital Signs: Vital Signs Temperature 97.9 F 07/30/19 10:41 Pulse Rate 70 07/30/19 10:41 Respiratory Rate 19 07/30/19 10:41 Blood Pressure 98/54 L 07/30/19 10:41 O2 Sat by Pulse Oximetry (%) 99 07/29/19 21:00 Constitutional: Yes: No Distress, Calm Cardiovascular: Yes: S1, S2 Respiratory: Yes: Regular, CTA Bilaterally Gastrointestinal: Yes: Normal Bowel Sounds, Soft Genitourinary: Yes: Other (paraphimosis) Musculoskeletal: Yes: WNL Extremities: Yes: Other Neurological: Yes: Alert, Other Psychiatric: Yes: Other Labs: CBC, BMP 07/30/19 06:00 07/30/19 06:00 INR, PTT INR 1.03 (0.83-1.09) 07/24/19 06:00 Assessment/Plan 64 year old gentleman with history of bipolar disorder, Alzheimer's dementia and CKD who presented from home with upper extremity tremor and increasing confusion and admitted for suspected lithium toxicity. 1. Suspected [place] toxicity 2. CKD/MARINA 3. Bipolar disorder 4. Alzheimer dementia 6. Leukocytosis 7 paraphimosis plan continue current mgmt abx urology rest as per the team asp precautions monitor wbc
--- NOTE | 2019-07-30 12:36 | PN ---
Progress Note (short form) - Note Progress Note: Renal follow up for [place]/CKD Seen and examined at the bedside awake and alert family at the bedside more awake and alert drinking thickened water Vital Signs Temperature 97.9 F 07/30/19 10:41 Pulse Rate 70 07/30/19 10:41 Respiratory Rate 19 07/30/19 10:41 Blood Pressure 98/54 L 07/30/19 10:41 O2 Sat by Pulse Oximetry (%) 99 07/29/19 21:00 Intake & Output 07/27/19 07/28/19 07/29/19 07/30/19 23:59 23:59 23:59 23:59 Intake Total 1018 1841 2519 591 Output Total 1800 1000 Balance -676 559 2037 591 awake and alert RRR Dec BS soft NT/ND no LE edema, clubbing or cyanosis CBC, BMP 07/30/19 06:00 07/30/19 06:00 Current Medications Acetaminophen (Ofirmev Injection -) 1,000 mg IVPB Q6H PRN PRN Reason: FEVER Last Admin: 07/28/19 14:31 Dose: 1,000 mg Atenolol (Tenormin -) 25 mg PO DAILY [facility] Last Admin: 07/30/19 10:59 Dose: 25 mg Atorvastatin Calcium (Lipitor -) 10 mg PO HS [facility] Last Admin: 07/29/19 22:53 Dose: 10 mg Bacitracin (Bacitracin -) 1 applic TP BID [facility] Last Admin: 07/30/19 10:58 Dose: 1 applic Piperacillin Sod/Tazobactam (Sod 2.25 gm/ Dextrose) 50 mls @ 100 mls/hr IVPB Q8H-IV LATISHA; Protocol Last Admin: 07/30/19 12:23 Dose: 100 mls/hr Potassium Chloride 20 meq/ (Dextrose) 1,010 mls @ 83 mls/hr IV Q12H [facility] Last Admin: 07/30/19 10:59 Dose: Not Given Lorazepam (Ativan Injection -) 1 mg IVPUSH Q6H PRN PRN Reason: WITHDRAWAL(CONT SUBST) Last Admin: 07/28/19 02:16 Dose: 1 mg Quetiapine Fumarate (Seroquel -) 400 mg PO HS [facility] Last Admin: 07/29/19 22:53 Dose: 400 mg Valproate Sodium (Depacon Injection -) 250 mg IVPB BID [facility] Last Admin: 07/30/19 10:52 Dose: 250 mg 64 year old gentleman with history of bipolar disorder, Alzheimer's dementia and CKD who presented from home with upper extremity tremor and increasing confusion and admitted for suspected lithium toxicity. 1. Suspected [place] toxicity 2. CKD/MARINA 3. Bipolar disorder 4. Alzheimer dementia 6. Leukocytosis Renal function is improved and stable lithium levels now improved to WNL continue D5W as serum Na remains elevated monitor volume status on empiric zosyn, follow up cultures trend electrolytes daily Thank you Donavan Yin DO
[2019-07-30] MEDS ORDERED: PT OWN MED DRAWER 7, Y5N ONE (15:31)
[2019-07-30] MEDS: ATORVASTATIN CA 10 MG TABLET (FP) PO SCH (21:40)
[2019-07-30] MEDS: QUEtiapine FUMARATE 200 MG TABLET PO SCH (21:41)
[2019-07-31] MEDS ORDERED: PIPERACILLIN/TAZOBACTAM 2.25 GM VIAL IVPB ONE ×3 (00:56→17:36)
[2019-07-31] MEDS ORDERED: DEXTROSE 5%-WATER - 50 ML IVPB ONE ×3 (00:57→17:36)
[2019-07-31] MEDS: PIPERACILLIN/TAZOB 2.25 GM 2.25 GM in DEXTROSE 5%-WATER - 50 ML IVPB SCH ×3 (01:03→18:02)
[2019-07-31] MEDS: DEXTROSE 5%-WATER - 1,000 ML with POTASSIUM CHLORIDE 20 MEQ IV SCH ×4 (01:07→21:50)
[2019-07-31 07:26] LABS: BASO % 0.3 % (0-2.0); EOS % 3.4 % (0-4.5); HEMATOCRIT 37.4 % (35.4-49); LYMPH % 29.6 % (8-40); MCH 29.3 pg (25.7-33.7); MCHC 32.1 g/dl (32.0-35.9); MEAN CELL VOLUME 91.3 fl (80-96); MEAN PLT VOLUME 8.6 fl (7.5-11.1); MONO % 6.7 % (3.8-10.2); PLATELET COUNT 255 K/MM3 (134-434); RBC 4.09 M/mm3 (4.00-5.60); RDW 13.4 % (11.9-15.9); WHITE BLOOD COUNT 11.3 K/mm3 (4.0-10.0)
[2019-07-31 07:44] LABS: BILIRUBIN,TOTAL 0.3 mg/dL (0.2-1); BLOOD UREA NITROGEN 7.8 mg/dL (7-18); CALCIUM 8.5 mg/dL (8.5-10.1); CREATININE 1.2 mg/dL (0.55-1.3); MAGNESIUM 2.3 mg/dL (1.8-2.4); POTASSIUM 4.2 mmol/L (3.5-5.1); TOT PROT 5.8 g/dl (6.4-8.2)
[2019-07-31] MEDS: VALPROATE SODIUM 500 MG/5 ML VIAL IVPB SCH ×2 (10:05→21:48)
--- NOTE | 2019-07-31 10:34 | CON.GU ---
Consult Consult Specialty:: Urology Referred by:: [facility] service Reason for Consultation:: incontinence hematuria - History of Present Illness Chief Complaint: incontinence History of Present Illness: 64 yo male s/p prior breen categorization now voiding and incontinent Pt also w hx of hematuria Currently w mild penile skin irritation - Past Medical History Cardio/Vascular: Yes: HTN, Hyperlipdemia Psych: Yes: Bipolar - Alcohol/Substance Use Hx Alcohol Use: No - Smoking History Smoking history: Never smoked Have you smoked in the past 12 months: No If you are a former smoker, when did you quit?: 10 YRS AGO - Social History Usual Living Arrangement: With Significant Other Home Medications - Allergies Allergies/Adverse Reactions: Allergies Allergy/AdvReac Type Severity Reaction Status Date / Time No Known Allergies Allergy Verified 07/23/19 12:27 - Home Medications Home Medications: Ambulatory Orders Atenolol [Tenormin -] 25 mg PO DAILY 11/12/16 [place] Carbonate [Eskalith -] 300 mg PO TID 11/12/16 Losartan Potassium 100 mg PO DAILY 11/12/16 Quetiapine Fumarate [Seroquel -] 400 mg PO HS 11/12/16 Simvastatin 20 mg PO HS 11/12/16 Valproic Acid [Depakene -] 250 mg PO BID 11/12/16 Ergocalciferol [Vitamin D2] 50,000 unit PO Q7D@1000 07/24/19 Physical Exam- Vital Signs: Vital Signs Temperature 98.6 F 07/31/19 06:00 Pulse Rate 77 07/31/19 06:00 Respiratory Rate 20 07/31/19 06:00 Blood Pressure 102/72 07/31/19 06:00 O2 Sat by Pulse Oximetry (%) 97 07/30/19 21:00 Labs: CBC, BMP 07/31/19 06:45 07/31/19 06:45 Problem List - Problems (1) Incontinence of urine Assessment/Plan: 64 yo male w hx of incontinence s/p prior breen w hematuria Now voiding and incontinent Rec renal and bladder sonogram Cont bacitracin to foreskin Code(s): R32 - UNSPECIFIED URINARY INCONTINENCE Qualifiers: Qualified Code(s): R32 - Unspecified urinary incontinence
[2019-07-31] MEDS: ATENOLOL 25 MG TABLET (FP) PO SCH (11:12)
[2019-07-31] MEDS: BACITRACIN 15 GM TUBE TOPICAL OINTMENT TP SCH ×2 (11:19→21:49)
--- NOTE | 2019-07-31 11:33 | PN ---
Progress Note, METAL LATHER - Note Progress Note: Selected Entries 07/29/19 07/30/19 07/30/19 22:44 01:00 02:00 Breakfast Lunch Supper 0 Temperature 98.4 F 98.2 F 07/30/19 07/30/19 07/30/19 05:37 10:41 14:00 Breakfast 50% Lunch 50% Supper Temperature 98.3 F 97.9 F 99 F 07/30/19 07/30/19 07/31/19 18:00 22:00 01:36 Breakfast Lunch Supper 50% Temperature 97.9 F 97.9 F 98.5 F 07/31/19 07/31/19 07/31/19 06:00 08:40 10:00 Breakfast 100% Lunch Supper Temperature 98.6 F 98.2 F Laboratory Tests 07/27/19 07/28/19 07/29/19 06:30 06:15 05:50 WBC 11.1 H 12.5 H 10.7 H 07/30/19 07/31/19 06:00 06:45 WBC 10.1 H 11.3 H More alert, dysfluent speech, confused. Asking repeatedly for water. Tolerating nectar thick ( 5 water today) but c/o thirst. On puree/nectar Swallowing reassessed with improved tolerance. No overt cough following 3 oz water test. Possibly slight vocal wetness Consider trial of diet upgrade to Dys ground and thin liquid If cough,congestion, fever, MBS to r/o silent aspiration Aspiration precautions.
--- NOTE | 2019-07-31 12:21 | PN ---
Progress Note, Physician History of Present Illness: stable no new issues improving - Current Medication List Current Medications: Active Medications Acetaminophen (Ofirmev Injection -) 1,000 mg IVPB Q6H PRN PRN Reason: FEVER Last Admin: 07/28/19 14:31 Dose: 1,000 mg Atenolol (Tenormin -) 25 mg PO DAILY [facility] Last Admin: 07/31/19 11:12 Dose: 25 mg Atorvastatin Calcium (Lipitor -) 10 mg PO HS [facility] Last Admin: 07/30/19 21:40 Dose: 10 mg Bacitracin (Bacitracin -) 1 applic TP BID [facility] Last Admin: 07/31/19 11:19 Dose: 1 applic Piperacillin Sod/Tazobactam (Sod 2.25 gm/ Dextrose) 50 mls @ 100 mls/hr IVPB Q8H-IV [facility]IS[facility]; Protocol Last Admin: 07/31/19 11:12 Dose: 100 mls/hr Potassium Chloride 20 meq/ (Dextrose) 1,010 mls @ 83 mls/hr IV Q12H [facility] Last Admin: 07/31/19 06:01 Dose: 83 mls/hr Lorazepam (Ativan Injection -) 1 mg IVPUSH Q6H PRN PRN Reason: WITHDRAWAL(CONT SUBST) Last Admin: 07/28/19 02:16 Dose: 1 mg Quetiapine Fumarate (Seroquel -) 400 mg PO HS [facility] Last Admin: 07/30/19 21:41 Dose: 400 mg Valproate Sodium (Depacon Injection -) 250 mg IVPB BID [facility] Last Admin: 07/31/19 10:05 Dose: 250 mg - Objective Vital Signs: Vital Signs Temperature 98.2 F 07/31/19 10:00 Pulse Rate 78 07/31/19 10:00 Respiratory Rate 20 07/31/19 10:00 Blood Pressure 130/74 07/31/19 10:00 O2 Sat by Pulse Oximetry (%) 97 07/30/19 21:00 Constitutional: Yes: No Distress, Calm Cardiovascular: Yes: S1, S2 Respiratory: Yes: Regular, CTA Bilaterally Gastrointestinal: Yes: Normal Bowel Sounds, Soft Musculoskeletal: Yes: WNL Extremities: Yes: Other Neurological: Yes: Alert, Other Psychiatric: Yes: Other Labs: CBC, BMP 07/31/19 06:45 07/31/19 06:45 INR, PTT INR 1.03 (0.83-1.09) 07/24/19 06:00 Assessment/Plan 64 year old gentleman with history of bipolar disorder, Alzheimer's dementia and CKD who presented from home with upper extremity tremor and increasing confusion and admitted for suspected lithium toxicity. 1. Suspected [place] toxicity 2. CKD/MAR[place] 3. Bipolar disorder 4. Alzheimer dementia 6. Leukocytosis 7 paraphimosis plan continue current mgmt abx rest as per the team asp precautions monitor wbc
--- NOTE | 2019-07-31 13:14 | PN ---
Physical Exam: SUBJECTIVE: Patient seen and examined at the bedside. Awake, alert and able to tell me his name. speech is slurred, but per family, is at baseline. OBJECTIVE: Patient is a 64 year old male with a significant past medical history of dementia, bipolar disorder on lithium, history of CVA with baseline dysarthria but fully ambulatory. Patient presents to the ED on 07/23/2019 with worsening slurred speech, gait disturbance and worsening mental status. Head CT negative. Patient on lithium for bipolar disorder and was told by psychiatrist to stop taking the lithium for elevated levels, however, he continued to take it as ordered and now presents with acute toxic metabolic encephalopathy. [place] levels elevated on admission, peaked to 2.1 and now have normalized. He is being also being evaluated for a possible infection that may be contributing to the worsening confusion and gait instability. He remains on zosyn for possible aspiration pneumonia. discharge plan remains for patient to go to a SNF. Will need to be seen/evaluated by psyche prior to d/c since he remains off lithium. Vital Signs Period Temp Pulse Resp BP Sys/Musa Pulse Ox Last 24 Hr 97.9 F-99 F 67-87 18-20 102-136/59-79 97 GENERAL: agitated, he is also combative with cares, on chaparro and wrist restraints for safety and fall risk status. HEAD: Normal with no signs of trauma. EYES: PERRL, extraocular movements intact, sclera anicteric, conjunctiva clear. No ptosis. ENT: Ears normal, nares patent, oropharynx clear without exudates NECK: Trachea midline, full range of motion, supple. LUNGS: poor respiratory effort, mostly clear/diminished HEART: Regular rate and rhythm ABDOMEN: obese abdomen EXTREMITIES: no edema. NEUROLOGICAL: lethargic/asleep on exam. SKIN: reddened and edamatous penile head with mild edema, less red today and less edema, seen by urology Laboratory Results - last 24 hr 07/31/19 07/31/19 06:45 06:45 WBC 11.3 H RBC 4.09 Hgb 12.0 Hct 37.4 MCV 91.3 MCH 29.3 MCHC 32.1 RDW 13.4 Plt Count 255 MPV 8.6 Absolute Neuts (auto) 6.8 Neutrophils % 60.0 Lymphocytes % 29.6 Monocytes % 6.7 Eosinophils % 3.4 Basophils % 0.3 Nucleated RBC % 0 Sodium 147 H Potassium 4.2 Chloride 113 H Carbon Dioxide 33 H Anion Gap 2 L BUN 7.8 Creatinine 1.2 Est GFR (CKD-EPI)AfAm 73.11 Est GFR (CKD-EPI)NonAf 63.08 Random Glucose 117 H Calcium 8.5 Phosphorus 4.0 Magnesium 2.3 Total Bilirubin 0.3 AST 17 ALT 23 Alkaline Phosphatase 58 Total Protein 5.8 L Albumin 3.0 L Active Medications Generic Name Dose Route Start Last Admin Trade Name Freq PRN Reason Stop Dose Admin Acetaminophen 1,000 mg 07/26/19 18:15 07/28/19 14:31 Ofirmev Injection - IVPB 1,000 mg Q6H PRN Administration FEVER Atenolol 25 mg 07/25/19 10:00 07/31/19 11:12 Tenormin - PO 25 mg DAILY [facility] Administration Atorvastatin Calcium 10 mg 07/24/19 22:00 07/30/19 21:40 Lipitor - PO 10 mg HS [facility] Administration Bacitracin 1 applic 07/27/19 10:15 07/31/19 11:19 Bacitracin - TP 1 applic BID [facility] Administration Piperacillin Sod/Tazobactam 50 mls @ 100 mls/hr 07/25/19 19:00 07/31/19 11:12 Sod 2.25 gm/ Dextrose IVPB 100 mls/hr Q8H-IV [facility] Administration Protocol Potassium Chloride 20 meq/ 1,010 mls @ 83 mls/hr 07/28/19 10:45 07/31/19 06: 01 Dextrose IV 83 mls/hr Q12H [facility] Administration Lorazepam 1 mg 07/25/19 18:37 07/28/19 02:16 Ativan Injection - IVPUSH 1 mg Q6H PRN Administration WITHDRAWAL(CONT SUBST) Quetiapine Fumarate 400 mg 07/24/19 22:00 07/30/19 21:41 Seroquel - PO 400 mg HS [facility] Administration Valproate Sodium 250 mg 07/26/19 10:00 07/31/19 10:05 Depacon Injection - IVPB 250 mg BID [facility] Administration ASSESSMENT/PLAN: Problem List - Problems (1) Leukocytosis Assessment/Plan: wbc 11 - blood and urine cultures with ngtd lactic acid within normal limits on zosyn empirically for possible aspiration pneumonia ID following and likely with d/c antibiotics tomorrow Code(s): D72.829 - ELEVATED WHITE BLOOD CELL COUNT, UNSPECIFIED (2) Acute metabolic encephalopathy Assessment/Plan: AMS likely secondary to elevated lithium levels vs acute infection. per daughter, patient's mentation has been declining for apx 5 years and they were told he had bipolar disease and dementia. has episodes of agitation at home, but they are managed by family. lithium levels now normalized followed by neurology and brain mri and spinal tap not recommended at this time on zosyn for presumed aspiration pna and fevers. blood/urine cultures negative. Code(s): G93.41 - METABOLIC ENCEPHALOPATHY (3) [place] toxicity Assessment/Plan: levels now normalized Code(s): T56.891A - TOXIC EFFECT OF OTH METALS, ACCIDENTAL (UNINTENTIONAL), INIT Qualifiers: Encounter type: initial encounter Injury intent: accidental or unintentional Qualified Code(s): T56.891A - Toxic effect of other metals, accidental (unintentional), initial encounter (4) Acute renal failure Assessment/Plan: creat 1.6>1.1, monitor with daily labs Code(s): N17.9 - ACUTE KIDNEY FAILURE, UNSPECIFIED Qualifiers: Acute renal failure type: unspecified Qualified Code(s): N17.9 - Acute kidney failure, unspecified (5) Altered mental state Assessment/Plan: mental status improving, patient attempts to speak to family Code(s): R41.82 - ALTERED MENTAL STATUS, UNSPECIFIED Qualifiers: Altered mental status type: somnolence Qualified Code(s): R40.0 - Somnolence (6) Bipolar disorder Assessment/Plan: hold lithium in the setting of AMS above baseline. psyche follow up requested Code(s): F31.9 - BIPOLAR DISORDER, UNSPECIFIED (7) Prophylactic measure Assessment/Plan: fen on d5 with K 20meq @ 83 monitor electrolytes bid pureed diet/nectar thick dvt: heparin full code Code(s): Z29.9 - ENCOUNTER FOR PROPHYLACTIC MEASURES, UNSPECIFIED Visit type - Emergency Visit Emergency Visit: Yes ED Registration Date: 07/23/19 Care time: The patient presented to the Emergency Department on the above date and was hospitalized for further evaluation of their emergent condition. - New Patient This patient is new to me today: No - Critical Care Critical Care patient: No - Discharge Referral Referred to [facility] No
--- NOTE | 2019-07-31 14:12 | PN ---
Progress Note (short form) - Note Progress Note: 64 year old male history of Bipolar disorder, Dementia, HTN,HLD . Patient presented with worsening of confusoin. His [place] level on july 13 was 1.9 and Li was not held per her significant other. Patient has had no seizure. Patient has been agitated and confused. He takes [place] 300 mg po tid. Patient had no fever, no seizure were noticed. There is no new focal neurological ( weakness or face asymmetry) was noticed. Patient Li was on hold since admission. Patient is much improved and now more alert and remain confused, speaking in sentences. NEUROLOGICAL EAMINATION alert and not combative neck is supple, vital stable eomi, pupils reactive no face asymmetry moving all extremity(he is restrained) sensation is normal ct hed no acute findings Assessment/Plan 64 year old male history of Dementia, Bipolar, HTN, HLD. He admitted for worsening of confusion. Most likely metabolic encehalopathy ( [place] toxicity is possibility and progression of dementia) ,clinically improved \ 2. Resting tremors on right arm, likley to be tardive dyskinesia. Suggest to watch for now. 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
--- NOTE | 2019-07-31 15:39 | PN ---
Progress Note (short form) - Note Progress Note: Renal follow up for MARINA/CKD Seen and examined at the bedside awake and alert remains confused no overnight events Vital Signs Temperature 98.0 F 07/31/19 14:10 Pulse Rate 70 07/31/19 14:10 Respiratory Rate 18 07/31/19 14:10 Blood Pressure 132/93 07/31/19 14:10 O2 Sat by Pulse Oximetry (%) 97 07/31/19 09:00 Intake & Output 07/28/19 07/29/19 07/30/19 07/31/19 23:59 23:59 23:59 23:59 Intake Total 1841 2519 2181 150 Output Total 1000 Balance 841 2519 2181 150 Weight 102.058 kg awake and alert RRR Dec BS soft NT/ND no LE edema, clubbing or cyanosis CBC, BMP 07/31/19 06:45 07/31/19 06:45 Current Medications Acetaminophen (Ofirmev Injection -) 1,000 mg IVPB Q6H PRN PRN Reason: FEVER Last Admin: 07/28/19 14:31 Dose: 1,000 mg Atenolol (Tenormin -) 25 mg PO DAILY [facility] Last Admin: 07/31/19 11:12 Dose: 25 mg Atorvastatin Calcium (Lipitor -) 10 mg PO HS [facility] Last Admin: 07/30/19 21:40 Dose: 10 mg Bacitracin (Bacitracin -) 1 applic TP BID [facility] Last Admin: 07/31/19 11:19 Dose: 1 applic Piperacillin Sod/Tazobactam (Sod 2.25 gm/ Dextrose) 50 mls @ 100 mls/hr IVPB Q8H-IV [facility]; Protocol Last Admin: 07/31/19 11:12 Dose: 100 mls/hr Potassium Chloride 20 meq/ (Dextrose) 1,010 mls @ 83 mls/hr IV Q12H [facility] Last Admin: 07/31/19 06:01 Dose: 83 mls/hr Lorazepam (Ativan Injection -) 1 mg IVPUSH Q6H PRN PRN Reason: WITHDRAWAL(CONT SUBST) Last Admin: 07/28/19 02:16 Dose: 1 mg Quetiapine Fumarate (Seroquel -) 400 mg PO HS [facility] Last Admin: 07/30/19 21:41 Dose: 400 mg Valproate Sodium (Depacon Injection -) 250 mg IVPB BID [facility] Last Admin: 07/31/19 10:05 Dose: 250 mg 64 year old gentleman with history of bipolar disorder, Alzheimer's dementia and CKD who presented from home with upper extremity tremor and increasing confusion and admitted for suspected lithium toxicity. 1. Suspected [place] toxicity 2. CKD/MARINA 3. Bipolar disorder 4. Alzheimer dementia 6. Leukocytosis Renal function stable Continue oral water intake + D5W for 24 hours on empiric zosyn trend electrolytes daily Thank you Donavan Yin DO
[2019-07-31] MEDS ORDERED: PT OWN MED DRAWER 7, Y5N ONE (21:40)
[2019-07-31] MEDS: QUEtiapine FUMARATE 200 MG TABLET PO SCH (21:48)
[2019-07-31] MEDS: ATORVASTATIN CA 10 MG TABLET (FP) PO SCH (21:49)
[2019-08-01] MEDS ORDERED: DEXTROSE 5%-WATER - 50 ML IVPB ONE ×3 (01:36→16:24)
[2019-08-01] MEDS ORDERED: PIPERACILLIN/TAZOBACTAM 2.25 GM VIAL IVPB ONE ×3 (01:36→16:24)
[2019-08-01] MEDS: PIPERACILLIN/TAZOB 2.25 GM 2.25 GM in DEXTROSE 5%-WATER - 50 ML IVPB SCH ×3 (01:45→17:06)
[2019-08-01 07:28] LABS: BASO % 0.3 % (0-2.0); EOS % 3.9 % (0-4.5); HEMATOCRIT 36.3 % (35.4-49); HEMOGLOBIN 11.8 GM/dL (11.7-16.9); LYMPH % 27.4 % (8-40); MCH 29.5 pg (25.7-33.7); MCHC 32.4 g/dl (32.0-35.9); MEAN CELL VOLUME 90.9 fl (80-96); MEAN PLT VOLUME 8.2 fl (7.5-11.1); MONO % 7.5 % (3.8-10.2); NEUT % 60.9 % (42.8-82.8); PLATELET COUNT 261 K/MM3 (134-434); RBC 3.99 M/mm3 (4.00-5.60); RDW 13.6 % (11.9-15.9); WHITE BLOOD COUNT 9.7 K/mm3 (4.0-10.0)
--- NOTE | 2019-08-01 07:37 | PN ---
Progress Note, Physician History of Present Illness: Patient is a 64 year old male with a significant past medical history of dementia, bipolar disorder on lithium, history of CVA with baseline dysarthria but fully ambulatory. Patient presents to the ED on 07/23/2019 with worsening slurred speech, gait disturbance and worsening mental status. Head CT negative. Patient on lithium for bipolar disorder and was told by psychiatrist to stop taking the lithium for elevated levels, however, he continued to take it as ordered and now presents with acute toxic metabolic encephalopathy. [place] levels elevated on admission, peaked to 2.1 and now have normalized. He is being also being evaluated for a possible infection that may be contributing to the worsening confusion and gait instability. He remains on zosyn for possible aspiration pneumonia. discharge plan remains for patient to go to a SNF. Will need to be seen/evaluated by psyche prior to d/c since he remains off lithium. - Current Medication List Current Medications: Active Medications Acetaminophen (Ofirmev Injection -) 1,000 mg IVPB Q6H PRN PRN Reason: FEVER Last Admin: 07/28/19 14:31 Dose: 1,000 mg Atenolol (Tenormin -) 25 mg PO DAILY [facility] Last Admin: 07/31/19 11:12 Dose: 25 mg Atorvastatin Calcium (Lipitor -) 10 mg PO HS [facility] Last Admin: 07/31/19 21:49 Dose: 10 mg Bacitracin (Bacitracin -) 1 applic TP BID [facility] Last Admin: 07/31/19 21:49 Dose: 1 applic Piperacillin Sod/Tazobactam (Sod 2.25 gm/ Dextrose) 50 mls @ 100 mls/hr IVPB Q8H-IV [facility]; Protocol Last Admin: 08/01/19 01:45 Dose: 100 mls/hr Potassium Chloride 20 meq/ (Dextrose) 1,010 mls @ 83 mls/hr IV Q12H [facility] Last Admin: 07/31/19 21:50 Dose: 83 mls/hr Lorazepam (Ativan Injection -) 1 mg IVPUSH Q6H PRN PRN Reason: WITHDRAWAL(CONT SUBST) Last Admin: 07/28/19 02:16 Dose: 1 mg Quetiapine Fumarate (Seroquel -) 400 mg PO HS [facility] Last Admin: 07/31/19 21:48 Dose: 400 mg Valproate Sodium (Depacon Injection -) 250 mg IVPB BID [facility] Last Admin: 07/31/19 21:48 Dose: 250 mg - Objective Vital Signs: Vital Signs Temperature 98.0 F 08/01/19 06:00 Pulse Rate 74 08/01/19 06:00 Respiratory Rate 18 08/01/19 06:00 Blood Pressure 121/77 08/01/19 06:00 O2 Sat by Pulse Oximetry (%) 96 07/31/19 21:00 Constitutional: Yes: Well Nourished, Severe Distress, Other (very agitated and combatative) Eyes: Yes: WNL, Conjunctiva Clear HENT: Yes: WNL, Atraumatic, Normocephalic Neck: Yes: WNL, Supple, Trachea Midline Cardiovascular: Yes: WNL, Regular Rate and Rhythm Respiratory: Yes: WNL, Regular, CTA Bilaterally Gastrointestinal: Yes: Normal Bowel Sounds, Soft, Abdomen, Obese ...Rectal Exam: Yes: Deferred Genitourinary: Yes: WNL Breast(s): Yes: WNL Musculoskeletal: Yes: WNL Extremities: Yes: WNL Peripheral Pulses WNL: No Peripheral Pulses: Left Radial: 2+, Right Radial: 2+, Left Doralis Pedis: 2+, Right Dorsalis Pedis: 2+, Left Femoral: 2+, Right Femoral: 2+ Integumentary: Yes: WNL Neurological: Yes: Alert, Confusion, Other (conbatative and agitated) ...Motor Strength: WNL Psychiatric: Yes: Alert, Agitated, Other (confused) Labs: INR, PTT INR 1.03 (0.83-1.09) 07/24/19 06:00 Problem List - Problems (1) Acute metabolic encephalopathy Assessment/Plan: AMS likely secondary to elevated lithium levels vs acute infection. lithium levels now normalized appreciate neurology consultation, no indication for brain mri or LP at this time c/w zosyn for presumed aspiration pna, afebrile Bcx, Ucx NGTD Code(s): G93.41 - METABOLIC ENCEPHALOPATHY (2) Leukocytosis Assessment/Plan: WBC 9.7 afebrile continue to trend Code(s): D72.829 - ELEVATED WHITE BLOOD CELL COUNT, UNSPECIFIED (3) [place] toxicity Assessment/Plan: Li level normal now continue to hold Li appreciate psych consultation Code(s): T56.891A - TOXIC EFFECT OF OTH METALS, ACCIDENTAL (UNINTENTIONAL), INIT Qualifiers: Encounter type: initial encounter Injury intent: accidental or unintentional Qualified Code(s): T56.891A - Toxic effect of other metals, accidental (unintentional), initial encounter (4) Prophylactic measure Assessment/Plan: FEN IVF stopped continue to monitor electrolytes c/w dysphasia diet DVT no chemical DVT proph Dispo maintain in telemetry pt continues to be agitated and combatative must be off restraints for 24 hrs before SNF will accept Code(s): Z29.9 - ENCOUNTER FOR PROPHYLACTIC MEASURES, UNSPECIFIED (5) Acute renal failure Assessment/Plan: Cr 1.1 continue to monitor renal fx avoid nephrotoxic agents appreciate nephrology consultation Code(s): N17.9 - ACUTE KIDNEY FAILURE, UNSPECIFIED Qualifiers: Acute renal failure type: unspecified Qualified Code(s): N17.9 - Acute kidney failure, unspecified (6) Altered mental state Assessment/Plan: most likely secondary to acute Li toxicity and hx of bipolar disorder continue to hold Li continues to be agitated psych following c/w depakote halodol started by Psych for severe agitation Code(s): R41.82 - ALTERED MENTAL STATUS, UNSPECIFIED Qualifiers: Altered mental status type: somnolence Qualified Code(s): R40.0 - Somnolence (7) Bipolar disorder Assessment/Plan: c/w depakote and haldol Code(s): F31.9 - BIPOLAR DISORDER, UNSPECIFIED (8) HTN (hypertension) Assessment/Plan: normotensive c/w atneolol Code(s): I10 - ESSENTIAL (PRIMARY) HYPERTENSION (9) Hypernatremia Assessment/Plan: Na 147, trending down IVF stopped continue to monitor Na level encourage free water Code(s): E87.0 - HYPEROSMOLALITY AND HYPERNATREMIA Visit type - Emergency Visit Emergency Visit: Yes ED Registration Date: 07/23/19 Care time: The patient presented to the Emergency Department on the above date and was hospitalized for further evaluation of their emergent condition. - New Patient This patient is new to me today: Yes Date on this admission: 08/01/19 - Critical Care Critical Care patient: No - Discharge Referral Referred to [facility] Med P.C.: No
[2019-08-01 07:55] LABS: BILIRUBIN,TOTAL 0.3 mg/dL (0.2-1); BLOOD UREA NITROGEN 6.2 mg/dL (7-18); CALCIUM 8.5 mg/dL (8.5-10.1); CREATININE 1.1 mg/dL (0.55-1.3); MAGNESIUM 2.3 mg/dL (1.8-2.4); TOT PROT 5.7 g/dl (6.4-8.2)
--- NOTE | 2019-08-01 08:13 | PN ---
Progress Note (short form) - Note Progress Note: 64 year old male history of Bipolar disorder, Dementia, HTN,HLD . Patient presented with worsening of confusoin. His lithium level has coming down and is on hold. Patient has had no seizure. He is doing better and psych is being reconsulted. Patient had no fever, no seizure were noticed. There is no new focal neurological ( weakness or face asymmetry) was noticed. Patient is much improved and now more alert and remain confused, speaking in sentences. NEUROLOGICAL EAMINATION alert and not combative neck is supple, vital stable eomi, pupils reactive no face asymmetry moving all extremity(he is restrained) sensation is normal ct hed no acute findings Assessment/Plan 64 year old male history of Dementia, Bipolar, HTN, HLD. He admitted for worsening of confusion. Most likely metabolic encehalopathy ( [place] toxicity is possibility and progression of dementia) ,clinically improved , psych is beign reconsulted \ 2. Resting tremors on right arm, likley to be tardive dyskinesia. Suggest to watch for now. 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
[2019-08-01] MEDS ORDERED: DONEPEZIL HCL 5 MG TABLET (FP) PO SCH (10:00)
[2019-08-01] MEDS: VALPROATE SODIUM 500 MG/5 ML VIAL IVPB SCH (10:19)
[2019-08-01] MEDS: ATENOLOL 25 MG TABLET (FP) PO SCH (10:19)
[2019-08-01] MEDS: BACITRACIN 15 GM TUBE TOPICAL OINTMENT TP SCH ×2 (10:19→22:56)
[2019-08-01] MEDS: DEXTROSE 5%-WATER - 1,000 ML with POTASSIUM CHLORIDE 20 MEQ IV SCH (10:20)
[2019-08-01] MEDS ORDERED: LORazepam 2 MG/ML SDV VIAL IVPUSH PRN (12:01)
--- NOTE | 2019-08-01 12:26 | PN ---
Progress Note, Physician History of Present Illness: stable no new issues - Current Medication List Current Medications: Active Medications Acetaminophen (Ofirmev Injection -) 1,000 mg IVPB Q6H PRN PRN Reason: FEVER Last Admin: 07/28/19 14:31 Dose: 1,000 mg Atenolol (Tenormin -) 25 mg PO DAILY [facility] Last Admin: 08/01/19 10:19 Dose: 25 mg Atorvastatin Calcium (Lipitor -) 10 mg PO HS [facility] Last Admin: 07/31/19 21:49 Dose: 10 mg Bacitracin (Bacitracin -) 1 applic TP BID [facility] Last Admin: 08/01/19 10:19 Dose: 1 applic Divalproex Sodium (Depakote -) 250 mg PO BID [facility] Donepezil HCl (Aricept -) 5 mg PO DAILY [facility] Last Admin: 08/01/19 10:19 Dose: 5 mg Piperacillin Sod/Tazobactam (Sod 2.25 gm/ Dextrose) 50 mls @ 100 mls/hr IVPB Q8H-IV [facility]; Protocol Last Admin: 08/01/19 10:19 Dose: 100 mls/hr Lorazepam (Ativan Injection -) 2 mg IVPUSH Q6H PRN PRN Reason: WITHDRAWAL(CONT SUBST) Quetiapine Fumarate (Seroquel -) 400 mg PO HS [facility] Last Admin: 07/31/19 21:48 Dose: 400 mg - Objective Vital Signs: Vital Signs Temperature 97.9 F 08/01/19 08:47 Pulse Rate 77 08/01/19 08:47 Respiratory Rate 18 08/01/19 08:47 Blood Pressure 124/79 08/01/19 08:47 O2 Sat by Pulse Oximetry (%) 96 08/01/19 08:46 Constitutional: Yes: No Distress, Calm Cardiovascular: Yes: S1, S2 Respiratory: Yes: Regular Gastrointestinal: Yes: Normal Bowel Sounds, Soft Genitourinary: Yes: Other Musculoskeletal: Yes: WNL Extremities: Yes: Other Edema: LLE: 1+, RLE: 1+ Neurological: Yes: Alert, Other Psychiatric: Yes: Other Labs: CBC, BMP 08/01/19 07:05 08/01/19 07:05 INR, PTT INR 1.03 (0.83-1.09) 07/24/19 06:00 Assessment/Plan 64 year old gentleman with history of bipolar disorder, Alzheimer's dementia and CKD who presented from home with upper extremity tremor and increasing confusion and admitted for suspected lithium toxicity. 1. Suspected [place] toxicity 2. CKD/MARINA 3. Bipolar disorder 4. Alzheimer dementia 6. Leukocytosis 7 paraphimosis plan continue current mgmt abx rest as per the team asp precautions monitor wbc
[2019-08-01] MEDS ORDERED: LORazepam 2 MG/ML SDV VIAL IM ONE (12:29)
[2019-08-01] MEDS ORDERED: HALOPERIDOL 5 MG TABLET (FP) PO STA (12:33)
--- NOTE | 2019-08-01 12:37 | PN ---
Progress Note (short form) - Note Progress Note: Patient is severly agitated and aggressive. had to be restrained. unable to communicate and severe impulse control disoeder. REc; see the med changes.
--- NOTE | 2019-08-01 13:49 | PN ---
Progress Note (short form) - Note Progress Note: Renal follow up for MARINA/CKD Seen and examined at the bedside sleeping was very agitated and combative earlier today was given ativan remains confused as per nurse Vital Signs Temperature 97.9 F 08/01/19 08:47 Pulse Rate 77 08/01/19 08:47 Respiratory Rate 18 08/01/19 08:47 Blood Pressure 124/79 08/01/19 08:47 O2 Sat by Pulse Oximetry (%) 96 08/01/19 08:46 Intake & Output 07/29/19 07/30/19 07/31/19 08/01/19 23:59 23:59 23:59 23:59 Intake Total 2519 2181 2063 Balance 2519 2181 2062 Weight 102.058 kg sleeping RRR Dec BS soft NT/ND no LE edema, clubbing or cyanosis CBC, BMP 08/01/19 07:05 08/01/19 07:05 Current Medications Acetaminophen (Ofirmev Injection -) 1,000 mg IVPB Q6H PRN PRN Reason: FEVER Last Admin: 07/28/19 14:31 Dose: 1,000 mg Atenolol (Tenormin -) 25 mg PO DAILY [facility] Last Admin: 08/01/19 10:19 Dose: 25 mg Atorvastatin Calcium (Lipitor -) 10 mg PO HS [facility] Last Admin: 07/31/19 21:49 Dose: 10 mg Bacitracin (Bacitracin -) 1 applic TP BID [facility] Last Admin: 08/01/19 10:19 Dose: 1 applic Divalproex Sodium (Depakote -) 250 mg PO BID [facility] Haloperidol (Haldol -) 5 mg PO BID [facility] Piperacillin Sod/Tazobactam (Sod 2.25 gm/ Dextrose) 50 mls @ 100 mls/hr IVPB Q8H-IV [facility]; Protocol Last Admin: 08/01/19 10:19 Dose: 100 mls/hr 64 year old gentleman with history of bipolar disorder, Alzheimer's dementia and CKD who presented from home with upper extremity tremor and increasing confusion and admitted for suspected lithium toxicity. 1. Suspected [place] toxicity (now lithium levels WNL) 2. MAR[place], now renal function normalized 3. Bipolar disorder 4. Dementia 5. Leukocytosis 6. Hypernatremia Renal function stable Trend serum Na off IVF and oral intake alone continue management as per psych Thank you Donavan Yin DO
[2019-08-01] MEDS ORDERED: LORazepam 2 MG/ML SDV VIAL ONE (18:45)
[2019-08-01] MEDS: LORazepam 2 MG/ML SDV VIAL IM PRN (18:49)
[2019-08-01] MEDS: HALOPERIDOL 5 MG TABLET (FP) PO SCH (22:53)
[2019-08-01] MEDS: ATORVASTATIN CA 10 MG TABLET (FP) PO SCH (22:53)
[2019-08-02] MEDS ORDERED: DEXTROSE 5%-WATER - 50 ML IVPB ONE ×2 (00:14→09:53)
[2019-08-02] MEDS ORDERED: PIPERACILLIN/TAZOBACTAM 2.25 GM VIAL IVPB ONE ×2 (00:14→09:53)
[2019-08-02] MEDS: HALOPERIDOL 5 MG TABLET (FP) PO SCH ×3 (00:29→21:16)
[2019-08-02] MEDS: DIVALPROEX SODIUM 250 MG TABLET E.C. PO SCH ×3 (00:30→21:16)
[2019-08-02] MEDS: PIPERACILLIN/TAZOB 2.25 GM 2.25 GM in DEXTROSE 5%-WATER - 50 ML IVPB SCH ×2 (01:29→09:56)
[2019-08-02] MEDS: LORazepam 2 MG/ML SDV VIAL IM PRN ×2 (02:55→23:21)
--- NOTE | 2019-08-02 07:20 | PN ---
Progress Note, Physician Chief Complaint: Patient remain agitated, attempting to climb out of bed History of Present Illness: Patient is a 64 year old male with a significant past medical history of dementia, bipolar disorder on lithium, history of CVA with baseline dysarthria but fully ambulatory. Patient presents to the ED on 07/23/2019 with worsening slurred speech, gait disturbance and worsening mental status. Head CT negative. Patient on lithium for bipolar disorder and was told by psychiatrist to stop taking the lithium for elevated levels, however, he continued to take it as ordered and now presents with acute toxic metabolic encephalopathy. [place] levels elevated on admission, peaked to 2.1 and now have normalized. He is being also being evaluated for a possible infection that may be contributing to the worsening confusion and gait instability. He remains on zosyn for possible aspiration pneumonia. discharge plan remains for patient to go to a SNF. Will need to be seen/evaluated by psyche prior to d/c since he remains off lithium. - Current Medication List Current Medications: Active Medications Acetaminophen (Ofirmev Injection -) 1,000 mg IVPB Q6H PRN PRN Reason: FEVER Last Admin: 07/28/19 14:31 Dose: 1,000 mg Atenolol (Tenormin -) 25 mg PO DAILY [facility] Last Admin: 08/01/19 10:19 Dose: 25 mg Atorvastatin Calcium (Lipitor -) 10 mg PO HS [facility] Last Admin: 08/01/19 22:53 Dose: Not Given Bacitracin (Bacitracin -) 1 applic TP BID [facility] Last Admin: 08/01/19 22:56 Dose: 1 applic Divalproex Sodium (Depakote -) 250 mg PO BID [facility] Last Admin: 08/02/19 00:30 Dose: 250 mg Haloperidol (Haldol -) 5 mg PO BID [facility] Last Admin: 08/02/19 00:29 Dose: 5 mg Piperacillin Sod/Tazobactam (Sod 2.25 gm/ Dextrose) 50 mls @ 100 mls/hr IVPB Q8H-IV [facility]; Protocol Last Admin: 08/02/19 01:29 Dose: 100 mls/hr Lorazepam (Ativan Injection -) 2 mg IM Q8H PRN PRN Reason: AGITATION Last Admin: 08/02/19 02:55 Dose: 2 mg - Objective Vital Signs: Vital Signs Temperature 98.0 F 08/02/19 06:32 Pulse Rate 76 08/02/19 06:32 Respiratory Rate 18 08/02/19 06:32 Blood Pressure 132/81 08/02/19 06:32 O2 Sat by Pulse Oximetry (%) 96 08/01/19 21:00 Additional Findings/Remarks: Constitutional: Yes: Well Nourished, Severe Distress, Other (agitated but less combative) Eyes: Yes: WNL, Conjunctiva Clear HENT: Yes: WNL, Atraumatic, Normocephalic Neck: Yes: WNL, Supple, Trachea Midline Cardiovascular: Yes: WNL, Regular Rate and Rhythm Respiratory: Yes: WNL, Regular, CTA Bilaterally Gastrointestinal: Yes: Normal Bowel Sounds, Soft, Abdomen, Obese ...Rectal Exam: Yes: Deferred Genitourinary: Yes: WNL Breast(s): Yes: WNL Musculoskeletal: Yes: WNL Extremities: Yes: WNL Peripheral Pulses WNL: yes Peripheral Pulses: Left Radial: 2+, Right Radial: 2+, Left Doralis Pedis: 2+, Right Dorsalis Pedis: 2+, Left Femoral: 2+, Right Femoral: 2+ Integumentary: Yes: WNL Neurological: Yes: Alert, Confusion, Other (conbatative and agitated) ...Motor Strength: WNL Psychiatric: Yes: Alert, Agitated, Other (confused) Labs: CBC, BMP 08/01/19 07:05 08/01/19 07:05 INR, PTT INR 1.03 (0.83-1.09) 07/24/19 06:00 Problem List - Problems (1) Acute metabolic encephalopathy Assessment/Plan: AMS likely secondary to elevated lithium levels vs acute infection. lithium levels normal appreciate neurology consultation, no indication for brain mri or LP at this time c/w zosyn Bcx, Ucx NGTD Code(s): G93.41 - METABOLIC ENCEPHALOPATHY (2) Leukocytosis Assessment/Plan: WBC 9.0 afebrile continue to trend Code(s): D72.829 - ELEVATED WHITE BLOOD CELL COUNT, UNSPECIFIED (3) [place] toxicity Assessment/Plan: Li level normal continue to hold Li appreciate psych consultation Code(s): T56.891A - TOXIC EFFECT OF OTH METALS, ACCIDENTAL (UNINTENTIONAL), INIT Qualifiers: Encounter type: initial encounter Injury intent: accidental or unintentional Qualified Code(s): T56.891A - Toxic effect of other metals, accidental (unintentional), initial encounter (4) Prophylactic measure Assessment/Plan: FEN IVF stopped yesterday continue to monitor electrolytes c/w dysphasia diet DVT no chemical DVT proph Dispo maintain in telemetry pt continues to be agitated and less combatative must be off restraints for 24 hrs before SNF will accept Code(s): Z29.9 - ENCOUNTER FOR PROPHYLACTIC MEASURES, UNSPECIFIED (5) Acute renal failure Assessment/Plan: Cr 1.1 continue to monitor renal fx avoid nephrotoxic agents appreciate nephrology consultation Code(s): N17.9 - ACUTE KIDNEY FAILURE, UNSPECIFIED Qualifiers: Acute renal failure type: unspecified Qualified Code(s): N17.9 - Acute kidney failure, unspecified (6) Altered mental state Assessment/Plan: most likely secondary to acute [place] toxicity and hx of bipolar disorder continue to hold Li continues to be agitated psych following c/w depakote c/w halodol Code(s): R41.82 - ALTERED MENTAL STATUS, UNSPECIFIED Qualifiers: Altered mental status type: somnolence Qualified Code(s): R40.0 - Somnolence (7) Bipolar disorder Assessment/Plan: c/w depakote and haldol Code(s): F31.9 - BIPOLAR DISORDER, UNSPECIFIED (8) HTN (hypertension) Assessment/Plan: normotensive c/w atneolol Code(s): I10 - ESSENTIAL (PRIMARY) HYPERTENSION (9) Hypernatremia Assessment/Plan: Na 146, trending down IVF stopped continue to monitor Na level encourage free water Code(s): E87.0 - HYPEROSMOLALITY AND HYPERNATREMIA Visit type - Emergency Visit Emergency Visit: Yes ED Registration Date: 07/23/19 Care time: The patient presented to the Emergency Department on the above date and was hospitalized for further evaluation of their emergent condition. - New Patient This patient is new to me today: No - Critical Care Critical Care patient: No - Discharge Referral Referred to [facility] Med P.C.: No
[2019-08-02 07:48] LABS: BASO % 0.3 % (0-2.0); EOS % 3.6 % (0-4.5); HEMATOCRIT 37.7 % (35.4-49); HEMOGLOBIN 12.2 GM/dL (11.7-16.9); MCH 29.4 pg (25.7-33.7); MCHC 32.4 g/dl (32.0-35.9); MEAN CELL VOLUME 90.7 fl (80-96); MEAN PLT VOLUME 8.4 fl (7.5-11.1); MONO % 7.9 % (3.8-10.2); NEUT % 66.2 % (42.8-82.8); PLATELET COUNT 303 K/MM3 (134-434); RBC 4.16 M/mm3 (4.00-5.60); RDW 13.5 % (11.9-15.9)
[2019-08-02 08:12] LABS: ALBUMIN 3.3 g/dl (3.4-5.0); BILIRUBIN,TOTAL 0.4 mg/dL (0.2-1); CALCIUM 8.9 mg/dL (8.5-10.1); CREATININE 1.1 mg/dL (0.55-1.3); MAGNESIUM 2.3 mg/dL (1.8-2.4); POTASSIUM 4.5 mmol/L (3.5-5.1); TOT PROT 6.5 g/dl (6.4-8.2)
[2019-08-02] MEDS: BACITRACIN 15 GM TUBE TOPICAL OINTMENT TP SCH ×2 (09:56→21:16)
[2019-08-02] MEDS: ATENOLOL 25 MG TABLET (FP) PO SCH (09:57)
--- NOTE | 2019-08-02 11:34 | PN ---
Progress Note, Physician History of Present Illness: awake alert comfortable - Current Medication List Current Medications: Active Medications Acetaminophen (Ofirmev Injection -) 1,000 mg IVPB Q6H PRN PRN Reason: FEVER Last Admin: 07/28/19 14:31 Dose: 1,000 mg Atenolol (Tenormin -) 25 mg PO DAILY [facility] Last Admin: 08/02/19 09:57 Dose: 25 mg Atorvastatin Calcium (Lipitor -) 10 mg PO HS [facility] Last Admin: 08/01/19 22:53 Dose: Not Given Bacitracin (Bacitracin -) 1 applic TP BID [facility] Last Admin: 08/02/19 09:56 Dose: 1 applic Divalproex Sodium (Depakote -) 250 mg PO BID [facility] Last Admin: 08/02/19 09:57 Dose: 250 mg Haloperidol (Haldol -) 5 mg PO BID [facility] Last Admin: 08/02/19 09:57 Dose: 5 mg Piperacillin Sod/Tazobactam (Sod 2.25 gm/ Dextrose) 50 mls @ 100 mls/hr IVPB Q8H-IV [facility]; Protocol Last Admin: 08/02/19 09:56 Dose: 100 mls/hr Lorazepam (Ativan Injection -) 2 mg IM Q8H PRN PRN Reason: AGITATION Last Admin: 08/02/19 02:55 Dose: 2 mg - Objective Vital Signs: Vital Signs Temperature 98.2 F 08/02/19 09:53 Pulse Rate 80 08/02/19 09:53 Respiratory Rate 18 08/02/19 09:53 Blood Pressure 137/88 08/02/19 09:53 O2 Sat by Pulse Oximetry (%) 96 08/01/19 21:00 Constitutional: Yes: No Distress, Calm Cardiovascular: Yes: S1, S2 Gastrointestinal: Yes: Normal Bowel Sounds, Soft Genitourinary: Yes: Other Musculoskeletal: Yes: WNL Extremities: Yes: Other Neurological: Yes: Alert, Other Psychiatric: Yes: Other Labs: CBC, BMP 08/02/19 06:45 08/02/19 06:45 INR, PTT INR 1.03 (0.83-1.09) 07/24/19 06:00 Assessment/Plan 64 year old gentleman with history of bipolar disorder, Alzheimer's dementia and CKD who presented from home with upper extremity tremor and increasing confusion and admitted for suspected lithium toxicity. 1. Suspected [place] toxicity 2. CKD/MAR[place] 3. Bipolar disorder 4. Alzheimer dementia 6. Leukocytosis 7 paraphimosis plan continue current mgmt rest as per the team asp precautions monitor wbc
--- NOTE | 2019-08-02 12:05 | PN ---
Progress Note, REFERRAL NURSE - Note Progress Note: Selected Entries 08/01/19 08/01/19 08/01/19 02:00 06:00 08:47 Breakfast Lunch Supper Temperature 98.4 F 98.0 F 97.9 F 08/01/19 08/01/19 08/01/19 14:42 18:00 18:20 Breakfast 75% Lunch 75% Supper 25% Temperature 97.5 F L 97.8 F 08/02/19 08/02/19 08/02/19 01:14 06:32 09:53 Breakfast Lunch Supper Temperature 98.2 F 98.0 F 98.2 F Laboratory Tests 08/01/19 08/02/19 07:05 06:45 WBC 9.7 9.0 Consider trial of diet upgrade to Dys ground and thin liquid If cough,congestion, fever, MBS to r/o silent aspiration Aspiration precautions.
--- NOTE | 2019-08-02 13:53 | PN ---
Progress Note (short form) - Note Progress Note: Renal follow up for MARINA/CKD Seen and examined at the bedside sleeping off IVF not combative overnight per nurse note Vital Signs Temperature 98.2 F 08/02/19 09:53 Pulse Rate 80 08/02/19 09:53 Respiratory Rate 18 08/02/19 09:53 Blood Pressure 137/88 08/02/19 09:53 O2 Sat by Pulse Oximetry (%) 98 08/02/19 09:00 Intake & Output 07/30/19 07/31/19 08/01/19 08/02/19 23:59 23:59 23:59 23:59 Intake Total 2180 2062 1600 200 Balance 2180 2062 1600 200 Weight 102.058 kg sleeping RRR Dec BS soft NT/ND no LE edema, clubbing or cyanosis CBC, BMP 08/02/19 06:45 08/02/19 06:45 Current Medications Acetaminophen (Ofirmev Injection -) 1,000 mg IVPB Q6H PRN PRN Reason: FEVER Last Admin: 07/28/19 14:31 Dose: 1,000 mg Atenolol (Tenormin -) 25 mg PO DAILY [facility] Last Admin: 08/02/19 09:57 Dose: 25 mg Atorvastatin Calcium (Lipitor -) 10 mg PO HS [facility] Last Admin: 08/01/19 22:53 Dose: Not Given Bacitracin (Bacitracin -) 1 applic TP BID [facility] Last Admin: 08/02/19 09:56 Dose: 1 applic Divalproex Sodium (Depakote -) 250 mg PO BID [facility] Last Admin: 08/02/19 09:57 Dose: 250 mg Haloperidol (Haldol -) 5 mg PO BID [facility] Last Admin: 08/02/19 09:57 Dose: 5 mg Lorazepam (Ativan Injection -) 2 mg IM Q8H PRN PRN Reason: AGITATION Last Admin: 08/02/19 02:55 Dose: 2 mg 64 year old gentleman with history of bipolar disorder, Alzheimer's dementia and CKD who presented from home with upper extremity tremor and increasing confusion and admitted for suspected lithium toxicity. 1. Suspected [place] toxicity (now lithium levels WNL) 2. MARINA, now renal function normalized 3. Bipolar disorder 4. Dementia 5. Leukocytosis 6. Hypernatremia Renal function stable Serum Na remains elevated, but not far form normal. Oral fluid intake as tolerated continue management as per psych discharge planning in process Thank you Donavan Yin DO
[2019-08-02] MEDS ORDERED: PT OWN MED DRAWER 7, Y5N ONE (20:12)
[2019-08-02] MEDS: ATORVASTATIN CA 10 MG TABLET (FP) PO SCH (21:16)
[2019-08-03 07:31] LABS: BASO % 0.4 % (0-2.0); EOS % 3.4 % (0-4.5); HEMATOCRIT 41.4 % (35.4-49); HEMOGLOBIN 13.3 GM/dL (11.7-16.9); LYMPH % 29.9 % (8-40); MCH 29.4 pg (25.7-33.7); MCHC 32.1 g/dl (32.0-35.9); MEAN CELL VOLUME 91.6 fl (80-96); MEAN PLT VOLUME 8.2 fl (7.5-11.1); MONO % 8.1 % (3.8-10.2); NEUT % 58.2 % (42.8-82.8); PLATELET COUNT 319 K/MM3 (134-434); RBC 4.52 M/mm3 (4.00-5.60); RDW 13.5 % (11.9-15.9); WHITE BLOOD COUNT 8.6 K/mm3 (4.0-10.0)
[2019-08-03 07:38] LABS: ALBUMIN 3.1 g/dl (3.4-5.0); BILIRUBIN,TOTAL 0.2 mg/dL (0.2-1); BLOOD UREA NITROGEN 7.5 mg/dL (7-18); CALCIUM 8.8 mg/dL (8.5-10.1); CREATININE 0.9 mg/dL (0.55-1.3); MAGNESIUM 2.2 mg/dL (1.8-2.4); POTASSIUM 4.6 mmol/L (3.5-5.1); TOT PROT 6.4 g/dl (6.4-8.2)
[2019-08-03] MEDS ORDERED: PT OWN MED DRAWER 7, Y5N ONE ×2 (08:45→22:22)
[2019-08-03] MEDS: BACITRACIN 15 GM TUBE TOPICAL OINTMENT TP SCH ×2 (09:15→22:36)
[2019-08-03] MEDS: ATENOLOL 25 MG TABLET (FP) PO SCH (09:15)
[2019-08-03] MEDS: DIVALPROEX SODIUM 250 MG TABLET E.C. PO SCH ×2 (09:15→22:23)
[2019-08-03] MEDS: HALOPERIDOL 5 MG TABLET (FP) PO SCH ×2 (10:02→22:23)
--- NOTE | 2019-08-03 10:25 | PN ---
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 Monitor tolerance. Aspiration precautions and use of compensatory swallowing safety techniques.
--- NOTE | 2019-08-03 11:02 | PN ---
Progress Note, Physician History of Present Illness: agitated.confused off of abx - Current Medication List Current Medications: Active Medications Acetaminophen (Ofirmev Injection -) 1,000 mg IVPB Q6H PRN PRN Reason: FEVER Last Admin: 07/28/19 14:31 Dose: 1,000 mg Atenolol (Tenormin -) 25 mg PO DAILY [facility] Last Admin: 08/03/19 09:15 Dose: 25 mg Atorvastatin Calcium (Lipitor -) 10 mg PO HS [facility] Last Admin: 08/02/19 21:16 Dose: 10 mg Bacitracin (Bacitracin -) 1 applic TP BID [facility] Last Admin: 08/03/19 09:15 Dose: 1 applic Divalproex Sodium (Depakote -) 250 mg PO BID [facility] Last Admin: 08/03/19 09:15 Dose: 250 mg Haloperidol (Haldol -) 5 mg PO BID [facility] Last Admin: 08/03/19 10:02 Dose: 5 mg Lorazepam (Ativan Injection -) 2 mg IM Q8H PRN PRN Reason: AGITATION Last Admin: 08/02/19 23:21 Dose: 2 mg - Objective Vital Signs: Vital Signs Temperature 97.6 F 08/03/19 08:33 Pulse Rate 84 08/03/19 08:33 Respiratory Rate 18 08/03/19 08:33 Blood Pressure 138/95 08/03/19 08:33 O2 Sat by Pulse Oximetry (%) 98 08/02/19 21:00 Constitutional: Yes: Anxious, Other Cardiovascular: Yes: S1, S2 Respiratory: Yes: Regular, CTA Bilaterally Gastrointestinal: Yes: Normal Bowel Sounds, Soft Musculoskeletal: Yes: WNL Extremities: Yes: Other Neurological: Yes: Alert, Other Psychiatric: Yes: Other Labs: CBC, BMP 08/03/19 05:55 08/03/19 05:55 INR, PTT INR 1.03 (0.83-1.09) 07/24/19 06:00 Assessment/Plan 64 year old gentleman with history of bipolar disorder, Alzheimer's dementia and CKD who presented from home with upper extremity tremor and increasing confusion and admitted for suspected lithium toxicity. 1. Suspected [place] toxicity 2. CKD/MARINA 3. Bipolar disorder 4. Alzheimer dementia 6. Leukocytosis 7 paraphimosis plan continue current mgmt rest as per the team asp precautions monitor wbc
--- NOTE | 2019-08-03 12:56 | PN ---
Physical Exam: SUBJECTIVE: Patient seen and examined at the bedside. d/c planning. OBJECTIVE: Patient is a 64 year old male with a significant past medical history of dementia, bipolar disorder on lithium, history of CVA with baseline dysarthria but fully ambulatory. Patient presents to the ED on 07/23/2019 with worsening slurred speech, gait disturbance and worsening mental status. Head CT negative. Patient on lithium for bipolar disorder and was told by psychiatrist to stop taking the lithium for elevated levels, however, he continued to take it as ordered and presented with acute toxic metabolic encephalopathy. [place] levels elevated on admission, peaked to 2.1 and now have normalized. He is being also being evaluated for a possible infection that may be contributing to the worsening confusion and gait instability and was treated with Zosyn, now complete. During hospital stay, was seen by ID, neurology and renal. Discharge planning to either psyche facility or home. [place] has been discontinued and now on Haldol for agitation. discharge planning facility vs home. Vital Signs Period Temp Pulse Resp BP Sys/[place] Pulse Ox Last 24 Hr 97.6 F-98.2 F 57-87 18-18 123-151/74-95 98-98 GENERAL: agitated, he is also combative with cares, on chaparro and wrist restraints for safety and fall risk status. HEAD: Normal with no signs of trauma. EYES: PERRL, extraocular movements intact, sclera anicteric, conjunctiva clear. No ptosis. ENT: Ears normal, nares patent, oropharynx clear without exudates NECK: Trachea midline, full range of motion, supple. LUNGS: poor respiratory effort, mostly clear/diminished HEART: Regular rate and rhythm ABDOMEN: obese abdomen EXTREMITIES: no edema. NEUROLOGICAL: lethargic/asleep on exam. SKIN: reddened and edamatous penile head with mild edema, less red today and less edema, seen by urology Laboratory Results - last 24 hr 08/03/19 08/03/19 05:55 05:55 WBC 8.6 RBC 4.52 Hgb 13.3 Hct 41.4 MCV 91.6 MCH 29.4 MCHC 32.1 RDW 13.5 Plt Count 319 MPV 8.2 Absolute Neuts (auto) 5.0 Neutrophils % 58.2 Lymphocytes % 29.9 D Monocytes % 8.1 Eosinophils % 3.4 Basophils % 0.4 Nucleated RBC % 0 Sodium 146 H Potassium 4.6 Chloride 110 H Carbon Dioxide 32 Anion Gap 4 L BUN 7.5 Creatinine 0.9 Est GFR (CKD-EPI)AfAm 103.51 Est GFR (CKD-EPI)NonAf 89.31 Random Glucose 107 H Calcium 8.8 Magnesium 2.2 Total Bilirubin 0.2 AST 24 ALT 37 Alkaline Phosphatase 62 Total Protein 6.4 Albumin 3.1 L Active Medications Generic Name Dose Route Start Last Admin Trade Name Freq PRN Reason Stop Dose Admin Acetaminophen 1,000 mg 07/26/19 18:15 07/28/19 14:31 Ofirmev Injection - IVPB 1,000 mg Q6H PRN Administration FEVER Atenolol 25 mg 07/25/19 10:00 08/03/19 09:15 Tenormin - PO 25 mg DAILY [facility] Administration Atorvastatin Calcium 10 mg 07/24/19 22:00 08/02/19 21:16 Lipitor - PO 10 mg HS [facility] Administration Bacitracin 1 applic 07/27/19 10:15 08/03/19 09:15 Bacitracin - TP 1 applic BID [facility] Administration Divalproex Sodium 250 mg 08/01/19 22:00 08/03/19 09:15 Depakote - PO 250 mg BID [facility] Administration Haloperidol 5 mg 08/01/19 22:00 08/03/19 10:02 Haldol - PO 5 mg BID [facility] Administration Lorazepam 2 mg 08/01/19 18:42 08/02/19 23:21 Ativan Injection - IM 2 mg Q8H PRN Administration AGITATION ASSESSMENT/PLAN: Problem List - Problems (1) Leukocytosis Assessment/Plan: resolved, completed antibiotics. Code(s): D72.829 - ELEVATED WHITE BLOOD CELL COUNT, UNSPECIFIED (2) Acute metabolic encephalopathy Assessment/Plan: AMS likely secondary to elevated lithium levels vs acute infection. resolved. per daughter, patient's mentation has been declining for apx 5 years and they were told he had bipolar disease and dementia. has episodes of agitation at home, but they are managed by family. lithium levels now normalized followed by neurology and brain mri and spinal tap not recommended at this time completed zosyn for presumed aspiration pna and fevers. blood/urine cultures negative. Code(s): G93.41 - METABOLIC ENCEPHALOPATHY (3) [place] toxicity Assessment/Plan: levels now normalized Code(s): T56.891A - TOXIC EFFECT OF OTH METALS, ACCIDENTAL (UNINTENTIONAL), INIT Qualifiers: Encounter type: initial encounter Injury intent: accidental or unintentional Qualified Code(s): T56.891A - Toxic effect of other metals, accidental (unintentional), initial encounter (4) Acute renal failure Assessment/Plan: creat 1.6>1.1, monitor with daily labs Code(s): N17.9 - ACUTE KIDNEY FAILURE, UNSPECIFIED Qualifiers: Acute renal failure type: unspecified Qualified Code(s): N17.9 - Acute kidney failure, unspecified (5) Altered mental state Assessment/Plan: mental status at baseline. on haldol for agitation. Code(s): R41.82 - ALTERED MENTAL STATUS, UNSPECIFIED Qualifiers: Altered mental status type: somnolence Qualified Code(s): R40.0 - Somnolence (6) Bipolar disorder Assessment/Plan: hold lithium in the setting of AMS above baseline. psyche following and started on haldol Code(s): F31.9 - BIPOLAR DISORDER, UNSPECIFIED (7) Prophylactic measure Assessment/Plan: fen monitor electrolytes dysphagia chopped dvt: heparin full code Code(s): Z29.9 - ENCOUNTER FOR PROPHYLACTIC MEASURES, UNSPECIFIED Visit type - Emergency Visit Emergency Visit: Yes ED Registration Date: 07/23/19 Care time: The patient presented to the Emergency Department on the above date and was hospitalized for further evaluation of their emergent condition. - New Patient This patient is new to me today: No - Critical Care Critical Care patient: No - Discharge Referral Referred to [facility] Med P.C.: No
--- NOTE | 2019-08-03 14:01 | PN ---
Progress Note (short form) - Note Progress Note: Renal follow up for MARINA/CKD Seen and examined at the bedside awake and alert offers no acute complaints feels thirsty no pain family at the bedside Vital Signs Temperature 97.6 F 08/03/19 08:33 Pulse Rate 84 08/03/19 08:33 Respiratory Rate 18 08/03/19 09:00 Blood Pressure 138/95 08/03/19 08:33 O2 Sat by Pulse Oximetry (%) 98 08/03/19 10:00 Intake & Output 07/31/19 08/01/19 08/02/19 08/03/19 23:59 23:59 23:59 23:59 Intake Total 3 1600 1385 Balance 2062 1600 1385 NAD RRR Dec BS soft NT/ND no LE edema, clubbing or cyanosis CBC, BMP 08/03/19 05:55 08/03/19 05:55 Current Medications Acetaminophen (Ofirmev Injection -) 1,000 mg IVPB Q6H PRN PRN Reason: FEVER Last Admin: 07/28/19 14:31 Dose: 1,000 mg Atenolol (Tenormin -) 25 mg PO DAILY [facility] Last Admin: 08/03/19 09:15 Dose: 25 mg Atorvastatin Calcium (Lipitor -) 10 mg PO HS [facility] Last Admin: 08/02/19 21:16 Dose: 10 mg Bacitracin (Bacitracin -) 1 applic TP BID [facility] Last Admin: 08/03/19 09:15 Dose: 1 applic Divalproex Sodium (Depakote -) 250 mg PO BID [facility] Last Admin: 08/03/19 09:15 Dose: 250 mg Haloperidol (Haldol -) 5 mg PO BID [facility] Last Admin: 08/03/19 10:02 Dose: 5 mg Lorazepam (Ativan Injection -) 2 mg IM Q8H PRN PRN Reason: AGITATION Last Admin: 08/02/19 23:21 Dose: 2 mg 64 year old gentleman with history of bipolar disorder, Alzheimer's dementia and CKD who presented from home with upper extremity tremor and increasing confusion and admitted for suspected lithium toxicity. 1. Suspected [place] toxicity (now lithium levels WNL) 2. MARINA, now renal function normalized 3. Bipolar disorder 4. Dementia 5. Leukocytosis 6. Hypernatremia Renal function improved and stable Serum Na stable but high, may have mild DI from lithium continue oral water intake as per thirst discussed with family will follow up as needed, please call if there are any questions or concerns Thank you Donavan Yin DO
[2019-08-03] MEDS: ATORVASTATIN CA 10 MG TABLET (FP) PO SCH (22:23)
[2019-08-03] MEDS: LORazepam 2 MG/ML SDV VIAL IM PRN (23:17)
[2019-08-04] MEDS ORDERED: PT OWN MED DRAWER 7, Y5N ONE ×3 (09:00→22:25)
[2019-08-04] MEDS: LORazepam 2 MG/ML SDV VIAL IM PRN ×2 (09:05→17:13)
[2019-08-04] MEDS: ATENOLOL 25 MG TABLET (FP) PO SCH (09:08)
[2019-08-04] MEDS: BACITRACIN 15 GM TUBE TOPICAL OINTMENT TP SCH (09:08)
[2019-08-04] MEDS: DIVALPROEX SODIUM 250 MG TABLET E.C. PO SCH (09:08)
[2019-08-04] MEDS: HALOPERIDOL 5 MG TABLET (FP) PO SCH ×2 (09:10→22:26)
--- NOTE | 2019-08-04 10:07 | PN ---
Progress Note (short form) - Note Progress Note: 64 year old male history of Bipolar disorder, Dementia, HTN,HLD . Patient presented with worsening of confusoin. His lithium level has coming down and is on hold. Patient has had no seizure. He is doing better and psych is being reconsulted. Patient had no fever, no seizure were noticed. There is no new focal neurological ( weakness or face asymmetry) was noticed. patient is confused today and just got ativan NEUROLOGICAL EAMINATION alert and not combative neck is supple, vital stable eomi, pupils reactive no face asymmetry moving all extremity(he is restrained) sensation is normal ct hed no acute findings Assessment/Plan 64 year old male history of Dementia, Bipolar, HTN, HLD. He admitted for worsening of confusion. Most likely metabolic encehalopathy ( [place] toxicity is possibility and progression of dementia), patient confusion has been fluctuating . \ 2. Resting tremors on right arm, likley to be tardive dyskinesia. Suggest to watch for now. 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
[2019-08-04] MEDS ORDERED: DIVALPROEX SODIUM 125 MG SPRINKLE CAPS PO SCH (10:45)
[2019-08-04] MEDS ORDERED: VALPROATE SODIUM 250 MG/5 ML UNIT DOSE CUP PO SCH ×2 (11:00→22:00)
--- NOTE | 2019-08-04 11:13 | PN ---
Progress Note, Physician Chief Complaint: pt appears comfortable, sleepy but arousable, no acute distress, - Current Medication List Current Medications: Active Medications Acetaminophen (Ofirmev Injection -) 1,000 mg IVPB Q6H PRN PRN Reason: FEVER Last Admin: 07/28/19 14:31 Dose: 1,000 mg Atenolol (Tenormin -) 25 mg PO DAILY [facility] Last Admin: 08/04/19 09:08 Dose: 25 mg Atorvastatin Calcium (Lipitor -) 10 mg PO HS [facility] Last Admin: 08/03/19 22:23 Dose: 10 mg Bacitracin (Bacitracin -) 1 applic TP BID [facility] Last Admin: 08/04/19 09:08 Dose: 1 applic Haloperidol (Haldol -) 5 mg PO BID [facility] Last Admin: 08/04/19 09:10 Dose: 5 mg Lorazepam (Ativan Injection -) 2 mg IM Q8H PRN PRN Reason: AGITATION Last Admin: 08/04/19 09:05 Dose: 2 mg Valproate Sodium (Depakene -) 250 mg PO BID [facility] - Objective Vital Signs: Vital Signs Temperature 98.5 F 08/04/19 06:00 Pulse Rate 87 08/04/19 06:00 Respiratory Rate 20 08/04/19 06:00 Blood Pressure 116/64 08/04/19 06:00 O2 Sat by Pulse Oximetry (%) 95 08/03/19 21:00 Constitutional: Yes: Well Nourished, No Distress Eyes: Yes: WNL, EOM Intact HENT: Yes: WNL, Normocephalic Neck: Yes: Supple, Trachea Midline Cardiovascular: Yes: Regular Rate and Rhythm Respiratory: Yes: Regular, CTA Bilaterally Gastrointestinal: Yes: Normal Bowel Sounds, Soft Extremities: Yes: WNL Neurological: Yes: Other (sleepy but arousable, and oriented to his name only, and moving all extremities but restrained,) Labs: CBC, BMP 08/03/19 05:55 08/03/19 05:55 INR, PTT INR 1.03 (0.83-1.09) 07/24/19 06:00 Impression/Plan Impression/Plan: ASSESSMENT/PLAN: Problem List - Problems Leukocytosis Assessment/Plan: resolved, completed antibiotics. Code(s): D72.829 - ELEVATED WHITE BLOOD CELL COUNT, UNSPECIFIED Acute metabolic encephalopathy Assessment/Plan: AMS likely secondary to elevated lithium levels followed by neurology and brain mri and spinal tap not recommended at this time completed zosyn for presumed aspiration pna and fevers. blood/urine cultures negative. Code(s): G93.41 - METABOLIC ENCEPHALOPATHY [place] toxicity Assessment/Plan: levels now normalized, lithium now stopped , now on depakote , and haldol prn, change depakote to liquid as cant swallow the pills, Code(s): T56.891A - TOXIC EFFECT OF OTH METALS, ACCIDENTAL (UNINTENTIONAL), INIT Qualifiers: Encounter type: initial encounter Injury intent: accidental or unintentional Qualified Code(s): T56.891A - Toxic effect of other metals, accidental (unintentional), initial encounter Acute renal failure Assessment/Plan: resoleved seen by the nephrology , will be seen prn, Code(s): N17.9 - ACUTE KIDNEY FAILURE, UNSPECIFIED Qualifiers: Acute renal failure type: unspecified Qualified Code(s): N17.9 - Acute kidney failure, unspecified () Bipolar disorder Assessment/Plan: hold lithium in the setting of AMS above baseline. psyche following and started on haldol Code(s): F31.9 - BIPOLAR DISORDER, UNSPECIFIED (7) Prophylactic measure Assessment/Plan: fen monitor electrolytes dysphagia chopped diet, dvt: heparin full code Visit type - Emergency Visit Emergency Visit: No - New Patient This patient is new to me today: Yes Date on this admission: 08/04/19 - Critical Care Critical Care patient: No - Discharge Referral Referred to [facility] Med P.C.: No
--- NOTE | 2019-08-04 13:02 | PN ---
Progress Note, Physician History of Present Illness: Pt is somnolent, arousable. No acute distress noted, afebrile. In restraints. Neurology f/u note reviewed. - Current Medication List Current Medications: Active Medications Acetaminophen (Ofirmev Injection -) 1,000 mg IVPB Q6H PRN PRN Reason: FEVER Last Admin: 07/28/19 14:31 Dose: 1,000 mg Atenolol (Tenormin -) 25 mg PO DAILY [facility] Last Admin: 08/04/19 09:08 Dose: 25 mg Atorvastatin Calcium (Lipitor -) 10 mg PO HS [facility] Last Admin: 08/03/19 22:23 Dose: 10 mg Bacitracin (Bacitracin -) 1 applic TP BID [facility] Last Admin: 08/04/19 09:08 Dose: 1 applic Haloperidol (Haldol -) 5 mg PO BID [facility] Last Admin: 08/04/19 09:10 Dose: 5 mg Lorazepam (Ativan Injection -) 2 mg IM Q8H PRN PRN Reason: AGITATION Last Admin: 08/04/19 09:05 Dose: 2 mg Valproate Sodium (Depakene -) 250 mg PO BID [facility] - Objective Vital Signs: Vital Signs Temperature 97.5 F L 08/04/19 10:00 Pulse Rate 90 08/04/19 10:00 Respiratory Rate 19 08/04/19 10:00 Blood Pressure 189/77 H 08/04/19 10:00 O2 Sat by Pulse Oximetry (%) 98 08/04/19 09:00 Constitutional: Yes: No Distress Cardiovascular: Yes: Regular Rate and Rhythm Respiratory: Yes: Regular Gastrointestinal: Yes: Normal Bowel Sounds, Soft Integumentary: Yes: WNL Neurological: Yes: Lethargy Labs: CBC, BMP 08/03/19 05:55 08/03/19 05:55 INR, PTT INR 1.03 (0.83-1.09) 07/24/19 06:00 Microbiology 07/29/19 04:30 Stool Clostridioides difficile Antigen - Final 07/29/19 04:30 Stool Clostridioides difficile Toxin Assay - Final 07/24/19 11:15 Blood - Peripheral Venous Blood Culture - Final NO GROWTH AFTER 5 DAYS INCUBATION 07/24/19 11:40 Blood - Peripheral Venous Blood Culture - Final NO GROWTH AFTER 5 DAYS INCUBATION 11/26/19 15:37 Urine - Urine - Catheterized Urine Culture - Final NO GROWTH OBTAINED - ....Imaging Chest X-ray: Report Reviewed Problem List - Problems (1) Acute metabolic encephalopathy Code(s): G93.41 - METABOLIC ENCEPHALOPATHY (2) Leukocytosis Code(s): D72.829 - ELEVATED WHITE BLOOD CELL COUNT, UNSPECIFIED (3) [place] toxicity Code(s): T56.891A - TOXIC EFFECT OF OTH METALS, ACCIDENTAL (UNINTENTIONAL), INIT Qualifiers: Encounter type: initial encounter Injury intent: accidental or unintentional Qualified Code(s): T56.891A - Toxic effect of other metals, accidental (unintentional), initial encounter (4) Altered mental state Code(s): R41.82 - ALTERED MENTAL STATUS, UNSPECIFIED Qualifiers: Altered mental status type: somnolence Qualified Code(s): R40.0 - Somnolence (5) Bipolar disorder Code(s): F31.9 - BIPOLAR DISORDER, UNSPECIFIED (6) HLD (hyperlipidemia) Code(s): E78.5 - HYPERLIPIDEMIA, UNSPECIFIED (7) HTN (hypertension) Code(s): I10 - ESSENTIAL (PRIMARY) HYPERTENSION Assessment/Plan s/p leukocytosis/fever -- completed course of antibiotics -- continue monitor vitals, currently afebrile -- neurology following
[2019-08-04 16:52] LABS: BASO % 0.3 % (0-2.0); EOS % 2.1 % (0-4.5); HEMATOCRIT 39.2 % (35.4-49); HEMOGLOBIN 12.7 GM/dL (11.7-16.9); LYMPH % 22.3 % (8-40); MCH 29.4 pg (25.7-33.7); MCHC 32.3 g/dl (32.0-35.9); MEAN PLT VOLUME 8.4 fl (7.5-11.1); MONO % 8.4 % (3.8-10.2); NEUT % 66.9 % (42.8-82.8); PLATELET COUNT 359 K/MM3 (134-434); RBC 4.31 M/mm3 (4.00-5.60); RDW 13.1 % (11.9-15.9); WHITE BLOOD COUNT 10.2 K/mm3 (4.0-10.0)
[2019-08-04 17:23] LABS: ALBUMIN 3.2 g/dl (3.4-5.0); BILIRUBIN,TOTAL 0.2 mg/dL (0.2-1); BLOOD UREA NITROGEN 9.1 mg/dL (7-18); CALCIUM 9.1 mg/dL (8.5-10.1); CREATININE 0.9 mg/dL (0.55-1.3); MAGNESIUM 2.1 mg/dL (1.8-2.4); POTASSIUM 4.5 mmol/L (3.5-5.1); TOT PROT 6.5 g/dl (6.4-8.2)
[2019-08-04] MEDS ORDERED: HALOPERIDOL LACTATE 5 MG/ML IM STA (18:13)
[2019-08-04] MEDS: HALOPERIDOL LACTATE 5 MG/ML IM PRN ×2 (18:27→22:26)
[2019-08-04] MEDS: ATORVASTATIN CA 10 MG TABLET (FP) PO SCH (22:26)
[2019-08-05] MEDS: LORazepam 2 MG/ML SDV VIAL IM PRN ×2 (01:55→22:48)
[2019-08-05] MEDS: BACITRACIN 15 GM TUBE TOPICAL OINTMENT TP SCH ×2 (01:55→10:08)
[2019-08-05] MEDS: HALOPERIDOL LACTATE 5 MG/ML IM PRN (05:05)
[2019-08-05] MEDS: HALOPERIDOL 5 MG TABLET (FP) PO SCH ×2 (10:07→22:47)
[2019-08-05] MEDS: ATENOLOL 25 MG TABLET (FP) PO SCH (10:07)
[2019-08-05] MEDS: VALPROATE SODIUM 250 MG/5 ML UNIT DOSE CUP PO SCH ×2 (10:07→22:47)
--- NOTE | 2019-08-05 13:05 | PN ---
Physical Exam: SUBJECTIVE: Patient seen and examined. He is confused and mumbling. OBJECTIVE: Vital Signs Period Temp Pulse Resp BP Sys/[place] Pulse Ox Last 24 Hr 97.5 F-98.3 F 72-79 18-20 120-153/69-92 92-96 GENERAL: The patient is awake, confused, in no acute distress. LUNGS: Breath sounds equal, clear to auscultation bilaterally, no wheezes, no crackles, no accessory muscle use. HEART: Regular rate and rhythm, S1, S2 without murmur, rub or gallop. ABDOMEN: Obese, soft, nondistended, normoactive bowel sounds, no guarding, no rebound, no hepatosplenomegaly, no masses. EXTREMITIES: 2+ pulses, warm, well-perfused, no edema. Laboratory Results - last 24 hr 08/04/19 08/04/19 08/04/19 16:35 16:35 20:45 WBC 10.2 H RBC 4.31 Hgb 12.7 Hct 39.2 MCV 91.0 MCH 29.4 MCHC 32.3 RDW 13.1 Plt Count 359 MPV 8.4 Absolute Neuts (auto) 6.8 Neutrophils % 66.9 Lymphocytes % 22.3 D Monocytes % 8.4 Eosinophils % 2.1 Basophils % 0.3 Nucleated RBC % 0 Sodium 144 Potassium 4.5 Chloride 108 H Carbon Dioxide 30 Anion Gap 6 L BUN 9.1 Creatinine 0.9 Est GFR (CKD-EPI)AfAm 103.51 Est GFR (CKD-EPI)NonAf 89.31 Random Glucose 123 H Calcium 9.1 Magnesium 2.1 Total Bilirubin 0.2 AST 26 ALT 37 Alkaline Phosphatase 65 Total Protein 6.5 Albumin 3.2 L Valproic Acid 25.6 L Active Medications Generic Name Dose Route Start Last Admin Trade Name Freq PRN Reason Stop Dose Admin Acetaminophen 1,000 mg 07/26/19 18:15 07/28/19 14:31 Ofirmev Injection - IVPB 1,000 mg Q6H PRN Administration FEVER Atenolol 25 mg 07/25/19 10:00 08/05/19 10:07 Tenormin - PO 25 mg DAILY [facility] Administration Atorvastatin Calcium 10 mg 07/24/19 22:00 08/04/19 22:26 Lipitor - PO 10 mg HS [facility] Administration Bacitracin 1 applic 07/27/19 10:15 08/05/19 10:08 Bacitracin - TP 1 applic BID [facility] Administration Haloperidol 5 mg 08/01/19 22:00 08/05/19 10:07 Haldol - PO 5 mg BID [facility] Administration Haloperidol 2 mg 08/04/19 18:19 08/05/19 05:05 Haldol Injection (Fast Acting) - IM 08/06/19 18:18 2 mg Q4H PRN Administration AGITATION Lorazepam 2 mg 08/01/19 18:42 08/05/19 01:55 Ativan Injection - IM 2 mg Q8H PRN Administration AGITATION Valproate Sodium 500 mg 08/05/19 10:00 08/05/19 10:07 Depakene - PO 500 mg BID [facility] Administration ASSESSMENT/PLAN: This is a 64 year old man with a history of HTN, hyperlipidemia, Alzheimer's dementia, bipolar disorder who presented to the ED with increasing confusion and difficulty walking. 1. Acute toxic metabolic encephalopathy - Secondary to lithium toxicity and possible infection - Head CT/CTA unremarkable but with motion artifact - [place] discontinued - Completed empiric course of Zosyn 2. Acute kidney injury - Resolved 3. Bipolar disorder - [place] discontinued - Continue valproic acid, Haldol, Ativan as needed for agitation - Continues to require restraints for safety 4. Alzheimer's dementia - Start Aricept and monitor QTc 5. HTN - Continue atenolol - Cozaar held secondary to MARINA 6. Hyperlipidemia - Continue Lipitor Visit type - Emergency Visit Emergency Visit: Yes ED Registration Date: 07/23/19 Care time: The patient presented to the Emergency Department on the above date and was hospitalized for further evaluation of their emergent condition. - New Patient This patient is new to me today: No - Critical Care Critical Care patient: No - Discharge Referral Referred to [facility] Med P.C.: No
--- NOTE | 2019-08-05 13:42 | PN ---
Progress Note, Physician History of Present Illness: Pt is alert and responsive. No distress noted, afebrile. - Current Medication List Current Medications: Active Medications Acetaminophen (Ofirmev Injection -) 1,000 mg IVPB Q6H PRN PRN Reason: FEVER Last Admin: 07/28/19 14:31 Dose: 1,000 mg Atenolol (Tenormin -) 25 mg PO DAILY [facility] Last Admin: 08/05/19 10:07 Dose: 25 mg Atorvastatin Calcium (Lipitor -) 10 mg PO HS [facility] Last Admin: 08/04/19 22:26 Dose: 10 mg Bacitracin (Bacitracin -) 1 applic TP BID [facility] Last Admin: 08/05/19 10:08 Dose: 1 applic Haloperidol (Haldol -) 5 mg PO BID [facility] Last Admin: 08/05/19 10:07 Dose: 5 mg Haloperidol (Haldol Injection (Fast Acting) -) 2 mg IM Q4H PRN PRN Reason: AGITATION Stop: 08/06/19 18:18 Last Admin: 08/05/19 05:05 Dose: 2 mg Lorazepam (Ativan Injection -) 2 mg IM Q8H PRN PRN Reason: AGITATION Last Admin: 08/05/19 01:55 Dose: 2 mg Valproate Sodium (Depakene -) 500 mg PO BID [facility] Last Admin: 08/05/19 10:07 Dose: 500 mg - Objective Vital Signs: Vital Signs Temperature 98.3 F 08/05/19 10:06 Pulse Rate 73 08/05/19 10:06 Respiratory Rate 19 08/05/19 10:06 Blood Pressure 120/89 08/05/19 10:06 O2 Sat by Pulse Oximetry (%) 96 08/05/19 09:00 Constitutional: Yes: No Distress Cardiovascular: Yes: Regular Rate and Rhythm Respiratory: Yes: Regular Gastrointestinal: Yes: Normal Bowel Sounds, Soft Genitourinary: Yes: WNL Extremities: Yes: WNL Integumentary: Yes: WNL Neurological: Yes: Alert Labs: CBC, BMP 08/04/19 16:35 08/04/19 16:35 INR, PTT INR 1.03 (0.83-1.09) 07/24/19 06:00 Microbiology 07/29/19 04:30 Stool Clostridioides difficile Antigen - Final 07/29/19 04:30 Stool Clostridioides difficile Toxin Assay - Final 07/24/19 11:15 Blood - Peripheral Venous Blood Culture - Final NO GROWTH AFTER 5 DAYS INCUBATION 07/24/19 11:40 Blood - Peripheral Venous Blood Culture - Final NO GROWTH AFTER 5 DAYS INCUBATION 07/24/19 15:37 Urine - Urine - Catheterized Urine Culture - Final NO GROWTH OBTAINED Problem List - Problems (1) Acute metabolic encephalopathy Code(s): G93.41 - METABOLIC ENCEPHALOPATHY (2) Leukocytosis Code(s): D72.829 - ELEVATED WHITE BLOOD CELL COUNT, UNSPECIFIED (3) [place] toxicity Code(s): T56.891A - TOXIC EFFECT OF OTH METALS, ACCIDENTAL (UNINTENTIONAL), INIT Qualifiers: Encounter type: initial encounter Injury intent: accidental or unintentional Qualified Code(s): T56.891A - Toxic effect of other metals, accidental (unintentional), initial encounter (4) Altered mental state Code(s): R41.82 - ALTERED MENTAL STATUS, UNSPECIFIED Qualifiers: Altered mental status type: somnolence Qualified Code(s): R40.0 - Somnolence (5) Bipolar disorder Code(s): F31.9 - BIPOLAR DISORDER, UNSPECIFIED (6) HLD (hyperlipidemia) Code(s): E78.5 - HYPERLIPIDEMIA, UNSPECIFIED (7) HTN (hypertension) Code(s): I10 - ESSENTIAL (PRIMARY) HYPERTENSION Assessment/Plan [place] Toxicity s/p Fever Mild leukocytosis -- completed course of antibiotics -- monitor wbc, fever resolved -- continue monitor vitals -- neurology following
[2019-08-05] MEDS ORDERED: PT OWN MED DRAWER 7, Y5N ONE (22:46)
[2019-08-05] MEDS: ATORVASTATIN CA 10 MG TABLET (FP) PO SCH (22:47)
[2019-08-05] MEDS: DONEPEZIL HCL 5 MG TABLET (FP) PO SCH (22:47)
[2019-08-06] MEDS: BACITRACIN 15 GM TUBE TOPICAL OINTMENT TP SCH ×3 (03:20→21:58)
[2019-08-06 06:42] LABS: BASO % 0.3 % (0-2.0); EOS % 1.8 % (0-4.5); HEMATOCRIT 40.3 % (35.4-49); HEMOGLOBIN 13.2 GM/dL (11.7-16.9); LYMPH % 26.3 % (8-40); MCH 29.4 pg (25.7-33.7); MCHC 32.8 g/dl (32.0-35.9); MEAN CELL VOLUME 89.5 fl (80-96); MEAN PLT VOLUME 8.2 fl (7.5-11.1); NEUT % 64.6 % (42.8-82.8); PLATELET COUNT 390 K/MM3 (134-434); RDW 13.2 % (11.9-15.9); WHITE BLOOD COUNT 10.4 K/mm3 (4.0-10.0)
[2019-08-06] MEDS: HALOPERIDOL LACTATE 5 MG/ML IM PRN (06:59)
[2019-08-06 07:10] LABS: BLOOD UREA NITROGEN 8.5 mg/dL (7-18); CALCIUM 9.4 mg/dL (8.5-10.1); CREATININE 0.8 mg/dL (0.55-1.3); POTASSIUM 4.5 mmol/L (3.5-5.1)
--- NOTE | 2019-08-06 07:46 | PN ---
Progress Note, Physician Chief Complaint: Patient remain agitated, attempting to climb out of bed History of Present Illness: Patient is a 64 year old male with a significant past medical history of dementia, bipolar disorder on lithium, history of CVA with baseline dysarthria but fully ambulatory. Patient presents to the ED on 07/23/2019 with worsening slurred speech, gait disturbance and worsening mental status. Head CT negative. Patient on lithium for bipolar disorder and was told by psychiatrist to stop taking the lithium for elevated levels, however, he continued to take it as ordered and now presents with acute toxic metabolic encephalopathy. [place] levels elevated on admission, peaked to 2.1 and now have normalized. He is being also being evaluated for a possible infection that may be contributing to the worsening confusion and gait instability. He remains on zosyn for possible aspiration pneumonia. discharge plan remains for patient to go to a SNF. Will need to be seen/evaluated by psyche prior to d/c since he remains off lithium. - Current Medication List Current Medications: Active Medications Acetaminophen (Ofirmev Injection -) 1,000 mg IVPB Q6H PRN PRN Reason: FEVER Last Admin: 07/28/19 14:31 Dose: 1,000 mg Atenolol (Tenormin -) 25 mg PO DAILY [facility] Last Admin: 08/05/19 10:07 Dose: 25 mg Atorvastatin Calcium (Lipitor -) 10 mg PO [facility] Last Admin: 08/05/19 22:47 Dose: 10 mg Bacitracin (Bacitracin -) 1 applic TP BID [facility] Last Admin: 08/06/19 03:20 Dose: Not Given Donepezil HCl (Aricept -) 5 mg PO [facility] Last Admin: 08/05/19 22:47 Dose: 5 mg Haloperidol (Haldol -) 5 mg PO BID [facility] Last Admin: 08/05/19 22:47 Dose: 5 mg Haloperidol (Haldol Injection (Fast Acting) -) 2 mg IM Q4H PRN PRN Reason: AGITATION Stop: 08/06/19 18:18 Last Admin: 08/06/19 06:59 Dose: 2 mg Lorazepam (Ativan Injection -) 2 mg IM Q8H PRN PRN Reason: AGITATION Last Admin: 08/05/19 22:48 Dose: 2 mg Valproate Sodium (Depakene -) 500 mg PO BID [facility] Last Admin: 08/05/19 22:47 Dose: 500 mg - Objective Vital Signs: Vital Signs Temperature 97.8 F 08/06/19 06:00 Pulse Rate 76 08/06/19 06:00 Respiratory Rate 20 08/06/19 06:00 Blood Pressure 93/58 L 08/06/19 06:00 O2 Sat by Pulse Oximetry (%) 95 08/05/19 21:00 Additional Findings/Remarks: Constitutional: Yes: Well Nourished, Severe Distress, Other (very agitated and combatative) Eyes: Yes: WNL, Conjunctiva Clear HENT: Yes: WNL, Atraumatic, Normocephalic Neck: Yes: WNL, Supple, Trachea Midline Cardiovascular: Yes: WNL, Regular Rate and Rhythm Respiratory: Yes: WNL, Regular, CTA Bilaterally Gastrointestinal: Yes: Normal Bowel Sounds, Soft, Abdomen, Obese ...Rectal Exam: Yes: Deferred Genitourinary: Yes: WNL Breast(s): Yes: WNL Musculoskeletal: Yes: WNL Extremities: Yes: WNL Peripheral Pulses WNL: No Peripheral Pulses: Left Radial: 2+, Right Radial: 2+, Left Doralis Pedis: 2+, Right Dorsalis Pedis: 2+, Left Femoral: 2+, Right Femoral: 2+ Integumentary: Yes: WNL Neurological: Yes: Alert, Confusion, Other (conbatative and agitated) ...Motor Strength: WNL Psychiatric: Yes: Alert, Agitated, Other (confused) Labs: CBC, BMP 08/06/19 06:00 08/06/19 06:00 INR, PTT INR 1.03 (0.83-1.09) 07/24/19 06:00 Problem List - Problems (1) Acute metabolic encephalopathy Assessment/Plan: mental status continues with agitation lithium levels normal appreciate neurology consultation, no indication for brain mri or LP at this time of zosyn Bcx, Ucx NGTD Code(s): G93.41 - METABOLIC ENCEPHALOPATHY (2) Leukocytosis Assessment/Plan: WBC 9.0 afebrile continue to trend Code(s): D72.829 - ELEVATED WHITE BLOOD CELL COUNT, UNSPECIFIED (3) [place] toxicity Assessment/Plan: Li level normal continue to hold Li appreciate psych consultation Code(s): T56.891A - TOXIC EFFECT OF OTH METALS, ACCIDENTAL (UNINTENTIONAL), INIT Qualifiers: Encounter type: initial encounter Injury intent: accidental or unintentional Qualified Code(s): T56.891A - Toxic effect of other metals, accidental (unintentional), initial encounter (4) Prophylactic measure Assessment/Plan: FEN adequate PO intake continue to monitor electrolytes c/w dysphasia diet chopped with thin liquids DVTchemical DVT proph Dispo maintain in telemetry pt continues to be agitated and combatative must be off restraints for 24 hrs before SNF will accept Code(s): Z29.9 - ENCOUNTER FOR PROPHYLACTIC MEASURES, UNSPECIFIED (5) Acute renal failure Assessment/Plan: Cr 1.1 continue to monitor renal fx avoid nephrotoxic agents appreciate nephrology consultation Code(s): N17.9 - ACUTE KIDNEY FAILURE, UNSPECIFIED Qualifiers: Acute renal failure type: unspecified Qualified Code(s): N17.9 - Acute kidney failure, unspecified (6) Altered mental state Assessment/Plan: most likely secondary to acute Li toxicity and hx of bipolar disorder continue to hold Li continues to be agitated psych following c/w depakote c/w halodol Code(s): R41.82 - ALTERED MENTAL STATUS, UNSPECIFIED Qualifiers: Altered mental status type: somnolence Qualified Code(s): R40.0 - Somnolence (7) Bipolar disorder Assessment/Plan: c/w depakote and haldol Code(s): F31.9 - BIPOLAR DISORDER, UNSPECIFIED (8) HTN (hypertension) Assessment/Plan: normotensive c/w atneolol Code(s): I10 - ESSENTIAL (PRIMARY) HYPERTENSION Visit type - Emergency Visit Emergency Visit: Yes ED Registration Date: 07/23/19 Care time: The patient presented to the Emergency Department on the above date and was hospitalized for further evaluation of their emergent condition. - New Patient This patient is new to me today: No - Critical Care Critical Care patient: No - Discharge Referral Referred to [facility] Med P.C.: No
[2019-08-06] MEDS: HALOPERIDOL 5 MG TABLET (FP) PO SCH ×2 (10:39→21:59)
[2019-08-06] MEDS: ATENOLOL 25 MG TABLET (FP) PO SCH (10:39)
[2019-08-06] MEDS: VALPROATE SODIUM 250 MG/5 ML UNIT DOSE CUP PO SCH ×2 (10:39→21:57)
--- NOTE | 2019-08-06 11:42 | PN ---
Progress Note, [employer] - Note Progress Note: Selected Entries 08/03/19 08/03/19 08/03/19 03:11 07:11 08:33 Breakfast Temperature 98.2 F 98.1 F 97.6 F 08/03/19 10:00 Breakfast 100% Temperature Laboratory Tests 08/03/19 05:55 WBC 8.6 Selected Entries 08/05/19 08/05/19 08/05/19 02:00 05:34 09:00 Breakfast Lunch Supper Temperature 98.3 F 98.3 F O2 Sat by Pulse 96 Oximetry (%) 08/05/19 08/05/19 08/05/19 10:06 11:33 14:03 Breakfast 100% Lunch Supper Temperature 98.3 F 98 F O2 Sat by Pulse Oximetry (%) 08/05/19 08/05/19 08/05/19 15:03 18:00 21:00 Breakfast Lunch 25% Supper 100% Temperature 97.9 F O2 Sat by Pulse 95 Oximetry (%) 08/05/19 08/06/19 08/06/19 22:00 06:00 09:49 Breakfast Lunch Supper Temperature 98.3 F 97.8 F 96.8 F L O2 Sat by Pulse Oximetry (%) Laboratory Tests 08/03/19 08/04/19 08/06/19 05:55 16:35 06:00 WBC 8.6 10.2 H 10.4 H Pt tolerating diet well without signs of difficulty. Diet upgraded to Dys ground and thin liquid with good acceptance and tolerance. Monitor tolerance. Aspiration precautions and use of compensatory swallowing safety techniques.
--- NOTE | 2019-08-06 11:48 | PN ---
Progress Note (short form) - Note Progress Note: Patient seen for Psych follow up. Case discussed with staff. There has been significant improvement in Patients behaviour.. stiill confused but most of medical issues have been resolved.. REC: 1) Discharge Patient on Haldol 5mg po hs. 2) No need or indication for Psych Hospitalization.
--- NOTE | 2019-08-06 13:34 | EKG ---
Test Reason : Blood Pressure : / mmHG Vent. Rate : 076 BPM Atrial Rate : 076 BPM P-R Int : 146 ms QRS Dur : 082 ms QT Int : 396 ms P-R-T Axes : 031 002 033 degrees QTc Int : 445 ms POOR DATA QUALITY, INTERPRETATION MAY BE ADVERSELY AFFECTED NORMAL SINUS RHYTHM WITH SINUS ARRHYTHMIA NONSPECIFIC T WAVE ABNORMALITY ABNORMAL ECG WHEN COMPARED WITH ECG OF 24-JUL-2019 11:00, COMPARED TO EKG NO SIGNIFICANT CHANGE IS FOUND Confirmed by PALMER JOHNSTON MD ([id number]) on 08/06/2019 1:34:08 PM Referred By: PALMER [facility] Confirmed By:PALMER JOHNSTON MD
--- NOTE | 2019-08-06 14:41 | PN ---
Progress Note, Physician History of Present Illness: no new issues confusion - Current Medication List Current Medications: Active Medications Acetaminophen (Ofirmev Injection -) 1,000 mg IVPB Q6H PRN PRN Reason: FEVER Last Admin: 07/28/19 14:31 Dose: 1,000 mg Atenolol (Tenormin -) 25 mg PO DAILY [facility] Last Admin: 08/06/19 10:39 Dose: 25 mg Atorvastatin Calcium (Lipitor -) 10 mg PO HS [facility] Last Admin: 08/05/19 22:47 Dose: 10 mg Bacitracin (Bacitracin -) 1 applic TP BID [facility] Last Admin: 08/06/19 10:39 Dose: 1 applic Donepezil HCl (Aricept -) 5 mg PO HS [facility] Last Admin: 08/05/19 22:47 Dose: 5 mg Haloperidol (Haldol Injection (Fast Acting) -) 2 mg IM Q4H PRN PRN Reason: AGITATION Stop: 08/06/19 18:18 Last Admin: 08/06/19 06:59 Dose: 2 mg Haloperidol (Haldol -) 5 mg PO HS [facility] Lorazepam (Ativan Injection -) 2 mg IM Q8H PRN PRN Reason: AGITATION Last Admin: 08/05/19 22:48 Dose: 2 mg Valproate Sodium (Depakene -) 500 mg PO BID [facility] Last Admin: 08/06/19 10:39 Dose: 500 mg - Objective Vital Signs: Vital Signs Temperature 97.4 F L 08/06/19 13:55 Pulse Rate 83 08/06/19 13:55 Respiratory Rate 20 08/06/19 13:55 Blood Pressure 149/96 08/06/19 13:55 O2 Sat by Pulse Oximetry (%) 95 08/06/19 09:00 Constitutional: Yes: Anxious, Other Cardiovascular: Yes: Regular Rate and Rhythm Respiratory: Yes: Regular, CTA Bilaterally Gastrointestinal: Yes: Normal Bowel Sounds, Soft Musculoskeletal: Yes: WNL Extremities: Yes: Other Edema: LLE: 1+, RLE: 1+ Neurological: Yes: Alert, Other Psychiatric: Yes: Other Labs: CBC, BMP 08/06/19 06:00 08/06/19 06:00 INR, PTT INR 1.03 (0.83-1.09) 07/24/19 06:00 Assessment/Plan 64 year old gentleman with history of bipolar disorder, Alzheimer's dementia and CKD who presented from home with upper extremity tremor and increasing confusion and admitted for suspected lithium toxicity. 1. Suspected [place] toxicity 2. CKD/MARINA 3. Bipolar disorder 4. Alzheimer dementia 6. Leukocytosis 7 paraphimosis plan continue current mgmt rest as per the team asp precautions monitor wbc
[2019-08-06] MEDS: LORazepam 2 MG/ML SDV VIAL IM PRN ×2 (14:44→22:47)
[2019-08-06] MEDS: ATORVASTATIN CA 10 MG TABLET (FP) PO SCH (21:57)
[2019-08-06] MEDS: DONEPEZIL HCL 5 MG TABLET (FP) PO SCH (21:57)
[2019-08-07] MEDS: VALPROATE SODIUM 250 MG/5 ML UNIT DOSE CUP PO SCH ×2 (09:00→22:17)
[2019-08-07] MEDS: ATENOLOL 25 MG TABLET (FP) PO SCH (09:00)
[2019-08-07] MEDS: BACITRACIN 15 GM TUBE TOPICAL OINTMENT TP SCH (09:01)
--- NOTE | 2019-08-07 10:03 | PN ---
Physical Exam: SUBJECTIVE: Patient seen and examined at the bedside. patient on restraints for safety as he is impulsive. OBJECTIVE: On 08/06/2019, patient was seen for a psyche follow up. Per psyche MD, patient to be discharged on haldol 5mg po hs. Further, per psckranthi, patient does not need psych hospitalization. Patient is a 64 year old male with a significant past medical history of dementia, bipolar disorder on lithium, history of CVA with baseline dysarthria but fully ambulatory (with a slow gait per family). Patient presents to the ED on 07/23/2019 with worsening slurred speech, gait disturbance and worsening mental status. Head CT negative. Patient on lithium for bipolar disorder and was told by psychiatrist to stop taking the lithium for elevated levels, however , he continued to take it as ordered and presented with acute toxic metabolic encephalopathy. Twilight levels elevated on admission, and poison control notified and their recommendations carried out. Twilight peaked to 2.1 and now have normalized. He was also being also being evaluated for a possible infection that may be contributing to the worsening confusion and gait instability and treated with Zosyn emperically. His urine and blood cultures were negative and Zosyn discontinued. His diet changed to chopped diet and he is currently eating/drinking without any difficulty. He accepts his medications and appears comfortable and improved since admission. All medical issues he was admitted for are now resolved. Twilight was discontinued and haldol was introduced for mood stability. During hospital stay, was seen by ID, neurology, psyche and renal. Discharge planning to either psyche facility or home, however, per MARIANN, not accepted to any facilities. Discharge planning. daughter called to discuss discharge planning LANE left @ [phone] will discuss hospital bed, walker, home PT, wheelchair Patient will require a hospital bed - semi electric for the following reasons: - patients condition requires positioning of the body to alleviate pain, prevent contractures and avoid aspiration pneumonia and infections in ways not feasible in an ordinary bed. - the patient requires the head of the bed to be elevated more than 30 degrees most of the time due to prevention of aspiration into his airway with meals. - Patient is not fully ambulatory and a hospital bed will be needed for frequent position changes as wedges/pillows in an ordinary bed is not feasible. - Patient has altered sensory perception - Patient has fecal incontinence/urinary incontinence and risk for developing pressure sores. Patient will require a wheelchair for the following reasons -Patient is not fully ambulatory and his current status prevents the patient from accomplishing MRADL entirely in the home -There is a reasonable risk of morbidity or mortality secondary to attempts to perform MRADL -Patient's home provides adequate access for the use of the chair in the home -The patient's mobility limitation cannot be resolved by use of a fitter walker or walker -The patient has sufficient upper extremity function and other physical and mental capabilities needed to safely self propel the manual wheelzhiar that is provided in the home during a typical day. Vital Signs Period Temp Pulse Resp BP Sys/Musa Pulse Ox Last 24 Hr 97.4 F-98.8 F 75-84 18-20 129-149/79-96 95 GENERAL: calm, not agitated currently. on chaparro and wrist restraints for safety and fall risk status. HEAD: Normal with no signs of trauma. EYES: PERRL, extraocular movements intact, sclera anicteric, conjunctiva clear. No ptosis. ENT: Ears normal, nares patent, oropharynx clear without exudates NECK: Trachea midline, full range of motion, supple. LUNGS: poor respiratory effort, mostly clear/diminished - does not follow commands for deep breathing. HEART: Regular rate and rhythm ABDOMEN: obese abdomen EXTREMITIES: no edema. NEUROLOGICAL: awake, alert, confused at baseline. repetitive. SKIN: reddened and edamatous penile head with mild edema, resolved, seen by urology Laboratory Results - last 24 hr 08/07/19 06:30 Valproic Acid 43.0 L Active Medications Generic Name Dose Route Start Last Admin Trade Name Freq PRN Reason Stop Dose Admin Acetaminophen 1,000 mg 07/26/19 18:15 07/28/19 14:31 Ofirmev Injection - IVPB 1,000 mg Q6H PRN Administration FEVER Atenolol 25 mg 07/25/19 10:00 08/07/19 09:00 Tenormin - PO 25 mg DAILY [facility] Administration Atorvastatin Calcium 10 mg 07/24/19 22:00 08/06/19 21:57 Lipitor - PO 10 mg HS [facility] Administration Bacitracin 1 applic 07/27/19 10:15 08/07/19 09:01 Bacitracin - TP 1 applic BID [facility] Administration Donepezil HCl 5 mg 08/05/19 22:00 08/06/19 21:57 Aricept - PO 5 mg HS [facility] Administration Haloperidol 5 mg 08/06/19 22:00 08/06/19 21:59 Haldol - PO 5 mg HS [facility] Administration Lorazepam 2 mg 08/01/19 18:42 08/06/19 22:47 Ativan Injection - IM 2 mg Q8H PRN Administration AGITATION Valproate Sodium 500 mg 08/05/19 10:00 08/07/19 09:00 Depakene - PO 500 mg BID [facility] Administration ASSESSMENT/PLAN: Problem List - Problems (1) Leukocytosis Assessment/Plan: resolved, completed antibiotics. Code(s): D72.829 - ELEVATED WHITE BLOOD CELL COUNT, UNSPECIFIED (2) Acute metabolic encephalopathy Assessment/Plan: AMS likely secondary to elevated lithium levels vs acute infection. resolved. per daughter, patient's mentation has been declining for apx 5 years and they were told he had bipolar disease and dementia. has episodes of agitation at home, but they are managed by family. lithium levels now normalized followed by neurology and brain mri and spinal tap not recommended at this time completed zosyn for presumed aspiration pna and fevers. blood/urine cultures negative. started on haldol 5mg at hs and aricept 5mg daily Code(s): G93.41 - METABOLIC ENCEPHALOPATHY (3) [place] toxicity Assessment/Plan: levels now normalized, lithium toxicity resolved. Code(s): T56.891A - TOXIC EFFECT OF OTH METALS, ACCIDENTAL (UNINTENTIONAL), INIT Qualifiers: Encounter type: initial encounter Injury intent: accidental or unintentional Qualified Code(s): T56.891A - Toxic effect of other metals, accidental (unintentional), initial encounter (4) Acute renal failure Assessment/Plan: resolved with hydration Code(s): N17.9 - ACUTE KIDNEY FAILURE, UNSPECIFIED Qualifiers: Acute renal failure type: unspecified Qualified Code(s): N17.9 - Acute kidney failure, unspecified (5) Altered mental state Assessment/Plan: mental status at baseline. on haldol for agitation. Code(s): R41.82 - ALTERED MENTAL STATUS, UNSPECIFIED Qualifiers: Altered mental status type: somnolence Qualified Code(s): R40.0 - Somnolence (6) Bipolar disorder Assessment/Plan: hold lithium in the setting of AMS above baseline. psyche following and started on haldol also started on aricept Code(s): F31.9 - BIPOLAR DISORDER, UNSPECIFIED (7) Prophylactic measure Code(s): Z29.9 - ENCOUNTER FOR PROPHYLACTIC MEASURES, UNSPECIFIED Visit type - Emergency Visit Emergency Visit: Yes ED Registration Date: 07/23/19 Care time: The patient presented to the Emergency Department on the above date and was hospitalized for further evaluation of their emergent condition. - New Patient This patient is new to me today: No - Critical Care Critical Care patient: No - Discharge Referral Referred to [facility] Med P.C.: No
--- NOTE | 2019-08-07 10:39 | PN ---
Progress Note (short form) - Note Progress Note: 64 year old male history of Bipolar disorder, Dementia, HTN,HLD . Patient presented with worsening of confusoin. His lithium level has coming down and is on hold. Patient has had no seizure. He is doing better and psych is being reconsulted. Patient had no fever, no seizure were noticed. There is no new focal neurological ( weakness or face asymmetry) was noticed. spoke to nurse, he is going to [facility] today [facility]UROLOGICAL [employer]AMINATION alert and sleepy , still restrained neck is supple, vital stable eomi, pupils reactive no face asymmetry moving all extremity(he is restrained) sensation is normal ct hed no acute findings Assessment/Plan 64 year old male history of Dementia, Bipolar, HTN, HLD. He admitted for worsening of confusion. Most likely metabolic encehalopathy ( [place] toxicity is possibility and progression of dementia), patient confusion has been fluctuating . \ 2. Resting tremors on right arm, likley to be tardive dyskinesia. Suggest to watch for now. plan: - continue supportive care, - continue depakote, seroquel, continue aricept 5 mg qhs THanking you so much Jamar Henry MD
--- NOTE | 2019-08-07 13:59 | PN ---
Progress Note, Physician History of Present Illness: no new issues confusion agitation - Current Medication List Current Medications: Active Medications Acetaminophen (Ofirmev Injection -) 1,000 mg IVPB Q6H PRN PRN Reason: FEVER Last Admin: 07/28/19 14:31 Dose: 1,000 mg Atenolol (Tenormin -) 25 mg PO DAILY [facility] Last Admin: 08/07/19 09:00 Dose: 25 mg Atorvastatin Calcium (Lipitor -) 10 mg PO HS [facility] Last Admin: 08/06/19 21:57 Dose: 10 mg Donepezil HCl (Aricept -) 5 mg PO HS [facility] Last Admin: 08/06/19 21:57 Dose: 5 mg Haloperidol (Haldol -) 5 mg PO HS [facility] Last Admin: 08/06/19 21:59 Dose: 5 mg Lorazepam (Ativan Injection -) 2 mg IM Q8H PRN PRN Reason: AGITATION Last Admin: 08/06/19 22:47 Dose: 2 mg Valproate Sodium (Depakene -) 500 mg PO BID [facility] Last Admin: 08/07/19 09:00 Dose: 500 mg - Objective Vital Signs: Vital Signs Temperature 98.8 F 08/07/19 08:40 Pulse Rate 84 08/07/19 08:40 Respiratory Rate 18 08/07/19 08:40 Blood Pressure 139/90 08/07/19 08:40 O2 Sat by Pulse Oximetry (%) 95 08/07/19 09:00 Constitutional: Yes: No Distress, Other (agitated) Respiratory: Yes: Regular, CTA Bilaterally Musculoskeletal: Yes: Other Extremities: Yes: Other Edema: LLE: 1+, RLE: 1+ Neurological: Yes: Alert, Other Psychiatric: Yes: Other Labs: CBC, BMP 08/06/19 06:00 08/06/19 06:00 INR, PTT INR 1.03 (0.83-1.09) 07/24/19 06:00 Assessment/Plan 64 year old gentleman with history of bipolar disorder, Alzheimer's dementia and CKD who presented from home with upper extremity tremor and increasing confusion and admitted for suspected lithium toxicity. 1. Suspected [place] toxicity 2. CKD/MARINA 3. Bipolar disorder 4. Alzheimer dementia 6. Leukocytosis 7 paraphimosis plan continue current mgmt rest as per the team asp precautions psych mgmt
--- NOTE | 2019-08-07 15:36 | PN ---
Progress Note (short form) - Note Progress Note: Renal follow up for MARINA/CKD Seen and examined at the bedside awake and alert offers no acute complaints Vital Signs Temperature 98.2 F 08/07/19 14:00 Pulse Rate 84 08/07/19 14:00 Respiratory Rate 18 08/07/19 14:00 Blood Pressure 108/79 08/07/19 14:00 O2 Sat by Pulse Oximetry (%) 95 08/07/19 09:00 Intake & Output 08/04/19 08/05/19 08/06/19 08/07/19 23:59 23:59 23:59 23:59 Intake Total 1989 880 540 830 Balance 1989 880 540 830 NAD RRR Dec BS soft NT/ND no LE edema, clubbing or cyanosis CBC, BMP 08/06/19 06:00 08/06/19 06:00 Current Medications Acetaminophen (Ofirmev Injection -) 1,000 mg IVPB Q6H PRN PRN Reason: FEVER Last Admin: 07/28/19 14:31 Dose: 1,000 mg Atenolol (Tenormin -) 25 mg PO DAILY [facility] Last Admin: 08/07/19 09:00 Dose: 25 mg Atorvastatin Calcium (Lipitor -) 10 mg PO HS [facility] Last Admin: 08/06/19 21:57 Dose: 10 mg Donepezil HCl (Aricept -) 5 mg PO HS [facility] Last Admin: 08/06/19 21:57 Dose: 5 mg Haloperidol (Haldol -) 5 mg PO HS [facility] Last Admin: 08/06/19 21:59 Dose: 5 mg Lorazepam (Ativan Injection -) 2 mg IM Q8H PRN PRN Reason: AGITATION Last Admin: 08/06/19 22:47 Dose: 2 mg Valproate Sodium (Depakene -) 500 mg PO BID [facility] Last Admin: 08/07/19 09:00 Dose: 500 mg 64 year old gentleman with history of bipolar disorder, Alzheimer's dementia and CKD who presented from home with upper extremity tremor and increasing confusion and admitted for suspected lithium toxicity. 1. Suspected [place] toxicity (now lithium levels WNL) 2. MARINA, now renal function normalized 3. Bipolar disorder 4. Dementia 5. Leukocytosis 6. Hypernatremia Renal function improved and stable Serum Na improved and stable off [place] no further renal testing or intervention needed at this time will sign off case, please call with any questions or concerns Thank you Donavan Yin DO
[2019-08-07] MEDS ORDERED: ACETAMINOPHEN 1000 MG/100 ML VIAL (NON FORMULARY) IVPB PRN ×2 (21:20→21:21)
[2019-08-07] MEDS ORDERED: PT OWN MED DRAWER 7, Y5N ONE (22:15)
[2019-08-07] MEDS: ATORVASTATIN CA 10 MG TABLET (FP) PO SCH (22:17)
[2019-08-07] MEDS: DONEPEZIL HCL 5 MG TABLET (FP) PO SCH (22:17)
[2019-08-07] MEDS: HALOPERIDOL 5 MG TABLET (FP) PO SCH (22:18)
[2019-08-07] MEDS: LORazepam 2 MG/ML SDV VIAL IM PRN (22:55)
[2019-08-08] MEDS ORDERED: PT OWN MED DRAWER 7, Y5N ONE ×2 (05:57→22:02)
[2019-08-08] MEDS: VALPROATE SODIUM 250 MG/5 ML UNIT DOSE CUP PO SCH ×2 (10:11→22:10)
[2019-08-08] MEDS: ATENOLOL 25 MG TABLET (FP) PO SCH (10:11)
--- NOTE | 2019-08-08 11:01 | PN ---
Physical Exam: SUBJECTIVE: Patient seen and examined. OBJECTIVE: Patient is a 64 year old male with a significant past medical history of dementia, bipolar disorder on lithium, history of CVA with baseline dysarthria but fully ambulatory (with a slow gait per family). Patient presents to the ED on 07/23/2019 with worsening slurred speech, gait disturbance and worsening mental status. Head CT negative. Patient on lithium for bipolar disorder and was told by psychiatrist to stop taking the lithium for elevated levels, however , he continued to take it as ordered and presented with acute toxic metabolic encephalopathy. [place] levels elevated on admission, and poison control notified and their recommendations carried out. [place] peaked to 2.1 and now have normalized. He was also being also being evaluated for a possible infection that may be contributing to the worsening confusion and gait instability and treated with Zosyn emperically. His urine and blood cultures were negative and Zosyn discontinued. His diet changed to chopped diet and he is currently eating/drinking without any difficulty. He accepts his medications and appears comfortable and improved since admission. All medical issues he was admitted for are now resolved. [place] was discontinued and haldol was introduced for mood stability. During hospital stay, was seen by ID, neurology, psyche and renal. Discharge planning to either psyche facility or home, however, per SW, not accepted to any facilities. Discharge planning. Vital Signs Period Temp Pulse Resp BP Sys/[place] Pulse Ox Last 24 Hr 98 F-98.3 F 76-84 18-18 108-145/79-98 95 GENERAL: calm, not agitated currently. on chaparro and wrist restraints for safety and fall risk status. HEAD: Normal with no signs of trauma. EYES: PERRL, extraocular movements intact, sclera anicteric, conjunctiva clear. No ptosis. ENT: Ears normal, nares patent, oropharynx clear without exudates NECK: Trachea midline, full range of motion, supple. LUNGS: poor respiratory effort, mostly clear/diminished - does not follow commands for deep breathing. HEART: Regular rate and rhythm ABDOMEN: obese abdomen EXTREMITIES: no edema. NEUROLOGICAL: awake, alert, confused at baseline. repetitive. SKIN: reddened and edamatous penile head with mild edema, resolved, seen by urology Active Medications Generic Name Dose Route Start Last Admin Trade Name Freq PRN Reason Stop Dose Admin Acetaminophen 1,000 mg 12/10/19 21:21 Ofirmev Injection - IVPB Q6H PRN FEVER Atenolol 25 mg 07/25/19 10:00 08/08/19 10:11 Tenormin - PO 25 mg DAILY [facility] Administration Atorvastatin Calcium 10 mg 07/24/19 22:00 08/07/19 22:17 Lipitor - PO 10 mg HS [facility] Administration Donepezil HCl 5 mg 08/05/19 22:00 08/07/19 22:17 Aricept - PO 5 mg HS [facility] Administration Haloperidol 5 mg 08/06/19 22:00 08/07/19 22:18 Haldol - PO 5 mg HS [facility] Administration Lorazepam 2 mg 08/01/19 18:42 08/07/19 22:55 Ativan Injection - IM 2 mg Q8H PRN Administration AGITATION Valproate Sodium 500 mg 08/05/19 10:00 08/08/19 10:11 Depakene - PO 500 mg BID [facility] Administration ASSESSMENT/PLAN: Problem List - Problems (1) Leukocytosis Assessment/Plan: resolved, completed antibiotics. Code(s): D72.829 - ELEVATED WHITE BLOOD CELL COUNT, UNSPECIFIED (2) Acute metabolic encephalopathy Assessment/Plan: AMS likely secondary to elevated lithium levels vs acute infection. resolved. per daughter, patient's mentation has been declining for apx 5 years and they were told he had bipolar disease and dementia. has episodes of agitation at home, but they are managed by family. lithium levels now normalized followed by neurology and brain mri and spinal tap not recommended at this time completed zosyn for presumed aspiration pna and fevers. blood/urine cultures negative. started on haldol 5mg at hs and aricept 5mg daily Code(s): G93.41 - METABOLIC ENCEPHALOPATHY (3) [place] toxicity Assessment/Plan: levels now normalized, lithium toxicity resolved. Code(s): T56.891A - TOXIC EFFECT OF OTH METALS, ACCIDENTAL (UNINTENTIONAL), INIT Qualifiers: Encounter type: initial encounter Injury intent: accidental or unintentional Qualified Code(s): T56.891A - Toxic effect of other metals, accidental (unintentional), initial encounter (4) Acute renal failure Assessment/Plan: resolved with hydration Code(s): N17.9 - ACUTE KIDNEY FAILURE, UNSPECIFIED Qualifiers: Acute renal failure type: unspecified Qualified Code(s): N17.9 - Acute kidney failure, unspecified (5) Altered mental state Assessment/Plan: mental status at baseline. on haldol for agitation. Code(s): R41.82 - ALTERED MENTAL STATUS, UNSPECIFIED Qualifiers: Altered mental status type: somnolence Qualified Code(s): R40.0 - Somnolence (6) Bipolar disorder Assessment/Plan: hold lithium in the setting of AMS above baseline. psyche following and started on haldol also started on aricept Code(s): F31.9 - BIPOLAR DISORDER, UNSPECIFIED (7) Prophylactic measure Assessment/Plan: fen monitor electrolytes dysphagia chopped dvt: heparin full code Code(s): Z29.9 - ENCOUNTER FOR PROPHYLACTIC MEASURES, UNSPECIFIED Visit type - Emergency Visit Emergency Visit: Yes ED Registration Date: 07/23/19 Care time: The patient presented to the Emergency Department on the above date and was hospitalized for further evaluation of their emergent condition. - New Patient This patient is new to me today: No - Critical Care Critical Care patient: No - Discharge Referral Referred to [facility] Med [facility] No
--- NOTE | 2019-08-08 13:36 | PN ---
Progress Note, Physician History of Present Illness: anxious agitated - Current Medication List Current Medications: Active Medications Acetaminophen (Ofirmev Injection -) 1,000 mg IVPB Q6H PRN PRN Reason: FEVER Atenolol (Tenormin -) 25 mg PO DAILY [facility] Last Admin: 08/08/19 10:11 Dose: 25 mg Atorvastatin Calcium (Lipitor -) 10 mg PO HS [facility] Last Admin: 08/07/19 22:17 Dose: 10 mg Donepezil HCl (Aricept -) 5 mg PO HS [facility] Last Admin: 08/07/19 22:17 Dose: 5 mg Haloperidol (Haldol -) 5 mg PO HS [facility] Last Admin: 08/07/19 22:18 Dose: 5 mg Lorazepam (Ativan Injection -) 2 mg IM Q8H PRN PRN Reason: AGITATION Last Admin: 08/07/19 22:55 Dose: 2 mg Valproate Sodium (Depakene -) 500 mg PO BID [facility] Last Admin: 08/08/19 10:11 Dose: 500 mg - Objective Vital Signs: Vital Signs Temperature 98 F 08/08/19 10:04 Pulse Rate 80 08/08/19 10:04 Respiratory Rate 18 08/08/19 10:04 Blood Pressure 138/86 08/08/19 10:04 O2 Sat by Pulse Oximetry (%) 96 08/08/19 09:00 Constitutional: Yes: Anxious, Other Cardiovascular: Yes: S1, S2 Respiratory: Yes: Regular, CTA Bilaterally Gastrointestinal: Yes: Normal Bowel Sounds, Soft Musculoskeletal: Yes: WNL Extremities: Yes: Other Edema: LLE: 1+, RLE: 1+ Neurological: Yes: Alert, Other Psychiatric: Yes: Other Labs: CBC, BMP 08/06/19 06:00 08/06/19 06:00 INR, PTT INR 1.03 (0.83-1.09) 07/24/19 06:00 Assessment/Plan 64 year old gentleman with history of bipolar disorder, Alzheimer's dementia and CKD who presented from home with upper extremity tremor and increasing confusion and admitted for suspected lithium toxicity. 1. Suspected [place] toxicity 2. CKD/MARINA 3. Bipolar disorder 4. Alzheimer dementia 6. Leukocytosis 7 paraphimosis plan continue current mgmt rest as per the team asp precautions psych mgmt
[2019-08-08] MEDS: HALOPERIDOL 5 MG TABLET (FP) PO SCH (22:13)
[2019-08-08] MEDS: ATORVASTATIN CA 10 MG TABLET (FP) PO SCH (22:13)
[2019-08-08] MEDS: DONEPEZIL HCL 5 MG TABLET (FP) PO SCH (22:13)
[2019-08-08] MEDS: LORazepam 2 MG/ML SDV VIAL IM PRN (23:05)
[2019-08-09 06:36] LABS: BASO % 0.3 % (0-2.0); EOS % 1.1 % (0-4.5); HEMATOCRIT 41.9 % (35.4-49); LYMPH % 31.6 % (8-40); MCH 30.2 pg (25.7-33.7); MCHC 33.5 g/dl (32.0-35.9); MEAN CELL VOLUME 90.1 fl (80-96); MEAN PLT VOLUME 8.5 fl (7.5-11.1); MONO % 8.4 % (3.8-10.2); NEUT % 58.6 % (42.8-82.8); PLATELET COUNT 395 K/MM3 (134-434); RBC 4.65 M/mm3 (4.00-5.60); RDW 13.3 % (11.9-15.9); WHITE BLOOD COUNT 9.2 K/mm3 (4.0-10.0)
[2019-08-09 06:58] LABS: ALBUMIN 3.6 g/dl (3.4-5.0); BILIRUBIN,TOTAL 0.2 mg/dL (0.2-1); BLOOD UREA NITROGEN 11.9 mg/dL (7-18); CALCIUM 9.3 mg/dL (8.5-10.1); POTASSIUM 4.6 mmol/L (3.5-5.1)
--- NOTE | 2019-08-09 09:36 | PN ---
Physical Exam: SUBJECTIVE: Patient seen and examined at the bedside. in no acute distress. remains on restraints. discharge planning on going. OBJECTIVE: Patient is a 64 year old male with a significant past medical history of dementia, bipolar disorder on lithium, history of CVA with baseline dysarthria but fully ambulatory (with a slow gait per family). Patient presents to the ED on 07/23/2019 with worsening slurred speech, gait disturbance and worsening mental status. Head CT negative. Patient on lithium for bipolar disorder and was told by psychiatrist to stop taking the lithium for elevated levels, however , he continued to take it as ordered and presented with acute toxic metabolic encephalopathy. [place] levels elevated on admission, and poison control notified and their recommendations carried out. [place] peaked to 2.1 and now have normalized. He was also being also being evaluated for a possible infection, however his urine and blood cultures were negative and Zosyn discontinued. All medical issues he was admitted for are now resolved. [place] was discontinued and haldol was introduced for mood stability. During hospital stay, was seen by ID, neurology, psyche and renal. Discharge planning to either psyche facility or home, however, per SW, not yet accepted to any facilities. Discharge planning. Vital Signs Period Temp Pulse Resp BP Sys/[place] Pulse Ox Last 24 Hr 98 F-98.4 F 66-81 18-18 128-148/71-97 97 GENERAL: calm, not agitated currently. on chaparro and wrist restraints for safety and fall risk status. HEAD: Normal with no signs of trauma. EYES: PERRL, extraocular movements intact, sclera anicteric, conjunctiva clear. No ptosis. ENT: Ears normal, nares patent, oropharynx clear without exudates NECK: Trachea midline, full range of motion, supple. LUNGS: poor respiratory effort, mostly clear/diminished - does not follow commands for deep breathing. HEART: Regular rate and rhythm ABDOMEN: obese abdomen EXTREMITIES: no edema. NEUROLOGICAL: awake, alert, confused at baseline. repetitive. SKIN: reddened and edamatous penile head with mild edema, resolved, seen by urology Laboratory Results - last 24 hr 08/09/19 08/09/19 05:30 05:30 WBC 9.2 RBC 4.65 Hgb 14.0 Hct 41.9 MCV 90.1 MCH 30.2 MCHC 33.5 RDW 13.3 Plt Count 395 MPV 8.5 Absolute Neuts (auto) 5.4 Neutrophils % 58.6 Lymphocytes % 31.6 D Monocytes % 8.4 Eosinophils % 1.1 Basophils % 0.3 Nucleated RBC % 0 Sodium 141 Potassium 4.6 Chloride 105 Carbon Dioxide 30 Anion Gap 6 L BUN 11.9 Creatinine 1.0 Est GFR (CKD-EPI)AfAm 91.13 Est GFR (CKD-EPI)NonAf 78.63 Random Glucose 107 H Calcium 9.3 Total Bilirubin 0.2 AST 20 ALT 37 Alkaline Phosphatase 69 Total Protein 7.0 Albumin 3.6 Active Medications Generic Name Dose Route Start Last Admin Trade Name Freq PRN Reason Stop Dose Admin Acetaminophen 1,000 mg 08/07/19 21:21 Ofirmev Injection - IVPB Q6H PRN FEVER Atenolol 25 mg 07/25/19 10:00 08/08/19 10:11 Tenormin - PO 25 mg DAILY [facility] Administration Atorvastatin Calcium 10 mg 07/24/19 22:00 08/08/19 22:13 Lipitor - PO 10 mg HS [facility] Administration Donepezil HCl 5 mg 08/05/19 22:00 08/08/19 22:13 Aricept - PO 5 mg HS [facility] Administration Haloperidol 5 mg 08/06/19 22:00 08/08/19 22:13 Haldol - PO 5 mg HS [facility] Administration Lorazepam 2 mg 08/01/19 18:42 08/08/19 23:05 Ativan Injection - IM 2 mg Q8H PRN Administration AGITATION Valproate Sodium 500 mg 08/05/19 10:00 08/08/19 22:10 Depakene - PO 500 mg BID [facility] Administration ASSESSMENT/PLAN: Problem List - Problems (1) Leukocytosis Assessment/Plan: resolved, completed antibiotics. Code(s): D72.829 - ELEVATED WHITE BLOOD CELL COUNT, UNSPECIFIED (2) Acute metabolic encephalopathy Assessment/Plan: AMS likely secondary to elevated lithium levels vs acute infection. resolved. per daughter, patient's mentation has been declining for apx 5 years and they were told he had bipolar disease and dementia. has episodes of agitation at home, but they are managed by family. lithium levels now normalized followed by neurology and brain mri and spinal tap not recommended at this time completed zosyn for presumed aspiration pna and fevers. blood/urine cultures negative. started on haldol 5mg at hs and aricept 5mg daily Code(s): G93.41 - METABOLIC ENCEPHALOPATHY (3) [place] toxicity Assessment/Plan: levels now normalized, lithium toxicity resolved. Code(s): T56.891A - TOXIC EFFECT OF OTH METALS, ACCIDENTAL (UNINTENTIONAL), INIT Qualifiers: Encounter type: initial encounter Injury intent: accidental or unintentional Qualified Code(s): T56.891A - Toxic effect of other metals, accidental (unintentional), initial encounter (4) Acute renal failure Assessment/Plan: resolved with hydration Code(s): N17.9 - ACUTE KIDNEY FAILURE, UNSPECIFIED Qualifiers: Acute renal failure type: unspecified Qualified Code(s): N17.9 - Acute kidney failure, unspecified (5) Altered mental state Assessment/Plan: mental status at baseline. on haldol for agitation. Code(s): R41.82 - ALTERED MENTAL STATUS, UNSPECIFIED Qualifiers: Altered mental status type: somnolence Qualified Code(s): R40.0 - Somnolence (6) Bipolar disorder Assessment/Plan: hold lithium in the setting of AMS above baseline. psyche following and started on haldol also started on aricept Code(s): F31.9 - BIPOLAR DISORDER, UNSPECIFIED (7) Prophylactic measure Assessment/Plan: fen monitor electrolytes dysphagia chopped dvt: heparin bid full code Code(s): Z29.9 - ENCOUNTER FOR PROPHYLACTIC MEASURES, UNSPECIFIED Visit type - Emergency Visit Emergency Visit: Yes ED Registration Date: 07/23/19 Care time: The patient presented to the Emergency Department on the above date and was hospitalized for further evaluation of their emergent condition. - New Patient This patient is new to me today: No - Critical Care Critical Care patient: No - Discharge Referral Referred to [facility] Med [facility].C.: No
--- NOTE | 2019-08-09 09:46 | PN ---
Progress Note (short form) - Note Progress Note: 64 year old male history of Bipolar disorder, Dementia, HTN,HLD . Patient presented with worsening of confusoin. His lithium level has coming down and is on hold. Patient has had no seizure. He is doing better and psych is being reconsulted. Patient had no fever, no seizure were noticed. There is no new focal neurological ( weakness or face asymmetry) was noticed. Patient is still restrained and waiting to go to [place] . He seems to be speaking sentences and less confused today NEUROLOGICAL EAMINATION alert and able to follow command , and asnwering questions appropriately neck is supple, vital stable eomi, pupils reactive no face asymmetry moving all extremity(he is restrained) sensation is normal ct hed no acute findings Assessment/Plan 64 year old male history of Dementia, Bipolar, HTN, HLD. He admitted for worsening of confusion. Most likely metabolic encehalopathy ( [place] toxicity is possibility and progression of dementia), patient confusion has been fluctuating . \ 2. Resting tremors on right arm, likley to be tardive dyskinesia. Suggest to watch for now. plan: - continue supportive care, - continue depakote, seroquel, continue aricept 5 mg qhs THanking you so much Jamar Henry MD
--- NOTE | 2019-08-09 10:34 | PN ---
Progress Note, Physician History of Present Illness: anxious agitated - Current Medication List Current Medications: Active Medications Acetaminophen (Ofirmev Injection -) 1,000 mg IVPB Q6H PRN PRN Reason: FEVER Atenolol (Tenormin -) [address] [facility] Last Admin: 08/08/19 10:11 Dose: 25 mg Atorvastatin Calcium (Lipitor -) [address] [facility] Last Admin: 08/08/19 22:13 Dose: 10 mg Donepezil HCl (Aricept -) [address] [facility] Last Admin: 08/08/19 22:13 Dose: 5 mg Haloperidol (Haldol -) [address] [facility] Last Admin: 08/08/19 22:13 Dose: 5 mg Heparin Sodium (Porcine) (Heparin -) 5,[address] [facility] Lorazepam (Ativan Injection -) 2 mg IM Q8H PRN PRN Reason: AGITATION Last Admin: 08/08/19 23:05 Dose: 2 mg Valproate Sodium (Depakene -) [address] [facility] Last Admin: 08/08/19 22:10 Dose: 500 mg - Objective Vital Signs: Vital Signs Temperature 98.0 F 08/09/19 09:32 Pulse Rate 77 08/09/19 09:32 Respiratory Rate 18 08/09/19 09:32 Blood Pressure 128/84 08/09/19 09:32 O2 Sat by Pulse Oximetry (%) 97 08/08/19 21:00 Constitutional: Yes: Other Cardiovascular: Yes: S1, S2 Respiratory: Yes: Regular, CTA Bilaterally Gastrointestinal: Yes: Normal Bowel Sounds, Soft Musculoskeletal: Yes: WNL Extremities: Yes: WNL Neurological: Yes: Alert, Other Psychiatric: Yes: Other Labs: CBC, BMP 08/09/19 05:30 08/09/19 05:30 INR, PTT INR 1.03 (0.83-1.09) 07/24/19 06:00 Assessment/Plan Problem List - Problems (1) Acute metabolic encephalopathy Code(s): G93.41 - METABOLIC ENCEPHALOPATHY (2) Leukocytosis Code(s): D72.829 - ELEVATED WHITE BLOOD CELL COUNT, UNSPECIFIED (3) [place] toxicity Code(s): T56.891A - TOXIC EFFECT OF OTH METALS, ACCIDENTAL (UNINTENTIONAL), INIT Qualifiers: Encounter type: initial encounter Injury intent: accidental or unintentional Qualified Code(s): T56.891A - Toxic effect of other metals, accidental (unintentional), initial encounter (4) Acute renal failure Code(s): N17.9 - ACUTE KIDNEY FAILURE, UNSPECIFIED Qualifiers: Acute renal failure type: unspecified Qualified Code(s): N17.9 - Acute kidney failure, unspecified (5) Altered mental state Code(s): R41.82 - ALTERED MENTAL STATUS, UNSPECIFIED Qualifiers: Altered mental status type: somnolence Qualified Code(s): R40.0 - Somnolence (6) Bipolar disorder Code(s): F31.9 - BIPOLAR DISORDER, UNSPECIFIED plan medicall issues resolved stable doing well
[2019-08-09] MEDS: VALPROATE SODIUM 250 MG/5 ML UNIT DOSE CUP PO SCH ×2 (10:53→22:01)
[2019-08-09] MEDS: HEPARIN NA (PORCINE) 5,000 UNITS/ML 1ML VIAL SQ SCH ×2 (10:53→22:01)
[2019-08-09] MEDS: ATENOLOL 25 MG TABLET (FP) PO SCH (10:53)
[2019-08-09] MEDS: LORazepam 2 MG/ML SDV VIAL IM PRN (13:46)
[2019-08-09] MEDS: ATORVASTATIN CA 10 MG TABLET (FP) PO SCH (22:01)
[2019-08-09] MEDS: DONEPEZIL HCL 5 MG TABLET (FP) PO SCH (22:01)
[2019-08-09] MEDS: HALOPERIDOL 5 MG TABLET (FP) PO SCH (22:01)
[2019-08-10] MEDS: LORazepam 2 MG/ML SDV VIAL IM PRN ×2 (04:23→11:52)
[2019-08-10] MEDS: ATENOLOL 25 MG TABLET (FP) PO SCH (09:04)
[2019-08-10] MEDS: HEPARIN NA (PORCINE) 5,000 UNITS/ML 1ML VIAL SQ SCH (09:04)
[2019-08-10] MEDS: VALPROATE SODIUM 250 MG/5 ML UNIT DOSE CUP PO SCH (09:04)
--- NOTE | 2019-08-10 09:38 | PN ---
Physical Exam: SUBJECTIVE: Patient seen and examined at the bedside. OBJECTIVE: Patient is a 64 year old male with a significant past medical history of dementia, bipolar disorder on lithium, history of CVA with baseline dysarthria but fully ambulatory (with a slow gait per family). Patient presents to the ED on 07/23/2019 with worsening slurred speech, gait disturbance and worsening mental status. Head CT negative. Patient on lithium for bipolar disorder and was told by psychiatrist to stop taking the lithium for elevated levels, however , he continued to take it as ordered and presented with acute toxic metabolic encephalopathy. Cleary levels elevated on admission, and poison control notified and their recommendations carried out. Cleary peaked to 2.1 and now have normalized. He was also being also being evaluated for a possible infection, however his urine and blood cultures were negative and Zosyn discontinued. All medical issues he was admitted for are now resolved. Cleary was discontinued and haldol was introduced for mood stability. During hospital stay, was seen by ID, neurology, psyche and renal. Discharge planning to either psyche facility or home, however, per SW, not yet accepted to any facilities. Discharge planning. Has been off all restraints since 08/09/2019 at 10.a.m. Vital Signs Period Temp Pulse Resp BP Sys/Musa Pulse Ox Last 24 Hr 97.6 F-98.8 F 77-93 16-18 120-150/80-101 96 GENERAL: off restraints, appears restless on exam. received ativan earlier. HEAD: Normal with no signs of trauma. EYES: PERRL, extraocular movements intact, sclera anicteric, conjunctiva clear. No ptosis. ENT: Ears normal, nares patent, oropharynx clear without exudates NECK: Trachea midline, full range of motion, supple. LUNGS: mostly clear/diminished - does not follow commands for deep breathing. HEART: Regular rate and rhythm ABDOMEN: obese abdomen EXTREMITIES: no edema. NEUROLOGICAL: awake, alert, confused at baseline. repetitive. SKIN: reddened and edamatous penile - resolved, seen by urology Active Medications Generic Name Dose Route Start Last Admin Trade Name Freq PRN Reason Stop Dose Admin Acetaminophen 1,000 mg 08/07/19 21:21 Ofirmev Injection - IVPB Q6H PRN FEVER Atenolol 25 mg 07/25/19 10:00 08/10/19 09:04 Tenormin - PO 25 mg DAILY LATISHA Administration Atorvastatin Calcium 10 mg 07/24/19 22:00 08/09/19 22:01 Lipitor - PO 10 mg HS LATISHA Administration Donepezil HCl 5 mg 08/05/19 22:00 08/09/19 22:01 Aricept - PO 5 mg HS LATISHA Administration Haloperidol 5 mg 08/06/19 22:00 08/09/19 22:01 Haldol - PO 5 mg HS LATISHA Administration Heparin Sodium (Porcine) 5,000 unit 08/09/19 10:00 08/10/19 09:04 Heparin - SQ 5,000 unit BID LATISHA Administration Lorazepam 2 mg 08/01/19 18:42 08/10/19 04:23 Ativan Injection - IM 2 mg Q8H PRN Administration AGITATION Valproate Sodium 500 mg 08/05/19 10:00 08/10/19 09:04 Depakene - PO 500 mg BID LATISHA Administration ASSESSMENT/PLAN: Problem List - Problems (1) Acute metabolic encephalopathy Assessment/Plan: AMS likely secondary to elevated lithium levels vs acute infection. resolved. per daughter, patient's mentation has been declining for apx 5 years and they were told he had bipolar disease and dementia. has episodes of agitation at home, but they are managed by family. lithium levels now normalized followed by neurology and brain mri and spinal tap not recommended at this time completed zosyn for presumed aspiration pna and fevers. blood/urine cultures negative. started on haldol 5mg at hs and aricept 5mg daily ativan im prn for agitation Code(s): G93.41 - METABOLIC ENCEPHALOPATHY (2) Leukocytosis Assessment/Plan: resolved, completed antibiotics. Code(s): D72.829 - ELEVATED WHITE BLOOD CELL COUNT, UNSPECIFIED (3) Cleary toxicity Assessment/Plan: levels now normalized, lithium toxicity resolved. Code(s): T56.891A - TOXIC EFFECT OF OTH METALS, ACCIDENTAL (UNINTENTIONAL), INIT Qualifiers: Encounter type: initial encounter Injury intent: accidental or unintentional Qualified Code(s): T56.891A - Toxic effect of other metals, accidental (unintentional), initial encounter (4) Acute renal failure Assessment/Plan: resolved with hydration Code(s): N17.9 - ACUTE KIDNEY FAILURE, UNSPECIFIED Qualifiers: Acute renal failure type: unspecified Qualified Code(s): N17.9 - Acute kidney failure, unspecified (5) Altered mental state Assessment/Plan: mental status at baseline. on haldol for agitation. Code(s): R41.82 - ALTERED MENTAL STATUS, UNSPECIFIED Qualifiers: Altered mental status type: somnolence Qualified Code(s): R40.0 - Somnolence (6) Bipolar disorder Assessment/Plan: hold lithium in the setting of AMS above baseline. psyche following and started on haldol also started on aricept Code(s): F31.9 - BIPOLAR DISORDER, UNSPECIFIED (7) Prophylactic measure Assessment/Plan: fen monitor electrolytes dysphagia chopped dvt: heparin bid full code Code(s): Z29.9 - ENCOUNTER FOR PROPHYLACTIC MEASURES, UNSPECIFIED Visit type - Emergency Visit Emergency Visit: Yes ED Registration Date: 07/23/19 Care time: The patient presented to the Emergency Department on the above date and was hospitalized for further evaluation of their emergent condition. - New Patient This patient is new to me today: No - Critical Care Critical Care patient: No - Discharge Referral [facility]erred [facility] No
--- NOTE | 2019-08-10 10:08 | PN ---
Progress Note, Physician History of Present Illness: continues to be confused and agitated - Current Medication List Current Medications: Active Medications Acetaminophen (Ofirmev Injection -) 1,000 mg IVPB Q6H PRN PRN Reason: FEVER Atenolol (Tenormin -) 25 mg PO DAILY [facility] Last Admin: 08/10/19 09:04 Dose: 25 mg Atorvastatin Calcium (Lipitor -) 10 mg PO HS [facility] Last Admin: 08/09/19 22:01 Dose: 10 mg Donepezil HCl (Aricept -) 5 mg PO HS [facility] Last Admin: 08/09/19 22:01 Dose: 5 mg Haloperidol (Haldol -) 5 mg PO HS [facility] Last Admin: 08/09/19 22:01 Dose: 5 mg Heparin Sodium (Porcine) (Heparin -) 5,000 unit SQ BID [facility] Last Admin: 08/10/19 09:04 Dose: 5,000 unit Lorazepam (Ativan Injection -) 2 mg IM Q8H PRN PRN Reason: AGITATION Last Admin: 08/10/19 04:23 Dose: 2 mg Valproate Sodium (Depakene -) 500 mg PO BID [facility] Last Admin: 08/10/19 09:04 Dose: 500 mg - Objective Vital Signs: Vital Signs Temperature 98.8 F 08/10/19 08:20 Pulse Rate 91 H 08/10/19 08:20 Respiratory Rate 18 08/10/19 08:20 Blood Pressure 128/80 08/10/19 08:20 O2 Sat by Pulse Oximetry (%) 96 08/09/19 21:00 Constitutional: Yes: Other Cardiovascular: Yes: S1, S2 Respiratory: Yes: Regular, CTA Bilaterally Gastrointestinal: Yes: Normal Bowel Sounds, Soft Musculoskeletal: Yes: Other Extremities: Yes: Other Neurological: Yes: Alert, Other Psychiatric: Yes: Other Labs: CBC, BMP 08/09/19 05:30 08/09/19 05:30 INR, PTT INR 1.03 (0.83-1.09) 07/24/19 06:00 Assessment/Plan Problem List - Problems (1) Acute metabolic encephalopathy Code(s): G93.41 - METABOLIC ENCEPHALOPATHY (2) Leukocytosis Code(s): D72.829 - ELEVATED WHITE BLOOD CELL COUNT, UNSPECIFIED (3) Eleele toxicity Code(s): T56.891A - TOXIC EFFECT OF OTH METALS, ACCIDENTAL (UNINTENTIONAL), INIT Qualifiers: Encounter type: initial encounter Injury intent: accidental or unintentional Qualified Code(s): T56.891A - Toxic effect of other metals, accidental (unintentional), initial encounter (4) Acute renal failure Code(s): N17.9 - ACUTE KIDNEY FAILURE, UNSPECIFIED Qualifiers: Acute renal failure type: unspecified Qualified Code(s): N17.9 - Acute kidney failure, unspecified (5) Altered mental state Code(s): R41.82 - ALTERED MENTAL STATUS, UNSPECIFIED Qualifiers: Altered mental status type: somnolence Qualified Code(s): R40.0 - Somnolence (6) Bipolar disorder Code(s): F31.9 - BIPOLAR DISORDER, UNSPECIFIED plan medical issues resolved stable doing well
[2019-08-10] MEDS ORDERED: LORazepam 0.5 MG TABLET PO PRN (11:50)
--- NOTE | 2019-08-10 12:24 | DS ---
Physical Exam: SUBJECTIVE: Patient seen and examined OBJECTIVE: Patient is a 64 year old male with a significant past medical history of dementia, bipolar disorder on lithium, history of CVA with baseline dysarthria but fully ambulatory (with a slow gait per family). Patient presents to the ED on 07/23/2019 with worsening slurred speech, gait disturbance and worsening mental status. Head CT negative. Patient on lithium for bipolar disorder and was told by psychiatrist to stop taking the lithium for elevated levels, however , he continued to take it as ordered and presented with acute toxic metabolic encephalopathy. Noonday levels elevated on admission, and poison control notified and their recommendations carried out. Noonday peaked to 2.1 and now have normalized. He was also being also being evaluated for a possible infection, however his urine and blood cultures were negative and Zosyn discontinued. All medical issues he was admitted for are now resolved. Noonday was discontinued and haldol was introduced for mood stability. During hospital stay, was seen by ID, neurology, psyche and renal. Discharge to [facility] today. Vital Signs Period Temp Pulse Resp BP Sys/Musa Pulse Ox Last 24 Hr 97.6 F-98.8 F 77-93 16-18 120-150/80-101 96-98 PHYSICAL EXAM GENERAL: off restraints, appears restless on exam. received ativan earlier. HEAD: Normal with no signs of trauma. EYES: PERRL, extraocular movements intact, sclera anicteric, conjunctiva clear. No ptosis. ENT: Ears normal, nares patent, oropharynx clear without exudates NECK: Trachea midline, full range of motion, supple. LUNGS: mostly clear/diminished - does not follow commands for deep breathing. HEART: Regular rate and rhythm ABDOMEN: obese abdomen EXTREMITIES: no edema. NEUROLOGICAL: awake, alert, confused at baseline. repetitive. SKIN: reddened and edamatous penile - resolved, seen by urology LABS HOSPITAL COURSE: Date of Admission:07/23/19 Date of Discharge: 08/10/19 Minutes to complete discharge: 45 Discharge Summary Problems reviewed: Yes Reason For Visit: LITHIUM TOXICITY CVA Current Active Problems Acute metabolic encephalopathy (Acute) CVA (cerebral vascular accident) (Acute) Hypernatremia (Acute) Incontinence of urine (Acute) Leukocytosis (Acute) Noonday toxicity (Acute) Prophylactic measure (Acute) Condition: Improved - Instructions Diet, Activity, Other Instructions: Discharge to [facility] Referrals: Yair Blount MD [Primary Care Provider] - Disposition: [facility]FW[facility] FACILITY - Home Medications Comprehensive Discharge Medication List: Ambulatory Orders Simvastatin 20 mg PO HS 11/12/16 Ergocalciferol [Vitamin D2] 50,000 unit PO Q7D@1000 07/24/19 Atenolol [Tenormin -] 25 mg PO DAILY tablet 08/06/19 Donepezil HCl [Aricept -] 5 mg PO HS #30 tablet 08/06/19 Valproate Sodium [Depakene -] 500 mg PO BID #120 cup 08/06/19 Haloperidol [Haldol -] 5 mg PO HS tablet 08/10/19 Heparin - 5,000 unit SQ BID vial 08/10/19 Problem List - Problems (1) Acute metabolic encephalopathy Assessment/Plan: AMS likely secondary to elevated lithium levels vs acute infection. resolved. per daughter, patient's mentation has been declining for apx 5 years and they were told he had bipolar disease and dementia. has episodes of agitation at home, but they are managed by family. lithium levels now normalized followed by neurology and brain mri and spinal tap not recommended at this time completed zosyn for presumed aspiration pna and fevers. blood/urine cultures negative. started on haldol 5mg at hs and aricept 5mg daily ativan prn for agitation Code(s): G93.41 - METABOLIC ENCEPHALOPATHY (2) Leukocytosis Assessment/Plan: resolved, completed antibiotics. Code(s): D72.829 - ELEVATED WHITE BLOOD CELL COUNT, UNSPECIFIED (3) Noonday toxicity Assessment/Plan: levels now normalized, lithium toxicity resolved. Code(s): T56.891A - TOXIC EFFECT OF OTH METALS, ACCIDENTAL (UNINTENTIONAL), INIT Qualifiers: Encounter type: initial encounter Injury intent: accidental or unintentional Qualified Code(s): T56.891A - Toxic effect of other metals, accidental (unintentional), initial encounter (4) Acute renal failure Assessment/Plan: resolved with hydration Code(s): N17.9 - ACUTE KIDNEY FAILURE, UNSPECIFIED Qualifiers: Acute renal failure type: unspecified Qualified Code(s): N17.9 - Acute kidney failure, unspecified (5) Altered mental state Assessment/Plan: mental status at baseline. on haldol for agitation. Code(s): R41.82 - ALTERED MENTAL STATUS, UNSPECIFIED Qualifiers: Altered mental status type: somnolence Qualified Code(s): R40.0 - Somnolence (6) Bipolar disorder Assessment/Plan: hold lithium in the setting of AMS above baseline. psyche following and started on haldol also started on aricept Code(s): F31.9 - BIPOLAR DISORDER, UNSPECIFIED (7) Prophylactic measure Assessment/Plan: discharge to [facility] Code(s): Z29.9 - ENCOUNTER FOR PROPHYLACTIC MEASURES, UNSPECIFIED This patient is new to me today: No Emergency Visit: Yes ED Registration Date: 07/23/19 Care time: The patient presented to the Emergency Department on the above date and was hospitalized for further evaluation of their emergent condition. Critical Care patient: No - Discharge Referral Referred to [facility] No
[2019-08-10 14:27] VITALS: BP 140/81; PULSE 84; TEMP 97.4
== END 2019-08-10 17:02 | DRG 91 ==
LOC: JER 12:18 → JERBED 16:21 → J4S 07-24 03:39
PROVIDERS: ATTEND Nurse Practitioner Family
DX: G92 Toxic encephalopathy (principal); J69.0 Pneumonitis due to inhalation of food and vomit; N17.9 Acute kidney failure, unspecified; E87.0 Hyperosmolality and hypernatremia; R47.81 Slurred speech; R27.8 Other lack of coordination; F31.9 Bipolar disorder, unspecified; T43.595A Adverse effect of other antipsychotics and neuroleptics, initial encounter; D72.829 Elevated white blood cell count, unspecified; R41.82 Altered mental status, unspecified; E78.5 Hyperlipidemia, unspecified; F02.80 Dementia in other diseases classified elsewhere, unspecified severity, without behavioral disturbance, psychotic disturbance, mood disturbance, and anxiety; G30.9 Alzheimer's disease, unspecified; R31.9 Hematuria, unspecified; E66.9 Obesity, unspecified; Z68.35 Body mass index [BMI] 35.0-35.9, adult; N18.3 Chronic kidney disease, stage 3 (moderate); I12.9 Hypertensive chronic kidney disease with stage 1 through stage 4 chronic kidney disease, or unspecified chronic kidney disease
CPT/HCPCS: 36415; 70450-TC; 70496-TC; 71045-TC-FY; 76856-TC; 80048; 80053; 80164; 80178; 81003; 82465; 82550; 82962; 83605; 83718; 83721; 83735; 84100; 84439; 84443; 84478; 84484; 85025; 85610; 85730; 86850; 86900; 86901; 87040; 87086; 87324; 87449; 93005; 93010; 95816; 97116-GP; 97162-GP; 99285-25; J0131; J1644; J7030; Q9967

== ENCOUNTER 2019-08-10 18:22 | Inpatient (IN) | payer OTHER ==
--- NOTE | 2019-08-10 18:46 | PDOC ---
History of Present Illness - General Chief Complaint: Psychiatric Stated Complaint: RESIDENTIAL REFUSED PATIENT Time Seen by Provider: 08/10/19 18:43 History Source: Family Exam Limitations: Clinical Condition - History of Present Illness Initial Comments: 08/10/19 18:44 HPI Patient is a 64 year old male with a significant past medical history of dementia, bipolar disorder, history of CVA with baseline dysarthria but fully ambulatory (with a slow gait per family). Presenting back from [facility] after discharge today due to his agitation/combativeness. facility did not receive information and instructions or able to provide 1:1 on him for safety reasons, unable to care for the patient there, thus sent back to the ED for care coordination. information provided by family, who are unable to care for him due to his confusion, agitation and combativeness and progressive dementia with bipolar d/ o. He presented initially to the ED 07/23/19 with gait disturbance/AMS, head CT fine. On lithium for BP, peaked levels but improved. Infection was ruled out. Haldol started for the mood instability, off lithium. he was seen by psych, recommended to start up on haldol 5mg qHS per records, also on valproic acid ROS limited 2/2 dementia +agitation Physical exam General: awake, agitated HEENT: NCAT, PERRL, EOMI, clear conjunctiva, anicteric, moist mucus membranes, clear oropharynx, no oral lesions.. Neck: neck supple, FROM Resp: CTAB, normal and even respirations, no respiratory distress CVS: RRR, no murmurs, 2+ peripheral pulses throughout, no peripheral edema Abdomen: soft, NTND, no rebound or guarding. obese abdomen. Back: nontender, normal inspection and ROM MSK: no edema, QUIÑONEZ x4, ROM intact. No clubbing or cyanosis. normal bulk and tone. Extremities: no calf tenderness Neuro: alert, disoriented to person, place and time. +slurred speech (chronic) Psych: agitated Skin: warm and well perfused, cap refill <2 sec, normal color, no rash or skin discoloration. 08/10/19 19:22 08/10/19 19:40 Past History - Past Medical History Allergies/Adverse Reactions: Allergies Allergy/AdvReac Type Severity Reaction Status Date / Time No Known Allergies Allergy Verified 07/23/19 12:27 Home Medications: Ambulatory Orders Simvastatin 20 mg PO HS 11/12/16 Ergocalciferol [Vitamin D2] 50,000 unit PO Q7D@1000 07/24/19 Atenolol [Tenormin -] 25 mg PO DAILY tablet 08/06/19 Donepezil HCl [Aricept -] 5 mg PO HS #30 tablet 08/06/19 Valproate Sodium [Depakene -] 500 mg PO BID #120 cup 08/06/19 Haloperidol [Haldol -] 5 mg PO HS tablet 08/10/19 Heparin - 5,000 unit SQ BID vial 08/10/19 Anemia: No Asthma: No Cancer: No Cardiac Disorders: No CVA: No COPD: No Dementia: Yes Diabetes: No GI Disorders: No Disorders: Yes (kidney stone) HTN: Yes Hypercholesterolemia: Yes Liver Disease: No Psychiatric Problems: Yes (bipolar) Seizures: No Thyroid Disease: No - Surgical History Abdominal Surgery: No Appendectomy: No Cardiac Surgery: No Cholecystectomy: No Lung Surgery: No Neurologic Surgery: No Orthopedic Surgery: No - Immunization History Immunization Up to Date: Yes - Psycho Social/Smoking Cessation Hx Smoking History: Never smoked Have you smoked in the past 12 months: No If you are a former smoker, when did you quit?: 10 YRS AGO Hx Alcohol Use: No Drug/Substance Use Hx: No Substance Use Type: None Hx Substance Use Treatment: No Medical Decision Making - Medical Decision Making 08/10/19 18:47 Vital Signs Temp Pulse Resp BP Pulse Ox 98.1 F 73 20 153/92 0 L 08/10/19 18:39 08/10/19 18:39 08/10/19 18:39 08/10/19 18:39 08/10/19 18:39 vitals today wnl. refusing pulse ox. Laboratory reviewed from discharge on yesterday 08/09 which is normal limits, per nursing staff she ready has a bed upstairs so will discuss with nurse practitioner and readmit back upstairs due to the long term refusing to take back patient. Will admit for more social work reasons and placement and agitation control paging back to [facility] for admission, for SW/care coordination, unsafe for discharge at this time, due to needs to discuss further and arrange his care with [facility]. family at bedside made aware of impression and plan, agreeable, haldol given here for his agitation. no acute changes with his mental status, at baseline. no focal deficits, baseline slurred speech. admitting to overnight attg Dr Becker, attempts to call GILDARDO Gonzalez per prior records of his discharge. s/o GILDARDO Alcocer with care. 08/10/19 19:24 08/10/19 19:25 08/10/19 19:45 Discharge - Discharge Information Problems reviewed: Yes Clinical Impression/Diagnosis: Agitation Dementia Qualifiers: Dementia type: unspecified type Bipolar disorder Qualifiers: Active/Remission status: in partial remission Most recent bipolar episode type : most recent episode unspecified type Qualified Code(s): F31.70 - Bipolar disorder, currently in remission, most recent episode unspecified Condition: Fair - Admission Yes - Follow up/Referral - Patient Discharge Instructions - Post Discharge Activity
[2019-08-10] MEDS ORDERED: HALOPERIDOL LACTATE 5 MG/ML IM ONE (19:12)
--- NOTE | 2019-08-10 20:45 | HP ---
Admitting History and Physical - Primary Care Physician PCP: Dr. Becker - Admission Chief Complaint: correction refused patient History of Present Illness: 64 year old male PMHx of HTN/HLD, dementia, bipolar disorder, history of CVA with baseline dysarthria but fully ambulatory (with a slow gait per family), was discharge to [facility] today due to his agitation/combativeness, however facility refused to accept patient as facility did not receive information and instructions or able to provide 1:1 on him for safety reasons, unable to care for the patient there, thus sent back to the ED for care coordination. According to family at bedside, unable to care for him due to his confusion, agitation and combativeness and progressive dementia with bipolar d/o. Work up in ED 07/23/19 with gait disturbance/AMS, head CT: no acute changes. Infection was ruled out. Haldol started for the mood instability, off lithium due to elevated level. 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 Cardiovascular: Yes: HTN, Hyperlipdemia Psych: Yes: Bipolar - Past Surgical History Past Surgical History: Yes: None - Smoking History Smoking history: Never smoked Have you smoked in the past 12 months: No If you are a former smoker, when did you quit?: 10 YRS AGO - Alcohol/Substance Use Hx Alcohol Use: No History of Substance Use: reports: None - Social History Usual Living Arrangement: Yes: Senior Living ADL: Support Services History of Recent Travel: No Home Medications - Allergies Allergies/Adverse Reactions: Allergies Allergy/AdvReac Type Severity Reaction Status Date / Time No Known Allergies Allergy Verified 07/23/19 12:27 - Home Medications Home Medications: Ambulatory Orders Simvastatin 20 mg PO HS 11/12/16 Ergocalciferol [Vitamin D2] 50,000 unit PO Q7D@1000 07/24/19 Atenolol [Tenormin -] 25 mg PO DAILY tablet 08/06/19 Donepezil HCl [Aricept -] 5 mg PO HS #30 tablet 08/06/19 Valproate Sodium [Depakene -] 500 mg PO BID #120 cup 08/06/19 Haloperidol [Haldol -] 5 mg PO HS tablet 08/10/19 Heparin - 5,000 unit SQ BID vial 08/10/19 Family Medical History Family History: Unable to Obtain Review of Systems Unable to obtain ROS, reason: dementia Physical Examination Vital Signs: Vital Signs Temperature 98.1 F 08/10/19 18:39 Pulse Rate 73 08/10/19 18:39 Respiratory Rate 20 08/10/19 18:39 Blood Pressure 153/92 08/10/19 18:39 O2 Sat by Pulse Oximetry (%) 0 L 08/10/19 18:39 Constitutional: Yes: Anxious, Obese Eyes: Yes: Conjunctiva Clear, EOM Intact HENT: Yes: Atraumatic, Normocephalic Neck: Yes: Supple, Trachea Midline Cardiovascular: Yes: Regular Rate and Rhythm Respiratory: Yes: Regular, CTA Bilaterally Gastrointestinal: Yes: Normal Bowel Sounds, Soft Musculoskeletal: Yes: WNL Extremities: Yes: WNL Neurological: Yes: Alert, Confusion Psychiatric: Yes: Alert, Agitated Problem List - Problems (1) Agitation Code(s): R45.1 - RESTLESSNESS AND AGITATION (2) Bipolar disorder Code(s): F31.9 - BIPOLAR DISORDER, UNSPECIFIED Qualifiers: Active/Remission status: in partial remission Most recent bipolar episode type: most recent episode unspecified type Qualified Code(s): F31.70 - Bipolar disorder, currently in remission, most recent episode unspecified (3) Dementia Code(s): F03.90 - UNSPECIFIED DEMENTIA WITHOUT BEHAVIORAL DISTURBANCE Qualifiers: Dementia type: unspecified type (4) CVA (cerebral vascular accident) Code(s): I63.9 - CEREBRAL INFARCTION, UNSPECIFIED Qualifiers: CVA mechanism: unspecified Qualified Code(s): I63.9 - Cerebral infarction, unspecified (5) HLD (hyperlipidemia) Code(s): E78.5 - HYPERLIPIDEMIA, UNSPECIFIED (6) HTN (hypertension) Code(s): I10 - ESSENTIAL (PRIMARY) HYPERTENSION Assessment/Plan 64 y/o M with a significant past medical history of Alzheimer's dementia, Bipolar disorder, HTN, HLD was discharged to [facility] however refused to accept patient, was recently admired for lithium toxicity # Agitation #Bipolor Disorder - recent admission for lithium toxicity, seen by psych d/c lithium start on haldol - in ED given haldol IM x1 - follow up Psych consult - follow up Valproic acid level - continue with haldol 5 mg HS - continue with depakene 500mg BID #Alzheimer's disease # Dementia - Continue with Aricept 5 mg HS # CKD stage 3 III - follow BMP in AM - consider IV fluids if Cr trending upward #HTN -Continue atenolol #HLD -Continue Zocor #FEN Monitor Electrolytes Regular diet HEPARIN SQ BID #Dispo -Med Surg Visit type - Emergency Visit Emergency Visit: Yes ED Registration Date: 08/10/19 Care time: The patient presented to the Emergency Department on the above date and was hospitalized for further evaluation of their emergent condition. - New Patient This patient is new to me today: Yes Date on this admission: 08/11/19 - Critical Care Critical Care patient: No
[2019-08-10] MEDS ORDERED: ACETAMINOPHEN 325 MG TABLET (FP) PO PRN (21:11)
[2019-08-10] MEDS: VALPROATE SODIUM 250 MG/5 ML UNIT DOSE CUP PO SCH (21:51)
[2019-08-10] MEDS: HEPARIN NA (PORCINE) 5,000 UNITS/ML 1ML VIAL SQ SCH (21:51)
[2019-08-10] MEDS: DONEPEZIL HCL 5 MG TABLET (FP) PO SCH (21:51)
[2019-08-10] MEDS: ATORVASTATIN CA 10 MG TABLET (FP) PO SCH (21:51)
[2019-08-10] MEDS: HALOPERIDOL 5 MG TABLET (FP) PO SCH (22:05)
[2019-08-10] MEDS ORDERED: PT OWN MED DRAWER 7, Y5N ONE (22:41)
[2019-08-11 07:28] LABS: HEMATOCRIT 40.7 % (35.4-49); HEMOGLOBIN 13.5 GM/dL (11.7-16.9); MCH 29.6 pg (25.7-33.7); MEAN CELL VOLUME 89.6 fl (80-96); MEAN PLT VOLUME 9.2 fl (7.5-11.1); PLATELET COUNT 372 K/MM3 (134-434); RBC 4.55 M/mm3 (4.00-5.60); RDW 13.1 % (11.9-15.9); WHITE BLOOD COUNT 7.6 K/mm3 (4.0-10.0)
[2019-08-11 07:35] LABS: BLOOD UREA NITROGEN 13.1 mg/dL (7-18); CALCIUM 9.2 mg/dL (8.5-10.1); CREATININE 1.1 mg/dL (0.55-1.3); POTASSIUM 4.1 mmol/L (3.5-5.1)
--- NOTE | 2019-08-11 09:13 | PN ---
Physical Exam: SUBJECTIVE: Patient seen and examined at the bedside. on chaparro vest for agitation and fall risk status. mental status at baseline, repetitive asking in Lithuanian to go home. OBJECTIVE: Patient is a 64 year old male with a past medical history of hypertension, hld, dementia, bipolar disorder, history of CVA with baseline dysarthria. Patient presented to the ED on 07/23/2019 with lithium toxicity. During hospital stay poison control notified and their recommendations carried out. [place] peaked to 2.1 and now have normalized. He was also evaluated for a possible infection , however his urine and blood cultures were negative and Zosyn discontinued. He was discharged on 08/10/[address] care at [facility] after family decided they could no longer care for him at home. However, he returned a few hours later as CT ([facility]) was unable to care for him due to his confusion, agitation and combativeness and returned him back to [facility] ED. Vital Signs Period Temp Pulse Resp BP Sys/Musa Pulse Ox Last 24 Hr 97.5 F-98.2 F 73-85 18-20 124-153/70-92 0-94 GENERAL: awake, alert, confused, yelling out - chaparro vest for safety HEAD: Normal with no signs of trauma. EYES: PERRL, extraocular movements intact, sclera anicteric, conjunctiva clear. No ptosis. ENT: Ears normal, nares patent, oropharynx clear without exudates NECK: Trachea midline, full range of motion, supple. LUNGS: mostly clear/diminished - does not follow commands for deep breathing. HEART: Regular rate and rhythm ABDOMEN: obese abdomen EXTREMITIES: no edema. NEUROLOGICAL: awake, alert, confused at baseline. repetitive. SKIN: no breakdown Laboratory Results - last 24 hr 08/11/19 08/11/19 05:45 05:45 WBC 7.6 RBC 4.55 Hgb 13.5 Hct 40.7 MCV 89.6 MCH 29.6 MCHC 33.0 RDW 13.1 Plt Count 372 MPV 9.2 Sodium 140 Potassium 4.1 Chloride 104 Carbon Dioxide 27 Anion Gap 9 BUN 13.1 Creatinine 1.1 Est GFR (CKD-EPI)AfAm 81.22 Est GFR (CKD-EPI)NonAf 70.07 Random Glucose 110 H Calcium 9.2 Active Medications Generic Name Dose Route Start Last Admin Trade Name Freq PRN Reason Stop Dose Admin Acetaminophen 650 mg 08/10/19 21:11 Tylenol - PO Q4H PRN PAIN LEVEL 1-5 Atenolol 25 mg 08/11/19 10:00 Tenormin - PO DAILY [facility]ISHA Atorvastatin Calcium 20 mg 08/10/19 22:00 08/10/19 21:51 Lipitor - PO 20 mg HS LATISHA Administration Donepezil HCl 5 mg 08/10/19 22:00 08/10/19 21:51 Aricept - PO 5 mg HS LATISHA Administration Ergocalciferol 50,000 unit 08/17/19 10:00 Drisdol - PO Q7D@1000 [facility]HA Haloperidol 5 mg 08/10/19 22:00 08/10/19 22:05 Haldol - PO Not Given HS LATISHA Heparin Sodium (Porcine) 5,000 unit 08/10/19 22:00 08/10/19 21:51 Heparin - SQ 5,000 unit BID [facility]IS[facility] Administration Lorazepam 2 mg 08/11/19 07:57 Ativan Injection - IM Q6H PRN AGITATION Valproate Sodium 500 mg 08/10/19 22:00 08/10/19 21:51 Depakene - PO 500 mg BID LATISHA Administration ASSESSMENT/PLAN: Problem List - Problems (1) Agitation Assessment/Plan: on haldol @ hs for agitation and ativan im 2mg pscyh reconsulted as patient may need additional medications for control of agitation and combative behaviour on chaparro vest to maintain safety Code(s): R45.1 - RESTLESSNESS AND AGITATION (2) Bipolar disorder Assessment/Plan: s/p lithium, but stopped for toxicity on haldol 5mg Code(s): F31.9 - BIPOLAR DISORDER, UNSPECIFIED Qualifiers: Active/Remission status: in partial remission Most recent bipolar episode type: most recent episode unspecified type Qualified Code(s): F31.70 - Bipolar disorder, currently in remission, most recent episode unspecified (3) Dementia Assessment/Plan: supportive care, re orientation on aricept 5 neurology consulted Code(s): F03.90 - UNSPECIFIED DEMENTIA WITHOUT BEHAVIORAL DISTURBANCE Qualifiers: Dementia type: unspecified type (4) Acute metabolic encephalopathy Assessment/Plan: treated with zosyn for possible infection on last admission, has completed iv antibiotics no signs of infection, wbc stable, afebrile Code(s): G93.41 - METABOLIC ENCEPHALOPATHY (5) Altered mental state Code(s): R41.82 - ALTERED MENTAL STATUS, UNSPECIFIED Qualifiers: Altered mental status type: somnolence Qualified Code(s): R40.0 - Somnolence (6) Bipolar disorder Assessment/Plan: psych followup for agitated behavior/combative behaviour Code(s): F31.9 - BIPOLAR DISORDER, UNSPECIFIED (7) [place] toxicity Assessment/Plan: on last admission was noted to have lithium toxicity, levels trended down and normalized lithium toxicity resolved Code(s): T56.891A - TOXIC EFFECT OF OTH METALS, ACCIDENTAL (UNINTENTIONAL), INIT Qualifiers: Encounter type: initial encounter Injury intent: accidental or unintentional Qualified Code(s): T56.891A - Toxic effect of other metals, accidental (unintentional), initial encounter Visit type - Emergency Visit Emergency Visit: Yes ED Registration Date: 08/10/19 Care time: The patient presented to the Emergency Department on the above date and was hospitalized for further evaluation of their emergent condition. - New Patient This patient is new to me today: No - Critical Care Critical Care patient: No - Discharge Referral Referred to [facility] Med P.C.: No
[2019-08-11] MEDS: HEPARIN NA (PORCINE) 5,000 UNITS/ML 1ML VIAL SQ SCH ×2 (09:24→21:23)
[2019-08-11] MEDS: ATENOLOL 25 MG TABLET (FP) PO SCH (09:24)
[2019-08-11] MEDS: VALPROATE SODIUM 250 MG/5 ML UNIT DOSE CUP PO SCH ×2 (09:24→21:23)
--- NOTE | 2019-08-11 10:42 | CONSULT ---
Consult - text type - Consultation Consultation Note: [facility] *LIVE* Neurology - Primary Care Physician PCP: Dr. Becker - Admission Chief Complaint: longterm refused patient History of Present Illness: 64 year old male PMHx of HTN/HLD, dementia, bipolar disorder, history of CVA with baseline dysarthria but fully ambulatory (with a slow gait per family), was discharged to [facility] on day of admission due to his agitation/combativeness , however facility refused to accept patient as facility did not receive information and instructions or able to provide 1:1 on him for safety reasons, unable to care for the patient there, thus sent back to the ED for care coordination. According to family at bedside, unable to care for him due to his confusion, agitation and combativeness and progressive dementia with bipolar d/o. Work up in ED 07/23/19 with gait disturbance/AMS, head CT: no acute changes. Infection was ruled out. Haldol started for the mood instability, off lithium due to elevated level. Patient was seen by psych, recommended to start up on Haldol 5mg Q HS per records, also on valproic acid. Seen at bedside with family, discussed with nurse. Would benefit from psych follow up and optimization, may require further adjustment in psych medication but will defer to psych on this. Neurologically stable and will not repeat imaging as CT head recently completed without acute changes. Mental status disturbance seems 2/2 to psych issues. 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, Dementia Cardiovascular: Yes: HTN, Hyperlipdemia Psych: Yes: Bipolar - Past Surgical History Past Surgical History: Yes: None - Smoking History Smoking history: Never smoked Have you smoked in the past 12 months: No If you are a former smoker, when did you quit?: 10 YRS AGO - Alcohol/Substance Use Hx Alcohol Use: No History of Substance Use: reports: None - Social History Usual Living Arrangement: Yes: Care Home ADL: Support Services History of Recent Travel: No Home Medications - Allergies Allergies/Adverse Reactions: Allergies Allergy/AdvReac Type Severity Reaction Status Date / Time No Known Allergies Allergy Verified 07/23/19 12:27 Ambulatory Orders Simvastatin 20 mg PO HS 11/12/16 Ergocalciferol [Vitamin D2] 50,000 unit PO Q7D@1000 07/24/19 Atenolol [Tenormin -] 25 mg PO DAILY tablet 08/06/19 Donepezil HCl [Aricept -] 5 mg PO HS #30 tablet 08/06/19 Valproate Sodium [Depakene -] 500 mg PO BID #120 cup 08/06/19 Haloperidol [Haldol -] 5 mg PO HS tablet 08/10/19 Heparin - 5,000 unit SQ BID vial 08/10/19 Active Medications Acetaminophen (Tylenol -) 650 mg PO Q4H PRN PRN Reason: PAIN LEVEL 1-5 Atenolol (Tenormin -) 25 mg PO DAILY [facility] Last Admin: 08/11/19 09:24 Dose: 25 mg Atorvastatin Calcium (Lipitor -) 20 mg PO HS [facility] Last Admin: 08/10/19 21:51 Dose: 20 mg Donepezil HCl (Aricept -) 5 mg PO HS [facility] Last Admin: 08/10/19 21:51 Dose: 5 mg Haloperidol (Haldol -) 5 mg PO HS [facility] Last Admin: 08/10/19 22:05 Dose: Not Given Heparin Sodium (Porcine) (Heparin -) 5,000 unit SQ BID [facility] Last Admin: 08/11/19 09:24 Dose: 5,000 unit Lorazepam (Ativan Injection -) 2 mg IM Q6H PRN PRN Reason: AGITATION Valproate Sodium (Depakene -) 500 mg PO BID [facility] Last Admin: 08/11/19 09:24 Dose: 500 mg Family Medical History Family History: Unable to Obtain Review of Systems Unable to obtain ROS, reason: dementia Physical Examination Vital Signs: Vital Signs Period Temp Pulse Resp BP Sys/Musa Pulse Ox Last 24 Hr 97.5 F-98.4 F 73-100 18-20 124-153/70-95 0-99 Constitutional: Yes: Anxious, Obese Eyes: Yes: Conjunctiva Clear, EOM Intact HENT: Yes: Atraumatic, Normocephalic Neck: Yes: Supple, Trachea Midline Cardiovascular: Yes: Regular Rate and Rhythm Respiratory: Yes: Regular, CTA Bilaterally Gastrointestinal: Yes: Normal Bowel Sounds, Soft Musculoskeletal: Yes: WNL Extremities: Yes: WNL Neurological: Yes: Alert, Confusion, moves all extremities, sensory intact, finger to nose normal, gait deferred Psychiatric: Yes: Alert, Agitated CBCD WBC 7.6 K/mm3 (4.0-10.0) 08/11/19 05:45 RBC 4.55 M/mm3 (4.00-5.60) 08/11/19 05:45 Hgb 13.5 GM/dL (11.7-16.9) 08/11/19 05:45 Hct 40.7 % (35.4-49) 08/11/19 05:45 MCV 89.6 fl (80-96) 08/11/19 05:45 MCHC 33.0 g/dl (32.0-35.9) 08/11/19 05:45 RDW 13.1 % (11.9-15.9) 08/11/19 05:45 Plt Count 372 K/MM3 (134-434) 08/11/19 05:45 MPV 9.2 fl (7.5-11.1) 08/11/19 05:45 CMP Sodium 140 mmol/L (136-145) 08/11/19 05:45 Potassium 4.1 mmol/L (3.5-5.1) 08/11/19 05:45 Chloride 104 mmol/L (98-107) 08/11/19 05:45 Carbon Dioxide 27 mmol/L (21-32) 08/11/19 05:45 Anion Gap 9 MMOL/L (8-16) 08/11/19 05:45 BUN 13.1 mg/dL (7-18) 08/11/19 05:45 Creatinine 1.1 mg/dL (0.55-1.3) 08/11/19 05:45 Random Glucose 110 mg/dL (74-106) H 08/11/19 05:45 Calcium 9.2 mg/dL (8.5-10.1) 08/11/19 05:45 Assessment/Plan 64 year old male PMHx of HTN/HLD, dementia, bipolar disorder, history of CVA with baseline dysarthria but fully ambulatory (with a slow gait per family), was discharged to [facility] on day of admission due to his agitation/combativeness , however facility refused to accept patient as facility did not receive information and instructions or able to provide 1:1 on him for safety reasons, unable to care for the patient there, thus sent back to the ED for care coordination. According to family at bedside, unable to care for him due to his confusion, agitation and combativeness and progressive dementia with bipolar d/o. Work up in ED 07/23/19 with gait disturbance/AMS, head CT: no acute changes. Infection was ruled out. Haldol started for the mood instability, off lithium due to elevated level. Patient was seen by psych, recommended to start up on Haldol 5mg Q HS per records, also on valproic acid. Seen at bedside with family, discussed with nurse. Would benefit from psych follow up and optimization, may require further adjustment in psych medication but will defer to psych on this. Neurologically stable and will not repeat imaging as CT head recently completed without acute changes. Mental status disturbance seems 2/2 to psych issues. Continue to monitor mental status, frequent reorientation. Can continue Aricept. Social work for placement. Fall precautions.
[2019-08-11] MEDS: LORazepam 2 MG/ML SDV VIAL IM PRN ×2 (15:41→22:22)
[2019-08-11] MEDS ORDERED: PT OWN MED DRAWER 7, Y5N ONE ×2 (17:29→21:21)
[2019-08-11] MEDS: DONEPEZIL HCL 5 MG TABLET (FP) PO SCH (21:23)
[2019-08-11] MEDS: ATORVASTATIN CA 10 MG TABLET (FP) PO SCH (21:23)
[2019-08-11] MEDS: HALOPERIDOL 5 MG TABLET (FP) PO SCH (21:23)
[2019-08-12] MEDS: VALPROATE SODIUM 250 MG/5 ML UNIT DOSE CUP PO SCH ×2 (10:20→21:03)
[2019-08-12] MEDS: ATENOLOL 25 MG TABLET (FP) PO SCH (10:20)
[2019-08-12] MEDS: HEPARIN NA (PORCINE) 5,000 UNITS/ML 1ML VIAL SQ SCH ×2 (10:20→21:04)
--- NOTE | 2019-08-12 11:01 | PN ---
Progress Note (short form) - Note Progress Note: Neurology - Primary Care Physician PCP: Dr. Becker - Admission Chief Complaint: senior living refused patient History of Present Illness: 64 year old male PMHx of HTN/HLD, dementia, bipolar disorder, history of CVA with baseline dysarthria but fully ambulatory (with a slow gait per family), was discharged to [facility] on day of admission due to his agitation/combativeness , however facility refused to accept patient as facility did not receive information and instructions or able to provide 1:1 on him for safety reasons, unable to care for the patient there, thus sent back to the ED for care coordination. According to family at bedside, unable to care for him due to his confusion, agitation and combativeness and progressive dementia with bipolar d/o. Work up in ED 07/23/19 with gait disturbance/AMS, head CT: no acute changes. Infection was ruled out. Haldol started for the mood instability, off lithium due to elevated level. Patient was seen by psych, recommended to start up on Haldol 5mg Q HS per records, also on valproic acid. Would benefit from psych follow up and optimization, may require further adjustment in psych medication but will defer to psych on this. Neurologically stable and will not repeat imaging as CT head recently completed without acute changes. Mental status disturbance seems 2 /2 to psych issues. This morning gown not on patient although he was calmand relaxed. Discussed with nurse and psych consult pending. Active Medications Acetaminophen (Tylenol -) 650 mg PO Q4H PRN PRN Reason: PAIN LEVEL 1-5 Atenolol (Tenormin -) 25 mg PO DAILY [facility] Last Admin: 08/12/19 10:20 Dose: 25 mg Atorvastatin Calcium (Lipitor -) 20 mg PO HS [facility] Last Admin: 08/11/19 21:23 Dose: 20 mg Donepezil HCl (Aricept -) 5 mg PO HS [facility] Last Admin: 08/11/19 21:23 Dose: 5 mg Haloperidol (Haldol -) 5 mg PO HS [facility] Last Admin: 08/11/19 21:23 Dose: 5 mg Heparin Sodium (Porcine) (Heparin -) 5,000 unit SQ BID [facility] Last Admin: 08/12/19 10:20 Dose: 5,000 unit Lorazepam (Ativan Injection -) 2 mg IM Q6H PRN PRN Reason: AGITATION Last Admin: 12/14/19 22:22 Dose: 2 mg Valproate Sodium (Depakene -) 500 mg PO BID [facility] Last Admin: 08/12/19 10:20 Dose: 500 mg Physical Examination Vital Signs: Vital Signs Period Temp Pulse Resp BP Sys/Musa Pulse Ox Last 24 Hr 97.4 F-98.1 F 71-78 18-20 115-157/74-95 95 Constitutional: Yes: Anxious, Obese Eyes: Yes: Conjunctiva Clear, EOM Intact HENT: Yes: Atraumatic, Normocephalic Neck: Yes: Supple, Trachea Midline Cardiovascular: Yes: Regular Rate and Rhythm Respiratory: Yes: Regular, CTA Bilaterally Gastrointestinal: Yes: Normal Bowel Sounds, Soft Musculoskeletal: Yes: WNL Extremities: Yes: WNL Neurological: Yes: Alert, Confusion, moves all extremities, sensory intact, finger to nose normal, gait deferred Psychiatric: Yes: Alert, Agitated CBCD WBC 7.6 K/mm3 (4.0-10.0) 08/11/19 05:45 RBC 4.55 M/mm3 (4.00-5.60) 08/11/19 05:45 Hgb 13.5 GM/dL (11.7-16.9) 08/11/19 05:45 Hct 40.7 % (35.4-49) 08/11/19 05:45 MCV 89.6 fl (80-96) 08/11/19 05:45 MCHC 33.0 g/dl (32.0-35.9) 08/11/19 05:45 RDW 13.1 % (11.9-15.9) 08/11/19 05:45 Plt Count 372 K/MM3 (134-434) 08/11/19 05:45 MPV 9.2 fl (7.5-11.1) 08/11/19 05:45 CMP Sodium 140 mmol/L (136-145) 08/11/19 05:45 Potassium 4.1 mmol/L (3.5-5.1) 08/11/19 05:45 Chloride 104 mmol/L (98-107) 08/11/19 05:45 Carbon Dioxide 27 mmol/L (21-32) 08/11/19 05:45 Anion Gap 9 MMOL/L (8-16) 08/11/19 05:45 BUN 13.1 mg/dL (7-18) 08/11/19 05:45 Creatinine 1.1 mg/dL (0.55-1.3) 08/11/19 05:45 Random Glucose 110 mg/dL (74-106) H 08/11/19 05:45 Calcium 9.2 mg/dL (8.5-10.1) 08/11/19 05:45 Assessment/Plan 64 year old male PMHx of HTN/HLD, dementia, bipolar disorder, history of CVA with baseline dysarthria but fully ambulatory (with a slow gait per family), was discharged to [facility] on day of admission due to his agitation/combativeness , however facility refused to accept patient as facility did not receive information and instructions or able to provide 1:1 on him for safety reasons, unable to care for the patient there, thus sent back to the ED for care coordination. According to family at bedside, unable to care for him due to his confusion, agitation and combativeness and progressive dementia with bipolar d/o. Work up in ED 07/23/19 with gait disturbance/AMS, head CT: no acute changes. Infection was ruled out. Haldol started for the mood instability, off lithium due to elevated level. Patient was seen by psych, recommended to start up on Haldol 5mg Q HS per records, also on valproic acid. Would benefit from psych follow up and optimization, may require further adjustment in psych medication but will defer to psych on this. Neurologically stable and will not repeat imaging as CT head recently completed without acute changes. Mental status disturbance seems 2 /2 to psych issues. This morning gown not on patient although he was calmand relaxed. Discussed with nurse and psych consult pending. Continue to monitor mental status, frequent reorientation. Can continue Aricept. Social work for placement. Fall precautions.
--- NOTE | 2019-08-12 14:04 | PN ---
Physical Exam: SUBJECTIVE: Patient seen and examined, asleep during exam. OBJECTIVE: Patient is a 64 year old male with a past medical history of hypertension, hld, dementia, bipolar disorder, history of CVA with baseline dysarthria. Patient presented to the ED on 07/23/2019 with lithium toxicity. During hospital stay poison control notified and their recommendations carried out. [place] peaked to 2.1 and now have normalized. He was also evaluated for a possible infection , however his urine and blood cultures were negative and Zosyn discontinued. He was discharged on 08/10/2019 to fpc care at [facility] after family decided they could no longer care for him at home. However, he returned a few hours later as CT ([facility]) was unable to care for him due to his confusion, agitation and combativeness and returned him back to [facility] ED. Vital Signs Period Temp Pulse Resp BP Sys/Musa Pulse Ox Last 24 Hr 97.4 F-98.1 F 76-89 18-20 148-157/89-102 92-95 GENERAL: awake, alert, confused, yelling out - chaparro vest for safety HEAD: Normal with no signs of trauma. EYES: PERRL, extraocular movements intact, sclera anicteric, conjunctiva clear. No ptosis. ENT: Ears normal, nares patent, oropharynx clear without exudates NECK: Trachea midline, full range of motion, supple. LUNGS: mostly clear/diminished - does not follow commands for deep breathing. HEART: Regular rate and rhythm ABDOMEN: obese abdomen EXTREMITIES: no edema. NEUROLOGICAL: awake, alert, confused at baseline. repetitive. SKIN: no breakdown Active Medications Generic Name Dose Route Start Last Admin Trade Name Tremaineq PRN Reason Stop Dose Admin Acetaminophen 650 mg 08/10/19 21:11 Tylenol - PO Q4H PRN PAIN LEVEL 1-5 Atenolol 25 mg 08/11/19 10:00 08/12/19 10:20 Tenormin - PO 25 mg DAILY [facility] Administration Atorvastatin Calcium 20 mg 08/10/19 22:00 08/11/19 21:23 Lipitor - PO 20 mg HS [facility] Administration Donepezil HCl 5 mg 08/10/19 22:00 08/11/19 21:23 Aricept - PO 5 mg HS [facility] Administration Haloperidol 5 mg 08/10/19 22:00 08/11/19 21:23 Haldol - PO 5 mg HS [facility] Administration Heparin Sodium (Porcine) 5,000 unit 08/10/19 22:00 08/12/19 10:20 Heparin - SQ 5,000 unit BID [facility] Administration Lorazepam 2 mg 08/11/19 07:57 08/11/19 22:22 Ativan Injection - IM 2 mg Q6H PRN Administration AGITATION Valproate Sodium 500 mg 08/10/19 22:00 08/12/19 10:20 Depakene - PO 500 mg BID [facility] Administration ASSESSMENT/PLAN: Problem List - Problems (1) Agitation Assessment/Plan: on haldol @ hs for agitation and ativan im 2mg pscyh reconsulted as patient may need additional medications for control of agitation and combative behaviour on chaparro vest to maintain safety Code(s): R45.1 - RESTLESSNESS AND AGITATION (2) Bipolar disorder Assessment/Plan: s/p lithium, but stopped on last admission for toxicity on haldol 5mg Code(s): F31.9 - BIPOLAR DISORDER, UNSPECIFIED Qualifiers: Active/Remission status: in partial remission Most recent bipolar episode type: most recent episode unspecified type Qualified Code(s): F31.70 - Bipolar disorder, currently in remission, most recent episode unspecified (3) Dementia Assessment/Plan: supportive care, re orientation on aricept 5 neurology consulted Code(s): F03.90 - UNSPECIFIED DEMENTIA WITHOUT BEHAVIORAL DISTURBANCE Qualifiers: Dementia type: unspecified type (4) Acute metabolic encephalopathy Assessment/Plan: treated with zosyn for possible infection on last admission, has completed iv antibiotics no signs of infection, wbc stable, afebrile Code(s): G93.41 - METABOLIC ENCEPHALOPATHY (5) Altered mental state Code(s): R41.82 - ALTERED MENTAL STATUS, UNSPECIFIED Qualifiers: Altered mental status type: somnolence Qualified Code(s): R40.0 - Somnolence (6) Bipolar disorder Assessment/Plan: psych followup for agitated behavior/combative behaviour Code(s): F31.9 - BIPOLAR DISORDER, UNSPECIFIED (7) [place] toxicity Assessment/Plan: on last admission was noted to have lithium toxicity, levels trended down and normalized lithium toxicity resolved Code(s): T56.891A - TOXIC EFFECT OF OTH METALS, ACCIDENTAL (UNINTENTIONAL), INIT Qualifiers: Encounter type: initial encounter Injury intent: accidental or unintentional Qualified Code(s): T56.891A - Toxic effect of other metals, accidental (unintentional), initial encounter Visit type - Emergency Visit Emergency Visit: Yes ED Registration Date: 08/10/19 Care time: The patient presented to the Emergency Department on the above date and was hospitalized for further evaluation of their emergent condition. - New Patient This patient is new to me today: No - Critical Care Critical Care patient: No - Discharge Referral Referred to [facility] Med P.C.: No
[2019-08-12] MEDS ORDERED: PT OWN MED DRAWER 7, Y5N ONE (20:40)
[2019-08-12] MEDS: LORazepam 2 MG/ML SDV VIAL IM PRN (21:03)
[2019-08-12] MEDS: ATORVASTATIN CA 10 MG TABLET (FP) PO SCH (21:03)
[2019-08-12] MEDS: HALOPERIDOL 5 MG TABLET (FP) PO SCH (21:03)
[2019-08-12] MEDS: DONEPEZIL HCL 5 MG TABLET (FP) PO SCH (21:04)
[2019-08-13 07:03] LABS: BASO % 0.4 % (0-2.0); EOS % 1.6 % (0-4.5); HEMATOCRIT 43.2 % (35.4-49); HEMOGLOBIN 14.3 GM/dL (11.7-16.9); LYMPH % 43.4 % (8-40); MCH 29.7 pg (25.7-33.7); MEAN CELL VOLUME 89.8 fl (80-96); MEAN PLT VOLUME 9.1 fl (7.5-11.1); MONO % 10.4 % (3.8-10.2); NEUT % 44.2 % (42.8-82.8); PLATELET COUNT 357 K/MM3 (134-434); RBC 4.81 M/mm3 (4.00-5.60); RDW 13.1 % (11.9-15.9); WHITE BLOOD COUNT 7.2 K/mm3 (4.0-10.0)
[2019-08-13 07:23] LABS: ALBUMIN 3.6 g/dl (3.4-5.0); BILIRUBIN,TOTAL 0.2 mg/dL (0.2-1); BLOOD UREA NITROGEN 8.7 mg/dL (7-18); CALCIUM 9.3 mg/dL (8.5-10.1); CREATININE 0.9 mg/dL (0.55-1.3); POTASSIUM 4.1 mmol/L (3.5-5.1); TOT PROT 6.8 g/dl (6.4-8.2)
[2019-08-13] MEDS: HEPARIN NA (PORCINE) 5,000 UNITS/ML 1ML VIAL SQ SCH ×2 (09:15→22:42)
[2019-08-13] MEDS: VALPROATE SODIUM 250 MG/5 ML UNIT DOSE CUP PO SCH ×2 (09:15→22:42)
[2019-08-13] MEDS: ATENOLOL 25 MG TABLET (FP) PO SCH (09:15)
[2019-08-13] MEDS ORDERED: HALOPERIDOL DECANOATE 100 MG/ML IM ONE (11:26)
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
--- NOTE | 2019-08-13 14:18 | PN ---
Physical Exam: SUBJECTIVE: Patient seen and examined. daughter at bedside. OBJECTIVE: Patient is a 64 year old male with a past medical history of hypertension, hld, dementia, bipolar disorder, history of CVA with baseline dysarthria. Patient presented to the ED on 07/23/2019 with lithium toxicity. During hospital stay poison control notified and their recommendations carried out. Shambaugh peaked to 2.1 and now have normalized. He was also evaluated for a possible infection , however his urine and blood cultures were negative and Zosyn discontinued. He was discharged on 08/10/2019 to director long term care care at [facility] after family decided they could no longer care for him at home. However, he returned a few hours later as [place] ([facility]) was unable to care for him due to his confusion, agitation and combativeness and returned him back to [facility] ED. will order PT brain mri per neurology Vital Signs Period Temp Pulse Resp BP Sys/Musa Pulse Ox Last 24 Hr 98 F-98.5 F 74-106 20-20 127-159/84-98 94-94 GENERAL: awake, alert, confused, yelling out - chaparro vest for safety HEAD: Normal with no signs of trauma. EYES: PERRL, extraocular movements intact, sclera anicteric, conjunctiva clear. No ptosis. ENT: Ears normal, nares patent, oropharynx clear without exudates NECK: Trachea midline, full range of motion, supple. LUNGS: mostly clear/diminished - does not follow commands for deep breathing. HEART: Regular rate and rhythm ABDOMEN: obese abdomen EXTREMITIES: no edema. NEUROLOGICAL: awake, alert, confused at baseline. repetitive. SKIN: no breakdown Laboratory Results - last 24 hr 08/13/19 08/13/19 05:55 05:55 WBC 7.2 RBC 4.81 Hgb 14.3 Hct 43.2 MCV 89.8 MCH 29.7 MCHC 33.0 RDW 13.1 Plt Count 357 MPV 9.1 Absolute Neuts (auto) 3.2 Neutrophils % 44.2 D Lymphocytes % 43.4 H D Monocytes % 10.4 H Eosinophils % 1.6 Basophils % 0.4 Nucleated RBC % 0 Sodium 140 Potassium 4.1 Chloride 104 Carbon Dioxide 29 Anion Gap 7 L BUN 8.7 Creatinine 0.9 Est GFR (CKD-EPI)AfAm 103.51 Est GFR (CKD-EPI)NonAf 89.31 Random Glucose 114 H Calcium 9.3 Magnesium 2.0 Total Bilirubin 0.2 AST 25 ALT 33 Alkaline Phosphatase 65 Total Protein 6.8 Albumin 3.6 Active Medications Generic Name Dose Route Start Last Admin Trade Name Freq PRN Reason Stop Dose Admin Acetaminophen 650 mg 08/10/19 21:11 Tylenol - PO Q4H PRN PAIN LEVEL 1-5 Atenolol 25 mg 08/11/19 10:00 08/13/19 09:15 Tenormin - PO 25 mg DAILY [facility] Administration Atorvastatin Calcium 20 mg 08/10/19 22:00 08/12/19 21:03 Lipitor - PO 20 mg HS [facility] Administration Heparin Sodium (Porcine) 5,000 unit 08/10/19 22:00 08/13/19 09:15 Heparin - SQ 5,000 unit BID [facility] Administration Lorazepam 2 mg 08/11/19 07:57 08/12/19 21:03 Ativan Injection - IM 2 mg Q6H PRN Administration AGITATION Olanzapine 15 mg 08/13/19 22:00 Zyprexa - PO BID [facility] Valproate Sodium 500 mg 08/10/19 22:00 08/13/19 09:15 Depakene - PO 500 mg BID [facility] Administration ASSESSMENT/PLAN: Problem List - Problems (1) Agitation Assessment/Plan: seen by psyche plan: Haldol Decanoate 25mg IM today. and Zyprexa 15mg po bid for eber and aggression and assaultive behaviour. on chaparro vest to maintain safety Code(s): R45.1 - RESTLESSNESS AND AGITATION (2) Bipolar disorder Assessment/Plan: s/p lithium, but stopped on last admission for toxicity Code(s): F31.9 - BIPOLAR DISORDER, UNSPECIFIED Qualifiers: Active/Remission status: in partial remission Most recent bipolar episode type: most recent episode unspecified type Qualified Code(s): F31.70 - Bipolar disorder, currently in remission, most recent episode unspecified (3) Dementia Assessment/Plan: supportive care, re orientation on aricept 5 neurology consulted Code(s): F03.90 - UNSPECIFIED DEMENTIA WITHOUT BEHAVIORAL DISTURBANCE Qualifiers: Dementia type: unspecified type (4) Acute metabolic encephalopathy Assessment/Plan: treated with zosyn for possible infection on last admission, has completed iv antibiotics no signs of infection, wbc stable, afebrile Code(s): G93.41 - METABOLIC ENCEPHALOPATHY (5) Altered mental state Code(s): R41.82 - ALTERED MENTAL STATUS, UNSPECIFIED Qualifiers: Altered mental status type: somnolence Qualified Code(s): R40.0 - Somnolence (6) Bipolar disorder Assessment/Plan: psych followup for agitated behavior/combative behaviour Code(s): F31.9 - BIPOLAR DISORDER, UNSPECIFIED (7) Shambaugh toxicity Assessment/Plan: on last admission was noted to have lithium toxicity, levels trended down and normalized lithium toxicity resolved Code(s): T56.891A - TOXIC EFFECT OF OTH METALS, ACCIDENTAL (UNINTENTIONAL), INIT Qualifiers: Encounter type: initial encounter Injury intent: accidental or unintentional Qualified Code(s): T56.891A - Toxic effect of other metals, accidental (unintentional), initial encounter Visit type - Emergency Visit Emergency Visit: Yes ED Registration Date: 08/10/19 Care time: The patient presented to the Emergency Department on the above date and was hospitalized for further evaluation of their emergent condition. - New Patient This patient is new to me today: No - Critical Care Critical Care patient: No - Discharge Referral Referred to [facility] Med P.C.: No
[2019-08-13 14:57] VITALS: BMI 35.2
[2019-08-13] MEDS: OLANZapine 5 MG TABLET PO SCH (22:42)
[2019-08-13] MEDS: ATORVASTATIN CA 10 MG TABLET (FP) PO SCH (22:42)
[2019-08-13] MEDS: LORazepam 2 MG/ML SDV VIAL IM PRN (22:43)
[2019-08-14 06:41] LABS: BASO % 0.4 % (0-2.0); EOS % 1.7 % (0-4.5); HEMOGLOBIN 14.2 GM/dL (11.7-16.9); LYMPH % 50.7 % (8-40); MCH 29.3 pg (25.7-33.7); MCHC 32.2 g/dl (32.0-35.9); MEAN PLT VOLUME 8.9 fl (7.5-11.1); MONO % 9.4 % (3.8-10.2); NEUT % 37.8 % (42.8-82.8); PLATELET COUNT 336 K/MM3 (134-434); RBC 4.84 M/mm3 (4.00-5.60); RDW 13.6 % (11.9-15.9); WHITE BLOOD COUNT 7.1 K/mm3 (4.0-10.0)
[2019-08-14 07:02] LABS: ALBUMIN 3.4 g/dl (3.4-5.0); BILIRUBIN,TOTAL 0.2 mg/dL (0.2-1); BLOOD UREA NITROGEN 8.3 mg/dL (7-18); CALCIUM 9.4 mg/dL (8.5-10.1); CREATININE 1.1 mg/dL (0.55-1.3); MAGNESIUM 2.1 mg/dL (1.8-2.4); POTASSIUM 4.6 mmol/L (3.5-5.1); TOT PROT 6.6 g/dl (6.4-8.2)
--- NOTE | 2019-08-14 07:27 | PN ---
Progress Note, Physician Chief Complaint: Pt calmer than previous encounters. remains with chaparro restraint in place. History of Present Illness: Patient is a 64 year old male with a past medical history of hypertension, hld, dementia, bipolar disorder, history of CVA with baseline dysarthria. Patient presented to the ED on 07/23/2019 with lithium toxicity with prolonged hospitalization due to agitation. Evaluated for a infection, however his urine and blood cultures were negative and Zosyn discontinued. 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 However, he returned a few hours later as [facility] ( [facility]) was unable to care for him due to his confusion, agitation and combativeness and returned him back to [facility] ED. - Current Medication List Current Medications: Active Medications Acetaminophen (Tylenol -) 650 mg PO Q4H PRN PRN Reason: PAIN LEVEL 1-5 Atenolol (Tenormin -) 25 mg PO DAILY [facility] Last Admin: 08/13/19 09:15 Dose: 25 mg Atorvastatin Calcium (Lipitor -) 20 mg PO HS [facility] Last Admin: 08/13/19 22:42 Dose: 20 mg Heparin Sodium (Porcine) (Heparin -) 5,000 unit SQ BID [facility] Last Admin: 08/13/19 22:42 Dose: 5,000 unit Lorazepam (Ativan Injection -) 2 mg IM Q6H PRN PRN Reason: AGITATION Last Admin: 08/13/19 22:43 Dose: 2 mg Olanzapine (Zyprexa -) 15 mg PO BID [facility] Last Admin: 08/13/19 22:42 Dose: 15 mg Valproate Sodium (Depakene -) 500 mg PO BID [facility] Last Admin: 08/13/19 22:42 Dose: 500 mg - Objective Vital Signs: Vital Signs Temperature 98.0 F 08/13/19 22:00 Pulse Rate 80 08/13/19 22:00 Respiratory Rate 20 08/13/19 22:00 Blood Pressure 157/83 08/13/19 22:00 O2 Sat by Pulse Oximetry (%) 93 L 08/13/19 21:00 Constitutional: Yes: Well Nourished, Mild Distress Eyes: Yes: WNL, Conjunctiva Clear HENT: Yes: WNL, Atraumatic, Normocephalic Neck: Yes: WNL, Supple, Trachea Midline Cardiovascular: Yes: WNL, Regular Rate and Rhythm Respiratory: Yes: WNL, Regular, CTA Bilaterally Gastrointestinal: Yes: WNL, Normal Bowel Sounds, Soft, Abdomen, Obese ...Rectal Exam: Yes: Deferred Genitourinary: Yes: Incontinence Breast(s): Yes: WNL Musculoskeletal: Yes: WNL Extremities: Yes: WNL Edema: No Peripheral Pulses WNL: Yes Peripheral Pulses: Left Radial: 2+, Right Radial: 2+, Left Doralis Pedis: 2+, Right Dorsalis Pedis: 2+, Left Femoral: 2+, Right Femoral: 2+ Integumentary: Yes: WNL Neurological: Yes: Alert, Confusion, Dysarthria, Unsteady Gait, Weakness, Other (agitated and agressive) ...Motor Strength: WNL Psychiatric: Yes: Alert, Agitated Labs: CBC, BMP 08/14/19 06:15 08/14/19 06:15 Problem List - Problems (1) Agitation Assessment/Plan: Being followed by Psych- Dr Thomas Haldol Decanoate 25mg IM given on 08/13 Zyprexa 15mg po bid for Stephanie and aggression and assaultive behaviour. chaparro vest to maintain safety fall precautions Seen by neurology-Dr Alex not able to be care for by family at home Would benefit from in patient psych follow up and optimization for further adjustment in psych medication Code(s): R45.1 - RESTLESSNESS AND AGITATION (2) Bipolar disorder Assessment/Plan: s/p lithium, but stopped on last admission for toxicity Code(s): F31.9 - BIPOLAR DISORDER, UNSPECIFIED Qualifiers: Active/Remission status: in partial remission Most recent bipolar episode type: most recent episode unspecified type Qualified Code(s): F31.70 - Bipolar disorder, currently in remission, most recent episode unspecified (3) Dementia Assessment/Plan: supportive care, re orientation on aricept 5mg daily pt with agressive and agitated behavior not able to peform ADLs neurology consultation appreciated Code(s): F03.90 - UNSPECIFIED DEMENTIA WITHOUT BEHAVIORAL DISTURBANCE Qualifiers: Dementia type: unspecified type (4) Acute metabolic encephalopathy Assessment/Plan: treated with zosyn for possible infection on last admission, has completed iv antibiotics no signs of infection, wbc stable, afebrile Code(s): G93.41 - METABOLIC ENCEPHALOPATHY (5) Altered mental state Assessment/Plan: continued agressive behavior safety precautions in place Code(s): R41.82 - ALTERED MENTAL STATUS, UNSPECIFIED Qualifiers: Altered mental status type: somnolence Qualified Code(s): R40.0 - Somnolence (6) Prophylactic measure Assessment/Plan: FEN regular diet adequate PO intake monitor electrolytes DVT hepain sq Dispo maintain as in patient full code discharge planning to SNF/in patient psych/dementia unit Code(s): Z29.9 - ENCOUNTER FOR PROPHYLACTIC MEASURES, UNSPECIFIED (7) Tremor Assessment/Plan: tremor at rest noted multifactorial r/t medication, agitation,dementia Code(s): R25.1 - TREMOR, UNSPECIFIED Visit type - Emergency Visit Emergency Visit: Yes ED Registration Date: 08/10/19 Care time: The patient presented to the Emergency Department on the above date and was hospitalized for further evaluation of their emergent condition. - New Patient This patient is new to me today: Yes Date on this admission: 08/14/19 - Critical Care Critical Care patient: No - Discharge Referral Referred to [facility] Med P.C.: No
[2019-08-14] MEDS: VALPROATE SODIUM 250 MG/5 ML UNIT DOSE CUP PO SCH ×2 (09:59→22:50)
[2019-08-14] MEDS: ATENOLOL 25 MG TABLET (FP) PO SCH (09:59)
[2019-08-14] MEDS: HEPARIN NA (PORCINE) 5,000 UNITS/ML 1ML VIAL SQ SCH ×2 (09:59→22:50)
[2019-08-14] MEDS: OLANZapine 5 MG TABLET PO SCH ×2 (09:59→22:49)
--- NOTE | 2019-08-14 16:35 | PN ---
Progress Note (short form) - Note Progress Note: 64 year old male history of Bipolar disorder, Dementia, HTN,HLD . Patient presented with worsening of confusoin. His lithium level has coming down and is on hold. Patient has had no seizure. Patient had no fever, no seizure were noticed. There is no new focal neurological ( weakness or face asymmetry) was noticed. Patient is still restrained . pateint went to ar and was sent back as he try to attack and he was agitated. He was started on zyprexa by psych NEUROLOGICAL EAMINATION alert and agitated neck is supple, vital stable eomi, pupils reactive no face asymmetry moving all extremity(he is restrained) sensation is normal ct hed no acute findings Assessment/Plan 64 year old male history of Dementia, Bipolar, HTN, HLD. He admitted for worsening of confusion. Delirium secondary to demenita . plan: - continue supportive care, - continue depakote, zyprexa ativan prn continue aricept 5 mg qhs THanking you so much Jamar Henry MD
[2019-08-14] MEDS: ATORVASTATIN CA 10 MG TABLET (FP) PO SCH (22:50)
[2019-08-14] MEDS: LORazepam 2 MG/ML SDV VIAL IM PRN (23:48)
--- NOTE | 2019-08-15 07:55 | PN ---
Progress Note, Physician Chief Complaint: Pt very agitated. Not able to communicate. Soft wrist restaints on BL with chaparro vest in place History of Present Illness: Patient is a 64 year old male with a past medical history of hypertension, hld, dementia, bipolar disorder, history of CVA with baseline dysarthria. Patient presented to the ED on 07/23/2019 with lithium toxicity with prolonged hospitalization due to agitation. Evaluated for a infection, however his urine and blood cultures were negative and Zosyn discontinued. 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 However, he returned a few hours later as [facility] ( [facility]) was unable to care for him due to his confusion, agitation and combativeness and returned him back to [facility] ED. - Current Medication List Current Medications: Active Medications Acetaminophen (Tylenol -) 650 mg PO Q4H PRN PRN Reason: PAIN LEVEL 1-5 Atenolol (Tenormin -) 25 mg PO DAILY [facility] Last Admin: 08/14/19 09:59 Dose: 25 mg Atorvastatin Calcium (Lipitor -) 20 mg PO HS [facility] Last Admin: 08/14/19 22:50 Dose: 20 mg Heparin Sodium (Porcine) (Heparin -) 5,000 unit SQ BID [facility] Last Admin: 08/14/19 22:50 Dose: 5,000 unit Lorazepam (Ativan Injection -) 2 mg IM Q6H PRN PRN Reason: AGITATION Last Admin: 08/14/19 23:48 Dose: 2 mg Olanzapine (Zyprexa -) 15 mg PO BID [facility] Last Admin: 08/14/19 22:49 Dose: 15 mg Valproate Sodium (Depakene -) 500 mg PO BID [facility] Last Admin: 08/14/19 22:50 Dose: 500 mg - Objective Vital Signs: Vital Signs Temperature 97.4 F L 08/15/19 05:02 Pulse Rate 59 L 08/15/19 05:02 Respiratory Rate 20 08/15/19 05:02 Blood Pressure 114/50 L 08/15/19 05:02 O2 Sat by Pulse Oximetry (%) 93 L 08/13/19 21:00 Additional Findings/Remarks: Constitutional: Yes: Well Nourished, Mild Distress Eyes: Yes: WNL, Conjunctiva Clear HENT: Yes: WNL, Atraumatic, Normocephalic Neck: Yes: WNL, Supple, Trachea Midline Cardiovascular: Yes: WNL, Regular Rate and Rhythm Respiratory: Yes: WNL, Regular, CTA Bilaterally Gastrointestinal: Yes: WNL, Normal Bowel Sounds, Soft, Abdomen, Obese ...Rectal Exam: Yes: Deferred Genitourinary: Yes: Incontinence Breast(s): Yes: WNL Musculoskeletal: Yes: WNL Extremities: Yes: WNL Edema: No Peripheral Pulses WNL: Yes Peripheral Pulses: Left Radial: 2+, Right Radial: 2+, Left Doralis Pedis: 2+, Right Dorsalis Pedis: 2+, Left Femoral: 2+, Right Femoral: 2+ Integumentary: Yes: WNL Neurological: Yes: Alert, Confusion, Dysarthria, Unsteady Gait, Weakness, Other (agitated and agressive) ...Motor Strength: WNL Psychiatric: Yes: Alert, Agitated Labs: CBC, BMP 08/14/19 06:15 08/14/19 06:15 Problem List - Problems (1) Agitation Assessment/Plan: Being followed by Psych- Dr Thomas Haldol Decanoate 25mg IM given on 08/13 Zyprexa 15mg po bid for Stephanie and aggression and assaultive behaviour. chaparro vest to maintain safety fall precautions Seen by neurology-Dr Alex not able to be care for by family at home Would benefit from in patient psych follow up and optimization for further adjustment in psych medication Code(s): R45.1 - RESTLESSNESS AND AGITATION (2) Bipolar disorder Assessment/Plan: s/p lithium, but stopped on last admission for toxicity Code(s): F31.9 - BIPOLAR DISORDER, UNSPECIFIED Qualifiers: Active/Remission status: in partial remission Most recent bipolar episode type: most recent episode unspecified type Qualified Code(s): F31.70 - Bipolar disorder, currently in remission, most recent episode unspecified (3) Dementia Assessment/Plan: supportive care, re orientation on aricept 5mg daily pt with agressive and agitated behavior not able to peform ADLs neurology consultation appreciated Code(s): F03.90 - UNSPECIFIED DEMENTIA WITHOUT BEHAVIORAL DISTURBANCE Qualifiers: Dementia type: unspecified type (4) Acute metabolic encephalopathy Assessment/Plan: treated with zosyn for possible infection on last admission, has completed iv antibiotics no signs of infection, wbc stable, afebrile Code(s): G93.41 - METABOLIC ENCEPHALOPATHY (5) Altered mental state Assessment/Plan: continued agressive behavior safety precautions in place Code(s): R41.82 - ALTERED MENTAL STATUS, UNSPECIFIED Qualifiers: Altered mental status type: somnolence Qualified Code(s): R40.0 - Somnolence (6) Prophylactic measure Assessment/Plan: FEN regular diet adequate PO intake monitor electrolytes DVT hepain sq Dispo maintain as in patient full code discharge planning to SNF/in patient psych/dementia unit Code(s): Z29.9 - ENCOUNTER FOR PROPHYLACTIC MEASURES, UNSPECIFIED (7) Tremor Assessment/Plan: tremor at rest noted multifactorial r/t medication, agitation,dementia Code(s): R25.1 - TREMOR, UNSPECIFIED Visit type - Emergency Visit Emergency Visit: Yes ED Registration Date: 08/10/19 Care time: The patient presented to the Emergency Department on the above date and was hospitalized for further evaluation of their emergent condition. - New Patient This patient is new to me today: No - Critical Care Critical Care patient: No - Discharge Referral Referred to [facility] Med P.C.: No
[2019-08-15 08:13] LABS: BASO % 0.4 % (0-2.0); EOS % 1.6 % (0-4.5); HEMATOCRIT 44.4 % (35.4-49); HEMOGLOBIN 14.3 GM/dL (11.7-16.9); LYMPH % 53.1 % (8-40); MCH 29.1 pg (25.7-33.7); MCHC 32.2 g/dl (32.0-35.9); MEAN CELL VOLUME 90.4 fl (80-96); MEAN PLT VOLUME 8.8 fl (7.5-11.1); MONO % 8.9 % (3.8-10.2); PLATELET COUNT 313 K/MM3 (134-434); RBC 4.92 M/mm3 (4.00-5.60); RDW 13.7 % (11.9-15.9); WHITE BLOOD COUNT 7.9 K/mm3 (4.0-10.0)
[2019-08-15 08:42] LABS: ALBUMIN 3.5 g/dl (3.4-5.0); BILIRUBIN,TOTAL 0.3 mg/dL (0.2-1); BLOOD UREA NITROGEN 10.6 mg/dL (7-18); CALCIUM 9.2 mg/dL (8.5-10.1); CREATININE 1.1 mg/dL (0.55-1.3); POTASSIUM 4.4 mmol/L (3.5-5.1); TOT PROT 6.7 g/dl (6.4-8.2)
[2019-08-15] MEDS: HEPARIN NA (PORCINE) 5,000 UNITS/ML 1ML VIAL SQ SCH ×2 (09:24→21:49)
[2019-08-15] MEDS: ATENOLOL 25 MG TABLET (FP) PO SCH (09:24)
[2019-08-15] MEDS: OLANZapine 5 MG TABLET PO SCH ×2 (09:24→21:48)
[2019-08-15] MEDS: VALPROATE SODIUM 250 MG/5 ML UNIT DOSE CUP PO SCH ×2 (09:30→21:49)
[2019-08-15] MEDS: LORazepam 2 MG/ML SDV VIAL IM PRN (09:49)
--- NOTE | 2019-08-15 19:34 | PN ---
Progress Note (short form) - Note Progress Note: 64 year old male history of Bipolar disorder, Dementia, HTN,HLD . Patient presented with worsening of confusoin. His lithium level has coming down and is on hold. Patient has had no seizure. Patient had no fever, no seizure were noticed. There is no new focal neurological ( weakness or face asymmetry) was noticed. Patient is still restrained . pateint went to tx and was sent back as he try to attack and he was agitated. He was started on zyprexa by psych Patient is still confused and agitated. NEUROLOGICAL EAMINATION alert and agitated neck is supple, vital stable eomi, pupils reactive no face asymmetry moving all extremity(he is restrained) sensation is normal ct hed no acute findings Assessment/Plan 64 year old male history of Dementia, Bipolar, HTN, HLD. He admitted for worsening of confusion. Delirium secondary to demenita . plan: - continue supportive care, - continue depakote, zyprexa as per psych ativan prn continue aricept 5 mg qhs THanking you so much Jamar Henry MD
[2019-08-15] MEDS: ATORVASTATIN CA 10 MG TABLET (FP) PO SCH (21:48)
[2019-08-15] MEDS ORDERED: DONEPEZIL HCL 5 MG TABLET (FP) PO SCH (22:00)
[2019-08-16] MEDS: LORazepam 2 MG/ML SDV VIAL IM PRN ×2 (00:41→10:41)
--- NOTE | 2019-08-16 08:06 | PN ---
Progress Note, Physician Chief Complaint: Pt very agitated. Speech garbled. Soft wrist restaints on BL with chaparro vest in place History of Present Illness: Patient is a 64 year old male with a past medical history of hypertension, hld, dementia, bipolar disorder, history of CVA with baseline dysarthria. Patient presented to the ED on 07/23/2019 with lithium toxicity with prolonged hospitalization due to agitation. Evaluated for a infection, however his urine and blood cultures were negative and Zosyn discontinued. 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 However, he returned a few hours later as NH ( [facility]) was unable to care for him due to his confusion, agitation and combativeness and returned him back to [facility] ED. - Current Medication List Current Medications: Active Medications Acetaminophen (Tylenol -) 650 mg PO Q4H PRN PRN Reason: PAIN LEVEL 1-5 Atenolol (Tenormin -) 25 mg PO DAILY [facility] Last Admin: 08/15/19 09:24 Dose: 25 mg Atorvastatin Calcium (Lipitor -) 20 mg PO HS [facility] Last Admin: 08/15/19 21:48 Dose: 20 mg Donepezil HCl (Aricept -) 5 mg PO DAILY@2200 [facility] Last Admin: 08/15/19 21:48 Dose: 5 mg Heparin Sodium (Porcine) (Heparin -) 5,000 unit SQ BID [facility] Last Admin: 08/15/19 21:49 Dose: 5,000 unit Lorazepam (Ativan Injection -) 2 mg IM Q6H PRN PRN Reason: AGITATION Last Admin: 08/16/19 00:41 Dose: 2 mg Olanzapine (Zyprexa -) 15 mg PO BID [facility] Last Admin: 08/15/19 21:48 Dose: 15 mg Valproate Sodium (Depakene -) 500 mg PO BID [facility] Last Admin: 08/15/19 21:49 Dose: 500 mg - Objective Vital Signs: Vital Signs Temperature 98.0 F 08/16/19 05:45 Pulse Rate 80 08/16/19 05:45 Respiratory Rate 20 08/16/19 05:45 Blood Pressure 138/83 08/16/19 05:45 O2 Sat by Pulse Oximetry (%) 93 L 08/13/19 21:00 Constitutional: Yes: Well Nourished, No Distress, Calm Eyes: Yes: WNL, Conjunctiva Clear HENT: Yes: WNL, Atraumatic, Normocephalic Neck: Yes: WNL, Supple, Trachea Midline Cardiovascular: Yes: WNL, Regular Rate and Rhythm Respiratory: Yes: WNL, Regular, CTA Bilaterally Gastrointestinal: Yes: WNL, Normal Bowel Sounds ...Rectal Exam: Yes: Deferred Genitourinary: Yes: Incontinence Breast(s): Yes: WNL Musculoskeletal: Yes: WNL Edema: No Peripheral Pulses WNL: Yes Peripheral Pulses: Left Radial: 2+, Right Radial: 2+, Left Doralis Pedis: 2+, Right Dorsalis Pedis: 2+, Left Femoral: 2+, Right Femoral: 2+ Integumentary: Yes: WNL Neurological: Yes: Alert, Confusion, Unsteady Gait Psychiatric: Yes: Agitated, Other (agressive) Additional Findings/Remarks: Constitutional: Yes: Well Nourished, Mild Distress Eyes: Yes: WNL, Conjunctiva Clear HENT: Yes: WNL, Atraumatic, Normocephalic Neck: Yes: WNL, Supple, Trachea Midline Cardiovascular: Yes: WNL, Regular Rate and Rhythm Respiratory: Yes: WNL, Regular, CTA Bilaterally Gastrointestinal: Yes: WNL, Normal Bowel Sounds, Soft, Abdomen, Obese ...Rectal Exam: Yes: Deferred Genitourinary: Yes: Incontinence Breast(s): Yes: WNL Musculoskeletal: Yes: WNL Extremities: Yes: WNL Edema: No Peripheral Pulses WNL: Yes Peripheral Pulses: Left Radial: 2+, Right Radial: 2+, Left Doralis Pedis: 2+, Right Dorsalis Pedis: 2+, Left Femoral: 2+, Right Femoral: 2+ Integumentary: Yes: WNL Neurological: Yes: Alert, Confusion, Dysarthria, Unsteady Gait, Weakness, Other (agitated and agressive) ...Motor Strength: WNL Psychiatric: Yes: Alert, Agitated Labs: CBC, BMP 08/15/19 07:36 08/15/19 07:36 Problem List - Problems (1) Agitation Assessment/Plan: Being followed by Psych- Dr Martha Vázquezdol Decanoate 25mg IM given on 08/13 Zyprexa 15mg po bid for Stephanie and aggression and assaultive behavior added Ativan 2mg po bid by Dr العلي c/w zyprexa. chaparro ilenet to maintain safety fall precautions Seen by neurology-Dr Alex not able to be care for by family at home Would benefit from in patient psych follow up and optimization for further adjustment in psych medication Code(s): R45.1 - RESTLESSNESS AND AGITATION (2) Bipolar disorder Assessment/Plan: s/p lithium, but stopped on last admission for toxicity Code(s): F31.9 - BIPOLAR DISORDER, UNSPECIFIED Qualifiers: Active/Remission status: in partial remission Most recent bipolar episode type: most recent episode unspecified type Qualified Code(s): F31.70 - Bipolar disorder, currently in remission, most recent episode unspecified (3) Dementia Assessment/Plan: supportive care, re orientation on aricept 5mg daily pt with agressive and agitated behavior not able to peform ADLs neurology consultation appreciated Code(s): F03.90 - UNSPECIFIED DEMENTIA WITHOUT BEHAVIORAL DISTURBANCE Qualifiers: Dementia type: unspecified type (4) Acute metabolic encephalopathy Assessment/Plan: treated with zosyn for possible infection on last admission, has completed iv antibiotics no signs of infection, wbc stable, afebrile Code(s): G93.41 - METABOLIC ENCEPHALOPATHY (5) Altered mental state Assessment/Plan: continued agressive behavior safety precautions in place Code(s): R41.82 - ALTERED MENTAL STATUS, UNSPECIFIED Qualifiers: Altered mental status type: somnolence Qualified Code(s): R40.0 - Somnolence (6) Prophylactic measure Assessment/Plan: FEN regular diet adequate PO intake monitor electrolytes DVT hepain sq Dispo maintain as in patient full code discharge planning to SNF/in patient psych/dementia unit Code(s): Z29.9 - ENCOUNTER FOR PROPHYLACTIC MEASURES, UNSPECIFIED (7) Tremor Assessment/Plan: tremor at rest noted multifactorial r/t medication, agitation,dementia Code(s): R25.1 - TREMOR, UNSPECIFIED Visit type - Emergency Visit Emergency Visit: Yes ED Registration Date: 08/10/19 Care time: The patient presented to the Emergency Department on the above date and was hospitalized for further evaluation of their emergent condition. - New Patient This patient is new to me today: No - Critical Care Critical Care patient: No - Discharge Referral Referred to [facility] No
[2019-08-16 08:34] LABS: BASO % 0.4 % (0-2.0); EOS % 2.1 % (0-4.5); HEMATOCRIT 44.3 % (35.4-49); HEMOGLOBIN 14.3 GM/dL (11.7-16.9); LYMPH % 45.1 % (8-40); MCH 29.5 pg (25.7-33.7); MCHC 32.2 g/dl (32.0-35.9); MEAN CELL VOLUME 91.4 fl (80-96); MEAN PLT VOLUME 9.2 fl (7.5-11.1); NEUT % 41.4 % (42.8-82.8); PLATELET COUNT 274 K/MM3 (134-434); RBC 4.85 M/mm3 (4.00-5.60); RDW 13.5 % (11.9-15.9); WHITE BLOOD COUNT 7.6 K/mm3 (4.0-10.0)
[2019-08-16 09:10] LABS: ALBUMIN 3.5 g/dl (3.4-5.0); BILIRUBIN,TOTAL 0.3 mg/dL (0.2-1); CALCIUM 8.9 mg/dL (8.5-10.1); CREATININE 1.1 mg/dL (0.55-1.3); MAGNESIUM 2.2 mg/dL (1.8-2.4); POTASSIUM 4.4 mmol/L (3.5-5.1); TOT PROT 6.8 g/dl (6.4-8.2)
[2019-08-16] MEDS: VALPROATE SODIUM 250 MG/5 ML UNIT DOSE CUP PO SCH ×2 (10:41→22:39)
[2019-08-16] MEDS: HEPARIN NA (PORCINE) 5,000 UNITS/ML 1ML VIAL SQ SCH ×2 (10:41→22:40)
[2019-08-16] MEDS: OLANZapine 5 MG TABLET PO SCH ×2 (10:42→22:40)
[2019-08-16] MEDS: ATENOLOL 25 MG TABLET (FP) PO SCH (10:42)
--- NOTE | 2019-08-16 11:49 | PN ---
Progress Note (short form) - Note Progress Note: Patient seen for Psy6ch follow up; Case3 discussed with staff. Still in [employer] and difficult to manage. Continues to become Physically aggressive. Little improvement from Zyprexa. REC: 1) add Ativan 2mg po9 bid. 2) continue with Zyprexa.
--- NOTE | 2019-08-16 15:36 | PN ---
Progress Note (short form) - Note Progress Note: 64 year old male history of Bipolar disorder, Dementia, HTN,HLD . Patient presented with worsening of confusoin. Patient had no fever, no seizure were noticed. There is no new focal neurological ( weakness or face asymmetry) was noticed. Patient is still restrained . pateint went to [place] and was sent back as he try to attack and he was agitated. He was started on zyprexa by psych Patient is still confused and agitated. He is restrained. NEUROLOGICAL EAMINATION alert and agitated neck is supple, vital stable eomi, pupils reactive no face asymmetry moving all extremity(he is restrained) sensation is normal ct hed no acute findings Assessment/Plan 64 year old male history of Dementia, Bipolar, HTN, HLD. He admitted for worsening of confusion. Delirium secondary to demenita . plan: - continue supportive care, waiting for placement - continue depakote, zyprexa as per psych -continue aricept 5 mg qhs THanking you so much Jamar Henry MD
[2019-08-16] MEDS: ATORVASTATIN CA 10 MG TABLET (FP) PO SCH (22:39)
[2019-08-16] MEDS: LORazepam 1 MG TABLET PO SCH (22:39)
--- NOTE | 2019-08-17 08:15 | PN ---
Progress Note, Physician Chief Complaint: Remains agitated, less today. Soft wrist restaints on BL with chaparro vest in place History of Present Illness: Patient is a 64 year old male with a past medical history of hypertension, hld, dementia, bipolar disorder, history of CVA with baseline dysarthria. Patient presented to the ED on 07/23/2019 with lithium toxicity with prolonged hospitalization due to agitation. Evaluated for a infection, however his urine and blood cultures were negative and Zosyn discontinued. He was discharged on 08/10/2019 to senior living care at [facility] after family decided they could no longer care for him at home. However, he returned a few hours later as NH ( [facility]) was unable to care for him due to his confusion, agitation and combativeness and returned him back to [facility] ED. - Current Medication List Current Medications: Active Medications Acetaminophen (Tylenol -) 650 mg PO Q4H PRN PRN Reason: PAIN LEVEL 1-5 Atenolol (Tenormin -) 25 mg PO DAILY [facility] Last Admin: 08/16/19 10:42 Dose: 25 mg Atorvastatin Calcium (Lipitor -) 20 mg PO HS [facility] Last Admin: 08/16/19 22:39 Dose: 20 mg Heparin Sodium (Porcine) (Heparin -) 5,000 unit SQ BID [facility] Last Admin: 08/16/19 22:40 Dose: 5,000 unit Lorazepam (Ativan Injection -) 2 mg IM Q6H PRN PRN Reason: AGITATION Last Admin: 08/16/19 10:41 Dose: 2 mg Lorazepam (Ativan -) 2 mg PO BID [facility] Last Admin: 08/16/19 22:39 Dose: 2 mg Olanzapine (Zyprexa -) 15 mg PO BID [facility] Last Admin: 08/16/19 22:40 Dose: 15 mg Valproate Sodium (Depakene -) 500 mg PO BID [facility] Last Admin: 08/16/19 22:39 Dose: 500 mg - Objective Vital Signs: Vital Signs Temperature 98.4 F 08/17/19 05:42 Pulse Rate 83 08/17/19 05:42 Respiratory Rate 20 08/17/19 05:42 Blood Pressure 128/77 08/17/19 05:42 O2 Sat by Pulse Oximetry (%) 93 L 08/13/19 21:00 Additional Findings/Remarks: Constitutional: Yes: Well Nourished, Mild Distress Eyes: Yes: WNL, Conjunctiva Clear HENT: Yes: WNL, Atraumatic, Normocephalic Neck: Yes: WNL, Supple, Trachea Midline Cardiovascular: Yes: WNL, Regular Rate and Rhythm Respiratory: Yes: WNL, Regular, CTA Bilaterally Gastrointestinal: Yes: WNL, Normal Bowel Sounds, Soft, Abdomen, Obese ...Rectal Exam: Yes: Deferred Genitourinary: Yes: Incontinence Breast(s): Yes: WNL Musculoskeletal: Yes: WNL Extremities: Yes: WNL Edema: No Peripheral Pulses WNL: Yes Peripheral Pulses: Left Radial: 2+, Right Radial: 2+, Left Doralis Pedis: 2+, Right Dorsalis Pedis: 2+, Left Femoral: 2+, Right Femoral: 2+ Integumentary: Yes: WNL Neurological: Yes: Alert, Confusion, Dysarthria, Unsteady Gait, Weakness, Other (agitated and agressive) ...Motor Strength: WNL Psychiatric: Yes: Alert, Agitated-les today Problem List - Problems (1) Agitation Assessment/Plan: Being followed by Psych- Dr Thomas Haldol Decanoate 25mg IM given on 08/13 c/w Zyprexa c/w Ativan c/w aricept chaparro vest to maintain safety fall precautions Seen by neurology-Dr Alex not able to be care for by family at home Would benefit from in patient psych follow up and optimization for further adjustment in psych medication Code(s): R45.1 - RESTLESSNESS AND AGITATION (2) Bipolar disorder Assessment/Plan: s/p lithium, but stopped on last admission for toxicity Code(s): F31.9 - BIPOLAR DISORDER, UNSPECIFIED Qualifiers: Active/Remission status: in partial remission Most recent bipolar episode type: most recent episode unspecified type Qualified Code(s): F31.70 - Bipolar disorder, currently in remission, most recent episode unspecified (3) Dementia Assessment/Plan: supportive care, re orientation c/w aricept pt with agressive and agitated behavior not able to peform ADLs neurology consultation appreciated Code(s): F03.90 - UNSPECIFIED DEMENTIA WITHOUT BEHAVIORAL DISTURBANCE Qualifiers: Dementia type: unspecified type (4) Acute metabolic encephalopathy Assessment/Plan: treated with zosyn for possible infection on last admission, has completed iv antibiotics no signs of infection, wbc stable, afebrile Code(s): G93.41 - METABOLIC ENCEPHALOPATHY (5) Altered mental state Assessment/Plan: continued agressive behavior safety precautions in place Code(s): R41.82 - ALTERED MENTAL STATUS, UNSPECIFIED Qualifiers: Altered mental status type: somnolence Qualified Code(s): R40.0 - Somnolence (6) Prophylactic measure Assessment/Plan: FEN regular diet adequate PO intake monitor electrolytes DVT hepain sq Dispo maintain as in patient full code discharge planning to SNF/in patient psych/dementia unit Code(s): Z29.9 - ENCOUNTER FOR PROPHYLACTIC MEASURES, UNSPECIFIED (7) Tremor Assessment/Plan: tremor at rest noted multifactorial r/t medication, agitation,dementia Code(s): R25.1 - TREMOR, UNSPECIFIED Visit type - Emergency Visit Emergency Visit: Yes ED Registration Date: 08/10/19 Care time: The patient presented to the Emergency Department on the above date and was hospitalized for further evaluation of their emergent condition. - New Patient This patient is new to me today: No - Critical Care Critical Care patient: No - Discharge Referral Referred to [facility] No
[2019-08-17 08:28] LABS: BASO % 0.4 % (0-2.0); EOS % 0.5 % (0-4.5); HEMATOCRIT 45.3 % (35.4-49); HEMOGLOBIN 14.5 GM/dL (11.7-16.9); LYMPH % 28.9 % (8-40); MCH 29.2 pg (25.7-33.7); MCHC 32.1 g/dl (32.0-35.9); MEAN PLT VOLUME 9.1 fl (7.5-11.1); NEUT % 60.2 % (42.8-82.8); PLATELET COUNT 254 K/MM3 (134-434); RBC 4.97 M/mm3 (4.00-5.60); RDW 13.6 % (11.9-15.9); WHITE BLOOD COUNT 8.9 K/mm3 (4.0-10.0)
[2019-08-17 08:35] LABS: ALBUMIN 3.5 g/dl (3.4-5.0); BILIRUBIN,TOTAL 0.2 mg/dL (0.2-1); BLOOD UREA NITROGEN 15.5 mg/dL (7-18); CREATININE 1.3 mg/dL (0.55-1.3); MAGNESIUM 2.2 mg/dL (1.8-2.4); POTASSIUM 4.7 mmol/L (3.5-5.1); TOT PROT 6.6 g/dl (6.4-8.2)
[2019-08-17] MEDS ORDERED: ERGOCALCIFEROL (VIT D2) 50,000 UNIT (1.25 MG) CAPSULE PO SCH (10:00)
--- NOTE | 2019-08-17 10:47 | PN ---
Progress Note (short form) - Note Progress Note: 64 year old male history of Bipolar disorder, Dementia, HTN,HLD . Patient presented with worsening of confusoin. Patient had no fever, no seizure were noticed. There is no new focal neurological ( weakness or face asymmetry) was noticed. Patient is still restrained . pateint went to [place] and was sent back as he try to attack and he was agitated. He was started on zyprexa by psych Patient is still confused and sleepy today He is restrained. TOday NEUROLOGICAL EAMINATION alert and sleepy today neck is supple, vital stable eomi, pupils reactive no face asymmetry moving all extremity(he is restrained) sensation is normal ct hed no acute findings Assessment/Plan 64 year old male history of Dementia, Bipolar, HTN, HLD. He admitted for worsening of confusion. Delirium secondary to demenita . plan: - continue supportive care, waiting for placement - continue depakote, zyprexa as per psych -continue aricept 5 mg qhs THanking you so much Jamar Henry MD
[2019-08-17] MEDS: OLANZapine 5 MG TABLET PO SCH ×2 (10:51→21:35)
[2019-08-17] MEDS: LORazepam 1 MG TABLET PO SCH ×2 (10:51→21:36)
[2019-08-17] MEDS: ATENOLOL 25 MG TABLET (FP) PO SCH (10:51)
[2019-08-17] MEDS: VALPROATE SODIUM 250 MG/5 ML UNIT DOSE CUP PO SCH ×2 (10:51→21:37)
[2019-08-17] MEDS: HEPARIN NA (PORCINE) 5,000 UNITS/ML 1ML VIAL SQ SCH (10:52)
[2019-08-17] MEDS: ATORVASTATIN CA 10 MG TABLET (FP) PO SCH (21:36)
--- NOTE | 2019-08-18 08:24 | PN ---
Progress Note, Physician Chief Complaint: Remains agitated, however less today. Soft wrist restraints on BL with chaparro vest in place History of Present Illness: Patient is a 64 year old male with a past medical history of hypertension, hld, dementia, bipolar disorder, history of CVA with baseline dysarthria. Patient presented to the ED on 07/23/2019 with lithium toxicity with prolonged hospitalization due to agitation. Evaluated for a infection, however his urine and blood cultures were negative and Zosyn discontinued. He was discharged on 08/10/2019 to alf care at [facility] after family decided they could no longer care for him at home. However, he returned a few hours later as NH ( [facility]) was unable to care for him due to his confusion, agitation and combativeness and returned him back to [facility] ED. - Current Medication List Current Medications: Active Medications Acetaminophen (Tylenol -) 650 mg PO Q4H PRN PRN Reason: PAIN LEVEL 1-5 Atenolol (Tenormin -) 25 mg PO DAILY [facility] Last Admin: 08/17/19 10:51 Dose: 25 mg Atorvastatin Calcium (Lipitor -) 20 mg PO HS [facility] Last Admin: 08/17/19 21:36 Dose: 20 mg Lorazepam (Ativan Injection -) 2 mg IM Q6H PRN PRN Reason: AGITATION Last Admin: 08/16/19 10:41 Dose: 2 mg Lorazepam (Ativan -) 2 mg PO BID [facility] Last Admin: 08/17/19 21:36 Dose: 2 mg Olanzapine (Zyprexa -) 15 mg PO BID [facility] Last Admin: 08/17/19 21:35 Dose: 15 mg Valproate Sodium (Depakene -) 500 mg PO BID [facility] Last Admin: 08/17/19 21:37 Dose: 500 mg - Objective Vital Signs: Vital Signs Temperature 98.8 F 08/18/19 06:00 Pulse Rate 81 08/18/19 06:00 Respiratory Rate 20 08/18/19 06:00 Blood Pressure 141/81 08/18/19 06:00 O2 Sat by Pulse Oximetry (%) 90 L 08/17/19 21:00 Additional Findings/Remarks: Constitutional: Yes: Well Nourished, Mild Distress Eyes: Yes: WNL, Conjunctiva Clear HENT: Yes: WNL, Atraumatic, Normocephalic Neck: Yes: WNL, Supple, Trachea Midline Cardiovascular: Yes: WNL, Regular Rate and Rhythm Respiratory: Yes: WNL, Regular, CTA Bilaterally Gastrointestinal: Yes: WNL, Normal Bowel Sounds, Soft, Abdomen, Obese ...Rectal Exam: Yes: Deferred Genitourinary: Yes: Incontinence Breast(s): Yes: WNL Musculoskeletal: Yes: WNL Extremities: Yes: WNL Edema: No Peripheral Pulses WNL: Yes Peripheral Pulses: Left Radial: 2+, Right Radial: 2+, Left Doralis Pedis: 2+, Right Dorsalis Pedis: 2+, Left Femoral: 2+, Right Femoral: 2+ Integumentary: Yes: WNL Neurological: Yes: Alert, Confusion, Dysarthria, Unsteady Gait, Weakness, Other (agitated and agressive) ...Motor Strength: WNL Psychiatric: Yes: Alert, Agitated-less today Labs: CBC, BMP 08/17/19 07:20 08/17/19 07:20 Problem List - Problems (1) Agitation Assessment/Plan: Being followed by Psych- Dr Thomas Haldol Decanoate 25mg IM given on 08/13 c/w Zyprexa c/w Ativan c/w aricept chaparro vest to maintain safety fall precautions Seen by neurology-Dr Lveine not able to be care for by family at home Code(s): R45.1 - RESTLESSNESS AND AGITATION (2) Bipolar disorder Assessment/Plan: s/p lithium, but stopped on last admission for toxicity Code(s): F31.9 - BIPOLAR DISORDER, UNSPECIFIED Qualifiers: Active/Remission status: in partial remission Most recent bipolar episode type: most recent episode unspecified type Qualified Code(s): F31.70 - Bipolar disorder, currently in remission, most recent episode unspecified (3) Dementia Assessment/Plan: supportive care, re orientation c/w aricept pt with agressive and agitated behavior not able to peform ADLs neurology consultation appreciated Code(s): F03.90 - UNSPECIFIED DEMENTIA WITHOUT BEHAVIORAL DISTURBANCE Qualifiers: Dementia type: unspecified type (4) Acute metabolic encephalopathy Assessment/Plan: treated with zosyn for possible infection on last admission, has completed iv antibiotics no signs of infection, wbc stable, afebrile Code(s): G93.41 - METABOLIC ENCEPHALOPATHY (5) Altered mental state Assessment/Plan: continued aggressive behavior safety precautions in place Code(s): R41.82 - ALTERED MENTAL STATUS, UNSPECIFIED Qualifiers: Altered mental status type: somnolence Qualified Code(s): R40.0 - Somnolence (6) Prophylactic measure Assessment/Plan: FEN regular diet adequate PO intake monitor electrolytes DVT hepain sq Dispo maintain as in patient full code discharge planning to SNF/in patient psych/dementia unit Code(s): Z29.9 - ENCOUNTER FOR PROPHYLACTIC MEASURES, UNSPECIFIED (7) Tremor Assessment/Plan: tremor at rest noted multifactorial r/t medication, agitation,dementia Code(s): R25.1 - TREMOR, UNSPECIFIED (8) Stage II decubitus ulcer Assessment/Plan: stage II ulcer to sacrum with such agitation it is difficult to prevent shearing turn and respoition q 2h Code(s): L89.92 - PRESSURE ULCER OF UNSPECIFIED SITE, STAGE 2 Visit type - Emergency Visit Emergency Visit: Yes ED Registration Date: 08/10/19 Care time: The patient presented to the Emergency Department on the above date and was hospitalized for further evaluation of their emergent condition. - New Patient This patient is new to me today: No - Critical Care Critical Care patient: No - Discharge Referral Referred to [facility] No
[2019-08-18] MEDS: LORazepam 1 MG TABLET PO SCH ×2 (09:02→21:09)
[2019-08-18] MEDS: ATENOLOL 25 MG TABLET (FP) PO SCH (09:02)
[2019-08-18] MEDS: VALPROATE SODIUM 250 MG/5 ML UNIT DOSE CUP PO SCH ×2 (09:02→21:09)
[2019-08-18] MEDS: OLANZapine 5 MG TABLET PO SCH ×2 (09:02→21:09)
--- NOTE | 2019-08-18 11:13 | PN ---
Progress Note (short form) - Note Progress Note: 64 year old male history of Bipolar disorder, Dementia, HTN,HLD . Patient presented with worsening of confusoin. Patient had no fever, no seizure were noticed. There is no new focal neurological ( weakness or face asymmetry) was noticed. Patient is still restrained . pateint went to [place] and was sent back as he try to attack and he was agitated. He was started on zyprexa by psych He has early bed sore at his buttock, he seems to be calmer otday NEUROLOGICAL EAMINATION alert and responding ot questioin and knows his name and that he is at hospital neck is supple, vital stable eomi, pupils reactive no face asymmetry moving all extremity(he is restrained) sensation is normal ct hed no acute findings Assessment/Plan 64 year old male history of Dementia, Bipolar, HTN, HLD. He admitted for worsening of confusion. Delirium secondary to demenita . plan: - continue supportive care, waiting for placement - continue depakote, zyprexa as per psych -continue aricept 5 mg qhs THanking you so much Jamar Henry MD
[2019-08-18] MEDS: ATORVASTATIN CA 10 MG TABLET (FP) PO SCH (21:09)
--- NOTE | 2019-08-19 08:03 | PN ---
Progress Note, Physician Chief Complaint: Calm today-answering simple questions. Soft wrist restraints on BL with chaparro vest in remain in place History of Present Illness: Patient is a 64 year old male with a past medical history of hypertension, hld, dementia, bipolar disorder, history of CVA with baseline dysarthria. Patient presented to the ED on 07/23/2019 with lithium toxicity with prolonged hospitalization due to agitation. Evaluated for a infection, however his urine and blood cultures were negative and Zosyn discontinued. He was discharged on 08/10/2019 to terminal gauger care at [facility] after family decided they could no longer care for him at home. However, he returned a few hours later as NH ( [facility]) was unable to care for him due to his confusion, agitation and combativeness and returned him back to [facility] ED. - Current Medication List Current Medications: Active Medications Acetaminophen (Tylenol -) 650 mg PO Q4H PRN PRN Reason: PAIN LEVEL 1-5 Atenolol (Tenormin -) 25 mg PO DAILY [facility] Last Admin: 08/18/19 09:02 Dose: 25 mg Atorvastatin Calcium (Lipitor -) 20 mg PO HS [facility] Last Admin: 08/18/19 21:09 Dose: 20 mg Lorazepam (Ativan -) 2 mg PO BID [facility] Last Admin: 08/18/19 21:09 Dose: 2 mg Olanzapine (Zyprexa -) 15 mg PO BID [facility] Last Admin: 08/18/19 21:09 Dose: 15 mg Valproate Sodium (Depakene -) 500 mg PO BID [facility] Last Admin: 08/18/19 21:09 Dose: 500 mg - Objective Vital Signs: Vital Signs Temperature 98.1 F 08/18/19 22:00 Pulse Rate 87 08/18/19 22:00 Respiratory Rate 18 08/18/19 22:00 Blood Pressure 125/63 08/18/19 22:00 O2 Sat by Pulse Oximetry (%) 93 L 08/18/19 21:00 Additional Findings/Remarks: Constitutional: Yes: Well Nourished, Mild Distress Eyes: Yes: WNL, Conjunctiva Clear HENT: Yes: WNL, Atraumatic, Normocephalic Neck: Yes: WNL, Supple, Trachea Midline Cardiovascular: Yes: WNL, Regular Rate and Rhythm Respiratory: Yes: WNL, Regular, CTA Bilaterally.Non productive cough Gastrointestinal: Yes: WNL, Normal Bowel Sounds, Soft, Abdomen, Obese ...Rectal Exam: Yes: Deferred Genitourinary: Yes: Incontinence Breast(s): Yes: WNL Musculoskeletal: Yes: WNL Extremities: Yes: WNL Edema: No Peripheral Pulses WNL: Yes Peripheral Pulses: Left Radial: 2+, Right Radial: 2+, Left Doralis Pedis: 2+, Right Dorsalis Pedis: 2+, Left Femoral: 2+, Right Femoral: 2+ Integumentary: Yes: WNL Neurological: Yes: Alert, Confusion, Dysarthria, Unsteady Gait, Weakness, Calmer today ...Motor Strength: WNL Psychiatric: Yes: Alert, calmer today Labs: CBC, BMP 08/17/19 07:20 08/17/19 07:20 - ....Imaging Chest X-ray: Image Reviewed (Poor inspiratory effoft. Atelectasis to left) Problem List - Problems (1) Agitation Assessment/Plan: much calmer today-when asked how he was doing he replied-"I'm good how are you" wrist restraints when been off since this morning safety precautions in place Being followed by Psych- Dr Thomas Haldol Decanoate 25mg IM given on 08/13 c/w Zyprexa c/w Ativan c/w aricept fall precautions Seen by neurology-Dr Levine not able to be care for by family at home Code(s): R45.1 - RESTLESSNESS AND AGITATION (2) Bipolar disorder Assessment/Plan: s/p lithium, but stopped on last admission for toxicity Code(s): F31.9 - BIPOLAR DISORDER, UNSPECIFIED Qualifiers: Active/Remission status: in partial remission Most recent bipolar episode type: most recent episode unspecified type Qualified Code(s): F31.70 - Bipolar disorder, currently in remission, most recent episode unspecified (3) Dementia Assessment/Plan: supportive care, re orientation c/w aricept pt calm and cooperative today not able to peform ADLs neurology consultation appreciated Code(s): F03.90 - UNSPECIFIED DEMENTIA WITHOUT BEHAVIORAL DISTURBANCE Qualifiers: Dementia type: unspecified type (4) Acute metabolic encephalopathy Assessment/Plan: treated with zosyn for possible infection on last admission, has completed iv antibiotics no signs of infection, wbc stable, afebrile Code(s): G93.41 - METABOLIC ENCEPHALOPATHY (5) Altered mental state Assessment/Plan: much calmer today-when asked how he was doing he replied-"I'm good how are you" wrist restraints when been off since this morning safety precautions in place Code(s): R41.82 - ALTERED MENTAL STATUS, UNSPECIFIED Qualifiers: Altered mental status type: somnolence Qualified Code(s): R40.0 - Somnolence (6) Prophylactic measure Assessment/Plan: FEN regular diet adequate PO intake monitor electrolytes DVT hepain sq Dispo maintain as in patient full code discharge planning to SNF/in patient psych/dementia unit Code(s): Z29.9 - ENCOUNTER FOR PROPHYLACTIC MEASURES, UNSPECIFIED (7) Tremor Assessment/Plan: tremor at rest noted multifactorial r/t medication, previous agitation,dementia Code(s): R25.1 - TREMOR, UNSPECIFIED (8) Stage II decubitus ulcer Assessment/Plan: stage II ulcer to sacrum turn and respoition q 2h Code(s): L89.92 - PRESSURE ULCER OF UNSPECIFIED SITE, STAGE 2 (9) Cough Assessment/Plan: with non productive cough CXR done with atelectasis to right will attempt to have pt use IS Code(s): R05 - COUGH Visit type - Emergency Visit Emergency Visit: Yes ED Registration Date: 08/10/19 Care time: The patient presented to the Emergency Department on the above date and was hospitalized for further evaluation of their emergent condition. - New Patient This patient is new to me today: No - Critical Care Critical Care patient: No - Discharge Referral Referred to [facility] No
[2019-08-19] MEDS: ATENOLOL 25 MG TABLET (FP) PO SCH (10:54)
[2019-08-19] MEDS: OLANZapine 5 MG TABLET PO SCH ×2 (10:54→21:14)
[2019-08-19] MEDS: VALPROATE SODIUM 250 MG/5 ML UNIT DOSE CUP PO SCH ×2 (10:54→21:14)
[2019-08-19] MEDS: LORazepam 1 MG TABLET PO SCH ×2 (10:54→21:14)
[2019-08-19] MEDS: ATORVASTATIN CA 10 MG TABLET (FP) PO SCH (21:15)
[2019-08-20] MEDS ORDERED: LORazepam 0.5 MG TABLET PO ONE (00:07)
[2019-08-20] MEDS: OLANZapine 5 MG TABLET PO SCH ×3 (08:50→22:25)
[2019-08-20] MEDS: VALPROATE SODIUM 250 MG/5 ML UNIT DOSE CUP PO SCH ×3 (08:50→22:25)
[2019-08-20] MEDS: LORazepam 1 MG TABLET PO SCH ×3 (08:51→22:25)
[2019-08-20] MEDS: ATENOLOL 25 MG TABLET (FP) PO SCH ×2 (08:52→09:26)
--- NOTE | 2019-08-20 11:28 | PN ---
Physical Exam: SUBJECTIVE: Patient seen and examined, states his name, tells me he is [place] and able to recall his daughters name. OBJECTIVE: Patient is a 64 year old male with a past medical history of hypertension, hld, dementia, bipolar disorder, history of CVA with baseline dysarthria. Patient presented to the ED on 07/23/2019 with lithium toxicity. During hospital stay poison control notified and their recommendations carried out. [place] peaked to 2.1 and now have normalized. He was also evaluated for a possible infection , however his urine and blood cultures were negative and Zosyn discontinued. He was discharged on 08/10/2019 to prison care at [facility] after family decided they could no longer care for him at home. However, he returned a few hours later as NH ([facility]) was unable to care for him due to his confusion, agitation and combativeness and returned him back to [facility] ED. Vital Signs Period Temp Pulse Resp BP Sys/Musa Pulse Ox Last 24 Hr 97.6 F-98.6 F 80-119 16-20 110-140/70-89 94-94 GENERAL: awake, alert, calmer and answering some questions appropriately HEAD: Normal with no signs of trauma. EYES: PERRL, extraocular movements intact, sclera anicteric, conjunctiva clear. No ptosis. ENT: Ears normal, nares patent, oropharynx clear without exudates NECK: Trachea midline, full range of motion, supple. LUNGS: mostly clear/diminished - does not follow commands for deep breathing. HEART: Regular rate and rhythm ABDOMEN: obese abdomen EXTREMITIES: no edema. NEUROLOGICAL: awake, alert, confused at baseline. Active Medications Generic Name Dose Route Start Last Admin Trade Name Freq PRN Reason Stop Dose Admin Acetaminophen 650 mg 08/10/19 21:11 Tylenol - PO Q4H PRN PAIN LEVEL 1-5 Atenolol 25 mg 08/11/19 10:00 08/20/19 09:26 Tenormin - PO Not Given DAILY [facility] Atorvastatin Calcium 20 mg 08/10/19 22:00 08/19/19 21:15 Lipitor - PO 20 mg HS [facility] Administration Lorazepam 2 mg 08/16/19 22:00 08/20/19 09:26 Ativan - PO Not Given BID [facility] Olanzapine 15 mg 08/13/19 22:00 12/23/19 09:26 Zyprexa - PO Not Given BID [facility] Valproate Sodium 500 mg 08/10/19 22:00 08/20/19 09:26 Depakene - PO Not Given BID [facility] ASSESSMENT/PLAN: Problem List - Problems (1) Agitation Assessment/Plan: seen by psyche plan: on ativan and zyprexa scheduled calmer today and more cooperative Code(s): R45.1 - RESTLESSNESS AND AGITATION (2) Bipolar disorder Assessment/Plan: s/p lithium, but stopped on last admission for toxicity Code(s): F31.9 - BIPOLAR DISORDER, UNSPECIFIED Qualifiers: Active/Remission status: in partial remission Most recent bipolar episode type: most recent episode unspecified type Qualified Code(s): F31.70 - Bipolar disorder, currently in remission, most recent episode unspecified (3) Dementia Assessment/Plan: supportive care, re orientation neurology consulted and following Code(s): F03.90 - UNSPECIFIED DEMENTIA WITHOUT BEHAVIORAL DISTURBANCE Qualifiers: Dementia type: unspecified type (4) Acute metabolic encephalopathy Assessment/Plan: treated with zosyn for possible infection on last admission, has completed iv antibiotics no signs of infection, wbc stable, afebrile Code(s): G93.41 - METABOLIC ENCEPHALOPATHY (5) Altered mental state Assessment/Plan: see acute metabolic encph. Code(s): R41.82 - ALTERED MENTAL STATUS, UNSPECIFIED Qualifiers: Altered mental status type: somnolence Qualified Code(s): R40.0 - Somnolence (6) Bipolar disorder Assessment/Plan: psych following Code(s): F31.9 - BIPOLAR DISORDER, UNSPECIFIED (7) [place] toxicity Assessment/Plan: on last admission was noted to have lithium toxicity, levels trended down and normalized lithium toxicity resolved Code(s): T56.891A - TOXIC EFFECT OF OTH METALS, ACCIDENTAL (UNINTENTIONAL), INIT Qualifiers: Encounter type: initial encounter Injury intent: accidental or unintentional Qualified Code(s): T56.891A - Toxic effect of other metals, accidental (unintentional), initial encounter (8) Cough Assessment/Plan: chest xray with noted congestion of right lower lung patient in bed and likely developing atelectasis of right LL turn and position, pt to get OOB as tolerated Code(s): R05 - COUGH (9) Stage II decubitus ulcer Assessment/Plan: start on prosource bid turn and position Code(s): L89.92 - PRESSURE ULCER OF UNSPECIFIED SITE, STAGE 2 (10) DVT prophylaxis Assessment/Plan: heparin protonix PT bowel regimen Code(s): Z29.9 - ENCOUNTER FOR PROPHYLACTIC MEASURES, UNSPECIFIED Visit type - Emergency Visit Emergency Visit: Yes ED Registration Date: 08/10/19 Care time: The patient presented to the Emergency Department on the above date and was hospitalized for further evaluation of their emergent condition. - New Patient This patient is new to me today: No - Critical Care Critical Care patient: No - Discharge Referral Referred to [facility].: No
[2019-08-20] MEDS ORDERED: DOCUSATE SODIUM 100 MG CAPSULE (FP) PO SCH (14:00)
--- NOTE | 2019-08-20 14:40 | PN ---
Progress Note (short form) - Note Progress Note: 64 year old male history of Bipolar disorder, Dementia, HTN,HLD . Patient presented with worsening of confusoin. Patient had no fever, no seizure were noticed. There is no new focal neurological ( weakness or face asymmetry) was noticed. Patient is still restrained . [facility] as he try to attack and he was agitated. He was started on zyprexa by psych There is no new symptoms, patient has been NEUROLOGICAL EAMINATION alert and keep taking his cloths off and has been fluctuating attention neck is supple, vital stable eomi, pupils reactive no face asymmetry moving all extremity(he is restrained) sensation is normal ct hed no acute findings Assessment/Plan 64 year old male history of Dementia, Bipolar, HTN, HLD. He admitted for worsening of confusion. Delirium secondary to demenita . plan: - continue supportive care, waiting for placement - continue depakote, zyprexa as per psych THanking you so much Jamar Henry MD
[2019-08-20] MEDS: AMINO ACIDS/PROTEIN HYDROLYS 30 ML LIQUID.PKT PO SCH (16:29)
[2019-08-20] MEDS: HEPARIN NA (PORCINE) 5,000 UNITS/ML 1ML VIAL SQ SCH (22:26)
[2019-08-20] MEDS: ATORVASTATIN CA 10 MG TABLET (FP) PO SCH (22:26)
[2019-08-20] MEDS: SENNOSIDES 8.6MG TABLET (FP) PO SCH (22:26)
[2019-08-21] MEDS: OLANZapine 5 MG TABLET PO SCH ×2 (09:26→21:59)
[2019-08-21] MEDS: HEPARIN NA (PORCINE) 5,000 UNITS/ML 1ML VIAL SQ SCH ×2 (09:27→21:58)
[2019-08-21] MEDS: PANTOPRAZOLE 40 MG TABLET (FP) PO SCH (09:27)
[2019-08-21] MEDS: LORazepam 1 MG TABLET PO SCH ×2 (09:27→21:58)
[2019-08-21] MEDS: AMINO ACIDS/PROTEIN HYDROLYS 30 ML LIQUID.PKT PO SCH ×2 (09:27→17:05)
[2019-08-21] MEDS: VALPROATE SODIUM 250 MG/5 ML UNIT DOSE CUP PO SCH ×2 (09:27→21:58)
[2019-08-21] MEDS: ATENOLOL 25 MG TABLET (FP) PO SCH (09:28)
--- NOTE | 2019-08-21 10:34 | PN ---
Physical Exam: SUBJECTIVE: Patient seen and examined at the bedside. calm, allowed physical exam. in no acute distress. on chaparro for risk of falls, not combative at this time. OBJECTIVE: Patient is a 64 year old male with a past medical history of hypertension, hld, dementia, bipolar disorder, history of CVA with baseline dysarthria. Patient presented to the ED on 07/23/2019 with lithium toxicity. During hospital stay poison control notified and their recommendations carried out. [place] peaked to 2.1 and now have normalized. He was also evaluated for a possible infection , however his urine and blood cultures were negative and Zosyn discontinued. He was discharged on 08/10/2019 to detention care at [facility] after family decided they could no longer care for him at home. However, he returned a few hours later as [facility] was unable to care for him due to his confusion, agitation and combativeness and returned him back to [facility] ED. Vital Signs Period Temp Pulse Resp BP Sys/Musa Pulse Ox Last 24 Hr 97.8 F-98.1 F 86-97 18-20 88-156/63-65 94 GENERAL: awake, alert, calmer and answering some questions appropriately HEAD: Normal with no signs of trauma. EYES: PERRL, extraocular movements intact, sclera anicteric, conjunctiva clear. No ptosis. ENT: Ears normal, nares patent, oropharynx clear without exudates NECK: Trachea midline, full range of motion, supple. LUNGS: mostly clear/diminished - followed commands for deep breathing HEART: Regular rate and rhythm ABDOMEN: obese abdomen EXTREMITIES: no edema. NEUROLOGICAL: awake, alert, confused at baseline. Active Medications Generic Name Dose Route Start Last Admin Trade Name Freq PRN Reason Stop Dose Admin Acetaminophen 650 mg 08/10/19 21:11 Tylenol - PO Q4H PRN PAIN LEVEL 1-5 Amino Acids 30 ml 08/20/19 17:30 08/21/19 09:27 Prosource No Carb Liquid Pkt PO 30 ml BID@0800,1730 [facility] Administration Atenolol 25 mg 08/11/19 10:00 08/21/19 09:28 Tenormin - PO 25 mg DAILY [facility] Administration Atorvastatin Calcium 20 mg 08/10/19 22:00 08/20/19 22:26 Lipitor - PO 20 mg HS [facility] Administration Heparin Sodium (Porcine) 5,000 unit 08/20/19 22:00 08/21/19 09:27 Heparin - SQ 5,000 unit BID [facility] Administration Lorazepam 2 mg 08/16/19 22:00 08/21/19 09:27 Ativan - PO 2 mg BID [facility] Administration Olanzapine 15 mg 08/13/19 22:00 08/21/19 09:26 Zyprexa - PO 15 mg BID [facility] Administration Pantoprazole Sodium 40 mg 08/21/19 10:00 08/21/19 09:27 Protonix - PO 40 mg DAILY [facility] Administration Senna 1 tab 08/20/19 22:00 08/20/19 22:26 Senna - PO 1 tab HS [facility] Administration Valproate Sodium 500 mg 08/10/19 22:00 08/21/19 09:27 Depakene - PO 500 mg BID [facility] Administration ASSESSMENT/PLAN: Problem List - Problems (1) Agitation Assessment/Plan: seen by psyche plan: on ativan and zyprexa scheduled calmer today and more cooperative Code(s): R45.1 - RESTLESSNESS AND AGITATION (2) Bipolar disorder Assessment/Plan: s/p lithium, but stopped on last admission for toxicity Code(s): F31.9 - BIPOLAR DISORDER, UNSPECIFIED Qualifiers: Active/Remission status: in partial remission Most recent bipolar episode type: most recent episode unspecified type Qualified Code(s): F31.70 - Bipolar disorder, currently in remission, most recent episode unspecified (3) Dementia Assessment/Plan: supportive care, re orientation neurology consulted and following Code(s): F03.90 - UNSPECIFIED DEMENTIA WITHOUT BEHAVIORAL DISTURBANCE Qualifiers: Dementia type: unspecified type (4) Acute metabolic encephalopathy Assessment/Plan: treated with zosyn for possible infection on last admission, has completed iv antibiotics no signs of infection, wbc stable, afebrile Code(s): G93.41 - METABOLIC ENCEPHALOPATHY (5) Altered mental state Assessment/Plan: see acute metabolic encph. Code(s): R41.82 - ALTERED MENTAL STATUS, UNSPECIFIED Qualifiers: Altered mental status type: somnolence Qualified Code(s): R40.0 - Somnolence (6) Bipolar disorder Assessment/Plan: psych following Code(s): F31.9 - BIPOLAR DISORDER, UNSPECIFIED (7) [place] toxicity Assessment/Plan: on last admission was noted to have lithium toxicity, levels trended down and normalized lithium toxicity resolved Code(s): T56.891A - TOXIC EFFECT OF OTH METALS, ACCIDENTAL (UNINTENTIONAL), INIT Qualifiers: Encounter type: initial encounter Injury intent: accidental or unintentional Qualified Code(s): T56.891A - Toxic effect of other metals, accidental (unintentional), initial encounter (8) Cough Assessment/Plan: chest xray with noted congestion of right lower lung patient in bed and likely developing atelectasis of right LL turn and position, pt to get OOB as tolerated Code(s): R05 - COUGH (9) Stage II decubitus ulcer Assessment/Plan: start on prosource bid turn and position Code(s): L89.92 - PRESSURE ULCER OF UNSPECIFIED SITE, STAGE 2 (10) DVT prophylaxis Assessment/Plan: heparin protonix PT bowel regimen Code(s): Z29.9 - ENCOUNTER FOR PROPHYLACTIC MEASURES, UNSPECIFIED Visit type - Emergency Visit Emergency Visit: Yes ED Registration Date: 08/10/19 Care time: The patient presented to the Emergency Department on the above date and was hospitalized for further evaluation of their emergent condition. - New Patient This patient is new to me today: No - Critical Care Critical Care patient: No - Discharge Referral Referred to [facility] No
[2019-08-21] MEDS ORDERED: LORazepam 2 MG/ML SDV VIAL IM ONE (20:11)
[2019-08-21] MEDS: SENNOSIDES 8.6MG TABLET (FP) PO SCH (21:58)
[2019-08-21] MEDS: ATORVASTATIN CA 10 MG TABLET (FP) PO SCH (21:58)
--- NOTE | 2019-08-21 23:24 | PN ---
Progress Note (short form) - Note Progress Note: 64 year old male history of Bipolar disorder, Dementia, HTN,HLD . Patient presented with worsening of confusoin. Patient had no fever, no seizure were noticed. There is no new focal neurological ( weakness or face asymmetry) was noticed. Patient is still restrained . [facility] as he try to attack and he was agitated. He was started on zyprexa by psych There is no new symptoms, patient has been seen and wainting for placement. Spoke to nursing staff. NEUROLOGICAL EAMINATION alert and keep taking his cloths off and has been fluctuating attention neck is supple, vital stable eomi, pupils reactive no face asymmetry moving all extremity(he is restrained) sensation is normal ct hed no acute findings Assessment/Plan 64 year old male history of Dementia, Bipolar, HTN, HLD. He admitted for worsening of confusion. Delirium secondary to demenita . plan: - continue supportive care, waiting for placement - continue depakote, zyprexa as per psych THanking you so much Jamar Henry MD
--- NOTE | 2019-08-22 10:11 | PN ---
Teaching Attending Note Name of Resident: Tiffani Alcocer ATTENDING PHYSICIAN STATEMENT I saw and evaluated the patient. I reviewed the resident's note and discussed the case with the resident. I agree with the resident's findings and plan as documented with exceptions below. SUBJECTIVE: Patient seen and examined. confused, restless, trying to get out of bed,unable to assess for ROS. OBJECTIVE: Vital Signs Period Temp Pulse Resp BP Sys/Musa Pulse Ox Last 24 Hr 97.7 F-98.0 F 84-89 18-20 96-134/54-89 93 Intake & Output 08/19/19 08/20/19 08/21/19 08/22/19 23:59 23:59 23:59 23:59 Intake Total 1142 770 858 557 Balance 1142 770 858 557 General: lying in bed, restless, confused, trying to get out Chest: no rales or wheezing Abdomen:soft, obese, NT Extremities: no edema neuro: facial symmetry, confused, moves all extremities psych: restless, trying to get out of bed Home Medications Medication Instructions Recorded Simvastatin 20 mg PO HS 11/12/16 Ergocalciferol [Vitamin D2] 50,000 unit PO Q7D@1000 07/24/19 Atenolol [Tenormin -] 25 mg PO DAILY tablet 08/06/19 Donepezil HCl [Aricept -] 5 mg PO HS #30 tablet 08/06/19 Valproate Sodium [Depakene -] 500 mg PO BID #120 cup 08/06/19 Haloperidol [Haldol -] 5 mg PO HS tablet 08/10/19 Heparin - 5,000 unit SQ BID vial 08/10/19 Active Medications Acetaminophen (Tylenol -) 650 mg PO Q4H PRN PRN Reason: PAIN LEVEL 1-5 Amino Acids (Prosource No Carb Liquid Pkt) 30 ml PO BID@0800,1730 [facility] Last Admin: 08/21/19 17:05 Dose: 30 ml Atenolol (Tenormin -) 25 mg PO DAILY [facility] Last Admin: 08/21/19 09:28 Dose: 25 mg Atorvastatin Calcium (Lipitor -) 20 mg PO HS [facility] Last Admin: 08/21/19 21:58 Dose: 20 mg Heparin Sodium (Porcine) (Heparin -) 5,000 unit SQ BID [facility] Last Admin: 08/21/19 21:58 Dose: 5,000 unit Lorazepam (Ativan -) 2 mg PO BID [facility] Last Admin: 08/21/19 21:58 Dose: Not Given Olanzapine (Zyprexa -) 15 mg PO BID [facility] Last Admin: 08/21/19 21:59 Dose: 15 mg Pantoprazole Sodium (Protonix -) 40 mg PO DAILY [facility] Last Admin: 08/21/19 09:27 Dose: 40 mg Senna (Senna -) 1 tab PO HS [facility] Last Admin: 08/21/19 21:58 Dose: 1 tab Valproate Sodium (Depakene -) 500 mg PO BID [facility] Last Admin: 08/21/19 21:58 Dose: 500 mg ASSESSMENT AND PLAN: 64 yom with PMhx of hypertension, hld, dementia, bipolar disorder, history of CVA with baseline dysarthria, with progressive agitation, confused, dced to [facility] sent back given ongoing concerns for agitation -Agitation/confusion, suspect progressive cognitive decline+/- Delirium in the setting of underling pscyhiatric disorder -Bipolar disorder -HTN -HLD -h/o CVA with baseline dysarthria Plan: Psych/neurology input noted Zyprexa/Ativan BID. Continue depakote. haldol prn for agitation (QTc 460s) Follow up with psych for additional med management. Seems may benefit from inpatient geripsychiatric admission vs dementia unit in a [place], however, disposition options limited Follow up with social Plan discussed with nursing.
[2019-08-22] MEDS: AMINO ACIDS/PROTEIN HYDROLYS 30 ML LIQUID.PKT PO SCH ×2 (10:47→17:35)
[2019-08-22] MEDS: PANTOPRAZOLE 40 MG TABLET (FP) PO SCH (10:48)
[2019-08-22] MEDS: OLANZapine 5 MG TABLET PO SCH ×2 (10:48→21:43)
[2019-08-22] MEDS: LORazepam 1 MG TABLET PO SCH ×2 (10:48→21:30)
[2019-08-22] MEDS: ATENOLOL 25 MG TABLET (FP) PO SCH (10:48)
[2019-08-22] MEDS: VALPROATE SODIUM 250 MG/5 ML UNIT DOSE CUP PO SCH ×2 (10:49→21:42)
[2019-08-22] MEDS: HEPARIN NA (PORCINE) 5,000 UNITS/ML 1ML VIAL SQ SCH ×2 (10:50→21:43)
--- NOTE | 2019-08-22 12:08 | PN ---
Physical Exam: SUBJECTIVE: Patient seen and examined this am. Required chaparro vest over night as he continues to try to get out of bed. OBJECTIVE: Vital Signs Period Temp Pulse Resp BP Sys/Musa Pulse Ox Last 24 Hr 97.7 F-98.0 F 84-89 18-20 96-134/54-89 93 GENERAL: Restless, confused HEAD: NCAT EYES: EOMI ENT: MMM LUNGS: Clear to auscultation bilaterally, no wheezes, no crackles HEART: Regular rate and rhythm, S1, S2 without murmur ABDOMEN: Soft, nontender, nondistended, + bowel sounds, no guarding EXTREMITIES: no edema. NEUROLOGICAL: Cranial nerves II through XII grossly intact. PSYCH: Confused SKIN: Warm, dry Laboratory Last Values WBC 8.9 K/mm3 (4.0-10.0) 08/17/19 07:20 RBC 4.97 M/mm3 (4.00-5.60) 08/17/19 07:20 Hgb 14.5 GM/dL (11.7-16.9) 08/17/19 07:20 Hct 45.3 % (35.4-49) 08/17/19 07:20 MCV 91.0 fl (80-96) 08/17/19 07:20 MCH 29.2 pg (25.7-33.7) 08/17/19 07:20 MCHC 32.1 g/dl (32.0-35.9) 08/17/19 07:20 RDW 13.6 % (11.9-15.9) 08/17/19 07:20 Plt Count 254 K/MM3 (134-434) 08/17/19 07:20 MPV 9.1 fl (7.5-11.1) 08/17/19 07:20 Absolute Neuts (auto) 5.4 K/mm3 (1.5-8.0) 08/17/19 07:20 Neutrophils % 60.2 % (42.8-82.8) D 08/17/19 07:20 Lymphocytes % 28.9 % (8-40) D 08/17/19 07:20 Monocytes % 10.0 % (3.8-10.2) 08/17/19 07:20 Eosinophils % 0.5 % (0-4.5) 08/17/19 07:20 Basophils % 0.4 % (0-2.0) 08/17/19 07:20 Nucleated RBC % 0 % (0-0) 08/17/19 07:20 Sodium 141 mmol/L (136-145) 08/17/19 07:20 Potassium 4.7 mmol/L (3.5-5.1) 08/17/19 07:20 Chloride 109 mmol/L (98-107) H 08/17/19 07:20 Carbon Dioxide 28 mmol/L (21-32) 08/17/19 07:20 Anion Gap 4 MMOL/L (8-16) L 08/17/19 07:20 BUN 15.5 mg/dL (7-18) 08/17/19 07:20 Creatinine 1.3 mg/dL (0.55-1.3) 08/17/19 07:20 Est GFR (CKD-EPI)AfAm 66.36 08/17/19 07:20 Est GFR (CKD-EPI)NonAf 57.26 08/17/19 07:20 Random Glucose 110 mg/dL (74-106) H 08/17/19 07:20 Calcium 9.0 mg/dL (8.5-10.1) 08/17/19 07:20 Magnesium 2.2 mg/dL (1.8-2.4) 08/17/19 07:20 Total Bilirubin 0.2 mg/dL (0.2-1) 08/17/19 07:20 AST 133 U/L (15-37) H 08/17/19 07:20 ALT 41 U/L (13-61) 08/17/19 07:20 Alkaline Phosphatase 58 U/L (45-117) 08/17/19 07:20 Total Protein 6.6 g/dl (6.4-8.2) 08/17/19 07:20 Albumin 3.5 g/dl (3.4-5.0) 08/17/19 07:20 Active Medications Acetaminophen (Tylenol -) 650 mg PO Q4H PRN PRN Reason: PAIN LEVEL 1-5 Amino Acids (Prosource No Carb Liquid Pkt) 30 ml PO BID@0800,1730 [facility] Last Admin: 08/22/19 10:47 Dose: 30 ml Atenolol (Tenormin -) 25 mg PO DAILY [facility] Last Admin: 08/22/19 10:48 Dose: 25 mg Atorvastatin Calcium (Lipitor -) 20 mg PO HS [facility] Last Admin: 08/21/19 21:58 Dose: 20 mg Heparin Sodium (Porcine) (Heparin -) 5,000 unit SQ BID [facility] Last Admin: 08/22/19 10:50 Dose: 5,000 unit Lorazepam (Ativan -) 2 mg PO BID [facility] Last Admin: 08/22/19 10:48 Dose: 2 mg Olanzapine (Zyprexa -) 15 mg PO BID [facility] Last Admin: 08/22/19 10:48 Dose: 15 mg Pantoprazole Sodium (Protonix -) 40 mg PO DAILY [facility] Last Admin: 08/22/19 10:48 Dose: 40 mg Senna (Senna -) 1 tab PO HS [facility] Last Admin: 08/21/19 21:58 Dose: 1 tab Valproate Sodium (Depakene -) 500 mg PO BID [facility] Last Admin: 08/22/19 10:49 Dose: 500 mg ASSESSMENT/PLAN: 64 y/o M with PMHx Alzheimer's dementia, Bipolar disorder, HTN, HLD, who was discharged to [facility] (for lithium toxicity) and reportedly refused, presents with agitation. #Agitation -In the setting of Bipolor Disorder and Alzheimer's Dementia; Recently discharged for lithium toxicity, was seen by psych who d/c'ed lithium and started haldol -Continue Lorazepam, Olanzapine, Valproate -Haldol PRN for agitation -Psych, Neuro consulted, appreciate rec's -Reorient frequently #CKD III, Resolved -Monitor Cr, Urine Output #HTN -Continue atenolol #HLD -Continue Atorvastatin #FEN -No standing fluids -Replete Lytes PRN -Regular diet #PPx -DVT: Heparin -GI: PPI Dispo: Med Surg, Await placement Visit type - Emergency Visit Emergency Visit: Yes ED Registration Date: 08/10/19 Care time: The patient presented to the Emergency Department on the above date and was hospitalized for further evaluation of their emergent condition. - New Patient This patient is new to me today: Yes Date on this admission: 08/22/19 - Critical Care Critical Care patient: No ATTENDING PHYSICIAN STATEMENT I saw and evaluated the patient. I reviewed the resident's note and discussed the case with the resident. I agree with the resident's findings and plan as documented. SUBJECTIVE: OBJECTIVE: ASSESSMENT AND PLAN:
[2019-08-22] MEDS: SENNOSIDES 8.6MG TABLET (FP) PO SCH (21:43)
[2019-08-22] MEDS: ATORVASTATIN CA 10 MG TABLET (FP) PO SCH (21:43)
[2019-08-23] MEDS: VALPROATE SODIUM 250 MG/5 ML UNIT DOSE CUP PO SCH ×2 (09:24→21:55)
[2019-08-23] MEDS: ATENOLOL 25 MG TABLET (FP) PO SCH (09:25)
[2019-08-23] MEDS: HEPARIN NA (PORCINE) 5,000 UNITS/ML 1ML VIAL SQ SCH ×2 (09:25→21:55)
[2019-08-23] MEDS: OLANZapine 5 MG TABLET PO SCH ×2 (09:25→21:55)
[2019-08-23] MEDS: PANTOPRAZOLE 40 MG TABLET (FP) PO SCH (09:25)
[2019-08-23] MEDS: AMINO ACIDS/PROTEIN HYDROLYS 30 ML LIQUID.PKT PO SCH ×2 (09:25→17:28)
[2019-08-23] MEDS: LORazepam 1 MG TABLET PO SCH (09:25)
--- NOTE | 2019-08-23 12:27 | PN ---
Progress Note (short form) - Note Progress Note: 64 year old male history of Bipolar disorder, Dementia, HTN,HLD . Patient presented with worsening of confusoin. Patient had no fever, no seizure were noticed. There is no new focal neurological ( weakness or face asymmetry) was noticed. Patient is still restrained . pateint went to [place] and was sent back as he try to attack and he was agitated. He was started on zyprexa by psych spoke to nursing staff, no new complain. He remains combative and agitated NEUROLOGICAL EAMINATION alert and keep taking his cloths off and has been fluctuating attention neck is supple, vital stable eomi, pupils reactive no face asymmetry moving all extremity(he is restrained) sensation is normal ct hed no acute findings Assessment/Plan 64 year old male history of Dementia, Bipolar, HTN, HLD. He admitted for worsening of confusion. Delirium secondary to demenita . plan: - continue supportive care, waiting for placement - continue depakote, zyprexa as per psych THanking you so much Jamar Henry MD
--- NOTE | 2019-08-23 12:31 | PN ---
Physical Exam: SUBJECTIVE: Patient seen and examined, no acute changes. on chaparro for fall risk status. OBJECTIVE: Patient is a 64 year old male with a past medical history of hypertension, hld, dementia, bipolar disorder, history of CVA with baseline dysarthria. Patient presented to the ED on 07/23/2019 with lithium toxicity. During hospital stay poison control notified and their recommendations carried out. Strong peaked to 2.1 and now have normalized. He was also evaluated for a possible infection , however his urine and blood cultures were negative and Zosyn discontinued. He was discharged on 08/10/2019 to snf care at [facility] after family decided they could no longer care for him at home. However, he returned a few hours later as [place] ([facility]) was unable to care for him due to his confusion, agitation and combativeness and returned him back to [facility] ED. Vital Signs Period Temp Pulse Resp BP Sys/Musa Pulse Ox Last 24 Hr 97.3 F-98.0 F 86-94 18-92 122-136/50-90 94-94 GENERAL: awake, alert, at times restless HEAD: Normal with no signs of trauma. EYES: PERRL, extraocular movements intact, sclera anicteric, conjunctiva clear. No ptosis. ENT: Ears normal, nares patent, oropharynx clear without exudates NECK: Trachea midline, full range of motion, supple. LUNGS: mostly clear/diminished - followed commands for deep breathing HEART: Regular rate and rhythm ABDOMEN: obese abdomen EXTREMITIES: no edema. NEUROLOGICAL: awake, alert, confused at baseline. SKIN; excoriated skin on anal region and possible early stage 2? Active Medications Generic Name Dose Route Start Last Admin Trade Name Freq PRN Reason Stop Dose Admin Acetaminophen 650 mg 08/10/19 21:11 Tylenol - PO Q4H PRN PAIN LEVEL 1-5 Amino Acids 30 ml 08/20/19 17:30 08/23/19 09:25 Prosource No Carb Liquid Pkt PO 30 ml BID@0800,1730 [facility] Administration Atenolol 25 mg 08/11/19 10:00 08/23/19 09:25 Tenormin - PO 25 mg DAILY [facility] Administration Atorvastatin Calcium 20 mg 08/10/19 22:00 08/22/19 21:43 Lipitor - PO 20 mg HS [facility] Administration Heparin Sodium (Porcine) 5,000 unit 08/20/19 22:00 08/23/19 09:25 Heparin - SQ 5,000 unit BID [facility] Administration Lorazepam 2 mg 08/16/19 22:00 08/23/19 09:25 Ativan - PO 2 mg BID [facility] Administration Olanzapine 15 mg 08/13/19 22:00 08/23/19 09:25 Zyprexa - PO 15 mg BID [facility] Administration Pantoprazole Sodium 40 mg 08/21/19 10:00 08/23/19 09:25 Protonix - PO 40 mg DAILY [facility] Administration Senna 1 tab 08/20/19 22:00 08/22/19 21:43 Senna - PO 1 tab HS [facility] Administration Valproate Sodium 500 mg 08/10/19 22:00 08/23/19 09:24 Depakene - PO 500 mg BID [facility] Administration ASSESSMENT/PLAN: Problem List - Problems (1) Agitation Assessment/Plan: seen by psyche plan: on ativan and zyprexa scheduled calmer today and more cooperative Code(s): R45.1 - RESTLESSNESS AND AGITATION (2) Bipolar disorder Assessment/Plan: s/p lithium, but stopped on last admission for toxicity Code(s): F31.9 - BIPOLAR DISORDER, UNSPECIFIED Qualifiers: Active/Remission status: in partial remission Most recent bipolar episode type: most recent episode unspecified type Qualified Code(s): F31.70 - Bipolar disorder, currently in remission, most recent episode unspecified (3) Dementia Assessment/Plan: supportive care, re orientation neurology consulted and following Code(s): F03.90 - UNSPECIFIED DEMENTIA WITHOUT BEHAVIORAL DISTURBANCE Qualifiers: Dementia type: unspecified type (4) Acute metabolic encephalopathy Assessment/Plan: treated with zosyn for possible infection on last admission, has completed iv antibiotics no signs of infection, wbc stable, afebrile Code(s): G93.41 - METABOLIC ENCEPHALOPATHY (5) Altered mental state Assessment/Plan: see acute metabolic encph. Code(s): R41.82 - ALTERED MENTAL STATUS, UNSPECIFIED Qualifiers: Altered mental status type: somnolence Qualified Code(s): R40.0 - Somnolence (6) Bipolar disorder Assessment/Plan: psych following Code(s): F31.9 - BIPOLAR DISORDER, UNSPECIFIED (7) Strong toxicity Assessment/Plan: on last admission was noted to have lithium toxicity, levels trended down and normalized lithium toxicity resolved Code(s): T56.891A - TOXIC EFFECT OF OTH METALS, ACCIDENTAL (UNINTENTIONAL), INIT Qualifiers: Encounter type: initial encounter Injury intent: accidental or unintentional Qualified Code(s): T56.891A - Toxic effect of other metals, accidental (unintentional), initial encounter (8) Cough Assessment/Plan: chest xray with noted congestion of right lower lung patient in bed and likely developing atelectasis of right LL turn and position, pt to get OOB as tolerated Code(s): R05 - COUGH (9) Stage II decubitus ulcer Assessment/Plan: start on prosource bid for poss. early stage II pressure wound and excoriated skin around anal region. this looks more like skin shearing than a stage 2, but he is at risk for worsening skin breakdown since mostly bed bound. turn and position q2 Code(s): L89.92 - PRESSURE ULCER OF UNSPECIFIED SITE, STAGE 2 (10) DVT prophylaxis Assessment/Plan: heparin protonix PT bowel regimen Code(s): Z29.9 - ENCOUNTER FOR PROPHYLACTIC MEASURES, UNSPECIFIED Visit type - Emergency Visit Emergency Visit: Yes ED Registration Date: 08/10/19 Care time: The patient presented to the Emergency Department on the above date and was hospitalized for further evaluation of their emergent condition. - New Patient This patient is new to me today: No - Critical Care Critical Care patient: No - Discharge Referral Referred to [facility] Med P.C.: No
[2019-08-23] MEDS: SENNOSIDES 8.6MG TABLET (FP) PO SCH (21:55)
[2019-08-23] MEDS: ATORVASTATIN CA 10 MG TABLET (FP) PO SCH (21:55)
--- NOTE | 2019-08-24 07:53 | PN ---
Progress Note, Physician Chief Complaint: Calm today-answering simple questions. Asking to take a shower and wash his hair. No restraints on History of Present Illness: Patient is a 64 year old male with a past medical history of hypertension, hld, dementia, bipolar disorder, history of CVA with baseline dysarthria. Patient presented to the ED on 07/23/2019 with lithium toxicity with prolonged hospitalization due to agitation. Evaluated for a infection, however his urine and blood cultures were negative and Zosyn discontinued. 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 However, he returned a few hours later as [place] ( [facility]) was unable to care for him due to his confusion, agitation and combativeness and returned him back to [facility] ED. - Current Medication List Current Medications: Active Medications Acetaminophen (Tylenol -) 650 mg PO Q4H PRN PRN Reason: PAIN LEVEL 1-5 Amino Acids (Prosource No Carb Liquid Pkt) 30 ml PO BID@0800,1730 [facility] Last Admin: 08/23/19 17:28 Dose: 30 ml Atenolol (Tenormin -) 25 mg PO DAILY [facility] Last Admin: 08/23/19 09:25 Dose: 25 mg Atorvastatin Calcium (Lipitor -) 20 mg PO HS [facility] Last Admin: 08/23/19 21:55 Dose: 20 mg Heparin Sodium (Porcine) (Heparin -) 5,000 unit SQ BID [facility] Last Admin: 08/23/19 21:55 Dose: 5,000 unit Olanzapine (Zyprexa -) 15 mg PO BID [facility] Last Admin: 08/23/19 21:55 Dose: 15 mg Pantoprazole Sodium (Protonix -) 40 mg PO DAILY [facility] Last Admin: 08/23/19 09:25 Dose: 40 mg Senna (Senna -) 1 tab PO HS [facility] Last Admin: 08/23/19 21:55 Dose: 1 tab Valproate Sodium (Depakene -) 500 mg PO BID [facility] Last Admin: 08/23/19 21:55 Dose: 500 mg - Objective Vital Signs: Vital Signs Temperature 97.5 F L 08/24/19 06:03 Pulse Rate 93 H 08/24/19 06:03 Respiratory Rate 19 08/24/19 06:03 Blood Pressure 146/78 08/24/19 06:03 O2 Sat by Pulse Oximetry (%) 94 L 08/23/19 21:00 Additional Findings/Remarks: Constitutional: Yes: Well Nourished, Mild Distress Eyes: Yes: WNL, Conjunctiva Clear HENT: Yes: WNL, Atraumatic, Normocephalic Neck: Yes: WNL, Supple, Trachea Midline Cardiovascular: Yes: WNL, Regular Rate and Rhythm Respiratory: Yes: WNL, Regular, CTA Bilaterally Gastrointestinal: Yes: WNL, Normal Bowel Sounds, Soft, Abdomen, Obese ...Rectal Exam: Yes: Deferred Genitourinary: Yes: Incontinence Breast(s): Yes: WNL Musculoskeletal: Yes: WNL Extremities: Yes: WNL Edema: No Peripheral Pulses WNL: Yes Peripheral Pulses: Left Radial: 2+, Right Radial: 2+, Left Doralis Pedis: 2+, Right Dorsalis Pedis: 2+, Left Femoral: 2+, Right Femoral: 2+ Integumentary: Yes: WNL Neurological: Yes: Alert, Confusion, Dysarthria, Unsteady Gait, Weakness, Calm today ...Motor Strength: WNL Psychiatric: Yes: Alert, calmer today Labs: CBC, BMP 08/17/19 07:20 08/17/19 07:20 Problem List - Problems (1) Agitation Assessment/Plan: Calm today-asking to take a shower and wash his hair safety precautions in place Being followed by Psych- Dr Martha Kunzl depakote 25mg IM given on 08/13 c/w Zyprexa c/w Ativan c/w aricept fall precautions Seen by neurology-Dr Levine not able to be care for by family at home Code(s): R45.1 - RESTLESSNESS AND AGITATION (2) Bipolar disorder Assessment/Plan: s/p lithium, but stopped on last admission for toxicity Code(s): F31.9 - BIPOLAR DISORDER, UNSPECIFIED Qualifiers: Active/Remission status: in partial remission Most recent bipolar episode type: most recent episode unspecified type Qualified Code(s): F31.70 - Bipolar disorder, currently in remission, most recent episode unspecified (3) Dementia Assessment/Plan: supportive care, re orientation c/w aricept pt calm and cooperative today not able to perform ADLs neurology consultation appreciated Code(s): F03.90 - UNSPECIFIED DEMENTIA WITHOUT BEHAVIORAL DISTURBANCE Qualifiers: Dementia type: unspecified type (4) Acute metabolic encephalopathy Assessment/Plan: treated with zosyn for possible infection on last admission, has completed IV antibiotics no signs of infection, wbc stable, afebrile Code(s): G93.41 - METABOLIC ENCEPHALOPATHY (5) Altered mental state Assessment/Plan: Calm today no restraints on presently safety precautions in place Code(s): R41.82 - ALTERED MENTAL STATUS, UNSPECIFIED Qualifiers: Altered mental status type: somnolence Qualified Code(s): R40.0 - Somnolence (6) Prophylactic measure Assessment/Plan: FEN regular diet adequate PO intake monitor electrolytes DVT hepain sq Dispo maintain as in patient full code discharge planning to SNF/in patient psych/dementia unit Code(s): Z29.9 - ENCOUNTER FOR PROPHYLACTIC MEASURES, UNSPECIFIED (7) Tremor Assessment/Plan: tremor at rest noted multifactorial r/t medication, previous agitation,dementia Code(s): R25.1 - TREMOR, UNSPECIFIED (8) Stage II decubitus ulcer Assessment/Plan: stage II ulcer to sacrum turn and reposition q 2h c/w prosource Code(s): L89.92 - PRESSURE ULCER OF UNSPECIFIED SITE, STAGE 2 (9) Cough Assessment/Plan: non productive cough resolving CXR with atelectasis to right will attempt to have pt use IS Code(s): R05 - COUGH Visit type - Emergency Visit Emergency Visit: Yes ED Registration Date: 08/10/19 Care time: The patient presented to the Emergency Department on the above date and was hospitalized for further evaluation of their emergent condition. - New Patient This patient is new to me today: No - Critical Care Critical Care patient: No - Discharge Referral Referred to [facility] Med P.C.: No
[2019-08-24] MEDS: AMINO ACIDS/PROTEIN HYDROLYS 30 ML LIQUID.PKT PO SCH ×2 (09:12→19:00)
[2019-08-24] MEDS: HEPARIN NA (PORCINE) 5,000 UNITS/ML 1ML VIAL SQ SCH ×3 (09:15→22:09)
[2019-08-24] MEDS: VALPROATE SODIUM 250 MG/5 ML UNIT DOSE CUP PO SCH ×3 (09:15→22:09)
[2019-08-24] MEDS: PANTOPRAZOLE 40 MG TABLET (FP) PO SCH (09:16)
[2019-08-24] MEDS: ATENOLOL 25 MG TABLET (FP) PO SCH (09:17)
[2019-08-24] MEDS: OLANZapine 5 MG TABLET PO SCH ×3 (09:17→22:11)
[2019-08-24] MEDS ORDERED: HALOPERIDOL LACTATE 5 MG/ML IM ONE (13:30)
[2019-08-24] MEDS: ATORVASTATIN CA 10 MG TABLET (FP) PO SCH ×2 (21:57→22:10)
[2019-08-24] MEDS: SENNOSIDES 8.6MG TABLET (FP) PO SCH ×2 (21:57→22:11)
[2019-08-25] MEDS ORDERED: LORazepam 2 MG/ML SDV VIAL IM ONE (00:33)
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
[2019-08-25] MEDS ORDERED: PT OWN MED DRAWER 7, Y5N ONE (06:40)
[2019-08-25] MEDS: VALPROATE SODIUM 250 MG/5 ML UNIT DOSE CUP PO SCH ×2 (11:13→21:36)
[2019-08-25] MEDS: ATENOLOL 25 MG TABLET (FP) PO SCH (11:13)
[2019-08-25] MEDS: OLANZapine 5 MG TABLET PO SCH ×2 (11:13→21:36)
[2019-08-25] MEDS: PANTOPRAZOLE 40 MG TABLET (FP) PO SCH (11:13)
[2019-08-25] MEDS: HEPARIN NA (PORCINE) 5,000 UNITS/ML 1ML VIAL SQ SCH ×2 (11:14→21:36)
[2019-08-25] MEDS: AMINO ACIDS/PROTEIN HYDROLYS 30 ML LIQUID.PKT PO SCH ×2 (14:32→17:35)
--- NOTE | 2019-08-25 16:46 | PN ---
Physical Exam: SUBJECTIVE: Patient seen and examined at the bedside. agitated today, was seen overnight for agitation, combativeness. psyche reconsulted OBJECTIVE: Patient is a 64 year old male with a past medical history of hypertension, hld, dementia, bipolar disorder, history of CVA with baseline dysarthria. Patient presented to the ED on 07/23/2019 with lithium toxicity. During hospital stay poison control notified and their recommendations carried out. Brewer peaked to 2.1 and now have normalized. He was also evaluated for a possible infection , however his urine and blood cultures were negative and Zosyn discontinued. 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 However, he returned a few hours later as [place] ([facility]) was unable to care for him due to his confusion, agitation and combativeness and returned him back to [facility] ED. Vital Signs Period Temp Pulse Resp BP Sys/Musa Pulse Ox Last 24 Hr 97.6 F-98.8 F 102-128 20-21 120-150/75-95 96-96 GENERAL: awake, alert, at times restless, combative today HEAD: Normal with no signs of trauma. EYES: PERRL, extraocular movements intact, sclera anicteric, conjunctiva clear. No ptosis. ENT: Ears normal, nares patent, oropharynx clear without exudates NECK: Trachea midline, full range of motion, supple. LUNGS: mostly clear/diminished - followed commands for deep breathing HEART: Regular rate and rhythm ABDOMEN: obese abdomen EXTREMITIES: left hand edema noted NEUROLOGICAL: awake, alert, confused at baseline. SKIN; excoriated skin on anal region and possible early stage 2? Active Medications Generic Name Dose Route Start Last Admin Trade Name Freq PRN Reason Stop Dose Admin Acetaminophen 650 mg 08/10/19 21:11 Tylenol - PO Q4H PRN PAIN LEVEL 1-5 Amino Acids 30 ml 08/20/19 17:30 08/25/19 14:32 Prosource No Carb Liquid Pkt PO Not Given BID@0800,1730 [facility] Atenolol 25 mg 08/11/19 10:00 08/25/19 11:13 Tenormin - PO 25 mg DAILY [facility] Administration Atorvastatin Calcium 20 mg 08/10/19 22:00 08/24/19 22:10 Lipitor - PO Not Given HS [facility] Heparin Sodium (Porcine) 5,000 unit 08/20/19 22:00 08/25/19 11:14 Heparin - SQ 5,000 unit BID [facility] Administration Olanzapine 15 mg 08/13/19 22:00 08/25/19 11:13 Zyprexa - PO 15 mg BID [facility]ISHA Administration Pantoprazole Sodium 40 mg 08/21/19 10:00 08/25/19 11:13 Protonix - PO 40 mg DAILY [facility] Administration Senna 1 tab 08/20/19 22:00 08/24/19 22:11 Senna - PO Not Given HS [facility] Valproate Sodium 500 mg 08/10/19 22:00 08/25/19 11:13 Depakene - PO 500 mg BID [facility] Administration ASSESSMENT/PLAN: Problem List - Problems (1) Agitation Assessment/Plan: agitated overnight and given ativan IM. Psyche reconsulted for agitation and combativeness. On ativan and zyprexa scheduled Code(s): R45.1 - RESTLESSNESS AND AGITATION (2) Bipolar disorder Assessment/Plan: s/p lithium, but stopped on last admission for toxicity Code(s): F31.9 - BIPOLAR DISORDER, UNSPECIFIED Qualifiers: Active/Remission status: in partial remission Most recent bipolar episode type: most recent episode unspecified type Qualified Code(s): F31.70 - Bipolar disorder, currently in remission, most recent episode unspecified (3) Dementia Assessment/Plan: supportive care, re orientation neurology consulted and following Code(s): F03.90 - UNSPECIFIED DEMENTIA WITHOUT BEHAVIORAL DISTURBANCE Qualifiers: Dementia type: unspecified type (4) Acute metabolic encephalopathy Assessment/Plan: treated with zosyn for possible infection on last admission, has completed iv antibiotics no signs of infection, wbc stable, afebrile Code(s): G93.41 - METABOLIC ENCEPHALOPATHY (5) Altered mental state Assessment/Plan: see acute metabolic encph. Code(s): R41.82 - ALTERED MENTAL STATUS, UNSPECIFIED Qualifiers: Altered mental status type: somnolence Qualified Code(s): R40.0 - Somnolence (6) Bipolar disorder Assessment/Plan: psych following Code(s): F31.9 - BIPOLAR DISORDER, UNSPECIFIED (7) Brewer toxicity Assessment/Plan: on last admission was noted to have lithium toxicity, levels trended down and normalized lithium toxicity resolved Code(s): T56.891A - TOXIC EFFECT OF OTH METALS, ACCIDENTAL (UNINTENTIONAL), INIT Qualifiers: Encounter type: initial encounter Injury intent: accidental or unintentional Qualified Code(s): T56.891A - Toxic effect of other metals, accidental (unintentional), initial encounter (8) Cough Assessment/Plan: chest xray with noted congestion of right lower lung patient in bed and likely developing atelectasis of right LL turn and position, pt to get OOB as tolerated Code(s): R05 - COUGH (9) Stage II decubitus ulcer Assessment/Plan: start on prosource bid for poss. early stage II pressure wound and excoriated skin around anal region. this looks more like skin shearing than a stage 2, but he is at risk for worsening skin breakdown since mostly bed bound. turn and position q2 Code(s): L89.92 - PRESSURE ULCER OF UNSPECIFIED SITE, STAGE 2 (10) DVT prophylaxis Assessment/Plan: heparin protonix PT bowel regimen Code(s): Z29.9 - ENCOUNTER FOR PROPHYLACTIC MEASURES, UNSPECIFIED Visit type - Emergency Visit Emergency Visit: Yes ED Registration Date: 08/10/19 Care time: The patient presented to the Emergency Department on the above date and was hospitalized for further evaluation of their emergent condition. - New Patient This patient is new to me today: No - Critical Care Critical Care patient: No - Discharge Referral Referred to [facility] Med [facility] No
[2019-08-25] MEDS ORDERED: HALOPERIDOL DECANOATE 100 MG/ML IM ONE (17:05)
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
[2019-08-25] MEDS: ATORVASTATIN CA 10 MG TABLET (FP) PO SCH (21:36)
[2019-08-25] MEDS: SENNOSIDES 8.6MG TABLET (FP) PO SCH (21:36)
[2019-08-26] MEDS: VALPROATE SODIUM 250 MG/5 ML UNIT DOSE CUP PO SCH ×2 (11:52→21:56)
[2019-08-26] MEDS: AMINO ACIDS/PROTEIN HYDROLYS 30 ML LIQUID.PKT PO SCH ×2 (11:52→16:44)
[2019-08-26] MEDS: PANTOPRAZOLE 40 MG TABLET (FP) PO SCH (11:53)
[2019-08-26] MEDS: HEPARIN NA (PORCINE) 5,000 UNITS/ML 1ML VIAL SQ SCH ×2 (11:53→21:54)
[2019-08-26] MEDS: OLANZapine 5 MG TABLET PO SCH ×2 (11:53→21:56)
[2019-08-26] MEDS: ATENOLOL 25 MG TABLET (FP) PO SCH (12:04)
--- NOTE | 2019-08-26 12:39 | PN ---
Physical Exam: SUBJECTIVE: Patient seen and examined at the bedside. awake, alert, states his name, daughters name. denies pain OBJECTIVE: Patient is a 64 year old male with a past medical history of hypertension, hld, dementia, bipolar disorder, history of CVA with baseline dysarthria. Patient presented to the ED on 07/23/2019 with lithium toxicity. During hospital stay poison control notified and their recommendations carried out. [place] peaked to 2.1 and now have normalized. He was also evaluated for a possible infection , however his urine and blood cultures were negative and Zosyn discontinued. 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 However, he returned a few hours later as [place] ([facility]) was unable to care for him due to his confusion, agitation and combativeness and returned him back to [facility] ED. Vital Signs Period Temp Pulse Resp BP Sys/Musa Pulse Ox Last 24 Hr 98 F-98.2 F 100-128 20-21 110-162/88-95 96-96 GENERAL: awake, alert, at times restless HEAD: Normal with no signs of trauma. EYES: PERRL, extraocular movements intact, sclera anicteric, conjunctiva clear. No ptosis. ENT: Ears normal, nares patent, oropharynx clear without exudates NECK: Trachea midline, full range of motion, supple. LUNGS: mostly clear/diminished - followed commands for deep breathing HEART: Regular rate and rhythm ABDOMEN: obese abdomen EXTREMITIES: left hand edema noted NEUROLOGICAL: awake, alert, confused at baseline. SKIN; excoriated skin on anal region and possible early stage 2? Active Medications Generic Name Dose Route Start Last Admin Trade Name Freq PRN Reason Stop Dose Admin Acetaminophen 650 mg 08/10/19 21:11 Tylenol - PO Q4H PRN PAIN LEVEL 1-5 Amino Acids 30 ml 08/20/19 17:30 08/26/19 11:52 Prosource No Carb Liquid Pkt PO 30 ml BID@0800,1730 LATISHA Administration Atenolol 25 mg 08/11/19 10:00 08/26/19 12:04 Tenormin - PO 25 mg DAILY LATISHA Administration Atorvastatin Calcium 20 mg 08/10/19 22:00 08/25/19 21:36 Lipitor - PO Not Given HS LATISHA Heparin Sodium (Porcine) 5,000 unit 08/20/19 22:00 08/26/19 11:53 Heparin - SQ 5,000 unit BID LATISHA Administration Lorazepam 2 mg 08/25/19 17:07 Ativan Injection - IM Q12H PRN AGITATION Olanzapine 15 mg 08/13/19 22:00 08/26/19 11:53 Zyprexa - PO 15 mg BID LATISHA Administration Pantoprazole Sodium 40 mg 08/21/19 10:00 08/26/19 11:53 Protonix - PO 40 mg DAILY LATISHA Administration Senna 1 tab 08/20/19 22:00 08/25/19 21:36 Senna - PO Not Given HS LATISHA Valproate Sodium 500 mg 08/10/19 22:00 08/26/19 11:52 Depakene - PO 500 mg BID LATISHA Administration ASSESSMENT/PLAN: Problem List - Problems (1) Agitation Assessment/Plan: seen by psyche for agitation, on zyprexa 15 bid, given hadol overnight now on ativan 2mg IM prn Code(s): R45.1 - RESTLESSNESS AND AGITATION (2) Bipolar disorder Assessment/Plan: s/p lithium, but stopped on last admission for toxicity Code(s): F31.9 - BIPOLAR DISORDER, UNSPECIFIED Qualifiers: Active/Remission status: in partial remission Most recent bipolar episode type: most recent episode unspecified type Qualified Code(s): F31.70 - Bipolar disorder, currently in remission, most recent episode unspecified (3) Dementia Assessment/Plan: supportive care, re orientation neurology consulted and following Code(s): F03.90 - UNSPECIFIED DEMENTIA WITHOUT BEHAVIORAL DISTURBANCE Qualifiers: Dementia type: unspecified type (4) Acute metabolic encephalopathy Assessment/Plan: treated with zosyn for possible infection on last admission, has completed iv antibiotics no signs of infection, wbc stable, afebrile Code(s): G93.41 - METABOLIC ENCEPHALOPATHY (5) Altered mental state Assessment/Plan: see acute metabolic encph. Code(s): R41.82 - ALTERED MENTAL STATUS, UNSPECIFIED Qualifiers: Altered mental status type: somnolence Qualified Code(s): R40.0 - Somnolence (6) Bipolar disorder Assessment/Plan: psych following Code(s): F31.9 - BIPOLAR DISORDER, UNSPECIFIED (7) [place] toxicity Assessment/Plan: on last admission was noted to have lithium toxicity, levels trended down and normalized lithium toxicity resolved Code(s): T56.891A - TOXIC EFFECT OF OTH METALS, ACCIDENTAL (UNINTENTIONAL), INIT Qualifiers: Encounter type: initial encounter Injury intent: accidental or unintentional Qualified Code(s): T56.891A - Toxic effect of other metals, accidental (unintentional), initial encounter (8) Cough Assessment/Plan: resolved Code(s): R05 - COUGH (9) Stage II decubitus ulcer Assessment/Plan: start on prosource bid for poss. early stage II pressure wound and excoriated skin around anal region. this looks more like skin shearing than a stage 2, but he is at risk for worsening skin breakdown since mostly bed bound. turn and position q2 Code(s): L89.92 - PRESSURE ULCER OF UNSPECIFIED SITE, STAGE 2 (10) DVT prophylaxis Assessment/Plan: heparin protonix PT bowel regimen Code(s): Z29.9 - ENCOUNTER FOR PROPHYLACTIC MEASURES, UNSPECIFIED Visit type - Emergency Visit Emergency Visit: Yes ED Registration Date: 08/10/19 Care time: The patient presented to the Emergency Department on the above date and was hospitalized for further evaluation of their emergent condition. - New Patient This patient is new to me today: No - Critical Care Critical Care patient: No - Discharge Referral Referred to [facility] Med P[facility] No
[2019-08-26] MEDS: LORazepam 2 MG/ML SDV VIAL IM PRN (20:39)
[2019-08-26] MEDS: SENNOSIDES 8.6MG TABLET (FP) PO SCH (21:56)
[2019-08-26] MEDS: ATORVASTATIN CA 10 MG TABLET (FP) PO SCH (21:56)
[2019-08-27] MEDS: AMINO ACIDS/PROTEIN HYDROLYS 30 ML LIQUID.PKT PO SCH ×2 (08:51→17:42)
[2019-08-27 09:11] VITALS: BP 117/85; PULSE 81; TEMP 98.5
[2019-08-27] MEDS: OLANZapine 5 MG TABLET PO SCH (11:47)
[2019-08-27] MEDS: HEPARIN NA (PORCINE) 5,000 UNITS/ML 1ML VIAL SQ SCH (11:48)
[2019-08-27] MEDS: PANTOPRAZOLE 40 MG TABLET (FP) PO SCH (11:48)
[2019-08-27] MEDS: ATENOLOL 25 MG TABLET (FP) PO SCH (11:48)
[2019-08-27] MEDS: VALPROATE SODIUM 250 MG/5 ML UNIT DOSE CUP PO SCH (11:48)
[2019-08-27] MEDS: LORazepam 2 MG/ML SDV VIAL IM PRN (12:05)
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
--- NOTE | 2019-08-27 13:48 | PN ---
Physical Exam: SUBJECTIVE: Patient seen and examined OBJECTIVE: Patient is a 64 year old male with a past medical history of hypertension, hld, dementia, bipolar disorder, history of CVA with baseline dysarthria. Patient presented to the ED on 07/23/2019 with lithium toxicity. During hospital stay poison control notified and their recommendations carried out. [place] peaked to 2.1 and now have normalized. He was also evaluated for a possible infection , however his urine and blood cultures were negative and Zosyn discontinued. He was discharged on 08/10/2019 to emt intermediate care at [facility] after family decided they could no longer care for him at home. However, he returned a few hours later as [place] ([facility]) was unable to care for him due to his confusion, agitation and combativeness and returned him back to [facility] ED. Vital Signs Period Temp Pulse Resp BP Sys/Musa Pulse Ox Last 24 Hr 97.8 F-98.9 F 81-112 20-22 108-135/73-86 GENERAL: awake, alert, at times restless HEAD: Normal with no signs of trauma. EYES: PERRL, extraocular movements intact, sclera anicteric, conjunctiva clear. No ptosis. ENT: Ears normal, nares patent, oropharynx clear without exudates NECK: Trachea midline, full range of motion, supple. LUNGS: mostly clear/diminished - followed commands for deep breathing HEART: Regular rate and rhythm ABDOMEN: obese abdomen EXTREMITIES: left hand edema noted NEUROLOGICAL: awake, alert, confused at baseline. SKIN; excoriated skin on anal region and possible early stage 2? Active Medications Generic Name Dose Route Start Last Admin Trade Name Tremaineq PRN Reason Stop Dose Admin Acetaminophen 650 mg 08/10/19 21:11 Tylenol - PO Q4H PRN PAIN LEVEL 1-5 Amino Acids 30 ml 08/20/19 17:30 08/27/19 08:51 Prosource No Carb Liquid Pkt PO Not Given BID@0800,1730 LATISHA Atenolol 25 mg 08/11/19 10:00 08/27/19 11:48 Tenormin - PO 25 mg DAILY LATISHA Administration Atorvastatin Calcium 20 mg 08/10/19 22:00 08/26/19 21:56 Lipitor - PO 20 mg HS LATISHA Administration Heparin Sodium (Porcine) 5,000 unit 08/20/19 22:00 08/27/19 11:48 Heparin - SQ 5,000 unit BID LATISHA Administration Lorazepam 2 mg 08/25/19 17:07 08/27/19 12:05 Ativan Injection - IM 2 mg Q12H PRN Administration AGITATION Olanzapine 15 mg 08/13/19 22:00 08/27/19 11:47 Zyprexa - PO 15 mg BID LATISHA Administration Pantoprazole Sodium 40 mg 08/21/19 10:00 08/27/19 11:48 Protonix - PO 40 mg DAILY LATISHA Administration Senna 1 tab 08/20/19 22:00 08/26/19 21:56 Senna - PO 1 tab HS LATISHA Administration Valproate Sodium 500 mg 08/10/19 22:00 08/27/19 11:48 Depakene - PO 500 mg BID LATISHA Administration ASSESSMENT/PLAN: Problem List - Problems (1) Agitation Assessment/Plan: seen by psyche for agitation, on zyprexa 15 bid, now on ativan 2mg IM prn Code(s): R45.1 - RESTLESSNESS AND AGITATION (2) Bipolar disorder Assessment/Plan: s/p lithium, but stopped on last admission for toxicity Code(s): F31.9 - BIPOLAR DISORDER, UNSPECIFIED Qualifiers: Active/Remission status: in partial remission Most recent bipolar episode type: most recent episode unspecified type Qualified Code(s): F31.70 - Bipolar disorder, currently in remission, most recent episode unspecified (3) Dementia Assessment/Plan: supportive care, re orientation neurology consulted and following Code(s): F03.90 - UNSPECIFIED DEMENTIA WITHOUT BEHAVIORAL DISTURBANCE Qualifiers: Dementia type: unspecified type (4) Altered mental state Assessment/Plan: see acute metabolic encph. Code(s): R41.82 - ALTERED MENTAL STATUS, UNSPECIFIED Qualifiers: Altered mental status type: somnolence Qualified Code(s): R40.0 - Somnolence (5) Bipolar disorder Assessment/Plan: psych following Code(s): F31.9 - BIPOLAR DISORDER, UNSPECIFIED (6) [place] toxicity Assessment/Plan: on last admission was noted to have lithium toxicity, levels trended down and normalized lithium toxicity resolved Code(s): T56.891A - TOXIC EFFECT OF OTH METALS, ACCIDENTAL (UNINTENTIONAL), INIT Qualifiers: Encounter type: initial encounter Injury intent: accidental or unintentional Qualified Code(s): T56.891A - Toxic effect of other metals, accidental (unintentional), initial encounter (7) Cough Assessment/Plan: resolved Code(s): R05 - COUGH (8) Stage II decubitus ulcer Assessment/Plan: start on prosource bid for poss. early stage II pressure wound and excoriated skin around anal region. this looks more like skin shearing than a stage 2, but he is at risk for worsening skin breakdown since mostly bed bound. turn and position q2 Code(s): L89.92 - PRESSURE ULCER OF UNSPECIFIED SITE, STAGE 2 (9) DVT prophylaxis Assessment/Plan: heparin protonix PT bowel regimen Code(s): Z29.9 - ENCOUNTER FOR PROPHYLACTIC MEASURES, UNSPECIFIED Visit type - Emergency Visit Emergency Visit: Yes ED Registration Date: 08/10/19 Care time: The patient presented to the Emergency Department on the above date and was hospitalized for further evaluation of their emergent condition. - New Patient This patient is new to me today: No - Critical Care Critical Care patient: No - Discharge Referral Referred to [facility] Med P.C.: No
--- NOTE | 2019-08-27 21:02 | PN ---
Progress Note (short form) - Note Progress Note: Intubation Note Called to bedside secondary to cardiopulmonary arrest. Patient was being AMBU bagged and chest compressions were being performed. Patient was intubated with a mac 3 blade, 8.0mm tube with stylet. Vocal cords were clearly visualized and the tube inserted without trauma. placement was confirmed by auscultation and colormetric color change indicator. Care was left in the hands of the kim team. Tube was secured at 24cm at the lip.
[2019-08-28] MEDS: VALPROATE SODIUM 250 MG/5 ML UNIT DOSE CUP PO SCH (00:40)
[2019-08-28] MEDS: OLANZapine 5 MG TABLET PO SCH (00:41)
[2019-08-28] MEDS: HEPARIN NA (PORCINE) 5,000 UNITS/ML 1ML VIAL SQ SCH (00:41)
[2019-08-28] MEDS: ATORVASTATIN CA 10 MG TABLET (FP) PO SCH (00:41)
[2019-08-28] MEDS: SENNOSIDES 8.6MG TABLET (FP) PO SCH (00:41)
--- NOTE | 2019-08-28 02:54 | RAPID ---
Physical Examination Vital Signs: Vital Signs Temperature 98.5 F 08/27/19 09:10 Pulse Rate 81 08/27/19 09:10 Respiratory Rate 20 08/27/19 09:10 Blood Pressure 117/85 08/27/19 09:10 O2 Sat by Pulse Oximetry (%) 95 08/27/19 09:00 Labs: CBC, BMP 08/17/19 07:20 08/17/19 07:20 Rapid Response - Rapid Response Assessment: Rapid response call at 20:42 as nurse found patient unresponsive then turned to Code 99 at 20:43 as pt found pulseless. CPR was initiated immediately and Next of kin notified. See code sheet for more details. Physical exam at the end of the code: HEENT: pupil fixed and dilated. No light or corneal reflex elicited. No carotid pulse palpated Lung: No air movement Heart: NO heart sounds appreciated Extremities: no peripheral pulses palpated Time of 21:12 pm
== END 2019-08-27 21:12 | disposition expired | DRG 57 ==
LOC: JER 18:22 → JERBED 19:12 → J4S 20:49 → J6S 08-14 21:41
PROVIDERS: ADMIT Internal Medicine; ATTEND Nurse Practitioner Family
PROC: 5A12012 Performance of Cardiac Output, Single, Manual (ICD-10-PCS; principal; 2019-08-27)
PROC: 5A1935Z Respiratory Ventilation, Less than 24 Consecutive Hours (ICD-10-PCS; 2019-08-27)
PROC: 0BH17EZ Insertion of Endotracheal Airway into Trachea, Via Natural or Artificial Opening (ICD-10-PCS; 2019-08-27)
DX: G30.9 Alzheimer's disease, unspecified (principal); F02.81 Dementia in other diseases classified elsewhere, unspecified severity, with behavioral disturbance; J98.11 Atelectasis; R45.1 Restlessness and agitation; F31.9 Bipolar disorder, unspecified; E78.5 Hyperlipidemia, unspecified; N18.3 Chronic kidney disease, stage 3 (moderate); R05 Cough; R41.82 Altered mental status, unspecified; E66.9 Obesity, unspecified; Z68.35 Body mass index [BMI] 35.0-35.9, adult; I12.9 Hypertensive chronic kidney disease with stage 1 through stage 4 chronic kidney disease, or unspecified chronic kidney disease; R25.1 Tremor, unspecified; R09.2 Respiratory arrest
CPT/HCPCS: 36415; 71045-TC-FY; 80048; 80053; 82962; 83735; 85025; 85027; 97116-GP; 97162-GP; 99281-25; J1644